=== PATIENT | female | born 1990 ===

== ENCOUNTER 2023-03-04 10:57 | Outpatient (AMB) | payer BC, MEDICAID, SELFPAY ==
[2023-03-04 11:00] VITALS: BP 132/80; PULSE 70; O2SAT 99; BMI 31.3
--- NOTE | 2023-03-04 11:00 | MHC.PC.OV ---
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 Dr Matthias Barbosa [place] Last office visit/CPE: a few mos ago; switched insurance Acute issue(s): Exertional chest pain. Stops within 10 minutes of resting. Uses propranolol 60mg daily. Had a radiological technologist - needs a new one. Depression/anxiety -re-stablished with her therapist about a week ago. PMHx: Depression with anxiety, imbalance, Tremors, GERD, Palpitations, HTN, Bile reflux SurgHx: [place] teeth, cholecystectomy, appendectomy, FHx: Pt adopted so limited data. GF: Heart disease. SocHx: Nonsmoker. EtOH none. No drugs. HPI Comments History of Present Illness Details Documentation assistance for Jhon Garcia MD, was provided by Boni Jameson,? Sales Representative [employer] on 03/04/2023 11:40 AM EST. Micaela, Dr. Garcia, have read, observed, and verified documentation. PFS Medical History (Updated 03/04/23 @ 11:45 by Boni Jameson) Depression Anxiety Imbalance Tremors of nervous system Acid reflux Palpitations High blood pressure Sinusitis delivery delivered Elbow injury Surgical History (Updated 03/04/23 @ 11:10 by Gemini Ashton CMA) [place] teeth extracted Hx of cholecystectomy Hx of appendectomy Family History (Updated 03/04/23 @ 11:15 by Gemini Ashton CMA) Father Asthma Maternal Grandmother High blood pressure Diabetes Paternal Grandfather High blood pressure Cardiovascular system problem Brother Asthma Social History (Updated 03/04/23 @ 11:22 by Gemini Ashton [facility]) Household Members: Family Housing: Apartment Are you a primary memory care program resident to a significant other at home: Yes Alcohol intake: never Patient Tobacco Use Status: Never used Tobacco e-Cigarette/Vaping Use: Never Used Use of substances other than those prescribed or required for medical reasons: No Have you been hit, kicked, punched, or otherwise hurt by someone within the past year? 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 1. Little interest or pleasure in doing things: several days 2. Feeling down, depressed, or hopeless: several days 3. Trouble falling or staying asleep, or sleeping too much: more than half the days 4. Feeling tired or having little energy: several days 5. Poor appetite or overeating: several days 6. Feeling bad about yourself - or that you are a failure or have let yourself or your family down: not at all 7. Trouble concentrating on things, such as reading the newspaper or watching television: not at all 8. Moving or speaking so slowly that other people could have noticed. Or the opposite - being so fidgety or restless that you have been moving around a lot more than usual: not at all 9. Thoughts that you would be better off or of hurting yourself in some way: not at all Total score: 6 Source: Developed by Drs. Devin Larson, Kimmy Grijalva, Francisco Park and colleagues, with an educational maggi from [employer]. Thrive Questionnaire Date Thrive assessed: 03/04/23 I am a: Patient What is your living situation today?: I have a steady place to live Within the past 12 months, did the food you bought not last and you didn't have the money to get more?: Sometimes True Within the past 12 months, did you worry whether your food would run out before you got money to buy more?: Never true Do you have trouble paying for medicines?: No Do you have trouble getting transportation to medical appointments?: No Do you have trouble paying your heating and electricity bill?: No Do you have trouble taking care of your child, family member or friend?: No Do you have trouble with day-to-day activities such as bathing, preparing meals, shopping, managing finances, etc.?: No Are you currently unemployed and looking for a job?: No Are you interested in more education?: No THRIVE Score: 1 AUDIT C Alcohol Use Questionnaire (AUDIT-C) 1. How often do you have a drink containing alcohol?: Never 3. How often do you have six or more drinks on one occasion?: Never Total Score: 0 LEILANI-7 AMB Questionnaire LEILANI-7 Date LEILANI - 7 assessed: 03/04/23 Feeling nervous, anxious, or on edge: 1 = Several days Not being able to stop or control worryin = Not at all Worrying too much about different things: 1 = Several days Trouble relaxin = Several days Being so restless that it is hard to sit still: 0 = Not at all Becoming easily annoyed or irritable: 1 = Several days Feeling afraid as if something awful might happen: 1 = Several days Total LEILANI-7 score (0-4 normal; 5-9 mild; 10-14 moderate; 15-21 severe): 5 Source: Developed by Drs. Devin Larson, Kimmy Grijalva, Francisco Park and colleagues, with an educational maggi from [employer]. Review of Systems Const Denies chills, Denies fatigue, Denies fever(s), Denies headache(s) and Denies weakness ENT Denies dizziness and Denies headache(s) Card Denies chest pain, Denies lightheadedness, Denies dyspnea and Denies other (Palpitations) Resp Denies cough, Denies dyspnea, Denies wheezing and Denies other ( shortness of breath) Musc Denies numbness and Denies tingling Neuro Denies dizziness, Denies headache(s), Denies numbness, Denies tingling, Denies paresthesias and Denies weakness Psych Reports anxiety and Denies depression Endo Denies fatigue Aller/Immun Denies wheezing Physical exam (Primary Care) Vital Signs: Last Vital Signs Pulse 70 03/04/23 11:00 BP 132/80 03/04/23 11:00 Pulse Ox 99 03/04/23 11:00 Oxygen Delivery Method Room Air 03/04/23 11:00 BMI result Body Mass Index 31.3 Tobacco/Smoking Status: Tobacco use Status Tobacco use date assessed 03/04/23 03/04/23 11:18 Patient Tobacco Use Status Never used Tobacco 03/04/23 11:22 e-Cigarette/Vaping Use Never Used 03/04/23 11:18 PHQ-9: PHQ-9 Score PHQ-9: Total score 6 03/04/23 11:23 Thrive Assessment: Date of Thrive Assessment Date Thrive assessed 03/04/23 03/04/23 11:18 Const General: no acute distress and well developed Nutritional Appearance: obese Orientation/consciousness: patient oriented x3 HENMT Head: Yes normocephalic and Yes atraumatic Eyes General: appearance normal, both eyes and all related structures Pupils: Equal, round and reactive pupils present EOM: EOMs intact bilaterally Resp Effort & Inspection: normal respiratory effort Auscultation: clear to auscultation bilaterally Cardio Rate: regular rate Rhythm: regular rhythm Heart sounds: S1 normal heart sound present, S2 normal heart sound present, no gallops, no murmurs and no rubs Neuro General: patient oriented x3 and gait normal Cranial nerves: Yes Equal, round and reactive pupils present Psych Affect: normal affect Assessment and Plan Assessment & Plan (1) High blood pressure: Code(s): I10 - Essential (primary) hypertension Plan: Pressure?shows?fair?control?on?propranolol?ER?60?mg?daily She?can?continue?this (2) Chest pressure: Code(s): R07.89 - Other chest pain Plan: Patient?has?complaints?of?exertional?chest?pressure?which?improves?with?rest. She?has?had?numerous?workups?at?the?emergency?department?including?an?echocardiogram. Patient?is?adopted?on?certain?of?most?of?her?family?history EKG?today?shows: She?has?had?a?radiological technologist?in?the?past. Will?request?records Will?refer?to?Cardiology. We?discussed?that?if?workups?continue?to?be?unrevealing,?this?would?likely?be?due?to?anxiety.??Patient?understands. (3) Palpitations: Code(s): R00.2 - Palpitations Plan: As?above (4) Depression with anxiety: Code(s): F41.8 - Other specified anxiety disorders Plan: Currently?on?mirtazapine.??She?has?had?a?therapist?and?psychiatrist?in?the?past. She?reestablished?with?her?therapist?last?week?and?I?encouraged?this.??Also?encouraged?her?to?request?that?her?therapist?consider?referring?her?back?to?Psychiatry?as?well. (5) Shoulder pain: Code(s): M25.519 - Pain in unspecified shoulder Plan: Referred?to?physical?therapy (6) Cervicalgia: Code(s): M54.2 - Cervicalgia Plan: Will?refer?her?to?physical?therapy (7) Hip pain: Code(s): M25.559 - Pain in unspecified hip Plan: As?above,?physical?therapy (8) Sleep apnea: Code(s): G47.30 - Sleep apnea, unspecified Plan: Referred?to?Sleep?Medicine (9) Bile acid esophageal reflux: Code(s): K21.9 - Gastro-esophageal reflux disease without esophagitis Plan: She?can?follow-up?with?her?gallbladder?surgeon We?could?also?discuss?bile?sequestrant?at?a?subsequent?visit. (10) Laboratory exam ordered as part of routine general medical examination: Code(s): Z00.00 - Encounter for general adult medical examination without abnormal findings Plan: Check?lab (11) Left-sided chest wall pain: Code(s): R07.89 - Other chest pain Plan: This?appears?different?from?her?complaint?of?exertional?chest?pain.??Discomfort?is?with?deep?inspiration?and?palpation. We?can?follow-up?on?this?if?not?improved?with?physical?therapy Orders: Orders AMB EKG-In Office Today R00.2 - Palpitations, R07.89 - Other chest pain Complete Blood Count Auto Diff Today Z00.00 - Encounter for general adult medical examination without abnormal findings Microalbumin, Random (w Creat) Today I10 - Essential (primary) hypertension Vitamin D 25-OH Total Today E55.9 - Vitamin D deficiency, unspecified Comprehensive Divide. Panel Fast Today Z00.00 - Encounter for general adult medical examination without abnormal findings Lipid Panel Today Z00.00 - Encounter for general adult medical examination without abnormal findings UA and rflx microscopic Today Z00.00 - Encounter for general adult medical examination without abnormal findings TSH reflex Free T4 Today Z00.00 - Encounter for general adult medical examination without abnormal findings PT Evaluation and Treatment Today M25.519 - Pain in unspecified shoulder, M25.559 - Pain in unspecified hip, M54.2 - Cervicalgia Referrals Sleep Medicine Referral G47.30 - Sleep apnea, unspecified Coding Level of Care Code New Pt Level 4 (26266) Diagnoses High blood pressure I10 Chest pressure R07.89 Palpitations R00.2 Depression with anxiety F41.8 Shoulder pain M25.519 Cervicalgia M54.2 Hip pain M25.559 Sleep apnea G47.30 Bile acid esophageal reflux K21.9 Laboratory exam ordered as part of routine general medical examination Z00.00 Left-sided chest wall pain R07.89
== END 2023-03-04 12:57 | disposition home or self-care (01) ==
PROVIDERS: PCP Family Medicine; Visit Provider Family Medicine
DX: I10 Essential (primary) hypertension (principal); R07.89 Other chest pain; R00.2 Palpitations; F41.8 Other specified anxiety disorders; M25.519 Pain in unspecified shoulder; M54.2 Cervicalgia; M25.559 Pain in unspecified hip; G47.30 Sleep apnea, unspecified; K21.9 Gastro-esophageal reflux disease without esophagitis; Z00.00 Encounter for general adult medical examination without abnormal findings
CPT/HCPCS: 99204

== ENCOUNTER 2023-04-04 09:06 | Outpatient (AMB) | payer BC, MEDICAID, SELFPAY ==
--- NOTE | 2023-04-04 09:08 | AM.OFFWIN_ITS ---
Intake Vital Signs 04/04/23 09:09 Height 5 ft 3 in Weight 179 lb BMI 31.7 BP 102/68 Blood Pressure Location Lt brachial Position Sitting Respiration 12 Pulse 89 Pulse Source Pulse Oximeter Temp 98.3 F Temp Source Oral Pulse Oximetry (%) 98 Oxygen Delivery Method Simple Mask Intake Visit Reasons: sore throat Intake Note: Patient reports she has had recurrent strep and now has a sore throat/difficulty swallowing. Patient Tobacco Use Status: Never used Tobacco Archeology Professor Required: No Accompanied by: Self / Same As Patient Allergies SSRI Adverse Reaction (Mild, Uncoded 04/04/23 09:22) Seratonin syndrome Medication List - Last Reconciled 04/04/23 by VIJAY Ring-UNA mirtazapine 30 mg PO BEDTIME propranolol ER 60 mg PO DAILY Do you need a note to return to daycare/school/sports/work: Yes HPI HPI Comments History of Present Illness Details Here today with: Strep throat 1 month ago tx w/ Amoxicillin, completed course. Med claims reviewed she was treated with amoxicillin 500 mg p.o. b.i.d. times 10 days on 03/07/2023 Stomach bug Tuesday - resolved on Tuesday. Sore throat came on Tuesday night. Reports feels like strep hard time swallowing, throat feels like something is in there, headache and fever last night Used APAP which helped a little. [facility] Medical History (Updated 04/04/23 @ 09:30 by VIJAY Ring-UNA) Depression Anxiety Imbalance Tremors of nervous system Acid reflux Palpitations High blood pressure Sinusitis delivery delivered Elbow injury Surgical History (Updated 03/04/23 @ 11:10 by Gemini Ashton CMA) [place] teeth extracted Hx of cholecystectomy Hx of appendectomy Family History (Updated 03/04/23 @ 11:15 by Gemini Ashton CMA) Father Asthma Maternal Grandmother High blood pressure Diabetes Paternal Grandfather High blood pressure Cardiovascular system problem Brother Asthma Social History (Updated 03/04/23 @ 11:22 by Gemini Ashton CMA) Household Members: Family Housing: Apartment Are you a primary nurse healthcare manager to a significant other at home: Yes Alcohol intake: never Patient Tobacco Use Status: Never used Tobacco e-Cigarette/Vaping Use: Never Used Special valentin needs: Yes service: No 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 occupational status: 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 Cognitive needs: No Hearing needs: No (patient is having tinnitis.) Vision needs: Yes (patient wears glasses) Review of Systems Const All systems reviewed & are unremarkable except as noted in HPI and below Physical Exam Vital Signs: Last Vital Signs Temp 98.3 F 04/04/23 09:09 Pulse 89 04/04/23 09:09 Resp 12 04/04/23 09:09 BP 102/68 04/04/23 09:09 Pulse Ox 98 04/04/23 09:09 Oxygen Delivery Method Simple Mask 04/04/23 09:09 BMI result Body Mass Index 31.7 Const Other: Awake alert NAD Sclera and conjunctiva clear bilat TM intact and clear bilat Nares patent MMM, pharynx with exudative pharyngitis, positive anterior cervical adenopathy bilat RRR LS CTAB Results AMB Rapid Strep AMB Rapid Strep Positive Last Edit by Letha Garcia CMA on 4 09:24 Assessment & Plan Assessment & Plan (1) Acute streptococcal pharyngitis: Code(s): J02.0 - Streptococcal pharyngitis Plan: Rapid strep positive today. Orders: Orders AMB Rapid Strep Screen Today Z13.9 - Encounter for screening, unspecified Medications: New amoxicillin-pot clavulanate 875-125 mg 1 tab PO Q12H 10 days 20 tabs 0RF Patient Instructions: Good hand hygiene and respiratory etiquette can reduce the spread of all types of group A strep infection. Hand hygiene is especially important after coughing and sneezing and before preparing foods or eating. Good respiratory etiquette involves covering your cough or sneeze. Do not share food or drinks. Treating an infected person with an antibiotic for 12 hours or longer limits their ability to transmit the bacteria. Thus, people with group A strep pharyngitis should stay home from work, school, or daycare until: They are afebrile AND At least 12?24 hours after starting appropriate antibiotic therapy I also recommend changing toothbrush and washing bed linen in hot water 24 hours after starting antibiotics. Coding Level of Care Code Est Pt Level 3 (72627) Diagnoses Acute streptococcal pharyngitis J02.0
[2023-04-04 09:09] VITALS: BP 102/68; PULSE 89; RESP 12; TEMP 36.8; O2SAT 98; BMI 31.7
== END 2023-04-04 09:32 | disposition home or self-care (01) ==
PROVIDERS: PCP Family Medicine; Visit Provider Nurse Practitioner Family
DX: J02.0 Streptococcal pharyngitis (principal); J02.9 Acute pharyngitis, unspecified
CPT/HCPCS: 87880; 99213

== ENCOUNTER 2023-04-19 10:37 | Outpatient (REF) | payer BC, MEDICAID, SELFPAY ==
[2023-04-19 11:39] LABS: Appearance Urine Clear; Color Urine Yellow; Glucose Urine UA Negative (Negative); Leukocyte Esterase Urine Negative (Negative); Nitrite Urine Negative (Negative); PH 5.5 (5.0-9.0); Urine Blood Negative (Negative); Urine Ketones Negative (Negative); Urine Protein Negative (Neg-Trace)
[2023-04-19 11:39] LABS: Basophils Percent Auto 0.5 % (0-2); Eosinophils Absolute Auto 0.3 X10*3/uL (0.0-0.4); Eosinophils Percent Auto 4.2 % (0-4); Hematocrit 38.8 % (37.0-47.0); Hemoglobin 13.3 g/dl (12.0-16.0); Imm Gran Abs Auto 0.02 X10*3/uL (0.00-0.03); Imm Gran Pct Auto 0.3 % (0.0-0.4); Lymphocytes Absolute Auto 2.2 X10*3/uL (1.2-4.9); Lymphocytes Percent Auto 29.6 % (20-40); MANUAL DIFF FLAG NO; Mean Corpuscular HGB Conc 34.3 g/dl (31.0-35.0); Mean Corpuscular Hemoglobin 29.1 pg (27.0-33.0); Mean Corpuscular Volume 84.9 fL (80.0-98.0); Mean Platelet Volume 9.1 fL (9.4-12.3); Monocytes Absolute Auto 0.4 X10*3/uL (0.1-1.2); Monocytes Percent Auto 5.8 % (2-11); Neutrophils Absolute Auto 4.5 x10*3/uL (2.0-8.3); Neutrophils Percent Auto 59.6 % (45-73); Platelet Count 272 X10*3/uL (160-400); Red Blood Count 4.57 X10*6/uL (4.20-5.50); Red Cell Distribution Width 12.6 % (11.0-16.0); White Blood Count 7.5 X10*3/uL (4.8-10.8)
[2023-04-19 12:25] LABS: Alanine Aminotransferase 21 U/L (0-31); Alkaline Phosphatase 82 U/L (39-117); Anion Gap 10 (12-20); Aspartate Amino Transferase 17 U/L (5-31); Bilirubin Total 0.3 mg/dL (0.0-1.0); Blood Urea Nitrogen 15 mg/dL (9-16); Calcium 8.7 mg/dL (8.4-10.2); Carbon Dioxide 25 mmol/L (22-29); Chloride 109 mmol/L (96-108); Cholesterol 150 mg/dL (<200); Estimated Glomerular Filt Rate > 60; Glucose Fasting 94 mg/dL (60-99); HDL Cholesterol 39 mg/dL (>40); LDL Cholesterol Calculated 91 mg/dL (<100); Potassium 3.8 mmol/L (3.3-5.1); Sodium 140 mmol/L (135-145); TSH reflex Free T4 1.61 uIU/mL (0.32-4.0); Total Protein 6.8 g/dL (6.5-8.0); Triglycerides 103 mg/dL (<150); Vitamin D 25-OH Total 26.6 ng/mL (>30)
[2023-04-19 12:39] LABS: Creatinine Urine 128.52 mg/dL; Microalbum/Creatinine Ratio Ur 4.6 ug/mg cr (<30)
== END 2023-04-19 10:38 | disposition home or self-care (01) ==
LOC: HO.WFDLDS 10:37
PROVIDERS: Visit Provider Family Medicine
DX: Z00.00 Encounter for general adult medical examination without abnormal findings (principal); E55.9 Vitamin D deficiency, unspecified; I10 Essential (primary) hypertension
CPT/HCPCS: 36415; 80053; 80061; 81003; 82043; 82306; 82570; 84443; 85025

== ENCOUNTER 2023-06-23 13:17 | Outpatient (AMB) | payer BC, MEDICAID, SELFPAY ==
--- NOTE | 2023-06-23 13:28 | MHC.OFFVIS ---
Vital Signs 06/23/23 13:32 Height 5 ft 3 in Weight 192 lb 2 oz BMI 34.0 BP 115/64 Blood Pressure Location Lt femoral Position Sitting Pulse 65 Pulse Source Pulse Oximeter Pulse Oximetry (%) 97 Oxygen Delivery Method Room Air Intake Visit Reasons: INP Sleep Apnea - Confirmed Intake Note: Patient presents for sleep apnea. No problem falling asleep is staying asleep is a issue. Sometimes wakes up gasping and coughing during the night. Waking up occasionally with headaches in the am. Having trouble waking up in the morning and body feels heavy and tired. Mostly all day feeling fatigue. Allergies SSRI Adverse Reaction (Mild, Uncoded 04/04/23 09:22) Seratonin syndrome Medication List - Last Reconciled 06/23/23 by VIJAY Clinton mirtazapine 30 mg PO BEDTIME propranolol ER 60 mg PO DAILY HPI Comments Details: 32-yr-old female presents for new in-person patient visit for sleep consultation. PMH included anemia, depression, headache. GERD, HTN, preeclampsia, Pt reports long history of sleep difficulties. However, her sleep issues have worsened after she had her last child, 17 months ago. The and delivery were uneventful. States it was only after the that she started having new issues. Had preeclampsia w/in 24 hr and BP has remained elevated since. She previously had postpatrum preeclampsia w/ her twins (5 yrs ago). She has noticed increased snoring, gasping arousals, morning headaches (dull ache over the left eye to ear region not a/w photo/phonophobia or N/V), weight gain. She has also noticed bilateral ringing in her ears x's the last 9 months. Occasional dizziness- was prominent after she had her last child but now improved. Sleep questionnaire: Have you ever been diagnosed with a sleep disorder? No Have you ever had a sleep study in the past? No Have you ever been treated for a sleep disorder? No Do you take medications for a sleep disorder? No Do you snore? Yes Do you wake up gasping at night? Yes Do you have episodes of apneas? No If yes, are they witnessed? n/a Do you have difficulty initiating sleep? No Do you have difficulty maintaining sleep? Yes- wakes up 6 x's per night Do you wake up tired? Yes Do you have headaches upon awakening? Yes- brief- as above Do you wake up with dry mouth or throat? Denies Do you have GERD? Yes- taking sea yeung gel. cutting back on chocolate. Do you have daytime tiredness or fatigue? Yes Do you have nocturnal leg cramps? Rare foot cramps/aches/tinglings. Do you have symptoms of restless legs? As a child. Occasionally during menses, legs may ache. Do you act out your dreams? Denies. Sleep hygiene questionnaire: What is your usual sleep routine? Usual bedtime is at 11pm-12am; Usual wake-up time is at 8-9am, sometimes 11am. Do you take naps? May nap, but then sleeps for 4 hrs- but these are not refreshing Is your sleep environment cool, dark, and quiet? Not very- her bedroom is a dining room converted to a bed room. Do you exercise? Lately taking 1 mile walks, weighted hooping, stair climbing, core stretching. Do you take caffeine or other stimulants? Sometimes Renato Sharma- at the latest 9pm- has been cutting down. Do you use electronics in bed? 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 Hypersomnolence questionnaire: Do you easily fall asleep when inactive? Yes Have you ever had episodes of sudden weakness? No Have you ever had episodes of sudden weakness associated with strong emotions? No [facility] Medical History (Updated 06/23/23 @ 14:25 by VIJAY Clinton) Depression Anxiety Imbalance Tremors of nervous system Acid reflux Palpitations High blood pressure Sinusitis delivery delivered Elbow injury Surgical History [place] teeth extracted Hx of cholecystectomy Hx of appendectomy Family History Father Asthma Maternal Grandmother High blood pressure Diabetes Paternal Grandfather High blood pressure Cardiovascular system problem Brother Asthma Social History Household Members: Family Housing: Apartment Are you a primary intensive care anaesthetist to a significant other at home: Yes Alcohol intake: never Patient Tobacco Use Status: Never used Tobacco e-Cigarette/Vaping Use: Never Used Special valentin needs: Yes service: No 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 occupational status: 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 Cognitive needs: No Hearing needs: No (patient is having tinnitis.) Vision needs: Yes (patient wears glasses) Review of Systems Const All systems reviewed & are unremarkable except as noted in HPI and below Physical Exam Vital Signs: Last Vital Signs Pulse 65 06/23/23 13:32 BP 115/64 06/23/23 13:32 Pulse Ox 97 06/23/23 13:32 Oxygen Delivery Method Room Air 06/23/23 13:32 BMI result Body Mass Index 34.0 Const General: no acute distress Orientation/consciousness: patient oriented x3 HEENT Other: Mallampati stage IV Resp Effort & Inspection: able to speak in complete sentences Cardio Rate: regular rate Rhythm: regular rhythm Neuro General: patient oriented x3 Psych Mental Status: mental status grossly normal Speech and movement: Clear speech present Attitude: cooperative Assessment & Plan Assessment & Plan (1) Sleep difficulties: Code(s): G47.9 - Sleep disorder, unspecified Category: Medical (2) Snoring: Code(s): R06.83 - Snoring Category: Medical (3) Excessive daytime sleepiness: Code(s): G47.19 - Other hypersomnia Category: Medical Plan Pt advised to undergo HST to assess for sleep apnea. Discussed strategies to optimize sleep hygiene- such as avoiding caffeine 6-8hrs before bedtime. Pt may benefit from reading/listening to [employer] to Insomnia by Dr Jovan oStelo or similar CBTi resources- list of resources shared w/ pt. Monitor tremors and headaches. Pt seen in c/w Dr Mabel Lyons. Orders: Orders RT home sleep study 06/23/23 G47.19 - Other hypersomnia, G47.9 - Sleep disorder, unspecified, R06.83 - Snoring Coding Level of Care Code New Pt Level 4 (65302) Diagnoses Sleep difficulties G47.9 Snoring R06.83 Excessive daytime sleepiness G47.19 Widener Sleepiness Scale Questions Sitting and reading: moderate chance of dozing Watching TV: moderate chance of dozing Sitting inactive in a theater, movie etc.: would never doze As a passenger in a car for an hour without break: high chance of dozing Lying down in the afternoon when circumstances permit: moderate chance of dozing Sitting and talking to someone: would never doze Sitting quietly after lunch without alcohol: high chance of dozing In a car, while stopped for a few minutes in the traffic: would never doze ESS < 10: normal, ESS > 12: pathologic: 12
[2023-06-23 13:32] VITALS: BP 115/64; PULSE 65; O2SAT 97; BMI 34.0
== END 2023-06-23 14:32 | disposition home or self-care (01) ==
PROVIDERS: PCP Registered Nurse; Visit Provider Nurse Practitioner Family
DX: G47.9 Sleep disorder, unspecified (principal); R06.83 Snoring; G47.19 Other hypersomnia
CPT/HCPCS: 99204

== ENCOUNTER → 2023-06-23 13:17 | Outpatient (BNVA) | payer BC, MEDICAID, SELFPAY | PROVIDERS: PCP Registered Nurse; Visit Provider Nurse Practitioner Family ==

== ENCOUNTER → 2023-08-01 13:58 | Outpatient (REF) | payer BC, MEDICAID, SELFPAY | LOC: HO.SL 13:58 | PROVIDERS: PCP Registered Nurse; Visit Provider Nurse Practitioner Family | DX: G47.9 Sleep disorder, unspecified (principal); G47.19 Other hypersomnia; R06.83 Snoring | CPT/HCPCS: 95806 ==

== ENCOUNTER → 2023-08-01 14:43 | Outpatient (BNV) | payer BC, MEDICAID, SELFPAY | PROVIDERS: PCP Registered Nurse; Visit Provider Psychiatry & Neurology Neurology | DX: R06.83 Snoring (principal); R40.0 Somnolence | CPT/HCPCS: 95806 ==

== ENCOUNTER 2023-08-05 09:00 | Outpatient (RCR) | payer BC, MEDICAID, SELFPAY ==
[2023-06-24 08:50] VITALS: BP 130/70; PULSE 64; O2SAT 97
== END 2024-03-09 09:18 | disposition home or self-care (01) ==
LOC: HO.PTWFD 09:00
PROVIDERS: PCP Registered Nurse; Visit Provider Family Medicine
DX: M54.2 Cervicalgia (principal)
CPT/HCPCS: 97110; 97140; 97162; 97530

== ENCOUNTER 2024-01-09 09:52 | Outpatient (AMB) | payer BC, MEDICAID, SELFPAY ==
--- NOTE | 2024-01-09 10:04 | A.OFFVIS_ITS ---
Vital Signs 01/09/24 10:07 Height 5 ft 3 in Weight 193 lb BMI 34.2 BP 128/80 Blood Pressure Location Rt brachial Position Sitting Pulse 78 Pulse Source Pulse Oximeter Pulse Oximetry (%) 98 Oxygen Delivery Method Room Air Intake Visit Reasons: 6 Month F/U Intake Note: Patient presents for a 6 mo fu - Sleep apnea Coordinate Measuring Equipment Operator Required: No Accompanied by: Self / Same As Patient Allergies SSRI Adverse Reaction (Mild, Uncoded 01/05/24 15:51) Seratonin syndrome Medication List - Last Reconciled 01/09/24 by Elías Schwab PA-C mirtazapine 30 mg PO BEDTIME propranolol ER 60 mg PO DAILY ubrogepant (Ubrelvy) 1 tab at onset of headache s, repeat in 2 hrs if needed - max 4 tabs /day PRN; HPI Comments Details: 32-yr-old female h/o cyclic headaches presents for Sleep Study f/u. PMH included anemia, depression, headache. GERD, HTN, preeclampsia, New glasses Feb 2024, she is having vertigo and tremors, hands constantly shaky when she wakes up feels shaky all over the body and it subsides with Propanolol use. BP 128/80, today, usual elevated 140s/90s. during her cycle and post menses. Children aged 10, 8, 5x2 twins, 2. Continued headaches, tightness like a band around the head, ears, and frontalis radiating backwards, cyclic 3-4 a month and mild ones lasting one day, severe headaches, static like, vision changes, since the of twins. Now having word finding difficulty, groggy and slurred speech, but goes away when she increases water and lays down. She takes Ibuprofen, and tylenol as needed. Hearing tinnitus, feels like she has an audible sound in the AM or when hungry or randomly, hears it in the back of her neck, like rice . Sees Practicioner at [facility] - [place] was low and started taking Vitamin C with Iron. (VITRON) - Vahe Recently was DX with PCOS. Her mood is marvin, has a good support network, , parents, [id number], she crochets for fun and reads. ESS today: Hypersomnia PFSH Medical History Depression Anxiety Imbalance Tremors of nervous system Acid reflux Palpitations High blood pressure Sinusitis delivery delivered Elbow injury Surgical History [place] teeth extracted Hx of cholecystectomy Hx of appendectomy Family History Father Asthma Maternal Grandmother High blood pressure Diabetes Paternal Grandfather High blood pressure Cardiovascular system problem Brother Asthma Social History Household Members: Family Housing: Apartment Are you a primary home care manager to a significant other at home: Yes Alcohol intake: never Patient Tobacco Use Status: Never used Tobacco e-Cigarette/Vaping Use: Never Used Special valentin needs: Yes service: No Current occupational status: 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 Oxygen Evert 84% Assessment & Plan Assessment & Plan (1) Excessive daytime sleepiness: Code(s): G47.19 - Other hypersomnia Category: Medical (2) Cervicalgia: Code(s): M54.2 - Cervicalgia Category: Medical (3) Severe frontal headaches: Code(s): R51.9 - Headache, unspecified Category: Medical Plan Patient continues to have cyclic headaches instructed to keep Migraine Diary- Migraine Sheldon chrissie Ubrelvy (Qulipta) 50mg PO daily 1 tab at onset of headache s, repeat in 2 hrs if needed - max 4 tabs /day PRN PT for Cervicalgia B2- 400mg PO Daily Magnesium 400mg PO Daily Follow up in 4 months after she completes the Polysomnography in Clinic Orders: Orders RT PSG in-lab sleep study Today G47.19 - Other hypersomnia, R06.83 - Snoring PT Evaluation and Treatment Today M54.2 - Cervicalgia Medications: New ubrogepant (Ubrelvy) 1 tab at onset of headache s, repeat in 2 hrs if needed - max 4 tabs /day PRN; 14 tabs 6RF migraine riboflavin (vitamin B2) 400 mg PO DAILY 30 tabs 3RF magnesium oxide 400 mg PO DAILY 30 tabs 3RF M54.2 - Cervicalgia Coding Level of Care Code Est Pt Level 4 (21785) Diagnoses Excessive daytime sleepiness G47.19 Cervicalgia M54.2 Severe frontal headaches R51.9 24 B/P Monitor Interpretation Procedure code (CPT) selection complete [place] Sleepiness Scale Questions Sitting and reading: high chance of dozing Watching TV: moderate chance of dozing Sitting inactive in a theater, movie etc.: high chance of dozing As a passenger in a car for an hour without break: high chance of dozing Lying down in the afternoon when circumstances permit: high chance of dozing Sitting and talking to someone: slight chance of dozing Sitting quietly after lunch without alcohol: moderate chance of dozing In a car, while stopped for a few minutes in the traffic: moderate chance of dozing ESS < 10: normal, ESS > 12: pathologic: 19
[2024-01-09 10:07] VITALS: BP 128/80; PULSE 78; O2SAT 98; BMI 34.2
== END 2024-01-09 10:56 | disposition home or self-care (01) ==
PROVIDERS: PCP Family Medicine; Visit Provider Physician Assistant Medical
DX: G47.19 Other hypersomnia (principal); M54.2 Cervicalgia; R51.9 Headache, unspecified
CPT/HCPCS: 99214

== ENCOUNTER → 2024-01-09 09:52 | Outpatient (BNVA) | payer BC, MEDICAID, SELFPAY | PROVIDERS: PCP Family Medicine; Visit Provider Nurse Practitioner Family ==

== ENCOUNTER → 2024-02-02 21:09 | Outpatient (BNV) | payer BC, MEDICAID, SELFPAY | PROVIDERS: PCP Family Medicine; Visit Provider Psychiatry & Neurology Neurology | DX: R06.83 Snoring (principal) | CPT/HCPCS: 95810 ==

== ENCOUNTER → 2024-02-02 21:44 | Outpatient (REF) | payer BC, MEDICAID, SELFPAY | LOC: HO.SL 21:44 | PROVIDERS: PCP Family Medicine; Visit Provider Physician Assistant Medical | DX: G47.19 Other hypersomnia (principal); R06.83 Snoring | CPT/HCPCS: 95810 ==

== ENCOUNTER 2024-03-29 09:00 | Outpatient (RCR) | payer BC, MEDICAID, SELFPAY ==
--- NOTE | 2024-02-24 12:29 | MHC.PT.EP ---
[facility] [place] [facility] [place] [facility] [place] [facility] [address] Rissa Ayers [address] [phone] F: [phone] F: [phone] F: [phone] F: [phone] Physical Therapy Plan of Care Date of Evaluation: 02/24/24 Date of Surgery: Diagnosis: Cervicalgia M54.2 signed by Elías Schwab [facility] 01/09/24 Assessment: Pt is a RHD 33 y/o female with PMH significant for: Depression Anxiety Imbalance Tremors of nervous system Acid reflux Palpitations High blood pressure Sinusitis delivery delivered Elbow injury, referred, [place] teeth extracted Hx of cholecystectomy Hx of appendectomy, to PT for treatment, Cervicalgia M54.2 signed by Elías Schwab [facility] 01/09/24. Pt expressing she has recently had her BP medication adjusted by her mechanical product engineer (still on propranolol, was placed on HCTZ then off of HCTZ due to low potassium) which she states has reduced her dizzy spells. She reports addition of recent supplements magnesium, B2, which she states has reduced her sx of fatigue/word findings issue but also admits to a lot of stress at home. 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 Today she demonstrated (-) neuro screening, normal oculomotor screen, and C/S screening She expresses mild neck pain, tension, and tightness which could be a factor to her headaches sx. She also correlates her headache/migraine sx to her monthly cycle. She reports seeing a provider in the past who questioned her having POTS syndrome and states at one time she was referred to obtain a tilt test which she never got done prior to [place]. SHe has been doing cardio 20-30 minutes for exercise and does report checking her BP at home. She sees mechanical product engineer from [facility], next appt is in a few weeks. She will benefit from attending skilled PT service 2x/week x 4 weeks to address impairments, implement HEP, and restore exercise activity mobility to improve overall health. She has been see for PT at this office in the past with good outcomes. She admits to lack of compliance with her HEP in recent months and has reported plan to shift PCP from [facility]> Dr. Garcia office in [facility] with PCP appt slated in July. Frequency and Duration: The patient will be seen 2x/week x 4 weeks. Short Term Goals: 1. Initiate self care/HEP program. 2. Reduce headache frequency by 50%. 3. Increase strength of periscap/RTC bilaterally B UE. Propeller Driven Airplane Mechanic Goals: 1. I HEP. 2. Strength ER 5/5 B UE. 3. Reduce headaches sx by 75% during ADLS/IADLS. 4. Self care MOD I. 5. NDI scoring improvement by 50%. Treatment Plan: Modalities to reduce pain, spasms and effusion. Manual therapy to restore motion and function. Therapeutic exercise to improve strength and flexibility. Neuromuscular re-education for posture and balance. Therapeutic activities to return to functional activities of daily living. Electronically signed by: Ruba Liu, PT, DPT Please sign and return to therapist. Thank you for your referral.
== END 2024-04-17 11:17 | disposition home or self-care (01) ==
LOC: HO.PTWFD 09:00
PROVIDERS: PCP Family Medicine; Visit Provider Physician Assistant Medical
DX: M54.2 Cervicalgia (principal)
CPT/HCPCS: 97110; 97140; 97162

== ENCOUNTER 2024-04-05 15:33 | Outpatient (AMB) | payer BC, MEDICAID, SELFPAY ==
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
[2024-04-05 15:46] VITALS: BP 114/82; PULSE 79; RESP 16; O2SAT 98; BMI 35.2
--- OUTSIDE RECORDS SUMMARY | 2024-04-05 16:33 | XMS_ITS ---
Author Organization [facility] [employer] [facility] Address [address] [place] [phone] Care Team Providers Care Tug Captain Name Role Phone VICTORINO SORIANO Primary Care Provider TWILA EDMONDS Unavailable [phone] ALLERGIES Allergen (clinical drug ingredient) Drug/Non Drug Allergy documented on EMR Reaction Allergy Type Onset Date Status Substance with serotonin re-uptake inhibitor mechanism of action (substance) SSRI's (uncoded) Serotonin Syndrome Allergy Active REASON FOR VISIT f/u 6w wellness MEDICATIONS Medication SIG (Take, Route, Frequency, Duration) Notes Start Date End Date Status Mirtazapine 30 MG 1 tablet at bedtime Orally Once a day for 90 days Active hydroCHLOROthiazide 25 MG 1 tablet in th e morning Orally Once a day Not-Taking Slynd 4 MG 1 tablet Orally Once a day Not-Taking Not-Taking Propranolol HCl ER 60 MG TAKE 1 CAPSULE BY MOUTH EVERY DAY for 90 Active Ondansetron HCl 4 MG 1 tablet Orally every 8 hours for 30 days PRN 09/21/2023 Active Drospirenone-Ethinyl Estradiol 3-0.02 MG 1 tablet Orally Once a day for 28 days 11/09/2023 Not-Taking metFORMIN HCl ER 500 MG 1 tablet with evening meal Orally Once a day for 30 days 12/23/2023 Not-Taking Multivitamin - 1 tablet Orally Once a day Active Famotidine 20 MG 1 tablet Orally twice a day for 90 days 09/21/2023 Active Beet Root 500 MG as directed Orally Active Stress B Active Vitamin D3 Active SOCIAL HISTORY Tobacco Use: Social History Observation Description Date Details (start date - stop date) Never Smoker NA - NA Sex Assigned At : Social History Observation Description Sex Assigned At Unknown Household Question Answer Notes Marital status: Number of adults in household: 2 Number of children in household: 5 Tobacco Use/Smoking Question Answer Notes Tobacco use: nonsmoker Section Notes: Lives in [place], [place] with and 5 children. PROBLEMS Problem Type ICD Code Onset Dates Problem Status W/U Status Risk SNOMED Code Notes Problem Sexual dysfunction, unspecified (R37) Active confirmed Sexual dysfunction ([id number]) VITAL SIGNS Blood pressure systolic 116 mm Hg 02/22/19 25 Blood pressure diastolic 72 mm Hg 025 Heart Rate 77 /min 02/23/2024 Height 63 in 02/23/2024 Weight 188.4 lbs 02/23/2024 BMI 33.37 kg/m2 02/23/2024 Oximetry 97 % 02/23/2024 Height-cm 160.02 cm 02/23/2024 Weight-kg 85.46 kg 02/23/2024 Encounters Encounter Location Date Provider Diagnosis [address] [id number] 02/23/2024 TWILA EDMONDS Insulin resistance syndrome E88.810 ; Essential (primary) hypertension I10 and Sexual dysfunction, unspecified R37 ASSESSMENTS Encounter Date Diagnosis Assessment Notes Treatment Notes Treatment Clinical Notes Section Notes 02/23/2024 Insulin resistance syndrome (ICD-10 - E88.810) Could not tolerate the metformin Went back to int fasting Low inflammatory foods Will recheck value in 3mo 02/23/2024 Essential (primary) hypertension (ICD-10 - I10) Continue beet root Exercise Weight loss Cardiology as scheduled 02/23/2024 Sexual dysfunction, unspecified (ICD-10 - R37) Discussed childhood trauma in relation to current function She is going to connect with MANAS Wants to reconnect in about 4-6 weeks at this time 02/23/2024 Other Total time spen t with patient 20 minutes which includes face to face visit, education and coordination of care. PLAN OF TREATMENT Treatment Notes Assessment Notes Insulin resistance syndrome Could not tolerate the metformin Went back to int fasting Low inflammatory foods Will recheck value in 3mo Essential (primary) hypertension Continue beet root Exercise Weight loss Cardiology as scheduled Sexual dysfunction, unspecified Discussed childhood trauma in relation to current function She is going to connect with MANAS Wants to reconnect in about 4-6 weeks at this time Other Total time spent wit h patient 20 minutes which includes face to face visit, education and coordination of care. Next Appt Details Follow Up: 6 Weeks, Reason: wellness Progress Notes * VIK DOTSONOB: 9 (33 yo F)Acc No.[id number]:02/23/2024 Progress Notes Patient:??NANETTE DOTSON Provider:??TWILA EDMONDS NP :1990?Age:33 Y?Sex:Fe male Date:02/23/2024 Phone: Address:[address] [place] [phone] Pcp:VICTORINO SORIANO Subjective: * Chief Complaints: * ?F/u 6w wellness * HPI: ?Patient Care Team:?Traffic Observer:??[facility].? Providers/Specialists: OBGYN: [facility], [place], [place] ?Dentist: ?Therapist: Chelsey Panda, [place] ?Senior Art Director: Dr Giraldo at [facility]. ?Visit info:? Nanette presents in the office today for a 6 month wellness check in. ?-Patient has stopped taking her Metformin or her control. ?-Did not have a good experience with the Metformin she had diarrhea, ache in her stomach, anxiety, dizziness, BP and HR elevated. ?-Not taking control as she had a hard time remembering to take it. ?-She has started intermittent fasting 5 weeks ago as well as exercising. 20 minutes a day of both the treadmill and elliptical and watching what she is eating. ?-Still on beet root supplement for BP; was on a diuretic but K level dropped so now just on propranolol ?-went to cardiology 6 weeks ago and thats when decided to restart int fasting ?-next cardiology visit in April ?-Has been to ER twice since last visit; had L pneumonia in January then Norovirus avel mirian ?-Nanette also expressed desire to address intimacy issues that she is having with due to her childhood trauma. * ROS:?all systems reviewed and are non-contributory unless specified in the HPI. * Medical History:?? 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 control??None.??Last pap smear date??2022 - normal per patient.?? * OB History:?? Histo ry:??Total pregnancies:??4,??Full-term pregnancies:??4,??Total living children:??5,??Multiple births:??1.??C section(s)??#3 Was a #4 Was a V-Fela.?? # 1:??Vaginal 2013.?? # 2:??Vaginal 2015.?? # 3??Multiple Births Vaginal/ 2018.?? # 4:??V-Fela 2021.?? * Surgical History:?? 2019Cholecystectomy 2019Appedectomy 2011Left Elbow Surgery 2009Wisdom Teeth Removed 2022(2) CT-Scan - Lungs Normal 2021MRI of the lungs - normal 2021 * Hospitalization/Major Diagno stic Procedure:?? 2019Post depression - 1 week OVID 2019 * Family History:??Father: ali ve, Asthma.??Mother: alive, Asthma, Asperger Syndrome.??Paternal Grandfather: alive, Unknown.??Paternal Grandmother: , Diabetes.??Maternal Grandfather: , Heart Disease.??Maternal Grandmother: , Depression.??Brother: alive, Asthma.??Sister: alive.??Brother #2: alive.??Sister #2: alive.?? Adopted. * Social History:?Tobacco Use:??Tobacco Use/Smoking??Tobacco use:??nonsmoker.?Drugs/Alcohol:??Do you smoke marijuana?: Denies. Do you drink alcohol?: No. 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 ?Lives in [place], [place] with and 5 children. * Medications:??TakingBeet Chana t 500 MG Capsule as directed Orally Stress B Vitamin D3 Multivitamin - Tablet 1 tablet Orally Once a day Famotidine 20 MG Tablet 1 tablet Orally twice a day Ondansetron HCl 4 MG Tablet 1 tablet Orally every 8 hours As needed for nausea, Notes to Pharmacist: PRNPropranolol HCl ER 60 MG Capsule Extended Release 24 Hour TAKE 1 CAPSULE BY MOUTH EVERY DAY Mirtazapine 30 MG Tablet 1 tablet at bedtime Orally Once a day Taking Beet Root 500 MG Capsule as directed Orally Taking Stress B Taking Vitamin D3 Taking Multivitamin - Tablet 1 tablet Orally Once a day Taking Famotidine 20 MG Tablet 1 tablet Orally twice a day Taking Ondansetron HCl 4 MG Tablet 1 tablet Orally every 8 hours As needed for nausea, Notes to Pharmacist: PRNTaking Propranolol HCl ER 60 MG Capsule Extended Release 24 Hour TAKE 1 CAPSULE BY MOUTH EVERY DAY Taking Mirtazapine 30 MG Tablet 1 tablet at bedtime Orally Once a day Atb-FsgbuxZdzclekrypub-Pwlfjia Estradiol 3-0.02 MG Tablet 1 tablet Orally Once a day metFORMIN HCl ER 500 MG Tablet Extended Release 24 Hour 1 tablet with evening meal Orally Once a day hydroCHLOROthiazide 25 MG Tablet 1 tablet in the morning Orally Once a day Slynd 4 MG Tablet 1 tablet Orally Once a day Medication List reviewed and reconciled with the patientNot-Taking Drospirenone-Ethinyl Estradiol 3-0.02 MG Tablet 1 tablet Orally Once a day Not-Taking metFORMIN HCl ER 500 MG Tablet Extended Release 24 Hour 1 tablet with evening meal Orally Once a day Not-Taking hydroCHLOROthiazide 25 MG Tablet 1 tablet in the morning Orally Once a day Not- Taking Slynd 4 MG Tablet 1 tablet Orally Once a day Not-Taking Medication List reviewed and reconciled with the patient * Allergies:??SSRI's: Serotoni n Syndrome - Allergy Objective: * Vitals:??BP:116/72mm Hg, HR: 77/min, Oxygen sat %:97%, Wt:188.4lbs, Wt-k.46 kg, Ht: 63 in, Ht-cm: 160.02 cm, BMI:33.37Index, Body Surface Area: 1.95. * Examination: ?General Examination: ?GEN: NAD, speaking in full complete sentences, thoughts clear and appropriate ?RESP: nonlabored breathing, lungs clear/equal all nichole ?CV: S1S2 regular ?NEURO: AO x 3 ?PSYCH: judgment/insight intact, NL mood/affect. Assessment: * Assessment: 1.??Insulin resistance syndr ome - E88.810 (Primary)??2.??Essential (primary) hypertension - I10??3.??Sexual dysfunction, unspecified - R37?? Plan: * Treatment: 2.??Essential (primary) hype rtension?? Notes: Continue beet root Exercise Weight loss Cardiology as scheduled? 3.??Sexual dysfunction, unsp ecified?? Notes: Discussed childhood trauma in relation to current function She is going to connect with MANAS Wants to reconnect in about 4-6 weeks at this time? 4.??Others?? Notes: Total time spent with patient 20 minutes which includes face to face visit, education and coordination of care.? * Procedure Codes:?? * Preventive Medicine:?Last CPE: 2021 Colonoscopy: NO Endoscopy: No COVID Vac: No Flu Vac: Does not believe as saved by the lord Td/Tdap: UTD Hep A/Hep B: educated LIFTER/DRIVER: Pap 2 years ago SBE: educated Eye Exam: UTD Dental Exam: due Depression Scale: neg except for fatigue Alcohol Misuse Screening: Smoking Cessation: nonsmoker Screened HTN, diabetes, BMI addressed. * Follow Up:??6 Weeks (Reason: wellness) * Billing Information: * Visit Code:?? 52031 Office Visit, Est Pt., Level 3. * Procedure Codes:?? * Sign off status: Completed true * Provider:??TWILA EDMONDS NP Date:?? History and Physical Notes * HPI (History of Present Illness) Category Sub-Category Detail Notes Category Not es Patient Care Team Traffic Observer: [facility] Providers/Specialis ts: [facility] [place] [facility]ist: Therapist: Ailin Coley [place], [place] Senior Art Director: Dr Giraldo at [facility] [place] Visit kita Costello presents in the office today for a 6 month wellness check in. -Patient has stopped taking her Metformin or her control. -Did not have a good experience with the Metformin she had diarrhea, ache in her stomach, anxiety, dizziness, BP and HR elevated. -Not taking control as she had a hard time remembering to take it. -She has started intermittent fasting 5 weeks ago as well as exercising. 20 minutes a day of both the treadmill and elliptical and watching what she is eating. -Still on beet root supplement for BP; was on a diuretic but K level dropped so now just on propranolol -went to cardiology 6 weeks ago and thats when decided to restart int fasting -next cardiology visit in April -Has been to ER twice since last visit; had L pneumonia in January then Norovirus avel mirian -Nanette also expressed desire to address intimacy issues that she is having with due to her childhood trauma Examination Category Sub-Category Detail Notes Category Not es General Examination GEN: NAD, speaking in full complete sentences, thoughts clear and appropriate RESP: nonlabored breathing, lungs clear/equal all nichole CV: S1S2 regular NEURO: AO x 3 PSYCH: judgment/insight intact, NL mood/affect
--- OUTSIDE RECORDS SUMMARY | 2024-04-05 16:34 | XMS_ITS ---
Author Organization [facility], [facility] Address [address] [place] [phone] Care Team Providers Care Director Service Name Role Phone VICTORINO SORIANO Primary Care Provider [phone] [facility] TWILA EDMONDS Unavailable [phone] REASON FOR VISIT Refills MEDICATIONS Medication SIG (Take, Route, Fr equency, Duration) Notes Start Date End Date Status Mirtazapine 30 MG 1 tablet at bedtime Orally Once a day for 90 days Active Encounters Encounter Location Date Provider Diagnosis [address] [id number] 02/21/2024 TWILA EDMONDS PLAN OF TREATMENT Medication Medication Name Sig Start Date Stop Date Notes Mirtazapine 30 MG 1 tablet at bedtime Orally Once a day for 90 days Progress Notes * MARGY DOTSONMICAELAOB: 9 (33 yo F)Acc No.[id number]:02/21/2024 Patient:??NANETTE DOTSON :1990?Age:33 Y?Sex:Fe male Phone: Address:[address] [place] [phone] * Refills?? Refill Mirtazapine Tablet, 30 MG, Orally, 90, 1 tablet at bedtime, Once a day, 90 days, Refills=0 * true * Date:??
--- OUTSIDE RECORDS SUMMARY | 2024-04-05 16:34 | XMS_ITS ---
Author Organization [facility], [facility] Address [address] [place] [phone] Care Team Providers Care Cooker Operator Name Role Phone VICTORINO SORIANO Primary Care Provider TWILA EDMONDS Unavailable [phone] REASON FOR VISIT Message MEDICATIONS Medication SIG (Take, Route, Fr equency, Duration) Notes Start Date End Date Status Famotidine 20 MG 1 tablet Orally once a day for 90 days 09/21/2023 Active Mirtazapine 30 MG 1 tablet at bedtime Orally Once a day for 90 days Active Encounters Encounter Location Date Provider Diagnosis [address] [id number] 03/14/2024 TWILA EDMONDS GERD without esophagitis K21.9 ASSESSMENTS Encounter Date Diagnosis Assessment Notes Treatment Notes Treatment Clinical Notes Section Notes 03/14/2024 GERD without esophagitis (ICD-10 - K21.9) PLAN OF TREATMENT Medication Medication Name Sig Start Date Stop Date Notes Famotidine 20 MG 1 tablet Orally once a day for 90 days Mirtazapine 30 MG 1 tablet at bedtime Orally Once a day for 90 days Progress Notes * FATMATAEveliaMAISHAVIKOB: 9 (33 yo F)Acc No.[id number]:03/14/2024 Patient:??NANETTE DOTSON :1990?Age:33 Y?Sex:Fe male Phone: Address:[address] [place] [id number] * Refills?? Refill Famotidine Tablet, 20 MG, Orally, 90 Tablet, 1 tablet, once a day, 90 days, Refills=1 Refill Mirtazapine Tablet, 30 MG, Orally, 90, 1 tablet at bedtime, Once a day, 90 days, Refills=1 * true * Date:??
--- OUTSIDE RECORDS SUMMARY | 2024-04-05 16:34 | XMS_ITS | Data Portability ---
Author Organization [place] - [facility], [facility] Address [address] [place] [address] Care Team Providers Care Tube And Manifold Builder Name Role Phone ZOLTAN CHAU Primary Care Provider [phone] SUZANNA HARMON OTHER Assessment Encounter Date Assessment Date Assessment LastModified by Organization Details LastModified Time 07/27/2022 07/27/2022 31yo presents for annual wellness visit, reports increased anxiety/depressio n before menses and would like STI testing. . -APPLIANCE ADJUSTER exam WNL, up-to-date on Pap. Desires STI testing and bloodwork. GC/CT and Affirm collected and sent. -Encouraged regular monthly SBEs and instructed on how to perform. -Counseled on various contraceptive options including IUDs, implant, pills, patch, ring and injection. We discussed anticipated bleeding patterns and side effects of each as well as FDA approved duration of use. We also reviewed recommendation for condoms to prevent STDs. After this discussion the patient opted for POPs. Administration instructions provided, Rx sent. Plan for f/u telehealth visit in 3 months. -IPV negative today -PHQ2=19 today. Reporting PMDD symptoms, has been seeing psychiatrist and has started new medication regimen about 1-2 months ago. Encouraged to continue to follow up with her provider and continue to report her symptoms. Discussed plan to also complete hormone levels and will follow up with results as indicated. Reports partner, family and yarsani is supportive. Denies SI. RTO in 3 months for telehealth BC f/u visit and 1 year for annual wellness visit, and prn with any concerns. [email or web address] Not available 07/27/2022 11:07:24 Plan of Treatment Reminders Order Date Submit Date Provider Last Modified By Organization Details Last Modified Time Details Appointments None recorded. Lab CT + NG DNA, PCR, unspecifie d specimen 2022 023 [facility], [address] [place] [address], 3 22:34:00 hepatitis C Ab, serum 2022 023 [facility], [address] [place] [address], 3 03:02:38 HBsAg (hepatitis B surface Ag), confirmati on, serum 2022 023 [facility], [address] [place] [address], 3 03:02:37 RPR (rapid plasma reagin), serum 2022 023 [facility], [address] [place] [address], 3 03:02:39 HIV 1+2 AB + HIV 1 p24 Ag, qualitativ e immunoassa y, serum 2022 023 [facility], [address] [place] [address], 3 03:02:37 bacterial vaginosis + vaginitis panel, vaginal 2022 023 [facility], [address] [place] [address], 3 12:22:24 lh + FSH, serum 2022 023 [facility], [address] [place] [address], 3 03:02:36 estradiol, serum 2022 023 [facility], [address] [place] [address], 3 03:02:36 prolactin, serum 2022 023 [facility], [address] [place] [address], 3 03:02:38 TSH, serum or plasma 2022 023 [facility], [address] [place], [address] 3 03:02:39 testostero ne, free, serum 2022 023 [facility], [address] [place], [address] 3 10:48:20 cortisol, serum or plasma 2022 023 [facility], [address] [place], [address] 3 10:48:20 hemoglobin (Hb), fingerstic k, blood 2021 022 judd In-Office Order, Internal Use Only DO Not Attach Compendium DO Not Attach Compendium, Do Not Delete/merge, [id number] 17:06:45 Referral None recorded. Procedures None recorded. Surgeries None recorded. Imaging None recorded. Medication Orders norethindr one (contracep tive) 0.35 mg tablet 2022 023 [facility], [address] [facility], [place], [address], 10:34:41 Patient Targets Encounter Date Encounter Id Patient Goals Patient Target Last Modified By Organization Details Last Modified Time GOALS: BF on demand 8-12x/day minimum. Discussed normal feeding cues; normal feeding pattern of on demand , normal voids & stools, signs of a good latch, signs of milk transfer Asymmetrical Deep latch technique, breast sandwich, hand expression, Skin to skin, positions; nipple care. BF ad mya on demand per AAP recommendation exclusive for 6 months, with continuation of for 1 year or longer as mutually desired by mother and infant. Latch is deep and painless with adequate milk transfer; as evidenced by swallowing at breast and softness in breast after feed, and adequate voids & stools in : 1 void/1stool on DOL #1; 2voids/2 stools DOL # 2... advancing to 6-8 wet diapers and 3-5 yellow seedy stools begin by day of life 5 onwardAverage Infant weight gain: 5.5-8.5oz/wk 0-4mo 3.25-4.5oz/wk 4-6mo 1.75-2.75 oz/wk 6-12moBreastfeedin g is a mutually positive experience for both mom and babyMaximize oral function and supply [email or web address] Not available 03/09/2022 11:51:21 GOALS:Maximize supply and milk transferImprove oral function; decrease reflux symptoms BF on demand 8-12x/day minimum. Discussed normal feeding cues; normal feeding pattern of on demand , normal voids & stools, signs of a good latch, signs of milk transfer Asymmetrical Deep latch technique, breast sandwich, hand expression, Skin to skin, positions; nipple care. BF ad mya on demand per AAP recommendation exclusive for 6 months, with continuation of for 1 year or longer as mutually desired by mother and infant. Latch is deep and painless with adequate milk transfer; as evidenced by swallowing at breast and softness in breast after feed, and adequate voids & stools in : 1 void/1stool on DOL #1; 2voids/2 stools DOL # 2... advancing to 6-8 wet diapers and 3-5 yellow seedy stools begin by day of life 5 onwardAverage Infant weight gain: 5.5-8.5oz/wk 0-4mo 3.25-4.5oz/wk 4-6mo 1.75-2.75 oz/wk 6-12moBreastfeedin g is a mutually positive experience for both mom and baby [email or web address] Not available 05/25/2022 15:32:13 Patient Instructions Encounter Date Encounter Id Patient Instructions Last Modified By Organization Details Last Modified Time 01/22/2022 [id number] preeclampsia: ca re instructions judd Not available 01/22/2022 12:09:09 Patient is now almost 4 weeks status post successful TOLAC and subsequent development of preeclampsia requiring readmission for magnesium sulfate treatment. She was discharged home on 2 antihypertensives. She discontinue the nifedipine but was concerned about her blood pressure rise and is now on both medications for the past 2 days. She feels she had a better response to being on the nifedipine. We decided that she will illuminate her evening labetalol now and continue to check her blood pressures. If they stay well controlled she can then illuminate her morning labetalol. We will see her back in 2 to 3 weeks for a regular visit. MDM is minimal for reviewing the patient's history, addressing the issue of preeclampsia and adjusting medications judd Not available 01/22/2022 12:09:08 02/09/2022 [id number] high blood press ure in : care instructions judd Not available 02/09/2022 15:45:30 Now 6 weeks stat us post successful TOLAC. She is still having issues with elevated blood pressures. I explained to her we do not need to have as tight blood pressure control now that she is not as beforehand. I suggested she not try to quarter her labetalol as it is likely less accurate. I explained she could probably cut 1 and half and dropped down to 50 mg at night first and then try 50 mg twice a day while continuing on her Procardia. She can seek further advice from her e/m engineer. judd Not available 02/09/2022 15:44:50 03/09/2022 [id number] Asymmetric latch as reviewed; see handout BF both breast per feeding session lip and buccal stretch, lateralizations rhythmic rocking, arm circles and back strokes; upper shoulder massage, ribcage rock, minimize container time; tummy time as tolerated; use roll in method for tummy time; ;do over lap, over bent knees; over arm for modified TT if not tolerating on floor Consider hopital grade pump rental or Abril Florentino for 2nd hand pump floor worker names given; do stretches given for now BF Suggested Diet: Eat Protein, fat & fiber with every meal. Breakfast is a must; keep water bottle full and hydrate throughout day 80-100 oz/d. BF requires extra 500 calories a day; frequent healthy snacks . Body armour, coconut water for hydration [email or web address] Not available 03/09/2022 12:02:41 30 min spent with patient & more than 50% of time spent with patient counseling and coordinating care & education [email or web address] Not available 03/09/2022 11:51:08 05/25/2022 [id number] SNS system to supplement @ breast Probiotic for baby\ Consider Hylands #10 Marah Phos 6x 1 tab under tongue 4x/d Consider hydrolized formula next (kendamil) Discuss with ped about considering GI referral/swallow study, ENT referral regarding congestion, reflux s/s and if cleared if would consider pursuing TT release. THIS NEEDS TO BE BALANCED WITH MATERNAL PSYCH WELL BEING Baby stretches as shown for body tension (video) Not available 05/25/2022 15:36:33 30 min spent with patient & more than 50% of time spent with patient counseling and coordinating care & education Not available 05/25/2022 15:31:25 07/27/2022 [id number] premenstrual syndrome (PMS): care instructions [email or web address] Not available 07/27/2022 10:32:08 Patient presents for a well woman exam. Her history is unremarkable and her exam is significant for symptoms of PMDD, remaining exam WNL. She has been counseled regarding Pap smear screening as per guidelines of every three years for cytology review with high risk HPV testing. Desires STI testing today. Completing hormone bloodwork today as well. She has been counseled regarding control and safe sex as well as monthly self-breast exams. Decided to begin progestin only pills for contraception and PMDD symptoms, administration instructions provided and Rx sent. Also has psychiatrist which is managing medications for anxiety/depression. She was been told to reschedule a well woman Executive Vice President Of Sales exam in one year and to call us with any question or concerns regarding her health and welfare. [email or web address] Not available 07/27/2022 11:07:23 Reason for Referral None Reported. Results Created Date Observation Date Name Description Value Unit Range Abnormal Flag Note LastModifiedBy Organization Detail LastModifiedTime 12/24/19 22 12/23/2021 SARS COV 2 RNA (COVI D 19), QUALI TATIV E sars cov 2 RNA Not detect ed not detect ed A Not Detec lisa (nega tive) test resul t for this test means that SARS- CoV-2 RNA was not prese nt in the speci men above the limit of detec tion. A negat js resul t does not rule out the possi bilit y of COVID -19 and shoul d not be used as the sole basis for treat ment or patie nt manag ement decis ions. If COVID -19 is still suspe cted, based on expos ure histo ry toget her with other clini melida findi ngs, re-te sting shoul d be consi dered in consu ltati on with publi c healt h autho ritie s. Labor atory test resul ts shoul d alway s be consi dered in the eleanor xt of clini melida jean paul vatthierry ns and epide fritz gical data in jason g a final diagn osis and patie nt manag ement decis ions. This test has been autho rized by the FDA under an Emerg ency Use Autho rizat ion (EUA) for use by autho rized labor atori es. Metho dolog y: Real- Time RT PCR Addit ional infor matio n about COVID -19 can be found on the QuickProNotes rs for Disea se Contr ol and Preve ntion websi te: www.[employer].go v/cor onavi 019-n cov/i ndex. html Not Available [facility] [address] [place], [address] 12/24/2021 08:26:17 02/10/20 22 02/09/2022 hemog lobin (Hb), finge rstic k, blood HGB 12.5 Not Available In-Office Order Internal Use Only DO Not Attach Compendium DO Not Attach Compendium, Do Not Delete/merge, [id number] 02/09/2022 15:25:08 07/18/19 23 07/17/2022 [facility] - CANCE R HISTO RY ASSES SMENT RESUL T [facility] [place] history assessment result Does NOT meet criter ia normal See PDF for compl ete resul [facility] Hered itary cance r crite jaime asses sment - DOES NOT MEET CRITE JAIME Not Available [facility] [address] [place] [address], [address], 07/17/2022 21:21:19 07/27/19 23 07/26/2022 [facility] - CANCE R HISTO RY ASSES SMENT RESUL T [facility] [place] history assessment result Does NOT meet criter ia normal See PDF for compl ete resul [facility] Hered itary cance r crite jaime asses sment - DOES NOT MEET CRITE JAIME Not Available [facility] [address] [place], [address], 07/26/2022 18:13:20 07/28/19 23 07/27/2022 ESTRA DIOL estradiol 68 pg/mL Refer ence Range s ----- ----- ----- ----- ---- Menst ruati ng Femal es: Folli cular Phase : 21-25 1 Mid-C ycle Phase : 38-64 9 Lutea l Phase : 21-31 2 Postm enopa usal Femal es not on Horom one Repla cemen t Thera py: <10-2 8 Postm enopa usal Femal es on HRT: <10-1 44 Not Available [facility] [address], [place], [facility] 07/28/2022 03:02:35 07/28/19 23 07/27/2022 FSH AND LH PROFI LE follicle-sti mulating hormone 7.3 mIU/m L Refer ence Range s ----- ----- ----- ----- ---- Cande l Menst ruati ng Femal es: Folli cular Phase 3.0-8 .1 Mid-C ycle: 2.6-1 6.7 Lutea l Phase : 1.4-5 .5 Postm enopa usal: 26.7- 133.4 Not Available [facility] [address], [place], [facility] 07/28/2022 03:02:36 07/28/19 23 07/27/2022 FSH AND LH PROFI LE luteinizing hormone 5.6 mIU/m L Refer ence Range s ----- ----- ----- ----- ---- Cande l Menst ruati ng Femal es: Folli cular Phase 1.8-1 1.8 Mid-C ycle Peak: 7.6-8 9.1 Lutea l Phase : 0.6-1 4.0 Postm enopa usal: 5.2-6 2.0 Not Available [facility] [address] [place], [address] 07/28/2022 03:02:36 07/28/1907/27/2022 HEPAT ITIS B SURFA CE ANTIG EN hepatitis B surface antigen Non-Re active non-re active Not Available [facility] [address] [place], [address] 07/28/2022 03:02:37 07/28/19 23 07/27/2022 HIV 1/2 HIV 1/2 antigen Non-Re active non-re active Resul ts show no evide nce of infec tion by HIV 1/2. If clini barry indic ated, repea t CMIA or test by nucle ic acid ampli ficat ion. Not Available [facility] [address] [place], [address] 07/28/2022 03:02:37 07/28/19 23 07/27/2022 HEPAT ITIS C ANTIB SOFÍA REFLE X PCR QUANT hepatitis C Ab reflex HCV PCR quant 0.59 Non-Re active S/co non-re active Not Available [facility] [address] [place] [address], [address] 07/28/2022 03:02:38 07/28/19 23 07/27/2022 PROLA CTIN prolactin 5.1 NG/mL 5.2-26 .5 low Not Available [facility] [address] [place], [address] 07/28/2022 03:02:38 07/28/19 23 07/27/2022 TSH, REFLE X FREE T4 TSH 1.20 mIU/L 0.35-4 .94 Not Available [facility] [address] [place], [address] 07/28/2022 03:02:39 07/28/19 23 07/27/2022 VAGIN ITIS PROFI LE gardnerella Negati ve negati ve Not Available [facility] [address] [place], [address] 07/28/2022 12:22:24 07/28/19 23 07/27/2022 VAGIN ITIS PROFI LE trichomonas Negati ve negati ve Not Available [facility] [address] [place], [address] 07/28/2022 12:22:24 07/28/19 23 07/27/2022 VAGIN ITIS PROFI LE yenni Negati ve negati ve Not Available [facility] [address] [place], [address] 07/28/2022 12:22:24 07/28/19 23 07/27/2022 CHLAM YDIA/ GONOR RHOEA E RNA, TMA neisseria gonorrhoeae RNA, tma Negati ve negati ve The perfo rmanc e of endoc ervic al, vagin al, and male ureth ral swab speci mens, male and femal e urine speci mens, and Prese rvCyt Solut ion liqui d Pap speci mens has not been evalu ated in adole scent s less than 16 years of age. Not Available [facility] [address] [place], [address] 07/28/2022 22:34:00 07/28/19 23 07/27/2022 CHLAM YDIA/ GONOR RHOEA E RNA, TMA chlamydia trachomatis RNA, tma Negati ve negati ve The perfo rmanc e of endoc ervic al, vagin al, and male ureth ral swab speci mens, male and femal e urine speci mens, and Prese rvCyt Solut ion liqui d Pap speci mens has not been evalu ated in adole scent s less than 16 years of age. Not Available [facility] [address] [place], [address] 07/28/2022 22:34:00 07/28/1908/02/2022 CORTI NOLAN, TOTAL cortisol, total 6.9 mcg/d L normal Refer ence Range : For 8 a.m.( 7-9 a.m.) Speci men: 4.0-2 2.0 Refer ence Range : For 4 p.m.( 3-5 p.m.) Speci men: 3.0-1 7.0 * Pleas e inter pret above resul ts accor dingl y * Not Available [facility] [address], [place], [address], 08/02/2022 10:48:20 Result Notes None recorded. Problems Name Problem SNOMED Code Status Onset Date Resolution Date Notes Provider Name and Address Organization Details Recorded Time History of depressi on 130353654 Active 2018 hx PP depressi on and anxiety w/o tx pt self-rep ort LUIS VAZQUEZ MD [address] [facility], [address], [place], [address], [facility] 9 18:38:32 Past pregnanc y history of gestatio nal hyperten bing 138892891 Active 2020 Norah Barnes null, [facility] 1 15:30:42 Migraine [id number] Active 2020 Edita Oakes null, [facility] 1 13:58:48 Routine antenata l care Active 2021 Jocelyn Mcdaniels null, [facility] 2 10:35:41 Family history of pre-ecla mpsia [id number] Completed Pre-E labs checked with IPG labs. 05/30: urine pc ratio WNL. TBF Kenia Cohen null, [facility] 2 09:03:39 Past pregnanc y history of section [id number] Completed x 3, c/s x1 of 2nd twin. Desires TOLAC. TRANSFER RED TO [facility] FOR . IOL BOOKED FOR 41 WEEKS. TOLAC CONSENT SIGNED Kenia Cohen null, [facility] 2 09:03:39 High risk pregnanc y [id number] Completed Kenia Cohen null, [facility] 2 09:03:39 High risk pregnanc y due to recurren t pregnanc y loss [id number] Completed Taking daily ASA and vaginal progeste rodrigo during the first trimeste r - wants to continue the progeste rodrigo until 18 wga. TBF Kenia Cohen null, [facility] 2 09:03:39 Polyhydr amnios [id number] Completed MVP 9cm on 11/10/21 Kenia Cohen null, [facility] 2 09:03:39 Problem Notes None recorded. Procedures Surgical History Date Name Laterality Status Provider Name and Address Organization Details Recorded Time 02/10/20 22 [id number] (0503F) completed OLI SAVAGE MD [address], [place], [address], [facility] 02/09/2022 15:46:03 01/23/20 22 First Post Visit completed OLI SAVAGE MD [address], [place], [address], [facility] 01/22/2022 12:07:09 06/17/19 22 [id number] completed Ruby Oconnell [facility] 06/16/2021 08:52:35 05/20/19 22 P4P-OB (0500F) completed FLY EVANS DO [address], [place], [address], [facility] 05/19/2021 14:40:58 02/17/19 22 [id number]-UKA completed Ruby Oconnell [facility] 02/17/2021 10:00:58 10/11/19 21 Cholecystectomy completed PAXTON MORTON MD [address], [place], [address], [facility] 05/23/2021 21:26:51 08/22/19 21 J2E-ETV completed Edita Oakes [facility] 08/21/2020 14:09:49 08/22/19 21 [id number] completed KARLI GREWAL DO [address], [place], [address], [facility] 08/21/2020 14:22:01 08/22/19 21 Date of Last Pap Smear completed Edita Oakes [facility] 08/21/2020 14:02:28 02/27/19 19 section completed Janny Sol [facility] 08/01/2020 16:09:13 01/01/20 11 [facility] 09:55:28 02/14/19 10 Appendectomy completed Mariah [facility] 07/27/2022 09:55:28 closed reduction of fracture of elbow completed Edita Oakes [facility] 08/21/2020 13:59:36 Imaging Results None recorded. Procedure Notes None recorded. Medical Equipment None Reported. Allergies Allergen ID Allergen Name Allergen Category Reaction Reaction Severity Criticality Documentation Date Start Date Code Code System Note Provider Name and Address Organization Details Recorded Time 3262016 sertralin e medicatio n abdominal pain chest pain diarrhea diarrhea dizziness flushing irregular heart rate nausea palpitati ons tachycard ia moderate moderate moderate moderate moderate moderate moderate moderate moderate moderate Not available 07/27/2022 32890 RxNorm Mariah [facility] 3 09:55:25 [id number] Lexapro medicatio n abdominal pain chest pain confusion diarrhea dizziness flushing irregular heart rate palpitati ons tachycard ia moderate moderate moderate moderate moderate moderate moderate moderate moderate Not available 07/27/2022 27655 1 RxNorm Mariah [facility] 3 09:55:25 Medications Name Sig Start Date Stop Date Status Note LastModified by Organization Details LastModified Time nifedipine ER 30 mg tablet,ext ended release 24 hr TAKE 1 TABLET BY MOUTH EVERY DAY FOR 30 DAYS 07/26 completed Not Available Not Available Not Available carvedilol 6.25 mg tablet 07/26 completed Not Available Not Available Not Available cetirizine 10 mg tablet TAKE 1 TABLET BY MOUTH EVERY DAY active Not Available Not Available No t Available ondansetro n HCl 4 mg tablet TAKE 1 TABLET BY MOUTH DAILY NEEDED FOR NAUSEA 07/26 completed Not Available Not Available Not Available clonazepam 0.5 mg tablet TAKE 1/2 TABLET EVERY OTHER DAY NEEDED FOR ANXIETY (0.25MG) active Not Available Not Available No t Available propranolo l ER 60 mg capsule,24 hr,extende d release TAKE 1 CAPSULE BY MOUTH EVERY DAY active Not Available Not Available No t Available hydroxyzin e HCl 50 mg tablet TAKE 1 TABLET (50 MG TOTAL) BY MOUTH 3 (THREE) TIMES A DAY NEEDED FOR ITCHING. 05/19 completed Not Available Not Available Not Available amlodipine 5 mg tablet TAKE 1 TABLET (5 MG TOTAL) BY MOUTH DAILY. 07/26 completed Not Available Not Available Not Available sulfametho xazole 800 mg-trimeth oprim 160 mg tablet TAKE 1 TABLET BY MOUTH TWICE A DAY FOR 3 DAYS 08/21 completed Not Available Not Available Not Available aspirin 81 mg tablet,del ayed release TAKE 1 TABLET BY MOUTH EVERY DAY active Not Available Not Available No t Available oxycodone- acetaminop hen 5 mg-325 mg tablet 02/17 completed Not Available Not Available Not Available propranolo l 10 mg tablet TAKE 1 TABLET BY MOUTH THREE TIMES A DAY active Not Available Not Available No t Available potassium chloride 20 mEq oral packet 02/17 completed Not Available Not Available Not Available hydromorph one 2 mg tablet TAKE 1 TABLET BY MOUTH EVERY 4 HOURS 01/04 completed Not Available Not Available Not Available famotidine 20 mg tablet TAKE 1 TABLET BY MOUTH EVERY DAY AT NIGHT active Not Available Not Available No t Available lorazepam 0.5 mg tablet TAKE 1 TABLET (0.5 MG TOTAL) BY MOUTH EVERY 8 (EIGHT) HOURS NEEDED FOR UP TO 30 DAYS. 07/26 completed Not Available Not Available Not Available methocarba mol 750 mg tablet TAKE 1 TABLET (750 MG TOTAL) BY MOUTH 3 (THREE) TIMES A DAY FOR 14 DAYS. active Not Available Not Available No t Available nifedipine ER 60 mg tablet,ext ended release 24 hr TAKE 1 TABLET BY MOUTH EVERY DAY 01/04 completed Not Available Not Available Not Available doxycyclin e monohydrat e 100 mg capsule TAKE 1 CAPSULE BY MOUTH TWICE A DAY active Not Available Not Available No t Available cephalexin 500 mg capsule TAKE 1 CAPSULE BY MOUTH 4 TIMES A DAY FOR 10 DAYS 08/21 completed Not Available Not Available Not Available pantoprazo le 40 mg tablet,del ayed release 05/19 completed Not Available Not Available Not Available esomeprazo le magnesium 40 mg capsule,de layed release TAKE 1 CAPSULE (40 MG TOTAL) BY MOUTH DAILY. 07/26 completed Not Available Not Available Not Available lidocaine 5 % topical patch PLACE 1 PATCH ONTO THE SKIN DAILY. REMOVE & DISCARD PATCH WITHIN 12 HOURS OR DIRECTED BY MD active Not Available Not Available No t Available sertraline 25 mg tablet 05/19 completed Not Available Not Available Not Available mirtazapin e 15 mg tablet TAKE 1 TABLET BY ORAL ROUTE 1 TIME PER DAY AT BEDTIME (15MG) active Not Available Not Available No t Available metoprolol succinate ER 25 mg tablet,ext ended release 24 hr TAKE 1 TABLET (25 MG TOTAL) BY MOUTH DAILY. 07/26 completed Not Available Not Available Not Available ibuprofen 600 mg tablet TAKE 1 TABLET BY MOUTH EVERY 6 HOURS NEEDED FOR PAIN active Not Available Not Available No t Available Crinone 8 % vaginal gel INSERT 1 APPLICATO RFUL VAGINALLY EVERY DAY 05/19 completed Not Available Not Available Not Available labetalol 100 mg tablet TAKE 1 TABLET (100 MG TOTAL) BY MOUTH EVERY 12 (TWELVE) HOURS AROUND THE CLOCK. 07/26 completed Not Available Not Available Not Available norethindr one (contracep tive) 0.35 mg tablet TAKE 1 TABLET BY MOUTH EVERY DAY active Not Available Not Available No t Available propranolo l 20 mg tablet TAKE 0.5 TAB - 1 TAB DAILY IF BP HIGH, ( ADD TO CURRENT PROPANOLO L DOSE) active Not Available Not Available No t Available nifedipine ER 60 mg tablet,ext ended release Take 1 tablet every day by oral route. 01/01 completed Not Available Not Available Not Available fluticason e propionate 50 mcg/actuat ion nasal spray,susp ension SPRAY 2 SPRAYS BY INTRANASA L ROUTE 1 TIME PER DAY IN EACH NOSTRIL NEEDED active Not Available Not Available No t Available sertraline 50 mg tablet TAKE 1 TABLET BY MOUTH EVERY DAY 08/21 completed Not Available Not Available Not Available naratripta n 2.5 mg tablet PLEASE SEE ATTACHED FOR DETAILED DIRECTION S active Not Available Not Available No t Available loratadine 10 mg tablet TAKE 1 TABLET BY MOUTH DAILY. DO NOT START BEFORE MAY 04, 2022. 07/26 completed Not Available Not Available Not Available Ventolin HFA 90 mcg/actuat ion aerosol inhaler TAKE 2 PUFFS (INHALATI ON) EVERY 6 HOURS (SHORTNES S OF BREATH OR WHEEZING) FOR 10 DAYS active Not Available Not Available No t Available oxycodone 5 mg tablet TAKE 1 TABLET EVERY 4 HOURS BY ORAL ROUTE WITH MEALS FOR 2 DAYS. 01/04 completed Not Available Not Available Not Available hydroxyzin e pamoate 25 mg capsule TAKE 1 CAPSULE (25 MG TOTAL) BY MOUTH 3 (THREE) TIMES A DAY NEEDED FOR ANXIETY FOR UP TO 5 DAYS. 07/26 completed Not Available Not Available Not Available Vitamin 27 mg iron-0.8 mg tablet TAKE 1 TABLET BY MOUTH DAILY. DO NOT START BEFORE MAY 04, 2022. 07/26 completed Not Available Not Available Not Available escitalopr am 10 mg tablet TAKE 1 TABLET BY MOUTH EVERY DAY 07/26 completed Not Available Not Available Not Available cyclobenza alma 5 mg tablet 05/19 completed Not Available Not Available Not Available magnesium active Not Available Not Renetta ilable Not Available Co Q-10 05/19 completed Not Available Not Available Not Available amoxicilli n 01/04 completed Not Available Not Available Not Available ferrous sulfate 07/26 completed Not Available Not Available Not Available active Gummy 3 times daily Not Available Not Available Not Available Zyrtec 07/26 completed Not Available Not Available Not Available hydrochlor othiazide 12.5 mg tablet TAKE 1 TABLET BY MOUTH EVERY DAY active Not Available Not Available No t Available Endometrin 100 mg vaginal insert INSERT 1 TAB VAGINALLY TWICE A DAY FOR 10 WEEKS 07/14 completed Not Available Not Available Not Available magnesium glycinate active Not Available Not Available No t Available Purelax 17 gram oral powder packet 02/17 completed Not Available Not Available Not Available Vitron-C 65 mg iron-125 mg tablet,del ayed release TAKE 1 TABLET EVERY DAY BY ORAL ROUTE WITH MEALS FOR 60 DAYS. active Not Available Not Available No t Available desvenlafa xine succinate ER 25 mg tablet,ext ended release 24 hr TAKE 1 TABLET BY MOUTH EVERY DAY 07/26 completed Not Available Not Available Not Available Liver Complex active Not Available Not Available Not Available Flowflex COVID-19 Antigen Home Test kit REFER TO MANUFACTU RER NISHAI ON INCLUDED IN PACKAGING 07/26 completed Not Available Not Available Not Available Vitals Date Recorded Body height Body mass index (BMI) Body weight Systolic blood pressure Diastolic blood pressure Provider Name and Address Organization Details Last Updated DateTime 01/22/2022 160.02 cm 25 kg/m2 30095.52 g 134 mm[Hg] 81 mm[Hg] Lee Ann Schroeder [facility] 2 11:49:50 Date Recorded Body height Body mass index (BMI) Body weight Systolic blood pressure Diastolic blood pressure Provider Name and Address Organization Details Last Updated DateTime 02/09/2022 160.02 cm 26 kg/m2 49584.08 g 147 mm[Hg] 91 mm[Hg] [facility] O1 [address] [facility], [address] [place] [address], [place], [address], [facility] 2 15:24:18 Date Recorded Body height Provider Name an d Address Organization Details Last Updated DateTime 03/09/2022 160.02 cm MARTIN HERCULES, APR N [address] [facility], [address] [place] [address], [place], [address], [facility] 03/09/2022 09:26:17 Date Recorded Body height Provider Name an d Address Organization Details Last Updated DateTime 05/25/2022 160.02 cm MARTIN HERCULES, APR N [address] [facility], [address] [place] [address], [place], [address], [facility] 05/25/2022 14:07:31 Date Recorded Body height Body mass index (BMI) Body weight Systolic blood pressure Diastolic blood pressure Provider Name and Address Organization Details Last Updated DateTime 07/27/2022 160.02 cm 24.7 kg/m2 96445.78 g 107 mm[Hg] 75 mm[Hg] Mariah Florentino [facility] 3 10:02:43 Social History Question Answer Notes LastModified by Organizat ion Details LastModified Time Tobacco Smoking Status Never Smoker Janny barba, [facility] 08/01/2020 16:09:18 What Is Your Level Of Alcohol Consumption? None Information not available 02/17/2021 In The 14 Days Before Symptom Onset, Have You Had Close Contact With A Laboratory-confi rmed COVID-19 While That Case Was Ill? No [email or web address] Information not available 07/27/2022 In The 14 Days Before Symptom Onset, Have You Had Close Contact With A Person Who Is Under Investigation For COVID-19 While That Person Was Ill? No [email or web address] Information not available 07/27/2022 Have You Been To An Area Known To Be High Risk For COVID-19? 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 No [email or web address] Information not available 07/27/2022 Do You Or Have You Ever Used E-cigarettes Or Vape? Never Used Electronic Cigarettes [email or web address] Information not available 07/27/2022 What Is The Highest Grade Or Level Of School You Have Completed Or The Highest Degree You Have Received? [id number] Information not available 07/27/2022 Have You Recently Or Are You Planning To Travel To An Area With Zika Virus? No [email or web address] Information not available 07/27/2022 Do You Have Any Children? Yes Information not available 02/17/2021 Does Your Partner Physically Hurt You Or Threaten To Hurt You? No Information not available 08/21/2020 Has Your Partner Forced You To Have Sex Or Perform Sex Acts When You Did Not Want To? No Information not available 08/21/2020 Does Your Partner Insult, Scream At Or Talk Down To You? No Information not available 08/21/2020 Does Your Partner Control You Or Any Part Of Your Life? No Information not available 08/21/2020 Are You Afraid Of Your Partner? No Information not available 08/21/2020 Drug Use? No Information no t available 02/17/2021 Do You Feel Safe At Home? Yes Information not available 08/21/2020 What Was The Date Of Your Most Recent Tobacco Screening? 07/19/2022 [email or web address] Information not available 07/27/2022 How Many Children Do You Have? 5 [email or web address] Information not available 07/27/2022 Do You Use Protection During Sex? No [email or web address] Information not available 07/27/2022 Are You Sexually Active? Yes [email or web address] Information not available 07/27/2022 Do You Or Have You Ever Used Smokeless Tobacco? Never Used Smokeless Tobacco [email or web address] Information not available 07/27/2022 How Much Tobacco Do You Smoke? No Information not available 07/27/2022 Do You Feel Stressed (tense, Restless, Nervous, Or Anxious, Or Unable To Sleep At Night)? [id number] [email or web address] Information not available 07/27/2022 How Many Years Have You Smoked Tobacco? 0 Information not available 07/27/2022 Have You Recently Traveled Abroad? No [email or web address] Information not available 05/19/2021 Sex: Female Functional Status Question Answer Note LastModified by Organizat ion Details LastModified Time What is your exercise level? Occasional daily walks [email or web address] Information not available 05/19/2021 Mental Status None recorded. Family History Relationship Description Onset Age of this Age Resolved Age Notes LastModified by Organization Details LastModified Time Mother Depressive disorder [email or web address] Not available 05/23 21:28:31 Father Depressive disorder [email or web address] Not available 05/23 21:28:41 Son Autistic disorder [email or web address] Not available 2022 09:54:01 Paternal Uncle Malignant neoplastic disease [email or web address] Not available 05/23 21:29:10 Maternal Grandfather Heart disease [email or web address] Not available 05/23 21:29:25 Maternal Grandfather Hypertensive disorder [email or web address] Not available 05/23 21:29:37 Paternal Grandmother Depressive disorder [email or web address] Not available 05/23 21:29:43 Medical History Condition Response Other N *No Diseases or Conditions N Blood clots N Breast Cancer N Benign breast disease N Colon cancer N Lung Disease N Depression Y Defects or Inherited Disease N Anesthesia Complications N BrCa gene tested? N Headaches/Migraines Y Have you ever been on isolation N Anxiety Disorder Y Arthritis N HSV N Infertility N Abnormal pap N Interstitial Cystitis N Acid Reflux (GERD) Y Cancer N Stroke N Endometriosis N Fibromyalgia N Spina Bifida N HIV N Heart Problems N Sexual Dysfunction N Autoimmune disorder N Kidney or Bladder Problems N Thyroid Problems N GI Problems N Eating Disorder N Anemia N Multiple Sclerosis N Psychiatric Illness N Ovarian Cancer N Diabetes N Blood Transfusions Y Bladder disease N History of MRSA N Abnormal Uterine Bleeding N Hyperlipidemia N BrCa positive N Diverticulitis N Abuse/Domestic Violence N Asthma N Hepatitis N Hypertension Y Osteoporosis N Thrombophilias N Gynecological History Statement/Question Response Date of LMP 07/21/2022 [facility] Biopsy N IPV Screen Done 07/27/2022 PID N Cervical Cancer N BrCa gene tested? N Ovarian Cancer N Breast Cancer N Last HPV Result Negative BrCa Positive N Abnormal Pap N Infertility N Leep N Sexual Orientation heterosexual HPV Vaccine N Endometriosis Y Age at Menarche 14 Age at First Child 9 Fibroids N Uterine Cancer N Current Control Method None Sexually Active? Y Sexual Problems? N Date of Last Pap Smear 08/21/2020 Pap Required? N Obstetrics History GPAL:G 8 P 4 0 4 5 Type Value Multiple Births 1 Full Term 4 Spontaneous 4 Living 5 Total 8 Immunizations Vaccine Type Date Status Note Provider Name and Address Organization Details Recorded Time Tdap 10/16/19 22 cancelled patient objection PAXTON KAUR MD [address] [place] [address], [address] Floor, [place], [address], [place] - [facility] 10/15/2021 12:30:06 Influenza, split virus, trivalent, preservative 12/10/19 21 completed Not Available [facility] Record 05/19/2021 14:39:47 Past Encounters Encounter ID Performer Location Encounter Start Date Encounter Closed Date Diagnosis/Indication Diagnosis SNOMED-CT Code Diagnosis ICD10 Code Diagnosis Note [id number] KARLI GREWAL DO [facility] [address] [place] [address] 08/21/2020 13:38:34 08/21/2020 14:37:24 Gynecologic examination 33766318 Z01.419 Normal annual exam. No issues. Weight management and general health issues reviewed at length. PAP done today. SBE reviewed. Family History reviewed as well as any findings which would suggest an increased risk of Cancer from a Genetic cause: low risk for genetic linked cancers by patient's known reported history. Depression screening 171 264741 Z13.31 PHQ2 - negative. Trying to conceive 91299 9001 Z31.9 Had 2 SABs after 3 successful pregnancie s. Will continue to attempt for now. 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 Hx of 4 MAB 11/2019, 06/2020, , 01/2021; (2015), (2016), TWINS - & C/S (2018) -> C/S and had Post-Partu m Pre-E (on MgSO4). She desires . I reveiwed her history and her recurrent SABs at length. We reviewed testing options. The patient would like to have labs and she would like to start Progestero ne Suppositor ies as per the recommenda tions of her SAB Support Group. Labs ordered and script sent. Pending results, she will consider seeing KIRTI as well but we will await these results first and she will continue to attempt . Pending results, I will consider having her start a Low Dose 81mg ASA daily as well - will review at upcoming appointmen t.All questions were answered to the patient's satisfacti on.Total Time on date of the encounter: 45 minutesObt ain a patient history and/or review a separately obtained history: 15 minutesRev iewing patient? s lab/radio logy/test results: 5 minutesExa mining the patient: 5 minutesDis cussing Treatment options with patient/fa rhiannon/careg iver: 10 minutesCou nseling and education of the patient/fa rhiannon/careg iver: 5 minutesUpd ating/docu menting clinical informatio n in the patient? s medical record: 5 minutes [id number] FLY EVANS DO [facility] [address] [place] [address] 05/19/2021 09:40:25 05/20/2021 09:57:47 Routine care [id number] Z34.91 Patient in the office for her initial OB visit. Doing well so far. Reviewed early issues and discussed precaution s including cramping, bleeding, discharge, morning sickness. Denies headache, fever, chills, cp, sob, bleeding, severe N/V. Occasional cramping. Reviewed [facility] practice policies and procedures . Reviewed male providers, importance of compliance with care, delivery and surgery at [facility], arcade technician resident alex ibarra, allie, bug, zika, and travel precaution s. Reviewed all available first trimester genetic screening and 2nd trimester screening. Reviewed initial viability USN. NT USN scheduled. Reviewed OB Hx and RPL. Will rpt an USN in the next week, before NT to help alleviate pt's concerns given multiple prior losses. All questions answered. Will RTO in 4 weeks for OB visit, follow up all labs and testing. [facility] Depression screening 171 953353 Z13.32 negative depression screening screening 2437 35746 Z36.0 Past pregn delta history of pre-eclampsia 7135966383 23540 Z87.59 High risk 4720 0007 O09.91 Gestation period, 9 weeks 371322 Z3A.09 [id number] [facility] [address] [facility] [place] [address] 06/16/2021 08:45:50 06/16/2021 12:10:33 High risk 66486226 O09.91 Gestation period, 13 weeks 99951534 Z3A.13 [id number] [facility] [address] [facility] [place] [address] 07/14/2021 08:44:16 07/14/2021 09:15:34 Routine care 360755651 Z34.92 High risk 4720 0007 O09.92 Gestation period, 17 weeks 71033773 Z3A.17 [id number] [facility] [address] [place] [address] 08/11/2021 16:49:36 08/13/2021 13:05:35 Routine care 298135409 Z34.91 Routine OB visit. Size = date. FHR reassuring . Denies headache, fever, chills, cp, sob. No regular cramping or contractio ns. Sun, bug, Zika, travel precaution s all reviewed. COVID, PTL, and FM precaution s all discussed. Anatomy USN reviewed and WNL. No AFP. RTO In 4 weeks. [facility] Gestation period, 21 weeks 73523556 Z3A.21 [id number] [facility] [address] [facility] [place] [address] 09/01/2021 08:02:50 09/01/2021 14:15:25 Routine care 793373176 Z34.92 Doing well, no complaints other than white discharge intermitte ntly, no associated symptoms. Affirm collected at visit today. + FM. Lab slip given today for 28 week labs. Negative PHQ-2 today. Reviewed TDAP, patient planning to DECLINE. Reviewed options for delivery, patient s/p C/S x 1, prior to that had 3 successful SVDs. Hoping for TOLAC if spontaneou s labor prior to EDC, reviewed we would not induce. Will schedule repeat C/S at 40+ weeks. Gestation period, 24 weeks 116959405 Z3A.24 Depression screening 171 934139 Z13.32 Negative PHQ-2 today. Vaginal discharge 404253 006 N89.8 [id number] PAXTON KAUR MD [facility] [address] [place] [address] 10/15/2021 11:57:20 10/16/2021 08:29:49 Active or passive immunization 384558012 Z23 [id number] Mariah Kolb CNM [facility] [address] [place] [address] 10/27/2021 08:12:43 11/06/2021 13:02:49 support 007083587 Z39.1 [id number] Leona Peralta DO [facility] [address] [place] [address] 11/10/2021 15:22:39 11/11/2021 09:04:51 High risk 00356191 O09.93 Gestation period, 34 weeks 18750567 Z3A.34 Active or passive immunization 723958933 Z23 [id number] [facility] [address] [place] [address] 11/24/2021 09:08:40 11/25/2021 09:30:38 High risk 73028243 O09.93 Gestation period, 36 weeks 90733324 Z3A.36 screening 2437 61951 Z36.9 [id number] PAXTON KAUR MD [facility] [address] [place] [address] 11/30/2021 10:31:58 12/01/2021 08:40:06 High risk 86792114 O09.93 rto 1 wks Gestation period, 37 weeks 93731416 Z3A.37 [id number] Mariah Kolb CNM [facility] [address] [place] [address] 12/07/2021 09:20:55 12/08/2021 11:32:10 [id number] FRANCINE LOCKHARTTAMARA SWAIN [facility] [address] [place] [address] 12/14/2021 09:27:18 12/14/2021 15:20:51 High risk 11137557 O09.93 Gestation period, 39 weeks 34856613 Z3A.39 [id number] VAISHNAVI Franks [facility] [address] [place] [address] 12/21/2021 08:45:27 12/22/2021 15:33:34 Post-term 37163594 O48.0 High risk 4720 0007 O09.93 Gestation period, 40 weeks 02690833 Z3A.40 [id number] OLI SAVAGE MD [facility] [address] [place] [address] 12/29/2021 11:04:49 12/29/2021 14:20:25 Pre-eclampsia 225936072 O14.95 [id number] PAXTON KAUR MD [facility] [address] [place] [address] 01/04/2022 08:26:02 01/05/2022 10:58:05 Pre-eclampsia 561512956 O14.90 O14.93 preeclamps ia s/p MGSO4 on readmissio n, currently on labetalol at 100 mg po bid. will continue [id number] OLI SAVAGE MD [facility] [address] [place] [address] 01/22/2022 11:33:43 01/25/2022 10:29:45 care 254548565 Z39.2 Pre-eclampsia 951790316 O14.95 [id number] OLI SAVAGE MD [facility] [address] [place] [address] 02/09/2022 15:14:23 02/11/2022 09:16:09 care 578352001 Z39.2 - induced hypertension 91204340 O13.9 [id number] MARTIN HERCULES APRN [facility] [address] [address] 03/09/2022 09:24:47 03/09/2022 10:24:43 support 746990586 Z39.1 Difficulty performing breast-feeding 253814945 O92.79 [id number] MARTIN HERCULES APRN [facility] [address] [address] 05/25/2022 13:51:47 05/25/2022 15:14:41 support 986367848 Z39.1 Difficulty performing breast-feeding 190936146 O92.79 low supply, TOTS, distracted Inadequate flow of breast milk 442642192 O92.4 drop following recent hospitaliz ation in [place]; baby with TOTSMinima l glandular tissue palpated today [id number] Mariah Kolb CNM [facility] [address] [place] [address] 07/27/2022 09:52:44 07/30/2022 12:43:12 Gynecologic examination 37793857 Z01.419 Venereal d isease screening 954477929 Z11.3 Premenstru al dysphoric disorder 699854 F32.81 Contracept ion care management 922336513 Z30.9 Health Concerns Section Related Observation LastModified by Organization Detai ls LastModified Time None Recorded Concern Status LastModified by Organization Details LastModified Time None Recorded Advance Directives Directive None Recorded Payers Encounter Date Sequence Insurance Name Policy Number Policy Hartman Covered Member ID Hartman Member ID Guarantor Name 01/22/2022 1 [place] Pravin A Peloquin [id number] Pravin Peloquin 02/09/2022 1 [place] Parvin A Peloquin [id number] Pravin Peloquin 03/09/2022 1 [place] Pravin A Peloquin [id number] Pravin Peloquin 05/25/2022 1 [place] Pravin A Peloquin [id number] Pravin Peloquin 07/27/2022 1 [place] Crawford Peloquin [id number] Pravin Peloquin Notes Date Note Type Note Provider Name and Address Organization Details Recorded Time 01/22/2022 text/html [facility] VisitReported bypatient.Notes:31 y/o pt presents for PP#1 visit, pt delivered vaginal a baby boy name Stephen she is currently breast and bottle feeding, her EDS is 10. Patient is here for blood pressure check. She was readmitted with preeclampsia after the of her son. She has tried to eliminate one of her medications. When she stopped the nifedipine she felt like her blood pressure was increasing and she had been noticing an increased pressure when she checked it at home. She has been have been checking her blood pressure about 3 times daily. OLI SAVAGE MD [address] [facility] [place], [address], [facility] 01/22/2022 12:11:09 02/09/2022 text/html pt is here for P P#2 she delivered on12/26/21 baby boy, EDPS of 8, HG of 12.5 and pt is bottle feeding with formula. pt is concerned about her increased blood pressure readings. She stayed on her Procardia XL 30 mg daily and labetalol 100 mg twice daily. She tried cutting down one of her doses of labetalol to 50 mg and felt her pressure was spiking and went to 75 mg. She does have appointment with her e/m engineer Dr. Phillip Chau for a physical examination coming up in the middle of February OLI SAVAGE MD [address] [facility], [address], [place], [address], [facility] 02/09/2022 15:46:29 03/09/2022 text/html [facility] LactationRep orted bypatient.Supplement:p umped milk; formula Gestational Age:weeks gestation 41+1 Delivery Type:vaginal; Labor and Delivery Medications:epidural; pitocin; Length of labor/pushing: pushed 30m; IOL for dates Breast Surgery:none; Piercings: denies Pre- health problems/medications:d epression; anxiety problems:anxiety, depression Current Medications:low dose Prior :yes; twins; did relactate for 6mo; other kids first weekNotes:Change in breast size during by ~ 1cup: Y Post bleeding: WNL Latching since ; sometimes painful; flattens R side , round on LeftBF every 2 hrs; now on formula; almost quit x2; anxiety and HTN; BF once @ night; does one side per session at night. BF for 10-20m. chokes occais.Pumps have stopped and was getting one oz; gets 1/2 oz with manualDr. Toñito saw him and LT and TT; referred by Renaldo montenegro.Spits up alot after every feed.Poops once aday.GassyNo mucous in poops.No bodyworkFormula: Similac takes 3-4oz now down to 2ozCongestion since ; choking and sputtering since ; does empty breasts wellMom needs to hold pacifier in mouthSleeps with mouth open, tongue down;No other tongue ties ; ; pushed [facility], @ [facility]OBStarted Goats rue 3d ago; sunflower lecithinTrying to eat and drink enough and snacksStrong let downUsing Mandi and Nuk bottles ; using slow flowNO food sensitivitiesAll did good with solids; FOB sameDrNilson Oden refer to ENT for congestion MARTIN HERCULES, BREAKER OILER [address] [facility], [address], [place], [address], [facility] - [facility] 03/09/2022 12:02:49 05/25/2022 text/html [facility] LactationRep orted bypatient.Supplement:p umped milk; formula Gestational Age:weeks gestation 41+1 Delivery Type:vaginal; Labor and Delivery Medications:epidural; pitocin; Length of labor/pushing: pushed 30m; IOL for dates Breast Surgery:none; Piercings: denies Pre- health problems/medications:d epression; anxiety problems:anxiety, depression Current Medications:low dose Prior :yes; twins; did relactate for 6mo; other kids first weekNotes:Change in breast size during by ~ 1cup: Y Post bleeding: WNL 05/25: Was in hosp for a week in [place] for PPD from Mar 29 for a week PPD and anxiety prior to hospitalization; supply tanked no pump given; initially didnt want to BF then wanted to and gets 1ml; was put on Clonazepam. 05/03. Baby does latch on for a few min; bottle feeds every 3hrs. tries to latch for a few min every 2-3hrs. Spits up alot; baby was in ER a few weeks ago for wheezing . STarted latching about a wk ago; was trying Chibwe systems; Medela but not working.Takes 6oz bottle eats every 4-5hrs . MOm has twins that are 4yrs and 9yr and 6yr . helps and older kids. See's counselor and psychiatrist (changing providers) and intensive outpt 3 d a week for few more weeks; has a yarsani family helping.Has seen Dr. Sibley who refused to release unless baby did not have congestionReflux symptoms have not been worked up yet per mom; had an ENT referra but not contacted yetBaby has been congested since and cradle cap since ; ; no mucous in poops; reports loose brown/green. Baby not on probiotic ; no hx of antibiotics for mom or baby.No reported TT in other kids; just LT; childhood asthma hx in family; no reported allergies in other kids but rest of kids are in school/preschool . Oldest is homeschooled; preferred by mom due to Pentec[employer]al and valentin.Got period in Mar; due again today 03/09: Latching since ; sometimes painful; flattens R side , round on LeftBF every 2 hrs; now on formula; almost quit x2; anxiety and HTN; BF once @ night; does one side per session at night. BF for 10-20m. chokes occais.Pumps have stopped and was getting one oz; gets 1/2 oz with manualDr. Sibley saw him and LT and TT; referred by Renaldo montenegro.Spits up alot after every feed.Poops once aday.GassyNo mucous in poops.No bodyworkFormula: Similac takes 3-4oz now down to 2ozCongestion since ; choking and sputtering since ; does empty breasts wellMom needs to hold pacifier in mouthSleeps with mouth open, tongue down;No other tongue ties ; ; pushed for [facility], @ MOBStarted Goats rue 3d ago; sunflower lecithinTrying to eat and drink enough and snacksStrong let downUsing Mandi and Nuk bottles ; using slow flowNO food sensitivitiesAll did good with solids; FOB sameDr. Oden refer to ENT for congestion MARTIN DELISA, BREAKER OILER [address] [facility] [facility], [address], [place], [address], [place] - [facility] 05/25/2022 15:47:53 07/27/2022 text/html [facility] Annual GYNRe ported bypatient.History:no change in interval history Menstrual cycle:Normal menses Urinary symptoms:No hematuria; No incontinence Vulva:No genital lesion Vagina:Normal vaginal discharge; States she feels as though her vaginal discharge has an abnormal odor, no irritation/itching. Currently on end of her period. Breast:No breast pain; No breast lump; No nipple discharge Current Contraception:[place] us relationship; Condoms; Withdrawal method; Wants to discuss contraceptive options Sexual activity:sexually active yes male partner; No sexual complaints; No pain during intercourse; Normal libido Menopausal symptoms:No menopausal symptoms; Normal vaginal lubrication Psychological symptoms:Depression;An xiety;PMDD prior to menstruation (3-10 days) Preventive measures:Encourage self breast examination; Encourage regular exercise; Encourage no tobacco use; Followed with pap smear and high risk HPV typing every 3 years Pravin is a 31yo who presents to office for annual wellness visit, reports increased anxiety/depression before menses and would like STI testing.-Last Pap: 08/2020 NILM/HPV Negative, due 2023-Pravin is about 7 months , did have elevated BPs in which she was on medication for , has since followed up with her PCP and e/m engineer, currently no longer on BP medications and BP stable.-Reports having increased anxiety/depression with her menses that occurs about 3-4 days before her period. Concerned it may be hormonal. States she was admitted to hospital psych unit about 4 months ago and was set up with psychiatrist and in intensive outpatient therapy. Has recently started new medication regimen (clonazapam and mirtazapine) by her psychiatrist. States when her anxiety increases around her menses, she also has tremors. She has brought this to her psychiatrist's attention. Currently plan is to see how the new medications work and they may need to adjust. States she does feel as though her anxiety has been a little less intense but still very present. Denies SI. Reports she has lots of support from partner and family and yarsani. Mariah Kolb, CNM [address] [facility], [address], [place], [address], [place] [facility] 07/27/2022 11:08:18 OBGyn Episode Ob Episode Information Episode Created Date Number of Fetuses Patient Bloodtype Patient rh Status Prepregnancy Weight lbs Domestic Partner Domestic Partner Phone Father Name Senior Javascript Engineer Status 05/13/19 22 1 CLOSED Fetus Data First Name Last Name Admitted to NICU Weight (g) Sex Living Outcome Pediatric Complications Fetus ID Race Codes Race Delivery Type , Spontane ous [id number] Christiano Calculation Initial Christiano Date Initial Exam Date Initial Exam Provider Initial Ultrasound Date Last Menstrual Period Date Ultra Sound Weeks Gestation 0 Eighteen To Twenty Week Christiano Update Ultra Sound Date Fundal Height At Umbil Quickening Date Ultra Sound Latest Weeks Gestation Final Christiano Confirmed By Final Christiano Confirmed Date Final Christiano Date Ultra Sound Latest Days Gestation 0 0 Menstrual History Last Menstrual Date Menses Monthly On Bcp Conception Prior Menses Frequency Hcg Plus Date Menarche Onset Age Delivery Information Delivery Date Delivery Type Labor Anesthesia Weeks Gestation Incision Type Labor Labor Length Hrs Delivered By Post Complications Tubal Sterilization Discharge Date Comments 1 Discharge Information Feeding Method Contraceptive Method Maternal HG B and HCT Levels Ob Episode Information Episode Created Date Number of Fetuses Patient Bloodtype Patient rh Status Prepregnancy Weight lbs Domestic Partner Domestic Partner Phone Father Name Senior Javascript Engineer Status 08/22/19 21 1 CLOSED Fetus Data First Name Last Name Admitted to NICU Weight (g) Sex Living Outcome Pediatric Complications Fetus ID Race Codes Race Delivery Type F Full Term [id number] Vaginal Delivery Christiano Calculation Initial Christiano Date Initial Exam Date Initial Exam Provider Initial Ultrasound Date Last Menstrual Period Date Ultra Sound Weeks Gestation 0 Eighteen To Twenty Week Christiano Update Ultra Sound Date Fundal Height At Umbil Quickening Date Ultra Sound Latest Weeks Gestation Final Christiano Confirmed By Final Christiano Confirmed Date Final Christiano Date Ultra Sound Latest Days Gestation 0 0 Menstrual History Last Menstrual Date Menses Monthly On Bcp Conception Prior Menses Frequency Hcg Plus Date Menarche Onset Age Delivery Information Delivery Date Delivery Type Labor Anesthesia Weeks Gestation Incision Type Labor Labor Length Hrs Delivered By Post Complications Tubal Sterilization Discharge Date Comments 5 Discharge Information Feeding Method Contraceptive Method Maternal HG B and HCT Levels Ob Episode Information Episode Created Date Number of Fetuses Patient Bloodtype Patient rh Status Prepregnancy Weight lbs Domestic Partner Domestic Partner Phone Father Name Senior Javascript Engineer Status 05/13/19 22 1 CLOSED Fetus Data First Name Last Name Admitted to NICU Weight (g) Sex Living Outcome Pediatric Complications Fetus ID Race Codes Race Delivery Type , Spontane ous [id number] Christiano Calculation Initial Christiano Date Initial Exam Date Initial Exam Provider Initial Ultrasound Date Last Menstrual Period Date Ultra Sound Weeks Gestation 0 Eighteen To Twenty Week Christiano Update Ultra Sound Date Fundal Height At Umbil Quickening Date Ultra Sound Latest Weeks Gestation Final Christiano Confirmed By Final Christiano Confirmed Date Final Christiano Date Ultra Sound Latest Days Gestation 0 0 Menstrual History Last Menstrual Date Menses Monthly On Bcp Conception Prior Menses Frequency Hcg Plus Date Menarche Onset Age Delivery Information Delivery Date Delivery Type Labor Anesthesia Weeks Gestation Incision Type Labor Labor Length Hrs Delivered By Post Complications Tubal Sterilization Discharge Date Comments 1 Discharge Information Feeding Method Contraceptive Method Maternal HG B and HCT Levels Ob Episode Information Episode Created Date Number of Fetuses Patient Bloodtype Patient rh Status Prepregnancy Weight lbs Domestic Partner Domestic Partner Phone Father Name Senior Javascript Engineer Status 05/13/19 22 1 CLOSED Fetus Data First Name Last Name Admitted to NICU Weight (g) Sex Living Outcome Pediatric Complications Fetus ID Race Codes Race Delivery Type , Spontane ous [id number] Christiano Calculation Initial Christiano Date Initial Exam Date Initial Exam Provider Initial Ultrasound Date Last Menstrual Period Date Ultra Sound Weeks Gestation 0 Eighteen To Twenty Week Christiano Update Ultra Sound Date Fundal Height At Umbil Quickening Date Ultra Sound Latest Weeks Gestation Final Christiano Confirmed By Final Christiano Confirmed Date Final Christiano Date Ultra Sound Latest Days Gestation 0 0 Menstrual History Last Menstrual Date Menses Monthly On Bcp Conception Prior Menses Frequency Hcg Plus Date Menarche Onset Age Delivery Information Delivery Date Delivery Type Labor Anesthesia Weeks Gestation Incision Type Labor Labor Length Hrs Delivered By Post Complications Tubal Sterilization Discharge Date Comments 0 Discharge Information Feeding Method Contraceptive Method Maternal HG B and HCT Levels Ob Episode Information Episode Created Date Number of Fetuses Patient Bloodtype Patient rh Status Prepregnancy Weight lbs Domestic Partner Domestic Partner Phone Father Name Senior Javascript Engineer Status 08/22/19 21 1 CLOSED Fetus Data First Name Last Name Admitted to NICU Weight (g) Sex Living Outcome Pediatric Complications Fetus ID Race Codes Race Delivery Type M Full Term [id number] Vaginal Delivery Christiano Calculation Initial Christiano Date Initial Exam Date Initial Exam Provider Initial Ultrasound Date Last Menstrual Period Date Ultra Sound Weeks Gestation 0 Eighteen To Twenty Week Christiano Update Ultra Sound Date Fundal Height At Umbil Quickening Date Ultra Sound Latest Weeks Gestation Final Christiano Confirmed By Final Christiano Confirmed Date Final Christiano Date Ultra Sound Latest Days Gestation 0 0 Menstrual History Last Menstrual Date Menses Monthly On Bcp Conception Prior Menses Frequency Hcg Plus Date Menarche Onset Age Delivery Information Delivery Date Delivery Type Labor Anesthesia Weeks Gestation Incision Type Labor Labor Length Hrs Delivered By Post Complications Tubal Sterilization Discharge Date Comments 6 39 Discharge Information Feeding Method Contraceptive Method Maternal HG B and HCT Levels Ob Episode Information Episode Created Date Number of Fetuses Patient Bloodtype Patient rh Status Prepregnancy Weight lbs Domestic Partner Domestic Partner Phone Father Name Senior Javascript Engineer Status 05/13/19 22 1 CLOSED Fetus Data First Name Last Name Admitted to NICU Weight (g) Sex Living Outcome Pediatric Complications Fetus ID Race Codes Race Delivery Type , Spontane ous [id number] Christiano Calculation Initial Christiano Date Initial Exam Date Initial Exam Provider Initial Ultrasound Date Last Menstrual Period Date Ultra Sound Weeks Gestation 0 Eighteen To Twenty Week Christiano Update Ultra Sound Date Fundal Height At Umbil Quickening Date Ultra Sound Latest Weeks Gestation Final Christiano Confirmed By Final Christiano Confirmed Date Final Christiano Date Ultra Sound Latest Days Gestation 0 0 Menstrual History Last Menstrual Date Menses Monthly On Bcp Conception Prior Menses Frequency Hcg Plus Date Menarche Onset Age Delivery Information Delivery Date Delivery Type Labor Anesthesia Weeks Gestation Incision Type Labor Labor Length Hrs Delivered By Post Complications Tubal Sterilization Discharge Date Comments 1 Discharge Information Feeding Method Contraceptive Method Maternal HG B and HCT Levels Ob Episode Information Episode Created Date Number of Fetuses Patient Bloodtype Patient rh Status Prepregnancy Weight lbs Domestic Partner Domestic Partner Phone Father Name Senior Javascript Engineer Status 07/29/19 21 2 CLOSED Fetus Data First Name Last Name Admitted to NICU Weight (g) Sex Living Outcome Pediatric Complications Fetus ID Race Codes Race Delivery Type 2636.27 6704 F Full Term [id number] - Primary 3089.86 8704 M Full Term [id number] - Primary Christiano Calculation Initial Christiano Date Initial Exam Date Initial Exam Provider Initial Ultrasound Date Last Menstrual Period Date Ultra Sound Weeks Gestation 0 Eighteen To Twenty Week Christiano Update Ultra Sound Date Fundal Height At Umbil Quickening Date Ultra Sound Latest Weeks Gestation Final Christiano Confirmed By Final Christiano Confirmed Date Final Christiano Date Ultra Sound Latest Days Gestation 0 0 Menstrual History Last Menstrual Date Menses Monthly On Bcp Conception Prior Menses Frequency Hcg Plus Date Menarche Onset Age Delivery Information Delivery Date Delivery Type Labor Anesthesia Weeks Gestation Incision Type Labor Labor Length Hrs Delivered By Post Complications Tubal Sterilization Discharge Date Comments 9 38 Discharge Information Feeding Method Contraceptive Method Maternal HG B and HCT Levels Ob Episode Information Episode Created Date Number of Fetuses Patient Bloodtype Patient rh Status Prepregnancy Weight lbs Domestic Partner Domestic Partner Phone Father Name Senior Javascript Engineer Status 05/19/19 22 1 AB Positive 137 Lamine Oden ([place]) CLOSED Fetus Data First Name Last Name Admitted to NICU Weight (g) Sex Living Outcome Pediatric Complications Fetus ID Race Codes Race Delivery Type false 4252.42 5 M true Full Term [id number] (Vaginal after C Section) Problems Problem Notes Problem Name Start Date End Date Resolution Snomed Code Not e Family history of pre-eclampsia [id number] Pre-E labs huber cked with IPG labs.05/30: urine pc ratio WNL. TBF Past history of section [id number] x 3, c/s x1 of 2nd twin. Desires TOLAC. TRANSFERRED TO [facility] [place] . IOL BOOKED FOR 41 WEEKS. TOLAC CONSENT SIGNED High risk [id number] High risk due to recurrent loss [id number] Taking santiago ly ASA and vaginal progesterone during the first trimester - wants to continue the progesterone until 18 wga. TBF Polyhydramnios [id number] MVP 9 cm on 11/10/21 Christiano Calculation Initial Christiano Date Initial Exam Date Initial Exam Provider Initial Ultrasound Date Last Menstrual Period Date Ultra Sound Weeks Gestation 12/13/2021 05/12/2021 05/07/2021 03/08/2021 7 Eighteen To Twenty Week Christiano Update Ultra Sound Date Fundal Height At Umbil Quickening Date Ultra Sound Latest Weeks Gestation Final Christiano Confirmed By Final Christiano Confirmed Date Final Christiano Date Ultra Sound Latest Days Gestation 0 [id number] 10/15/2021 12/19/19 22 0 Pre- Flowsheet Flowsheet Date 05/19/2021 Frausto Score Blood Edema Fundus Height Fundus Units Glucose Ketones Leukocytes Nitrite Labor Signs Protein Cervic Dilation Cervic Effacement Cervic Station 0cm 0% -4 Type Weight in lbs Pre/Post Dialysis Refused With clothes 130.997404828630 BP Diastolic BP Location Tested BP Systolic BP Type 66 110 sitting Fetus Heart Rate Present Fetus Movement Comments Nausea/Vomiting: Random, mil d bouts of nausea.Headaches: OccasionalCramping: on and off, constipation cramping.Edema: NoPatient in the office for her initial OB visit. Doing well so far. Reviewed early issues and discussed precautions including cramping, bleeding, discharge, morning sickness. Denies headache, fever, chills, cp, sob, bleeding, severe N/V. Occasional cramping. Reviewed [facility] practice policies and procedures. Reviewed male providers, importance of compliance with care, delivery and surgery at [facility], arcade technician resident involvement, sun, bug, zika, and travel precautions. Reviewed all available first trimester genetic screening and 2nd trimester screening. Reviewed initial viability USN. NT USN scheduled. Reviewed OB Hx and RPL. Will rpt an USN in the next week, before NT to help alleviate pt's concerns given multiple prior losses. All questions answered. Will RTO in 4 weeks for OB visit, follow up all labs and testing. TBF Flowsheet Date 06/16/2021 Frausto Score Blood Edema Fundus Height Fundus Units Glucose Ketones Leukocytes Nitrite Labor Signs Protein Cervic Dilation Cervic Effacement Cervic Station neg none 13 wks none none neg Type Weight in lbs Pre/Post Dialysis Refused Weight 134.642804244417 BP Diastolic BP Location Tested BP Systolic BP Type 68 110 Fetus Heart Rate Present A 146 Fetus Movement A No Comments Headaches: OccNausea: OccVom iting: NoFetal movement: N/AContractions: NoAFP next visit.no ctxs, cramping, bleeding or ROMCovid-19 screen Negative+ FMSAB, PIH and FA reviewedsun, bug, Zika, Covid-19, sex and travel precautions reviewedNo recent Viral illness, rash or arthralgiasHospital, Office and visitor policy reviewedRecent Covid-19/ Vaccine information/ precautions reviewedLabs and U/S reviewed: Normal new ob labs and low risk NT and NIPT reviewed Flowsheet Date 07/14/2021 Frausto Score Blood Edema Fundus Height Fundus Units Glucose Ketones Leukocytes Nitrite Labor Signs Protein Cervic Dilation Cervic Effacement Cervic Station neg none 17 wks none none neg Type Weight in lbs Pre/Post Dialysis Refused Weight 134.964617006003 BP Diastolic BP Location Tested BP Systolic BP Type 72 108 Fetus Heart Rate Present A 146 Fetus Movement A Yes Comments Nausea/Vomiting: Occasional nausea, increased acid reflux and heartburn.Headaches: positive for the past 2 days, patient states triggered by the heat.Cramping: Lower abdominal, constipation relatedEdema: NoPatient reporting heart palpations along with chest tightening/pressure to chest recently, stating mainly in the evenings when baby is more active, also reports she has cardiology appointment set for 07/2021no ctxs, cramping, bleeding or ROMCovid-19 screen Negative+ FMPML, PIH and FACs reviewedsun, bug, Zika, Covid-19, sex and travel precautions reviewedNo recent Viral illness, rash or arthralgiasHospital, Office and visitor policy reviewedRecent Covid-19/ Vaccine information/ precautions reviewedLabs and U/S reviewed: Check MSAFP and follow up with glass etcher reviewed, has Level II USN booked at [facility] Flowsheet Date 08/11/2021 Frausto Score Blood Edema Fundus Height Fundus Units Glucose Ketones Leukocytes Nitrite Labor Signs Protein Cervic Dilation Cervic Effacement Cervic Station neg 21 cm none none neg Type Weight in lbs Pre/Post Dialysis Refused Weight 135.41546429453 BP Diastolic BP Location Tested BP Systolic BP Type 70 110 Fetus Heart Rate Present A 150 Fetus Movement A Yes Comments Nausea/Vomiting: NoHeadaches : yes w/ heat Cramping: No (constipation cramping)Edema: NoRoutine OB visit. Size = date. FHR reassuring. Denies headache, fever, chills, cp, sob. No regular cramping or contractions. Sun, bug, Zika, travel precautions all reviewed. COVID, PTL, and FM precautions all discussed. Anatomy USN reviewed and WNL. No AFP. RTO In 4 weeks. TBF Flowsheet Date 09/01/2021 Frausto Score Blood Edema Fundus Height Fundus Units Glucose Ketones Leukocytes Nitrite Labor Signs Protein Cervic Dilation Cervic Effacement Cervic Station neg none 24 cm none none neg Type Weight in lbs Pre/Post Dialysis Refused Weight 140.875367021651 BP Diastolic BP Location Tested BP Systolic BP Type 80 120 Fetus Heart Rate Present A 145 Fetus Movement A Yes Comments Nausea/Vomiting: Yes/NoHeada ches: NoCramping: YesFM: +Edema: NoDoing well, no complaints other than white discharge intermittently, no associated symptoms. Affirm collected at visit today. + FM. Lab slip given today for 28 week labs. Negative PHQ-2 today. Reviewed TDAP, patient planning to DECLINE. Reviewed options for delivery, patient s/p C/S x 1, prior to that had 3 successful SVDs. Hoping for TOLAC if spontaneous labor prior to EDC, reviewed we would not induce. Will schedule repeat C/S at 40+ weeks. Flowsheet Date 10/15/2021 Frausto Score Blood Edema Fundus Height Fundus Units Glucose Ketones Leukocytes Nitrite Labor Signs Protein Cervic Dilation Cervic Effacement Cervic Station 30 cm Type Weight in lbs Pre/Post Dialysis Refused Weight 152.778844521465 BP Diastolic BP Location Tested BP Systolic BP Type 71 123 Fetus Heart Rate Present A 134 Fetus Movement A Yes Comments 1. pt ob transfer, 3 sucessf ul , 1 c/s due to twin B breech. pt wishes to TOLAC. 2. 28 wk labs reviewed, hct 38.9, pt is not currently taking PNV with iron, no improvement with miralax, fiber or increased hydration, pt will add colace daily and fiber gummies, consider repeat H/H at 36 wga 3. pt wishes to continue until 42 wks, we discussed 41 wga will be the limit 4. pt wishes to due [place] +ROM if she needs induction at 41 wga, pt plan reviewed, scanned into chart, she is aware she is not a candidate for tub and will need consistent monitoring in labor Flowsheet Date 10/27/2021 Frausto Score Blood Edema Fundus Height Fundus Units Glucose Ketones Leukocytes Nitrite Labor Signs Protein Cervic Dilation Cervic Effacement Cervic Station none 33 cm none neg Type Weight in lbs Pre/Post Dialysis Refused With clothes 153.895481181925 BP Diastolic BP Location Tested BP Systolic BP Type 78 118 sitting Fetus Heart Rate Present A 148 Fetus Movement A Yes Comments Pravin is feeling well overal l today. Endorses +FM, denies VB/LOF/UCs. Reports some archie meeks, nothing painful or consistent. Reports increased anxiety and stress at home due to her sister with bipolar disorder and not taking her medications. Reports she has been having some upset stomach as well. Encouraged increased fluids. Has support from her yarsani group, but since her sister is also apart of her yarsani, it makes it hard for her to talk about her stressors. Also reporting increased anxiety since one of her friends from yarsani recently had a loss at 41weeks due to an abruption who was also a . Provided and discussed consent and reviewed risks/benefits. Is planning to have R C/S scheduled for 40 weeks, and TOLAC if spontaneous labor before hand instead of waiting for 41 weeks. Provided L&D consent as well. Plan to bring both back next visit. Breast pump and Nest discussed, desires both, orders sent. Warning signs and calling guidelines reviewed. RTO in 2 weeks for PNV and growth scan. Flowsheet Date 11/10/2021 Frausto Score Blood Edema Fundus Height Fundus Units Glucose Ketones Leukocytes Nitrite Labor Signs Protein Cervic Dilation Cervic Effacement Cervic Station none none neg Type Weight in lbs Pre/Post Dialysis Refused Weight 156.388972495344 BP Diastolic BP Location Tested BP Systolic BP Type 77 123 Fetus Heart Rate Present A 136 Fetus Movement A Yes Comments Growth today 82.9%ile, polyh ydramnios by MVP 9cm. She is having archie-meeks, discussed warning signs when to call. Baby is moving well for her. She wants to book a CS for 41wks if no spontaneous labor. TOLAC consent reviewed and signed. FBC consent reviewed and signed. GBS next visit. Declines flu shot today. Flowsheet Date 11/24/2021 Frausto Score Blood Edema Fundus Height Fundus Units Glucose Ketones Leukocytes Nitrite Labor Signs Protein Cervic Dilation Cervic Effacement Cervic Station 39 cm none neg 1cm 0% -4 Type Weight in lbs Pre/Post Dialysis Refused Weight 158.073003625801 BP Diastolic BP Location Tested BP Systolic BP Type 83 125 Fetus Heart Rate Present A 135 Fetus Movement A Yes Comments Pravin is not feeling well to day. Kids have been sick with fevers and keeping her up. Has not been getting much sleep, having various symptoms of nausea, dizziness, hot flashes, chills. She denies a fever, cough, other cold symptoms. COVID negative. Her anxiety is up but does have an appointment with her therapist on . Reassured pt and instructed to stay well hydrated, eat small snacks, electrolytes and can boost immunity with Zinc and Vit.C. Reports excellent FM, some occasional archie meeks contractions. Still unsure fi she wants to TOLAC, leaning towards repeat C/S today. GBS collected. SVE 1 cm/thick/high. RTO In 1 week. Flowsheet Date 11/30/2021 Frausto Score Blood Edema Fundus Height Fundus Units Glucose Ketones Leukocytes Nitrite Labor Signs Protein Cervic Dilation Cervic Effacement Cervic Station none trace Type Weight in lbs Pre/Post Dialysis Refused Weight 158.147017024386 BP Diastolic BP Location Tested BP Systolic BP Type 71 118 Fetus Heart Rate Present A 130 Fetus Movement Comments 1. pt notes irregular BH, no VB or LOF, good FM 2. pt noted some lower abdominal pressure and dependent area swelling 3. reviewed plan, pt declines IV but open to hel lock 4. consent for c/s signed but pt is hoping to go into labor 5. pt recently diagnosed with RSV, noted nasal congestion and associated dizziness, she recently went to urgent care and was started on amoxicilli and nasal saline spray Flowsheet Date 12/07/2021 Frausto Score Blood Edema Fundus Height Fundus Units Glucose Ketones Leukocytes Nitrite Labor Signs Protein Cervic Dilation Cervic Effacement Cervic Station 39 cm none trace Type Weight in lbs Pre/Post Dialysis Refused BP Diastolic BP Location Tested BP Systolic BP Type 97 145 sitting 74 117 sitting Fetus Heart Rate Present A 140 Fetus Movement A Yes Comments Pravin is feeling well today, ready for baby to come! Endorses +FM, denies VB/UCs. Reports having some more frequent archie meeks and some recent increase of clear vaginal discharge for past 4 days and concerned it may be her membranes. States she last had intercourse 2 days ago. Speculum exam completed and was negative for pooling, nitrazine and ferning. Initial BP on arrival elevated with repeat WNL. Pravin reports feeling much better since starting her amoxicillin, no more dizziness and congestion is much improved. Reviewed GBS negative result. Warning signs and calling guidelines reviewed. RTO in 1 week for PNV. Flowsheet Date 12/14/2021 Frausto Score Blood Edema Fundus Height Fundus Units Glucose Ketones Leukocytes Nitrite Labor Signs Protein Cervic Dilation Cervic Effacement Cervic Station trace none neg 1cm 0% -3 Type Weight in lbs Pre/Post Dialysis Refused Weight 169.275631140439 BP Diastolic BP Location Tested BP Systolic BP Type 72 121 Fetus Heart Rate Present A 140 Fetus Movement A Yes Comments Pravin is doing well overall. Endorses +FM and some mild UCs. No VB/LOF. Membrane sweep requested. CARLOS ALBERTO MANUEL. Discussed again the plan for TOLAC vs. R C/S, Pravin transferred to our practice because we are friendly, and she has had 3 VAGINAL BIRTHS, she feels she is being pressured into a repeat C/S and does not want this. We discussed post dates management and the risks of going beyond 41 weeks and she agrees to a IOL at 41 weeks if no spont. labor by then. She prefers as little medical intervention as possible and we reviewed if she is dialated at least 2cm we can use AROM alone for IOL. Discussed warning signs of labor and when to call the office. RTO in 1 week unless she goes into labor prior. Flowsheet Date 12/21/2021 Frausto Score Blood Edema Fundus Height Fundus Units Glucose Ketones Leukocytes Nitrite Labor Signs Protein Cervic Dilation Cervic Effacement Cervic Station trace none neg 2cm 50% -2 Type Weight in lbs Pre/Post Dialysis Refused Weight [id number] BP Diastolic BP Location Tested BP Systolic BP Type 81 124 Fetus Heart Rate Present A 131 Fetus Movement A Yes Comments RNST today, DONELL WNL,vertex. Pt is booked for Ind 12/25/21, membrane sweep today. Menstrual History Last Menstrual Date Menses Monthly On Bcp Conception Prior Menses Frequency Hcg Plus Date Menarche Onset Age 0103/08/2021 Delivery Information Delivery Date Delivery Type Labor Anesthesia Weeks Gestation Incision Type Labor Labor Length Hrs Delivered By Post Complications Tubal Sterilization Discharge Date Comments 2 Induce d Regional-Ep idural 41.1 Paxton Kaur MD Discharge Information Feeding Method Contraceptive Method Maternal HG B and HCT Levels
--- OUTSIDE RECORDS SUMMARY | 2024-04-05 16:34 | XMS_ITS | Encounter Summary ---
Author Organization [facility] Address [address] [place] [address] Care Team Providers Care Tree Tapping Laborer Name Role Phone Matthias Chau MD Primary Care Provider + [phone] Encounter Details Date Type Department Care Team ([facility] st Contact Info) Description 07/20/2022 Scanned Document [facility] Department of Internal Medicine & Nephrology [address] [address] Matthias Chau MD [address] [phone] Social History Tobacco Use Types Packs/Day Years Used Date Smoking Tobacco: Never Smokeless Tobacco: Never Alcohol Use Standard Drinks/Week Comments No 0 (1 standard drink = 0.6 oz pur e alcohol) AUDIT-C Answer Date Recorded Q1: How often do you have a drink containing alcohol? Never 04/26/2022 Q2: How many drinks containi ng alcohol do you have on a typical day when you are drinking? Patient does not drink Q3: How often do you have si x or more drinks on one occasion? Never 04/26/2022 Sex and Gender Information Value Date Recorded Sex Assigned at Female 04/03/2022 4:58 AM EST Gender Identity Female 04/03/2022 4:58 AM EST Sexual Orientation Heterosexual (straight) 04/03 4:58 AM EST documented as of this encounter Plan of Treatment Not on file documented as of this encounter Visit Diagnoses Not on filedocumented in this encounter Care Teams Tree Tapping Laborer Relationship Specialty Start Date End Date Matthias Chau MD [address] [place] [address] PCP - General Nephrology 04/24/22 documented as of this encounter
--- OUTSIDE RECORDS SUMMARY | 2024-04-05 16:34 | XMS_ITS | Encounter Summary ---
Author Organization [facility] Address [address] [place] [address] Care Team Providers Care Emergency Care Attendant Name Role Phone Matthias Chau MD Primary Care Provider + [phone] Encounter Details Date Type Department Care Team ([facility] st Contact Info) Description 08/22/2022 Scanned Document [facility] Department of Internal Medicine & Nephrology [address] [address] Matthias Chau MD [address] [place] [phone] Social History Tobacco Use Types Packs/Day Years [...] on filedocumented in this encounter Care Teams Emergency Care Attendant Relationship Specialty Start Date End Date Matthias Chau MD [address] [place] [address] PCP - General Nephrology 04/24/22 documented as of this encounter
--- OUTSIDE RECORDS SUMMARY | 2024-04-05 16:34 | XMS_ITS | Clinical Summary ---
Author Organization [facility] Address [address] [place] [address] Care Team Providers Care Blow Torch Operator Name Role Phone Matthias Chau MD Primary Care Provider + [phone] Allergies Active Allergy Reactions Criticality Noted Date Comments Escitalopram Other (See Comments),Unknown/Patient and Family Unable to Define,Diarrhea,Palpitati ons Medium 08/25/2022 Serotonin Reuptake Inhibitors (Ssris) Unknown/Patient and Family Unable to Define Medium 03/23/2022 Medications Medication Sig Dispensed Refills Start Date End Date Status famotidine (PEPCID) 20 MG tablet famotidine 20 mg tablet TAKE 1 TABLET BY MOUTH EVERY DAY AT NIGHT Active mirtazapine (REMERON) 15 MG tablet Take 15 mg by mouth. 05/27/2022 Active omega-3 fatty acids (FISH OIL) 1000 MG Cap capsule Take by mouth. Active ibuprofen (MOTRIN) 600 MG tablet Take 600 mg by mouth 4 times daily (every 6 hours) as needed. for pain 09/12/2022 Active lidocaine (LIDODERM) 5 % patch PLACE 1 PATCH ONTO THE SKIN DAILY. REMOVE & DISCARD PATCH WITHIN 12 HOURS OR DIRECTED BY 09/12/2022 Active clonazePAM (KlonoPIN) 0.25 MG disintegrating tablet Take 0.25 mg by mouth 2 (two) times a day as needed. Active naratriptan (AMERGE) 2.5 MG tabletIndications:Aletha r syncope,TTH (tension-type headache), frequent episodic type Take 1 tablet (2.5 mg total) by mouth once as needed for migraine. May repeat in 4 hours if unresolved. Do not exceed 5 mg in 24 hours. 9 tablet 1 10/06/2022 Active clonazePAM (KlonoPIN) 0.5 MG tablet TAKE 1/2 TABLET EVERY OTHER DAY NEEDED FOR ANXIETY (0.25MG) Active doxycycline (MONODOX) 100 MG capsule Take 1 capsule by mouth 2 (two) times a day. Active propranolol (INDERAL) 10 MG tabletIndications:Kitty tang hypertension Take 1 tablet (10 mg total) by mouth 3 (three) times a day. 270 tablet 11/22/2022 Active Active Problems Problem Noted Date Diagnosed Date Hypertension 04/27/2022 S/P laparoscopic cholecystectomy 11/18/2020 Panic disorder without agoraphobia with mild rajput ic attacks 03/27/2018 Resolved Problems Problem Noted Date Diagnosed Date Resolved Date GERD (gastroesophageal reflux disease) 04/27/2022 08/25/2022 History of gestational hypertension 07/28/2020 08/25/2022 32 weeks gestation of 08/24/2017 07/07/2022 Immunizations Name Administration Dates Next Due Influenza Inactivated/Split Preservative Free IM 05/03/2022(),12/09/2020 Rho (D) Immune Globulin 02/22/2018(Deferred: - m om AB+) Tdap 02/24/2018() Social History Tobacco Use Types Packs/Day Years Used Date Smoking Tobacco: Never Smokeless Tobacco: Never Tobacco Cessation:Counseling Given: Not Answered Alcohol Use Standard Drinks/Week Comments No 0 [...] Orientation Heterosexual (straight) 04/03 4:58 AM EST Last Filed Vital Signs Vital Sign Reading Time Taken Comments Blood Pressure 115/77 10/29/2022 8:17 AM EDT Pulse 72 10/29/2022 8:17 AM EDT Temperature 36.6 ??C (97.9 ??F) 05/03/2022 8:00 AM ED T Respiratory Rate 18 09/08/2022 9:24 AM EDT Oxygen Saturation 98% 10/29/2022 8:17 AM EDT Inhaled Oxygen Concentration - - Weight 68 kg (150 lb) 10/29/2022 8:17 AM EDT Height 160 cm (5' 3 ) 10/06/2022 4:00 PM EDT Body Mass Index 26.57 10/06/2022 4:00 PM EDT Plan of Treatment Health Maintenance Due Date Last Done Comments DTaP/Tdap/Td Vaccines (1 - Tdap) 12/16/2007 Hepatitis B Vaccines (1 of 3 - 19+ 3-dose series) 12/16/2007 Pap Smear (Ages 21-65) 08/22/2023 08/21/2020 Influenza Vaccine 09/15/2023 12/09/2020 COVID-19 Vaccine ( - 2023- season) 2023 HIV Screening Completed 07/27/2022, 0804/2021, 05/25/2021, Additional history exists Hepatitis C Virus Screening Completed 07/27/2022, 0 05/25/2021 HPV Vaccines Aged Out No longer eligi ble based on patient's age to complete this topic Pneumococcal Vaccine: Pediatric (0-5 Years) and At-Risk Patients (6 to 49 Years) Aged Out No longer eligible based on patient's age to complete this topic Procedures Procedure Name Priority Date/Time Associated Diagnosis Comments HIV 1/2 AG/AB CMIA REFLEX TO CONFIRMATION Routine 07/27/2022 10:42 AM EDT HEPATITIS C VIRUS (HCV) ANTIBODY Routine 07/27/2022 10:42 AM EDT THINPREP PAP(AGENCY SALES MANAGEMENT ASSISTANT) HPV SCR RFX HPV 16,18/45 Routine 08/21/2020 2:07 PM EDT from Last 3 Months or Most Recently Relevant to Health Maintenance Results * HIV 1/2 Ag/Ab CMIA Reflex to Confirmation (07/27/2022 10:42 AM EDT) HIV Ag/Ab, 4th Gen Non-Reacti ve Non-Reacti ve [facility] Comment: Results show no evidence of infection by HIV 1/2. If clinically indicated, repeat CMIA or test by nucleic acid amplification. Other 07/27/2022 10:4 2 AM EDT 07/27/2022 8:39 PM EDT Mariah Kolb [facility] BLOOD ORDERABLES Performing Organization Address [facility] Co de Phone Number [facility] [address], [place] * HEPATITIS C VIRUS (HCV) ANTIBODY (07/27/2022 10:42 AM EDT) Hepatitis C Antibody 0.59 Non-Reacti ve Non-Reacti ve S/CO [facility] Other 07/27/2022 10:4 2 AM EDT 07/27/2022 8:39 PM EDT Mariahchadwick Kolb [facility] BLOOD ORDERABLES Performing Organization Address [facility] de Phone Number [facility] [address], [place] * ThinPrep Pap(Shift Stacker) HPV Scr Rfx HPV 16,18/45 (08/21/2020 2:07 PM EDT) Report Report [facility] Comment: Final Gynecological Cytology Report ThinPrep Pap Test, HPV Screen, Reflex HPV Genotype SPECIMEN ADEQUACY: SATISFACTORY FOR EVALUATION; ENDOCERVICAL/TRANSFORMATION ZONE COMPONENT PRESENT. INTERPRETATION: NEGATIVE FOR INTRAEPITHELIAL LESION OR MALIGNANCY. Electronically Signed: ??Leah Gonsalez CT (ASCP) CLINICAL INFORMATION: LMP: 07/24/2020 Clinical History: ??RTN Specimen Source: ??Cervix, Endocervix HPV RESULTS: HPV mRNA E6/E7 ?? [id number] ?? Approved: 08/22/20 Negative ? REF RANGE: Negative CPT Codes: 94154 ICD Codes: Z01.419 Other 08/21/2020 2:07 PM EDT 08/21/2020 9:28 PM EDT Antelmo Richmond DO PATHOLOGY/CYTOLOG Y ORDERABLES Performing Organization Address City/State/[facility] Co de Phone Number [facility] [address], [place] from Last 3 Months or Most Recently Relevant to Health Maintenance Advance Directives * Full Code (Latest Code Status on File) Date Activated Date Inactivated Comments 04/26/2022 6:27 PM * Full Code Date Activated Date Inactivated Comments 03/03/2018 4:18 PM 03/01/2021 10:11 AM * Full Code Date Activated Date Inactivated Comments 02/27/2018 5:31 AM 03/03/2018 1:09 PM * Full Code Date Activated Date Inactivated Comments 02/27/2018 5:22 AM 02/27/2018 5:31 AM * Full Code Date Activated Date Inactivated Comments 02/27/2018 4:53 AM 02/27/2018 5:09 AM Care Teams Blow Torch Operator Relationship Specialty Start Date End Date Matthias Chau MD [address] [address] PCP - General Nephrology 04/24/22
--- OUTSIDE RECORDS SUMMARY | 2024-04-05 16:34 | XMS_ITS | Encounter Summary ---
Author Organization [facility] Address [address] [place] [address] Care Team Providers Care Communications Engineer Name Role Phone Matthias Chau MD Primary Care Provider + [phone] Encounter Details Date Type Department Care Team ([facility] st Contact Info) Description 08/22/2022 Scanned Document [facility] Department of Internal Medicine & Nephrology [address] [address] Matthias Chau MD [address] [phone] Social History Tobacco Use Types Packs/Day Years [...] on filedocumented in this encounter Care Teams Communications Engineer Relationship Specialty Start Date End Date Matthias Chau MD [address] [place] [address] PCP - General Nephrology 04/24/22 documented as of this encounter
--- OUTSIDE RECORDS SUMMARY | 2024-04-05 16:34 | XMS_ITS ---
Author Name [facility] Organization Unknown History of Medication Use Medication Directions Dispensed Refills Start Date End Date Stat diltiazem (CARDIZEM) 30 MG tablet Take 1 tablet (30 mg total) by mouth 3 (three) times a day. 03/04/2018 active propranolol (INDERAL) 10 MG tablet Take 1 tablet (10 mg total) by mouth 3 (three) times a day. 10/12/2022 01/11/2023 active lidocaine (LIDODERM) 5 % Place 1 patch onto the skin daily. Remove & Discard patch within 12 hours or as directed by 09/12/2022 active ondansetron HCl 4 mg tablet TAKE 1 TABLET BY MOUTH DAILY NEEDED FOR NAUSEA TAKE 1 TABLET BY MOUTH DAILY NEEDED FOR NAUSEA completed hydrALAZINE (APRESOLINE) 25 MG tablet Take 0.5 tablets (12.5 mg total) by mouth every 8 (eight) hours around the clock. 03/04/2018 active ibuprofen (MOTRIN) 600 MG tablet Take 600 mg by mouth 4 times daily (every 6 hours) as needed. for pain 09/12/2022 active propranolol (INDERAL) 10 MG tablet Take 1 tablet (10 mg total) by mouth 3 (three) times a day. active Endometrin 100 mg vaginal insert INSERT 1 TAB VAGINALLY TWICE A DAY FOR 10 WEEKS INSERT 1 TAB VAGINALLY TWICE A DAY FOR 10 WEEKS completed ibuprofen 600 MG tablet Take 1 tablet (600 mg total) by mouth every 6 (six) hours as needed for pain. 09/12/2022 active Vit-Fe Fumarate-FA ( PO) Take by mouth daily as needed. Baby and me too active famotidine (PEPCID) 20 MG tablet famotidine 20 mg tablet TAKE 1 TABLET BY MOUTH EVERY DAY AT NIGHT active esomeprazole magnesium 40 mg capsule,delayed release TAKE 1 CAPSULE BY MOUTH DAILY FOR 60 DAYS. TAKE 1 CAPSULE BY MOUTH DAILY FOR 60 DAYS. completed None recorded. (No additional sig information) completed clonazepam 0.5 mg tablet TAKE 1 TABLET BY MOUTH 2 TIMES A DAY. TAKE 1 TABLET BY MOUTH 2 TIMES A DAY. completed amoxicillin (AMOXIL) 500 MG capsule Take 1 capsule (500 mg total) by mouth every 8 (eight) hours around the clock. 11/30/2021 11/30/2021 aborted famotidine 20 mg tablet TAKE 1 TABLET BY MOUTH EVERY DAY AT NIGHT TAKE 1 TABLET BY MOUTH EVERY DAY AT NIGHT completed aspirin 81 mg tablet,delayed release TAKE 1 TABLET BY MOUTH EVERY DAY TAKE 1 TABLET BY MOUTH EVERY DAY completed clonazePAM (KlonoPIN) 0.5 MG tablet clonazepam 0.5 mg tablet TAKE 1 TABLET BY MOUTH EVERY DAY NEEDED FOR ANXIETY active propranolol (INDERAL LA) 60 MG 24 hr capsule Take 1 capsule (60 mg total) by mouth daily. 08/25/2022 active doxycycline (MONODOX) 100 MG capsule Take 1 capsule by mouth 2 (two) times a day. active clonazePAM (KlonoPIN) 0.5 MG tablet Take 0.5 tablets (0.25 mg total) by mouth daily. 08/23/2022 active Allergies Allergen Reaction Severity Comment Documented Date Source Statu s SERTRALINE Tachycardia [facility] LEXAPRO Tachycardia [facility] Problems Problem Status Onset Date Problem Type Date of Resoluti on Source Hypertension active 2022-10-02 ProblemAct [facility] Acute cholecystitis active 2020-10-08 ProblemAct [facility] Anxiety and depression active 2020-05-20 ProblemAct [facility] Preeclampsia active 2018-02-27 ProblemAct [facility] S/P laparoscopic cholecystectomy active 2020-11-18 ProblemAct [facility] Vascular abnormality of brain active 2022-08-22 ProblemAct [facility] Hypokalemia active 2020-12-03 ProblemAct [facility] PTSD (post-traumatic stress disorder) active 2018-03-27 ProblemAct [facility] Gastroesophageal reflux disease without esophagitis active 2020-12-03 ProblemAct [facility] COVID-19 active 2022-04-13 ProblemAct [facility] Current mild episode of major depressive disorder active 2018-03-[address] scan of head active 2022-08-22 ProblemAct [facility] Allergic rhinitis due to allergen active 2020-12-03 ProblemAct [facility] Abdominal pain, epigastric active 2020-11-18 ProblemAct [facility] Panic disorder without agoraphobia with mild panic attacks active 2018-03-27 ProblemAct [facility] Migraine active 2020-08-21 ProblemAct [facility] Post depression active 2022-02-19 ProblemAct [facility] History of gestational hypertension active 2020-07-28 ProblemAct [facility] Routine care active 2021-05-18 ProblemAct [facility] Hypertension active 2022-04-27 ProblemAct [facility] History of depression active 2018-07-14 ProblemAct [facility] Immunizations Vaccine Date Source Lot Number Status Influenza Inactivated/Split Preservative Free IM 05/03/2022 [facility] completed Rho (D) Immune Globulin 02/22/2018 [facility] c ompleted Tdap 02/24/2018 [facility] completed Influenza Inactivated/Split Preservative Free IM 12/09/2020 [facility] completed
--- OUTSIDE RECORDS SUMMARY | 2024-04-05 16:34 | XMS_ITS | Clinical Summary ---
Author Organization [facility] Address [address] [place] [address] Care Team Providers Care Admissions Nurse Name Role Phone Matthias Chau MD Primary Care Provider [phone] Allergies Active Allergy Reactions Criticality Noted Date Comments Seasonal 01/01/2021 Serotonin Reuptake Inhibitors (Ssris) 03/23/2022 Medications Medication Sig Dispensed Refills Start Date End Date Status Vit-Fe Fumarate-FA ( PO) Take by mouth daily as needed. Baby and me too 0 Active mirtazapine (REMERON) 15 MG tablet Take 1 tablet (15 mg total) by mouth every night at bedtime. 0 05/27/2022 Active [place]-3 Fatty Acids (Fish Oil) 1000 MG CAPS Take by mouth. 0 Active clonazePAM (KlonoPIN) 0.5 MG tablet Take 0.5 tablets (0.25 mg total) by mouth daily. 30 tablet 0 08/23/2022 Active lidocaine (LIDODERM) 5 % Place 1 patch onto the skin daily. Remove & Discard patch within 12 hours or as directed by MD 30 patch 0 09/12/2022 Active ibuprofen 600 MG tablet Take 1 tablet (600 mg total) by mouth every 6 (six) hours as needed for pain. 30 tablet 0 09/12/2022 Active propranolol (INDERAL LA) 60 MG 24 hr capsule Take 1 capsule (60 mg total) by mouth daily. 30 capsule 6 01/19/2023 Active Active Problems Problem Noted Date Diagnosed Date Hypertension 10/02/[address] scan of head 08/22/2022 Vascular abnormality of brain 08/22/2022 COVID-19 04/13/2022 Post depression 02/19/2022 Gastroesophageal reflux disease without esophagi tis 12/03/2020 Allergic rhinitis due to allergen 12/03/2020 Hypokalemia 12/03/2020 S/P laparoscopic cholecystectomy 11/18/2020 Abdominal pain, epigastric 11/18/2020 Acute cholecystitis 10/08/2020 Anxiety and depression 05/20/2020 PTSD (post-traumatic stress disorder) 03/27/2018 Current mild episode of major depressive disorde r 03/27/2018 Preeclampsia 02/27/2018 Family History Medical History Relation Name Comments Asthma Brother Asthma Father Depression Father Heart disease Maternal Grandfather Hypertension Maternal Grandfather Mental illness Maternal Uncle Asthma Mother Depression Mother Depression Paternal Grandmother Cancer Paternal Uncle Autism Son Relation Name Status Comments Brother Father Maternal Grandfather Maternal Uncle Schizophrenia Mother Paternal Grandmother Paternal Uncle Son Social History Tobacco Use Types Packs/Day Years Used Date Smoking Tobacco: Never Smokeless Tobacco: Never Tobacco Cessation:Counseling Given: Not Answered Alcohol Use Standard Drinks/Week Comments Yes 0 (1 standard drink = 0.6 oz pur e alcohol) rare Sex and Gender Information Value Date Recorded Sex Assigned at Female 10/09/2018 8:00 AM EDT Gender Identity Female 04/16/2022 7:37 AM EST Sexual Orientation Not on file Job Start Date Occupation Industry Not on file Not on file Not on file Last Filed Vital Signs Vital Sign Reading Time Taken Comments Blood Pressure 106/88 11/09/2022 10:05 AM EDT Pulse 78 11/09/2022 10:05 AM EDT Temperature 36.7 ??C (98.1 ??F) 09/12/2022 5:25 PM ED T Respiratory Rate 20 09/12/2022 5:25 PM EDT Oxygen Saturation 99% 11/09/2022 10:05 AM EDT Inhaled Oxygen Concentration - - Weight 72.1 kg (159 lb) 11/09/2022 10:05 AM EDT Height 160 cm (5' 3 ) 11/09/2022 10:05 AM EDT Body Mass Index 28.17 11/09/2022 10:05 AM EDT Plan of Treatment Health Maintenance Due Date Last Done Comments Hepatitis B Vaccines (1 of 3 - 3-dose series) 1988 Hepatitis C Screening 1988 DTap / Tdap / Td (1 - Tdap) 12/16/2007 Cervical Cancer Screening (Pap Smear) 04/28/2021 04/28/2018 (Pt Reported - Need documentation) Depression Screening 01/01/2022 01/01/2021, 03/27/19 Preventative Health Evaluation 01/01/2022 01/01/2021, 01/01/2021 BMI Counseling 03/30/2023 03/30/2022, 08/2022, 02/16/2022, Additional history exists Influenza Vaccine Discontinued 12/09/2020 COVID-19 Vaccine Discontinued Pneumococcal Vaccine Aged Out No long er eligible based on patient's age to complete this topic RSV Ped < 20 months Aged Out No longe r eligible based on patient's age to complete this topic Advance Directives For more information, please contact: [phone] Latest Code Status on File Code Status Date Activated Date Inactivated Comments Full Code 08/22/2022 11:08 PM 08/23/2022 7:38 PM This code status was ascertained in the following way: . Code Status History Code Status Date Activated Date Inactivated Comments Full Code 10/10/2020 9:52 AM 10/11/2020 1:11 AM This code status was ascertained in the following way: discussion with patient . Full Code 10/08/2020 4:26 PM 10/10/2020 9:52 AM This code status was ascertained in the following way: discussed . Care Teams Admissions Nurse Relationship Specialty Start Date End Date Matthias Chau MD [address] [address] PCP - General Import Specialist 05/13/22
--- OUTSIDE RECORDS SUMMARY | 2024-04-05 16:34 | XMS_ITS | Encounter Summary ---
Author Organization [facility] Address [address] [place] [address] Care Team Providers Care Water Main Inspector Name Role Phone Unknown Primary Care Provider [phone] Clair Elaine MD Primary Care Provider [phone] Clair Lawson MD Primary Care Provider [phone] Bailey Gan MD Primary Care Provider [phone] Matthias Chau MD Primary Care Provider [phone] Encounter Details Date Type Department Care Team (Late st Contact Info) Description 01/17/2018 Prep for Surgery OBGYN IP [address] [place] [id number] Nehal Roberts MD [address] [place] [id number] Dichorionic diamniotic twin in third trimester (Primary Dx) Social History Tobacco Use Types Packs/Day Years Used Date Smoking Tobacco: Never Smokeless Tobacco: Never Comments Yes Sex and Gender Information Value Date Recorded Sex Assigned at Female 04/03/2022 4:58 AM EST Gender Identity Female 04/03/2022 4:58 AM EST Sexual Orientation Heterosexual (straight) 04/03 4:58 AM EST documented as of this encounter Plan of Treatment Not on file documented as of this encounter Visit Diagnoses Diagnosis Dichorionic diamniotic twin in third trimester- Primary documented in this encounter Additional Health Concerns Infection Onset Date Last Indicated Resolved Time R/O Respiratory Disease 04/09/2022 04/09/202203/18 4:13 PM EST COVID-19 04/09/2022 04/09/2022 04/19/2022 10:4 1 AM EST documented as of this encounter Care Teams Water Main Inspector Relationship Specialty Start Date End Date Unknown Unknow Provider Address PCP - General 01/23/18 02/11/18 Clair Elaine MD [address] [facility] [address] [phone] PCP - General Obstetrics and Gynecology 02/12/1802/14 Clair Lawson MD [id number] [place] [address] PCP - General 03/01/21 04/02/22 Bailey Gan MD [id number] [place] [address] PCP - General Family Medicine 04/03/22 04/23/22 Matthias Chau MD 85 [facility] [address] [place] [address] PCP - General Nephrology 04/24/22 documented as of this encounter
--- OUTSIDE RECORDS SUMMARY | 2024-04-05 16:34 | XMS_ITS | Patient Health Record ---
Author Organization [employer] Address [address] [place] [id number] Care Team Providers Care Gm[employer] Publisher Business Name Role Phone CHRISTIEVICTORINO Primary Care Provider TWILA EDMONDS Unavailable [phone] ALLERGIES Allergen (clinical drug ingredient) Drug/Non Drug Allergy documented on EMR Reaction Allergy Type Onset Date Status Substance with serotonin re-uptake inhibitor mechanism of action (substance) SSRI's (uncoded) Serotonin Syndrome Allergy Active RESULTS Component Value Reference Range Notes CARDIO IQ(R) APOLIPOPROTEIN EVAL (05874) Reviewed date:06/16/2023 08:32:10 AM Interpretation: Performing Lab:Vignesh, [facility] [place] [address], [address], [id number] Bimal Borrero PhD,[facility] Notes/Report: FASTING FASTING:YES FASTING: YES APOLIPOPROTEIN A1 141 >124 mg/dL Risk, Male: Optimal >= 115 mg/dL; High < 115 mg/dL; Risk, Female: Optimal >= 125 mg/dL; High <125 mg/dL; Cardiovascular event risk category cut points (optimal, high) are based on the AMORIS study Wallcubaus G et al. J Campground Hand Med. 2004;255:188-205. APOLIPOPROTEIN B 63 <90 mg/dL Risk: Optimal <90 mg/dL; Moderate 90-119 mg/dL; High >= 120 mg/dL; Cardiovascular event risk category cut points (optimal, moderate, high) are based on National Lipid Association recommendations- Eastman TA et al. J of Clin Lipid. 2015; 9: 129-169 and Surendra PS et al. Endocr Pract. 2017;23(Suppl 2):1-87. APOLIPOPROTEIN B/A1 RATIO 0.45 <0.63 Risk, Male: Optimal <0.77 mg/dL; Moderate 0.77-0.95 mg/dL; High >0.95 mg/dL; Risk, Female: Optimal <0.63 mg/dL; Moderate 0.63-0.78 mg/dL; High >0.78 mg/dL. Cardiovascular event risk category cut points (optimal, moderate, high) are based on the AMORIS study, Chapin G et al. J [facility] Hand Med. 2004;255:188-205. CARDIO IQ(R) HEMOGLOBIN A1c (61852) Reviewed date:06/16/2023 08:31:57 AM Interpretation: Performing Lab:Vignesh, [facility] [place] [address], [address], [id number] Bimal Borrero PhD,[facility] Notes/Report: FASTING FASTING:YES FASTING: YES HEMOGLOBIN A1c 5.6 <5.7 % For the purpose of screening for the presence of diabetes: <5.7% is consistent with the absence of diabetes; 5.7-6.4% is consistent with increased risk for diabetes (prediabetes); >= 6.5% is consistent with diabetes. This assay result is consistent with a decreased risk of diabetes. Currently, no consensus exists regarding use of hemoglobin A1c for diagnosis of diabetes in children. According to [place] Diabetes Association (ADA) guidelines, hemoglobin A1c <7.0% represents optimal control in non- diabetic patients. Different metrics may apply to specific patient populations. Standards of Medical Care in Diabetes (ADA). This test was performed on the Ramon asa c503 platform. Effective 04/19/2023, a change in test platforms from the [employer] to the Ramon asa c503 may have shifted HbA1c results compared to historical results. Based on laboratory validation testing conducted at [facility], the Ramon platform relative to the [employer] platform had an average increase in HbA1c value of <=0.3%. This difference is within accepted variability established by the National Glycohemoglobin Standardization Program. Note that not all individuals will have had a shift in their results and direct comparisons between historical and current results for testing conducted on different platforms is not recommended. CARDIO IQ(R) HOMOCYSTEINE (9 1733) Reviewed date:06/16/2023 08:31:57 AM Interpretation: Performing Lab:Vignesh [facility] [facility], [address], [id number] Bimal Borrero PhD,[facility] Notes/Report: FASTING FASTING:YES FASTING: YES HOMOCYSTEINE 7.0 <10.4 umol/L Homocysteine is increased by functional deficiency of folate or vitamin B12. Testing for methylmalonic acid differentiates between these deficiencies. Other causes of increased homocysteine include renal failure, folate antagonists such as methotrexate and phenytoin, and exposure to nitrous oxide. Gabriela J, et al. Layla [facility] Hand Med. 1999;131(5):331-9. Homocysteine is increased by functional deficiency of folate or vitamin B12. Testing for methylmalonic acid differentiates between these deficiencies. Other causes of increased homocysteine include renal failure, folate antagonists such as methotrexate and phenytoin, and exposure to nitrous oxide. Selhuronald Aguilar, et al., Layla [facility] Hand Med. 1999;131(5):331-9. CARDIO IQ(R) HS CRP (72264) Reviewed date:06/16/2023 08:31:57 AM Interpretation: Performing Lab:Vignesh [facility].[address] [place] [address], [address], [id number] Bimal Borrero PhD,[facility] Notes/Report: FASTING FASTING:YES FASTING: YES HS CRP 1.6 <1.0 mg/L The AHA/CDC Guidelines recommend hs-CRP ranges for identifying Relative Cardiovascular Risk in patients ages >17 years: <1.0 mg/L Lower Relative Cardiovascular Risk; 1.0-3.0 mg/L Average Relative Cardiovascular Risk; 3.1-10.0 mg/L Higher Relative Cardiovascular Risk. For patients with higher cardiovascular risk, consider retesting in 1-2 weeks to exclude a benign transient elevation secondary to infection or inflammation from the baseline CRP value. Persistent elevations of >10.0 mg/L upon retesting may be associated with infection and inflammation. The AHA/CDC recommendations are based on Plata TA et al. Circulation. 2003;107:499-511. For ages >17 Years: hs-CRP mg/L Risk According to AHA/CDC Guidelines <1.0 Lower relative cardiovascular risk. 1.0-3.0 Average relative cardiovascular risk. 3.1-10.0 Higher relative cardiovascular risk. Consider retesting in 1 to 2 weeks to exclude a benign transient elevation in the baseline CRP value secondary to infection or inflammation. >10.0 Persistent elevation, upon retesting, may be associated with infection and inflammation. CARDIO IQ(R) INSULIN (74975) Reviewed date:06/16/2023 08:31:57 AM Interpretation: Performing Lab:Z4, [facility], [address], YnulviuruVC[address] Bimal Borrero PhD,[facility] Notes/Report: FASTING FASTING:YES FASTING: YES INSULIN 15.9 <18.5 uIU/mL CARDIO IQ(R) LIPID PANEL (91 716) Reviewed date:06/16/2023 08:31:57 AM Interpretation: Performing Lab:Z[facility], [facility], [address], [id number] Bimal Borrero PhD,[facility] Notes/Report: FASTING FASTING:YES FASTING: YES CHOLESTEROL, TOTAL 150 <200 mg/dL HDL CHOLESTEROL 56 >49 mg/dL TRIGLYCERIDES 92 <150 mg/dL LDL-CHOLESTEROL 76 <100 mg/dL (calc) Desirable range <100 mg/dL for primary prevention; <70 mg/dL for patients with CHD or diabetic patients with >= 2 CHD risk factors. LDL-C is now calculated using the Leo-Larios calculation, which is a validated novel method providing better accuracy than the Friedewald equation in the estimation of LDL-C. Leo SS et al. KIARA. 2013;310(19): 7114-5932 (http://education.Play2Focus.com/faq/BXW181) LDL-C is now calculated using the Leo-Larios calculation, which is a validated novel method providing better accuracy than the Friedewald equation in the estimation of LDL-C. Leo SS et al. KIARA. 2013;310(19): 4553-7581 (http://education.[employer]2Focus.com/faq/CWG259) CHOL/HDLC RATIO 2.7 <5.0 calc NON HDL CHOLESTEROL 94 <130 mg/dL (calc) For patients with diabetes plus 1 major ASCVD risk factor, treating to a non-HDL-C goal of <100 mg/dL (LDL-C of <70 mg/dL) is considered a therapeutic option. For patients with diabetes plus 1 major ASCVD risk factor, treating to a non-HDL-C goal of <100 mg/dL (LDL-C of <70 mg/dL) is considered a therapeutic option. CARDIO IQ(R) LIPOPROTEIN (a) (98291) Reviewed date:06/16/2023 08:31:57 AM Interpretation: Performing Lab:Vignesh, [facility], [address], [id number] Bimal Borrero PhD,[facility] Notes/Report: FASTING FASTING:YES FASTING: YES LIPOPROTEIN (a) 16 <75 nmol/L Risk: Optimal <75 nmol/L; Moderate 75-125 nmol/L; High >125 nmol/L. Cardiovascular event risk category cut points (optimal, moderate, high) are based on Shy Espinoza JAC 2017;69:692-711. CARDIO IQ(R) VITAMIN D, 25 H YDROXY (69953) Reviewed date:06/16/2023 08:31:57 AM Interpretation: Performing Lab:Luiz MULTANI [place]/[facility], N[place]wluripkTN[address] Rivas Betancourt M.D.,PhD Notes/Report: FASTING FASTING:YES FASTING: YES VITAMIN D, 25-OH, TOTAL 23 30-100 ng/mL Vitamin D, 25-Hydroxy reports concentrations of two common forms, 25-OHD2 and 25-OHD3. 25-OHD3 indicates both endogenous production and supplementation. 25-OHD2 is an indicator of exogenous sources such as diet or supplementation. Therapy is based on measurement of Total 25-OHD, with levels <20 ng/mL indicative of Vitamin D deficiency, while levels between 20 ng/mL and 30 ng/mL suggest insufficiency. Optimal levels are > or = 30 ng/mL. For additional information, please refer to http://education.Massively Fun.com/faq/SIR299 (This link is being provided for informational/ educational purposes only.) VITAMIN D, 25-OH, D3 23 This test was developed and its analytical performance characteristics have been determined by [facility] [place] [place]. It has not been cleared or approved by the U.S. Food and Drug Administration. This assay has been validated pursuant to the CLIA regulations and is used for clinical purposes. VITAMIN D, 25-OH, D2 <4 This test was developed and its analytical performance characteristics have been determined by [facility] [place] [place]. It has not been cleared or approved by the U.S. Food and Drug Administration. This assay has been validated pursuant to the CLIA regulations and is used for clinical purposes. CBC (INCLUDES DIFF/PLT) (639 9) Reviewed date:06/08/2023 11:05:39 AM Interpretation: Performing Lab:[facility] Reagan Hearn Notes/Report: FASTING FASTING:YES FASTING: YES WHITE BLOOD CELL COUNT 7.3 3.8-10.8 Thousand/ uL RED BLOOD CELL COUNT 4.57 3.80-5.10 Million/uL HEMOGLOBIN 13.1 11.7-15.5 g/dL HEMATOCRIT 39.1 35.0-45.0 % MCV 85.6 80.0-100.0 fL MCH 28.7 27.0-33.0 pg MCHC 33.5 32.0-36.0 g/dL RDW 12.6 11.0-15.0 % PLATELET COUNT 276 140-400 Thousand/uL MPV 9.5 7.5-12.5 fL ABSOLUTE NEUTROPHILS 3986 6714-8322 cells/uL ABSOLUTE LYMPHOCYTES 2504 850-3900 cells/uL ABSOLUTE MONOCYTES 460 200-950 cells/uL ABSOLUTE EOSINOPHILS 321 15-500 cells/uL ABSOLUTE BASOPHILS 29 0-200 cells/uL NEUTROPHILS 54.6 LYMPHOCYTES 34.3 MONOCYTES 6.3 EOSINOPHILS 4.4 BASOPHILS 0.4 [address]PREHENSIVE METABOLIC PANE L ([id number]) Reviewed date:06/13/2023 03:17:02 PM Interpretation: Performing Lab:[facility], [facility] Reagan Hearn Notes/Report: FASTING FASTING:YES FASTING: YES GLUCOSE 94 65-99 mg/dL Fasting reference interval UREA NITROGEN (BUN) 15 7-25 mg/dL CREATININE 0.87 0.50-0.97 mg/dL EGFR 90 > OR = 60 mL/min/1.73m2 BUN/CREATININE RATIO SEE NOTE: 6-22 (calc) Not Reported: BUN and Creatinine are within reference range. SODIUM 137 135-146 mmol/L POTASSIUM 4.1 3.5-5.3 mmol/L CHLORIDE 104 98-110 mmol/L CARBON DIOXIDE 25 20-32 mmol/L CALCIUM 9.2 8.6-10.2 mg/dL PROTEIN, TOTAL 6.7 6.1-8.1 g/dL ALBUMIN 4.3 3.6-5.1 g/dL GLOBULIN 2.4 1.9-3.7 g/dL (calc) ALBUMIN/GLOBULIN RATIO 1.8 1.0-2.5 (calc) BILIRUBIN, TOTAL 0.5 0.2-1.2 mg/dL ALKALINE PHOSPHATASE 82 31-125 U/L AST 16 10-30 U/L ALT 19 6-29 U/L DHEA SULFATE (402) Reviewed date:06/08/2023 11:05:39 AM Interpretation: Performing Lab:[facility], [facility]Share[facility] [id number] Reagan Hearn Notes/Report: FASTING FASTING:YES FASTING: YES DHEA SULFATE 119 19-237 mcg/dL FSH AND LH (7137) Reviewed date:06/08/2023 11:05:39 AM Interpretation: Performing Lab:[facility], [facility] Reagan Hearn Notes/Report: FASTING FASTING:YES FASTING: YES FSH 3.4 Reference Range Follicular Phase 2.5-10.2 Mid-cycle Peak 3.1-17.7 Luteal Phase 1.5- 9.1 Postmenopausal 23.0-116.3 LH 7.2 Reference Range Follicular Phase 1.9-12.5 Mid-Cycle Peak 8.7-76.3 Luteal Phase 0.5-16.9 Postmenopausal 10.0-54.7 IRON, TIBC AND FERRITIN PANE L (5616) Reviewed date:06/13/2023 03:17:02 PM Interpretation: Performing Lab:[facility], [facility] Reagan Hearn Notes/Report: FASTING FASTING:YES FASTING: YES IRON, TOTAL 128 40-190 mcg/dL IRON BINDING CAPACITY 347 250-450 mcg/dL (melida c) % SATURATION 37 16-45 % (calc) FERRITIN 11 16-154 ng/mL MAGNESIUM (622) Reviewed date:06/13/2023 03:17:02 PM Interpretation: Performing Lab:[facility], [facility] [id number] Reagan Hearn Notes/Report: FASTING FASTING:YES FASTING: YES MAGNESIUM 2.1 1.5-2.5 mg/dL METHYLMALONIC ACID (71901) Reviewed date:06/13/2023 03:17:02 PM Interpretation: Performing Lab:NERISSA [facility], AkrpnhklpFU[address] Rivas Betancourt M.D.,PhD Notes/Report: FASTING FASTING:YES FASTING: YES METHYLMALONIC ACID 119 87-318 nmol/L This test was developed and its analytical performance characteristics have been determined by [facility] [place] [place]. It has not been cleared or approved by the U.S. Food and Drug Administration. This assay has been validated pursuant to the CLIA regulations and is used for clinical purposes. SED RATE BY ARMIN GUZMÁN (809) Reviewed date:06/08/2023 11:05:39 AM Interpretation: Performing Lab:[facility] Reagan Hearn Notes/Report: FASTING FASTING:YES FASTING: YES SED RATE BY ARMIN CARVALHO 6 < OR = 20 mm/h THYROID PANEL WITH TSH (7444 ) Reviewed date:06/13/2023 03:17:02 PM Interpretation: Performing Lab:MANDA [facility] [id number] Reagan Hearn Notes/Report: FASTING FASTING:YES FASTING: YES T3 UPTAKE 28 22-35 % T4 (THYROXINE), TOTAL 5.5 5.1-11.9 mcg/dL FREE T4 INDEX (T7) 1.5 1.4-3.8 TSH 2.22 Reference Range > or = 20 Years 0.40-4.50 Ranges First trimester 0.26-2.66 Second trimester 0.55-2.73 Third trimester 0.43-2.91 THYROID PEROXIDASE AND THYRO GLOBULIN ANTIBODIES (7260) Reviewed date:06/13/2023 03:17:02 PM Interpretation: Performing Lab:NL2, [facility] [place] [address] [facility] Notes/Report: FASTING FASTING:YES FASTING: YES THYROGLOBULIN ANTIBODIES <1 < or = 1 IU/mL THYROID PEROXIDASE ANTIBODIES 1 <9 IU/mL URIC ACID (905) Reviewed date:06/13/2023 03:17:02 PM Interpretation: Performing Lab:[facility], [facility] [id number] [place] [address] Notes/Report: FASTING FASTING:YES FASTING: YES URIC ACID 6.5 2.5-7.0 mg/dL Therapeutic ta rget for gout patients: <6.0 mg/dL VITAMIN B12/FOLATE, SERUM [facility] (7065) Reviewed date:06/08/2023 11:05:39 AM Interpretation: Performing Lab:[facility], [facility] [id number] [facility] Notes/Report: FASTING FASTING:YES FASTING: YES VITAMIN B12 979 072-2340 pg/mL Please Note: Although the reference range for vitamin B12 is 200-1100 pg/mL, it has been reported that between 5 and 10% of patients with values between 200 and 400 pg/mL may experience neuropsychiatric and hematologic abnormalities due to occult B12 deficiency; less than 1% of patients with values above 400 pg/mL will have symptoms. FOLATE, SERUM 22.0 Reference Range Low: <3.4 Borderline: 3.4-5.4 Normal: >5.4 ALBUMIN, RANDOM URINE W/ANDRADE VIZCAINO (6517) Reviewed date:06/13/2023 03:17:02 PM Interpretation: Performing Lab:NL2, [facility] [facility] Notes/Report: FASTING FASTING:YES FASTING: YES CREATININE, RANDOM URINE 101 20-275 mg/dL ALBUMIN, URINE <0.2 See Note: mg/dL Reference Range: Reference Range Not established ALBUMIN/CREATININE RATIO, RANDOM URINE NOTE <30 mg/g creat NOTE: The urine albumin value is less than 0.2 mg/dL therefore we are unable to calculate excretion and/or creatinine ratio. The ADA defines abnormalities in albumin excretion as follows: Albuminuria Category Result (mg/g creatinine) Normal to Mildly increased <30 Moderately increased 30-299 Severely increased > OR = 300 The ADA recommends that at least two of three specimens collected within a 3-6 month period be abnormal before considering a patient to be within a diagnostic category. CARDIO IQ(R) HS CRP (85424) Reviewed date:10/31/2023 07:56:01 AM Interpretation: Performing Lab:Vignesh, [facility] [address], [address], OurrgdjrzEO[address] Bimal Borrero PhD,[facility] Notes/Report: NON-FASTING; NON-FASTING; NON-FASTING FASTING:YES FASTING: YES HS CRP 2.5 <1.0 mg/L Reference Range: Optimal <1.0 mg/L, according to Surendra ENRIQUEZ et al. Endocr Pract.2017;23(Suppl 2):1-87. The AHA/CDC Guidelines recommend hs-CRP ranges for identifying Relative Cardiovascular Risk in patients ages >17 years: <1.0 mg/L Lower Relative Cardiovascular Risk; 1.0-3.0 mg/L Average Relative Cardiovascular Risk; 3.1-10.0 mg/L Higher Relative Cardiovascular Risk. If result is between 3.1 and 10.0 mg/L, consider retesting in 1-2 weeks to exclude a benign transient elevation secondary to infection or inflammation from the baseline CRP value. Persistent elevations of >10.0 mg/L upon retesting may be associated with infection and inflammation. The AHA/CDC recommendations are based on Plata TA, Joceline GA, Walter RW, et al. Markers of inflammation and cardiovascular disease: application to clinical and public health practice: A statement for healthcare professionals from the Centers for Disease Control and Prevention and the [place] Heart Association. Circulation 2003; 107(3): 499-511. For ages >17 Years: hs-CRP mg/L Risk According to AHA/CDC Guidelines <1.0 Lower relative cardiovascular risk. 1.0-3.0 Average relative cardiovascular risk. 3.1-10.0 Higher relative cardiovascular risk. Consider retesting in 1 to 2 weeks to exclude a benign transient elevation in the baseline CRP value secondary to infection or inflammation. >10.0 Persistent elevation, upon retesting, may be associated with infection and inflammation. Boni TA, Joceline GA, Walter RW, et al. Markers of inflammation and cardiovascular disease: application to clinical and public health practice: A statement for healthcare professionals from the Centers for Disease Control and Prevention and the [place] Heart Association. Circulation 2003; 107(3): 499-511. CARDIO IQ(R) INSULIN (86935) Reviewed date:10/31/2023 07:56:01 AM Interpretation: Performing Lab:Vignesh, [facility]-[address], [address], UlbzdlegiHH[address] Bimal Borrero PhD,[facility] Notes/Report: NON-FASTING; NON-FASTING; NON-FASTING FASTING:YES FASTING: YES INSULIN 17.1 <18.5 uIU/mL CARDIO IQ(R) VITAMIN D, 25 H YDROXY (90204) Reviewed date:10/31/2023 07:56:01 AM Interpretation: Performing Lab:Luiz MULTANI/Marisela Lee [id number], [id number] Rivas Betancourt M.D.,PhD Notes/Report: NON-FASTING; NON-FASTING; NON-FASTING FASTING:YES FASTING: YES VITAMIN D, 25-OH, TOTAL 64 30-100 ng/mL Vitamin D, 25-Hydroxy reports concentrations of two common forms, 25-OHD2 and 25-OHD3. 25-OHD3 indicates both endogenous production and supplementation. 25-OHD2 is an indicator of exogenous sources such as diet or supplementation. Therapy is based on measurement of Total 25-OHD, with levels <20 ng/mL indicative of Vitamin D deficiency, while levels between 20 ng/mL and 30 ng/mL suggest insufficiency. Optimal levels are > or = 30 ng/mL. For additional information, please refer to http://education.Massively Fun.com/faq/AWB885 (This link is being provided for informational/ educational purposes only.) VITAMIN D, 25-OH, D3 64 This test was developed and its analytical performance characteristics have been determined by [facility] [place]. It has not been cleared or approved by the U.S. Food and Drug Administration. This assay has been validated pursuant to the CLIA regulations and is used for clinical purposes. VITAMIN D, 25-OH, D2 <4 This test was developed and its analytical performance characteristics have been determined by [facility] [place]. It has not been cleared or approved by the U.S. Food and Drug Administration. This assay has been validated pursuant to the CLIA regulations and is used for clinical purposes. REASON FOR REFERRAL No Information MEDICATIONS Medication SIG (Take, Route, Frequency, Duration) Notes Start Date End Date Status Vitamin D3 Active Famotidine 20 MG 1 tablet Orally once a day for 90 days 09/21/2023 Active hydroCHLOROthiazide 25 MG 1 tablet in th e morning Orally Once a day Not-Taking Mirtazapine 30 MG 1 tablet at bedtime Orally Once a day for 90 days Active Beet Root 500 MG as directed Orally Active Slynd 4 MG 1 tablet Orally Once a day Not-Taking Stress B Active Not-Taking Ondansetron HCl 4 MG 1 tablet Orally every 8 hours for 30 days PRN 09/21/2023 Active Drospirenone-Ethinyl Estradiol 3-0.02 MG 1 tablet Orally Once a day for 28 days 11/09/2023 Not-Taking metFORMIN HCl ER 500 MG 1 tablet with evening meal Orally Once a day for 30 days 12/23/2023 Not-Taking Propranolol HCl ER 60 MG TAKE 1 CAPSULE BY MOUTH EVERY DAY for 90 Active Multivitamin - 1 tablet Orally Once a day Active SOCIAL HISTORY Tobacco Use: Social History Observation Description Date Details (start date - stop date) Never Smoker NA - NA Sex Assigned At : Social History Observation Description Sex Assigned At Unknown Household Question Answer Notes Marital status: Number of adults in household: 2 Number of children in household: 5 Tobacco Use/Smoking Question Answer Notes Tobacco use: nonsmoker Section Notes: Lives in [place] with and 5 children. Lives [place] with and 5 children. Lives [place] with and 5 children. Lives [place] with and 5 children. Lives [place] with and 5 children. Lives [place] with and [place] children. Lives [place] with and [place] children. Lives [place] with and 5 children. Lives [place] with and 5 children. PROBLEMS Problem Type ICD Code Onset Dates Problem Status W/U Status Risk SNOMED Code Notes Problem Essential (primary) hypertension (I10) Active confirmed Essential hypertension (72674201) Problem Sexual dysfunction, unspecified (R37) Active confirmed Sexual dysfunct ion (67862942) Problem Migraine without aura and without status migrainosus, not intractable (G43.009) Active confirmed Migraine withou t aura, not refractory (088863148) Problem Obesity (BMI 30.0-34.9) (E66.9) Active confirmed Obesity (216119318) Problem Vitamin D deficiency (E55.9) Active confirmed Vitamin D deficiency (93517656) Problem Elevated high sensitivity C-reactive protein (R79.82) Active confirmed C-reactive prot ein abnormal (281289069) Problem PTSD (post-traumatic stress disorder) (F43.10) Active confirmed Posttraumatic stress disorder (38739311) Problem Low ferritin (R79.0) Active confirmed Ferritin level low (804395953) Problem Irregular menses (N92.6) Active confirmed Menstrual dis order (934508869) Problem Mixed anxiety and depressive disorder (F41.8) Active confirmed Mixed anxiety a nd depressive disorder (608213729) Problem GERD without esophagitis (K21.9) Active confirmed Gastroesophagea l reflux disease (418341729) Problem Insulin resistance syndrome (E88.810) Active confirmed Insulin resista nce syndrome (301110526) VITAL SIGNS Heart Rate 77 /min 02/23/2024 Height-cm 160.02 cm 02/23/2024 Oximetry 97 % 02/23/2024 Blood pressure diastolic 72 mm Hg 02/23/2024 Weight-kg 85.46 kg 02/23/2024 Height 63 in 02/23/2024 Blood pressure systolic 116 mm Hg 02/23/2024 Weight 188.4 lbs 02/23/2024 BMI 33.37 kg/m2 02/23/2024 Encounters Encounter Location Date Provider Diagnosis [facility], [address] [id number] 01/25/2024 TWILA EDMONDS [address] [id number] 06/03/2023 TWILA EDMONDS Essential (primary) hypertension I10 ; Mixed anxiety and depressive disorder F41.8 ; Fatigue, unspecified type R53.83 ; Hyperlipidemia, unspecified E78.5 ; Vitamin D deficiency E55.9 ; Obesity (BMI 30.0-34.9) E66.9 ; Migraine without aura and without status migrainosus, not intractable G43.009 ; GERD without esophagitis K21.9 and Irregular menses N92.[address] [id number] 07/12/2023 TWILA EDMONDS Elevated high sensitivity C-reactive protein R79.82 ; Insulin resistance syndrome E88.810 ; Vitamin D deficiency E55.9 and Low ferritin R79.[address] [id number] 09/21/2023 TWILA EDMONDS Diarrhea, unspecifie d R19.7 ; PTSD (post-traumatic stress disorder) F43.10 and GERD without esophagitis K21.[address] [id number] 09/29/2023 TWILA EDMONDS Insulin resistance syndrome E88.810 and Mixed anxiety and depressive disorder F41.[address] [id number] 11/01/2023 VICTORINO CHRISTIE Decreased energy R53.[address] [id number] 11/09/2023 TWILA EDMONDS Screening for depression Z13.31 ; Screening for substance abuse Z13.89 ; Essential (primary) hypertension I10 ; Mixed anxiety and depressive disorder F41.8 ; Obesity (BMI 30.0-34.9) E66.9 ; Migraine without aura and without status migrainosus, not intractable G43.009 ; GERD without esophagitis K21.9 ; Irregular menses N92.6 ; Elevated high sensitivity C-reactive protein R79.82 ; Insulin resistance syndrome E88.810 ; Vitamin D deficiency E55.9 ; Low ferritin R79.0 and PTSD (post-traumatic stress disorder) F43.10 [address], [place] [id number] 12/23/2023 [facility] Essential (primary) hypertension I10 ; Insulin resistance syndrome E88.810 and Viral illness B34.[address] [id number] 02/23/2024 [facility] Insulin resistance syndrome E88.810 ; Essential (primary) hypertension I10 and Sexual dysfunction, unspecified R37 [address] [id number] 09/20/[address] [id number] 11/25/[address] [id number] 02/21/[address] [id number] 03/14/2024 [facility] GERD without esophagitis K21.9 ASSESSMENTS Encounter Date Diagnosis Assessment Notes Treatment Notes Treatment Clinical Notes Section Notes 06/03/2023 Essential (primary) hypertension (ICD-10 - I10) Continue medication as directed Low-salt diet Weight management Regular exercise Yearly microalbumin 06/03/2023 Mixed anxiety and depressive disorder (ICD-10 - F41.8) Sees therapist for many years Feels stable but may be interested in finding one more local in person To look at [facility] 07/12/2023 Elevated high sensitivity C-reactive protein (ICD-10 - R79.82) Discussed IF to lower inflammation Weight loss, exercise Will continue to monitor 07/12/2023 Insulin resistance syndrome (ICD-10 - E88.810) Pt clinically mirrors PCOS with IF, inability to loses weight, central obesity, excessive body hair She does not want to go on metformin at this time Discussed IF as means to help with the elevated insulin as well as high normal sugar and hgb A1C Will continue to monitor 09/21/2023 Diarrhea, unspecified (ICD-10 - R19.7) Pt has had diarrhea for which she admits worsens with anxiety, then she becomes more anxious with the diarrhea Discussed attempting to get the physical symptoms under control with the use of fiber and antiemetics Will re-eval in one week, sooner prn 09/21/2023 PTSD (post-traumatic stress disorder) (ICD-10 - F43.10) Pt admits to sick cat triggering her anxiety/PTSD Was previuosly controlled on her nightly remeron Has significant reactions to both SSRIs and SNRIs while hospitalized She is looking for new therapist Discussed [facility]NAS along with local private therapists Will recheck next week 09/29/2023 Insulin resistance syndrome (ICD-10 - E88.810) Pt is now on oC tabs but MOLECULAR MODELER did not address the metabolic aspect of PCOS She is to continue IF Supplement May consider metformin, DIM once her GI tract is back to full normal 11/01/2023 Decreased energy (ICD-10 - R53.83) Sound therapy induction and education 11/09/2023 Screening for depression (ICD-10 - Z13.31) neg PHQ9; denies any curent depression 11/09/2023 Screening for substance abuse (ICD-10 - Z13.89) Neg CAGE AID 12/23/2023 Essential (primary) hypertension (ICD-10 - I10) Improved control but still seeing cardiology for follow up Doing hibiscus as well Monitors daily in AM 12/23/2023 Insulin resistance syndrome (ICD-10 - E88.810) Will start Metformin ER at dinnertime Still to continue with int fasting Limit sugars, greasy, large meals discussed fiber as well with any loose stools 02/23/2024 Essential (primary) hypertension (ICD-10 - I10) Continue beet root Exercise Weight loss Cardiology as scheduled 02/23/2024 Insulin resistance syndrome (ICD-10 - E88.810) Could not tolerate the metformin Went back to int fasting Low inflammatory foods Will recheck value in 3mo 03/14/2024 GERD without esophagitis (ICD-10 - K21.9) 02/23/2024 Sexual dysfunction, unspecified (ICD-10 - R37) Discussed childhood trauma in relation to current function She is going to connect with [facility]NAS Wants to reconnect in about 4-6 weeks at this time 12/23/2023 Viral illness (ICD-10 - B34.9) Discussed magic mouthwash use Hydration Vitamin C for which she just restarted her supplements 11/09/2023 Essential (primary) hypertension (ICD-10 - I10) Continue medication as directed, has follow up with cardiology in Dec as adjusting meds Shared decision making, will hold off nephrology consult as addressing IR/PCOS picture and would like to see if this has pos effect on BP Low-salt diet Weight management Regular exercise Yearly microalbumin 09/21/2023 GERD without esophagitis (ICD-10 - K21.9) Admitted heartburn, further contributing to anxiety/contribut ing to heartburn to start on BID pepcid Will re eval next week 09/29/2023 Mixed anxiety and depressive disorder (ICD-10 - F41.8) Improved with baseline remeron dosing Getting new therapist Completely different affect today, smiling, happy with POC Scheduled for sound therapy as well 07/12/2023 Vitamin D deficiency (ICD-10 - E55.9) High dose vitamin d followed by 2000 iu daily Will continue to monitor periodically 06/03/2023 Fatigue, unspecified type (ICD-10 - R53.83) Will check labs assessing for any anemia, thyroid dysfunction Maintain healthy diet, adequate fluid intake Exercise regularly 06/03/2023 Hyperlipidemia, unspecified (ICD-10 - E78.5) Discussed lowing lipid levels with diet Low inflammatory, Mediterranean diet Exercise as tolerated Control weight 07/12/2023 Low ferritin (ICD-10 - R79.0) Pt to increase iron rich foods No need to supplement at this time Will continue to monitor 11/09/2023 Mixed anxiety and depressive disorder (ICD-10 - F41.8) Improved with baseline remeron dosing Getting new therapist Engaged, denies any anxiety or depression Sound therapy in place 11/09/2023 Obesity (BMI 30.0-34.9) (ICD-10 - E66.9) Discussed weight and it affect on health status Discussed dietary choices/nutrition ist referral Increase exercise as tolerated Wants to get back on IF as IR 06/03/2023 Vitamin D deficiency (ICD-10 - E55.9) Increase Vit D rich foods Check levels periodically Supplement as indicated 06/03/2023 Obesity (BMI 30.0-34.9) (ICD-10 - E66.9) Discussed weight and it affect on health status Discussed dietary choices/nutrition ist referral Increase exercise as tolerated 11/09/2023 Migraine without aura and without status migrainosus, not intractable (ICD-10 - G43.009) Hormonal but less frequent these days Light senstive and nausea but able to abort with rest, OTC maintain hydration 11/09/2023 GERD without esophagitis (ICD-10 - K21.9) Admitted heartburn, further contributing to anxiety/contribut ing to heartburn but improved control these days Prn pepcid in place Food avoidance 06/03/2023 Migraine without aura and without status migrainosus, not intractable (ICD-10 - G43.009) Hormonal but less frequent these days Light senstive and nausea but able to abort with rest, OTC maintain hydration 06/03/2023 GERD without esophagitis (ICD-10 - K21.9) Food avoidances No pharmacologic interventions at this time Continue to monitor 11/09/2023 Irregular menses (ICD-10 - N92.6) Switching to [facility] Will order Jacqui for JEFF Will re-eval in 6 weeks 06/03/2023 Irregular menses (ICD-10 - N92.6) Will check hormonal levels Has [facility]LECULAR MODELER 11/09/2023 Elevated high sensitivity C-reactive protein (ICD-10 - R79.82) Discussed IF to lower inflammation Weight loss, exercise Will continue to monitor Goal to start metformin as well 11/09/2023 Insulin resistance syndrome (ICD-10 - E88.810) Agreed to start JEFF She is to continue IF; has not been diligent Is now considering metformin and will address in 6 weeks 11/09/2023 Vitamin D deficiency (ICD-10 - E55.9) High dose vitamin d, compleed, now on 2000 iu daily with good levels Will continue to monitor periodically 11/09/2023 Low ferritin (ICD-10 - R79.0) Pt to increase iron rich foods No need to supplement at this time Will continue to monitor 11/09/2023 PTSD (post-traumatic stress disorder) (ICD-10 - F43.10) Feels ok now, previous sick cat triggered her PTYSD Continue nightly kirti Has significant reactions to both SSRIs and SNRIs while hospitalized She is looking for new therapist Discussed MANAS along with local private therapists 06/03/2023 Other New patient welcomed to [facility] and complete intake was obtained. Patient handbook reviewed and signed receipt. Time spent with patient >70 minutes which included medication reconciliation, review of office policies and procedures, review of medical and family history, and discussion/exam with provider. 07/12/2023 Other Total time spen t with patient 32 minutes which includes face to face visit, education and coordination of care. 09/29/2023 Other She is to continue her daily fiber One month of BID pepcid then decrease to once daily Maintain hydration 12/23/2023 Other Total time spen t with patient 32 minutes which includes face to face visit, education and coordination of care. 02/23/2024 Other Total time spen t with patient 20 minutes which includes face to face visit, education and coordination of care. PLAN OF TREATMENT Future Test Test Name Order Date IRON, TIBC AND FERRITIN PANEL (5616) COMPREHENSIVE METABOLIC PANEL (23363) CBC (INCLUDES DIFF/PLT) (6399) CARDIO IQ(R) HS CRP (81626) 11/09/2023 CARDIO IQ(R) HEMOGLOBIN A1c (94899) 10/16 CARDIO IQ(R) INSULIN (00099) 11/09/2023 CARDIO IQ(R) VITAMIN D, 25 HYDROXY (9173 5) 11/09/2023 Insurance Providers Payer Name Payer Address Payer Phone Subscriber Number Group Number Insured Name Patient Relationship to Insured Coverage Start Date Coverage End Date [facility] [address] [place] [phone] [id number] NANETTE DOTSON Self - patient is the insured MEDICAL (GENERAL) HISTORY Medical History History ICD Code Anxiety Blood Transfusion (2) after childbirth Chicken Pox as a child Depression Fractures - Left Elbow, Left tibia Gallbladder Disease Bio Reflux Hypertension Migraines Wears glasses Surgical History Surgery Date(Month/Year) 2019 Cholecystectomy 2020 Appedectomy 2011 Left Elbow Surgery 2010 [place] Teeth Removed 2022 (2) CT-Scan - Lungs Normal 2021 MRI of the lungs - normal 2021 Hospitalization History Reason Date(Month/Year) COVID 2020 Post depression - 1 week 2021 2018
--- OUTSIDE RECORDS SUMMARY | 2024-04-05 16:34 | XMS_ITS | Clinical Summary ---
Author Organization [facility] Address [address] [place] [address] Care Team Providers Care Sales Operations Lead Name Role Phone Matthias Chau MD Primary Care Provider [phone] Surgical History Surgery Date Site/Laterality Comments SECTION PROCEDURE: SECTION OTHER SURGICAL HISTORY 10/2019 PROCEDURE:miscarriage APPENDECTOMY PROCEDURE:APPENDECTOMY CHOLECYSTECTOMY 10/10/2020 N/A PROCEDURE:CHOLECYSTECTOMY;COMMENT:Pr ocedure: LAPAROSCOPY CHOLECYSTECTOMY; Surgeon: Justin Shepard MD; Location: [facility]; Service: General; Laterality: N/A; Medical History Medical History Date Comments Anxiety DX:Anxiety Depression DX:Depression Headache DX:Headache Pre-eclampsia affecting preg shreya, antepartum DX:Pre-eclampsia affecting p regnancy, antepartum Miscarriage DX:Miscarriage Family History Medical History Relation Name Comments Asthma Brother Asthma Father Depression Father Cancer Father's Brother Heart disease Maternal Grandfather Hypertension Maternal Grandfather Asthma Mother Depression Mother Mental illness Mother's Brother Depression Paternal Grandmother Autism Son Relation Name Status Comments Brother Father Father's Brother Maternal Grandfather Mother Mother's Brother Schizophren ia Paternal Grandmother Son Social History Tobacco Use Types Packs/Day Years Used Date Smoking Tobacco: Never Smokeless Tobacco: Never Alcohol Use Standard Drinks/Week Comments Yes 0 (1 standard drink = 0.6 oz pur e alcohol) Comments Unknown Sex and Gender Information Value Date Recorded Sex Assigned at Not on file Legal Sex Female 2:54 AM EST Gender Identity Not on file Sexual Orientation Not on file Obstetrics History Last Filed Vital Signs Vital Sign Reading Time Taken Comments Blood Pressure 106/88 11/09/2022 10:05 AM EDT Pulse 78 11/09/2022 10:05 AM EDT Temperature - - Respiratory Rate - - Oxygen Saturation - - Inhaled Oxygen Concentration - - Weight 72.1 kg (159 lb) 11/09/2022 10:05 AM EDT Height 160 cm (5' 3 ) 11/09/2022 10:05 AM EDT Body Mass Index 28.17 11/09/2022 10:05 AM EDT Plan of Treatment Health Maintenance Due Date Last Done Comments DTaP,Tdap,and Td Vaccines (1 - Tdap) 12/16/2007 Hepatitis B Vaccines (1 of 3 - 19+ 3-dose series) 12/16/2007 Cervical Cancer Screening: Pap Smear 2009 Cholesterol Screening (Lipid Panel) 01/17/2022 Depression Screening 01/17/2022 HIV Screening 01/17/2022 Hepatitis C Screening 01/17/2022 Social Influencers of Health Screening 01/17/2022 Hypertension/CHF/CAD Annual BMP Blood Test 08/23/2023 08/22/2022, 04/16/2022, 03/17/2022, Additional history exists COVID-19 Vaccine ( season) 2023 Influenza Vaccine (#1) 2023 HIB Vaccines Aged Out No longer eligi ble based on patient's age to complete this topic HPV Vaccines Aged Out No longer eligi ble based on patient's age to complete this topic Hepatitis A Vaccines Aged Out No long er eligible based on patient's age to complete this topic IPV Vaccines Aged Out No longer eligi ble based on patient's age to complete this topic MMR Vaccines Aged Out No longer eligi ble based on patient's age to complete this topic Meningococcal ACWY Vaccine Aged Out N o longer eligible based on patient's age to complete this topic Meningococcal B Vacine Aged Out No lo nger eligible based on patient's age to complete this topic Pneumococcal Vaccine: Pediatrics (0 to 5 Years) and At-Risk Patients (6 to 64 Years) Aged Out No longer eligible based on patient's age to complete this topic RSV Immunization Patients Under 20 months Aged Out No longer eligible based on patient's age to complete this topic Varicella Vaccines Aged Out No longer eligible based on patient's age to complete this topic Care Teams Sales Operations Lead Relationship Specialty Start Date End Date Matthias Chau MD [address] [phone] PCP - General 05/13/22
== END 2024-04-05 17:00 | disposition home or self-care (01) ==
PROVIDERS: PCP Family Medicine; Visit Provider Physician Assistant
DX: Z00.00 Encounter for general adult medical examination without abnormal findings (principal); E66.9 Obesity, unspecified; Z68.35 Body mass index [BMI] 35.0-35.9, adult; I10 Essential (primary) hypertension; F41.8 Other specified anxiety disorders

== ENCOUNTER → 2024-04-05 15:33 | Outpatient (BNVA) | payer BC, MEDICAID, SELFPAY | PROVIDERS: PCP Family Medicine; Visit Provider Physician Assistant | DX: Z00.00 Encounter for general adult medical examination without abnormal findings (principal); E66.9 Obesity, unspecified; Z68.35 Body mass index [BMI] 35.0-35.9, adult; I10 Essential (primary) hypertension; F41.8 Other specified anxiety disorders; Z79.899 Other long term (current) drug therapy | CPT/HCPCS: 96127 ==

== ENCOUNTER 2024-05-10 11:14 | Outpatient (AMB) | payer BC, MEDICAID, SELFPAY ==
--- NOTE | 2024-05-10 11:33 | A.OFFVIS_ITS ---
VS Expanded 05/10/24 11:34 05/10/24 11:48 Height 5 ft 3 in 5 ft 3 in Weight 194 lb 14.218 oz 195 lb BMI 34.5 34.5 Intake Visit Reasons: Obesity Allergies SSRI Adverse Reaction (Mild, Uncoded 05/14/24 10:46) Seratonin syndrome Nutrition Presentation Details: Pt presents for MNT for obesity Pt reports having gained about 60 lbs throughout 2 yrs ago food frequency Breakfast : skips or has yogurt or oatmeal 11 am chips /trail mix 12-1 pm mc and cheese or peanut butter jelly, water 8pm: ramen noodles 11 pm snack chips or similar foods chips/habits tries to do elliptical 20 minutes /day food frequency fruits: 0-1/d ve-1/d dairy 1-2/d starches > 20 fish :0/wk pastries and similar : daily > 2 soda: 1/wk BS Monitoring Most Recent Diabetes Results: No Data to Display QPH-Brahqmh-Vm.Jeor Equation Height: 5 ft 3 in Weight: 195 lb Resting Metabolic Rate: 1550.55 Calculated Activity Level: Sedentary Calories Needed to Maintain Weight: 1860.66 Diagnosis Nutrition problem #1: excessive energy intake As related to (etiology) #1: diagnosis As evidenced by (sign/symptom) #1: high BMI (34.5 on 05/08) Monitoring/Goals Nutrition problem monitoring: level of knowledge/skill, total PRO intake and weight PFSH Medical History Depression Anxiety Imbalance Tremors of nervous system Acid reflux Palpitations High blood pressure Sinusitis delivery delivered Elbow injury Surgical History [place] teeth extracted Hx of cholecystectomy Hx of appendectomy Family History Father Asthma Maternal Grandmother High blood pressure Diabetes Paternal Grandfather High blood pressure Cardiovascular system problem Brother Asthma Social History Household Members: Family Housing: Apartment Are you a primary patient care to a significant other at home: Yes Alcohol intake: never Patient Tobacco Use Status: Never used Tobacco e-Cigarette/Vaping Use: Never Used Special valentin needs: Yes service: No Current occupational status: 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 Cognitive needs: No Hearing needs: No (patient is having tinnitis.) Vision needs: Yes (patient wears glasses) Assessment & Plan Assessment & Plan (1) Obesity (BMI 35.0-39.9 without comorbidity): Code(s): E66.9 - Obesity, unspecified Category: Medical Plan: Wt: 89 Kg ( 06/08 ) Est kcal needs as per MSJ: [id number] (40% carb, 30% protein/fat) Est fluid needs as per 25-30 ml/d: 2600 Est prot per day as per 1 g/kg bw: 90 Recommend fiber intake : 8-10 g per day and gradually increase to 25-28 g per day for women and 35-38 g for men or as tolerated Recommend sodium intake per day : less than 2000 mg Educated patient on: ( R = reviewed V = verbalizes understanding N/R = needs review N/A = not applicable * Food sources of carbohydrate, adequate serving sizes and its role in various health conditions: R V N/R * Differences between complex carbohydrates a simple carbohydrates, role of fiber in diet: R * Lean protein sources of foods: R * Differences between types of fats and role in diet (mono on saturated fat fatty acids, saturated fatty acids, trans fats): R V N/R * Food sources of sodium in salt and healthy modifications for heart health in kidney health: R V R/V * Vitamins and minerals: R V N/R * Healthy plate method concept: R V N/R * Physical activity: Benefits a precaution: R V N/R Plan Work on having 3 small meals per day and 2-3 snack a day Include lean protein food as snack (example: egg salad, cottage cheese)- see ideas of snacks Drink water with meals or fruit/herb flavored water Medications: On Hold sumatriptan succinate Hold Comment: no longer needs it due to decrease number of migraines 50 mg orally; Take one tablet at the onset of migraine. If migraine does not subside, you may take one additional tablet 4 hours later. Do not exceed more than 2 tablets per a 24 hour period. 14 tabs 0RF M54.2 - Cervicalgia, R51.9 - Hea dache, unspecified Coding Level of Care Code Nutr Indiv Intake (31145) Diagnoses Obesity (BMI 35.0-39.9 without comorbidity) E66.9 Time Spent (min) 30
[2024-05-10 11:34] VITALS: BMI 34.5
[2024-05-15 12:34] VITALS: BMI 34.5
== END 2024-05-10 12:08 | disposition home or self-care (01) ==
LOC: HO.ENCR 11:15
PROVIDERS: PCP Family Medicine; Visit Provider Dietitian, Registered
DX: E66.9 Obesity, unspecified (principal)

== ENCOUNTER → 2024-05-10 11:14 | Outpatient (BNVA) | payer BC, MEDICAID, SELFPAY | PROVIDERS: PCP Family Medicine; Visit Provider Dietitian, Registered | DX: E66.9 Obesity, unspecified (principal); Z71.3 Dietary counseling and surveillance; Z68.34 Body mass index [BMI] 34.0-34.9, adult | CPT/HCPCS: 97802 ==

== ENCOUNTER 2024-05-14 10:16 | Outpatient (AMB) | payer BC, MEDICAID, SELFPAY ==
--- NOTE | 2024-02-01 12:25 | MHC.OFFVIS ---
Intake Visit Reasons: 4M follow up Allergies SSRI Adverse Reaction (Mild, Uncoded 01/05/24 15:51) Seratonin syndrome PFSH Medical History Depression Anxiety Imbalance Tremors of nervous system Acid reflux Palpitations High blood pressure Sinusitis delivery delivered Elbow injury Surgical History [place] teeth extracted Hx of cholecystectomy Hx of appendectomy Family History Father Asthma Maternal Grandmother High blood pressure Diabetes Paternal Grandfather High blood pressure Cardiovascular system problem Brother Asthma Social History Household Members: Family Housing: Apartment Are you a primary healthcare project manager to a significant other at home: Yes Alcohol intake: never Patient Tobacco Use Status: Never used Tobacco e-Cigarette/Vaping Use: Never Used Special valentin needs: Yes service: No 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
--- NOTE | 2024-05-14 10:42 | A.OFFVIS_ITS ---
Vital Signs 05/14/24 10:46 Height 5 ft 3 in Weight 198 lb BMI 35.1 BP 110/82 Blood Pressure Location Lt brachial Position Sitting Intake Visit Reasons: 4M follow up Intake Note: Patient presents for 4 month follow up. PSG done on 02/02/24. Pacs Administrator Required: No Accompanied by: Self / Same As Patient Allergies SSRI Adverse Reaction (Mild, Uncoded 05/14/24 10:46) Seratonin syndrome HPI Comments Details: 33 year old r. handed female with h/o menstrual headaches presents for Sleep Study f/u. PSG was not significant for sleep apnea AHI was 4 and Oxygen was 89% with fragmented sleep and frequent arousals and decreased REM. PMH included anemia, depression, headache. GERD, HTN, PCOS, pre- eclampsia. She continues to have vertigo, nausea, dizziness, tremors, hands constantly shake when she wakes up and it feels like it happens all over the body however when she takes Propanolol ER 60mg PO it subsides. Her BP is 110/82 today, and usually elevates >140/90 during the week of her menstrual cycle. She says her BP drops 20 points when she lays down, and increases when standing with hot flashes, sweating, feeling overheated at night, entire body will get sweaty. The heat bothers her especially in summer,she has to take 1-2 electrolytes/ drip drop packs a day. She has 5 children ages 10, 8, 5x2 twins, and 2 years old. Her symptoms worsened after having her last child. She says her headaches have improved with Propanolol, vit. b2, magnesium, and beet root for COq10, karla-d-chiro inositol, for PCOS regulation along with the symptoms of mood irritability. She was concerned with s/e of medication such as HTN with the use of Ubrelvey and Sumatriptan and has not taken them, as her migraine/ headaches are better managed now with Propanolol 60mg ER, exercising 3-5x for 20 min on the elliptical every other day, and staying hydrated. Baseline Characters of her headaches: Feels like a tight pressure like a band around the head, ears, frontallis radiating backwards temporally. Usually 3-4 a month and mild ones lasting one day. The severe acute onset migraines are 1x a month now with photophobia/ phonophobia and aura of fish bowl like effect followed by dizziness, vertigo, feeling off balance. She has some hearing changes with Tinnitus, usually in the AM, or when hungry, and hears it in the back of her neck, like rice is being crunched . She denies sensitivity to smells. She has bruxism, needs a mouth guard, as she notes the headaches due to grinding her teeth radiates down her neck lasting 5-10min and goes away. She is taking a Vitron (Vitamin C and Iron supplement OTC) per her pcp at [facility]. Her mood is stable, she feels less anxious, has a good support network, , parents, [id number], she crochets for fun and reads. She sleeps less through the day now. Reviewed Labs with her today, D is low, she started taking a Evan Monsivais otc, 3x a week. Her HDL is low, discussed foods and suppletments to increase HDL. [facility] Medical History Depression Anxiety Imbalance Tremors of nervous system Acid reflux Palpitations High blood pressure Sinusitis delivery delivered Elbow injury Surgical History [place] teeth extracted Hx of cholecystectomy Hx of appendectomy Family History Father Asthma Maternal Grandmother High blood pressure Diabetes Paternal Grandfather High blood pressure Cardiovascular system problem Brother Asthma Social History Household Members: Family Housing: Apartment Are you a primary spiritual care coordinator to a significant other at home: Yes Alcohol intake: never Patient Tobacco Use Status: Never used Tobacco e-Cigarette/Vaping Use: Never Used Special valentin needs: Yes service: No Current occupational status: 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 Cognitive needs: No Hearing needs: No (patient is having tinnitis.) Vision needs: Yes (patient wears glasses) Review of Systems Const All systems reviewed & are unremarkable except as noted in HPI and below Physical Exam Vital Signs: Last Vital Signs BP 110/82 05/14/24 10:46 BMI result Body Mass Index 35.1 Const General: no acute distress Orientation/consciousness: patient oriented x3 HEENT Other: Mallampati stage IV Eyes Pupils: Equal, round and reactive pupils present Resp Effort & Inspection: able to speak in complete sentences Cardio Rate: regular rate Rhythm: regular rhythm Neuro General: patient oriented x3 and moves all extremities Cranial nerves: Yes Facial sensation intact/muscles of mastication intact, Yes Equal, round and reactive pupils present, Yes Normal accommodation reflex present, Yes Nystagmus not present, Yes Normal facial strength present, Yes Midline tongue present, Yes Ability to bilaterally rotate head present and Yes Ability to bilaterally elevate shoulders present Gait exam (Neuro): Normal gait present Motor exam (neuro): 5/5 motor strength present throughout and Normal motor muscle tone present throughout Deep tendon reflexes (DTR's): Right triceps reflex intensity grade: 2+, Left triceps reflex intensity grade: 2+, Rt Biceps (C5, C6): 2+, Left biceps reflex intensity grade: 2+, Left brachioradialis reflex intensity grade: 2+, Right patellar reflex intensity grade: 2+ and Left patellar reflex intensity grade: 2+ Psych Appearance: grossly normal Thought process: Normal thought process present Thought content: Normal thought content present Results Reviewed Results Reviewed: Reviewed PSG AHI is 4 and O2 was 89%, with frequent arousals, fragmented sleep architecture and decreased REM sleep. Assessment & Plan Assessment & Plan (1) Acute onset aura migraine: Code(s): G43.109 - Migraine with aura, not intractable, without status migrainosus Category: Medical Qualifiers: Status migrainosus presence: without status migrainosus Intractability: intractable Qualified Code(s): G43.119 - Migraine with aura, intractable, without status migrainosus (2) Dysfunctions of sleep stages or arousal from sleep: Code(s): G47.20 - Circadian rhythm sleep disorder, unspecified type Category: Medical (3) Bruxism (teeth grinding): Code(s): F45.8 - Other somatoform disorders Category: Medical (4) Excessive daytime sleepiness: Code(s): G47.19 - Other hypersomnia Category: Medical (5) Cervicalgia: Code(s): M54.2 - Cervicalgia Category: Medical (6) Severe frontal headaches: Code(s): R51.9 - Headache, unspecified Category: Medical Plan PSG was completed Patient continues to have menstrual headaches, though only about 1-2 a month now and did not use her Ubrelvy or Sumatriptan due to concerns of s/e of medications with BP changes. Mirtazapine with Excessive Fatigue with Hypersomnia Dentistry referral for Bruxism and somno guard oral device. Referral for Tilt Table test as she continues to have Hypotension, Orthostatic? Suppine Hypertension? POTS? Magnesium 400mg PO daily at bedtime. Orders: Orders ECG Tilt Table Test Today G43.109 - Migraine with aura, not intractable, without status migrainosus Referrals Dentistry Referral F45.8 - Other somatoform disorders, G43.109 - Migraine with aura, not intractable, without status migrainosus, G47.20 - Circadian rhythm sleep disorder, unspecified type Medications: Discontinued ubrogepant (Ubrelvy) Discontinued Reason: No Longer Medically Relevant 1 tab at onset of headache s, repeat in 2 hrs if needed - max 4 tabs /day PRN; 14 tabs 6RF migraine On Hold sumatriptan succinate Hold Comment: no longer needs it due to decrease number of migraines 50 mg orally; Take one tablet at the onset of migraine. If migraine does not subside, you may take one additional tablet 4 hours later. Do not exceed more than 2 tabl ets per a 24 hour period. 14 tabs 0RF M54.2 - Cervicalgia, R51.9 - Headache, unspecified Patient Instructions: Sleep Hygiene provided: set a scheduled bedtime and wake time to help regulate the circadian rhythm and balance the release of pituitary hormones. Sleep in a dark room, temperatures below 68 degrees, and no devices n bed. Limit caffeinated products 6 hours prior to bed, and limit fluids 2-4 hours prior to bed. Gentle night yoga, diffusing essential oils, and playing soft music can be relaxing. T[facility] table test at [facility]/ with EKG and remember to taper off the Propanolol ER 60mg over a slow taper 2 weeks prior to this study. Dentistry Referral, for Somno-Guard or oral appliance evaluation. Continue Mirtazapine as patient continues to have fragmented sleep and frequent arousals. Coding Level of Care Code Est Pt Level 4 (57882) Diagnoses Intractable migraine with aura without status migrainosus G43.119 Status migrainosus presence: without status migrainosus Intractability: intractable Dysfunctions of sleep stages or arousal from sleep G47.20 Bruxism (teeth grinding) F45.8 Excessive daytime sleepiness G47.19 Cervicalgia M54.2 Severe frontal headaches R51.9 Time Spent (min) 30 Comment Improving
[2024-05-14 10:46] VITALS: BP 110/82; BMI 35.1
--- OUTSIDE RECORDS SUMMARY | 2024-05-14 11:27 | XMS_ITS | Encounter Summary ---
Author Organization [facility] Address [address] [place] [address] Care Team Providers Care Cooperage Shop Supervisor Name Role Phone Unknown Primary Care Provider [phone] Clair Elaine MD Primary Care Provider [phone] Clair Lawson MD Primary Care Provider [phone] Bailey Gan MD Primary Care Provider [phone] Matthias Chau MD Primary Care Provider [phone] Encounter Details Date Type Department Care Team (Late st Contact Info) Description 01/17/2018 Prep for Surgery OBGYN IP [address] [place] [id number] Nehal Roberts MD [address] [place] [id number] Dichorionic diamniotic twin in third trimester (Primary [...] documented as of this encounter Care Teams Cooperage Shop Supervisor Relationship Specialty Start Date End Date Unknown Unknow Provider Address PCP - General 01/23/18 02/11/18 Clair Elaine MD [address] [facility] [address] [phone] PCP - General Obstetrics and Gynecology 02/12/1802/14 Clair Lawson MD [address] [place] [address] PCP - General 03/01/21 04/02/22 Bailey Gan MD [address] [place] [address] PCP - General Family Medicine 04/03/22 04/23/22 Matthias Chau MD [address] [facility] [address] [place] [address] PCP - General Nephrology 04/24/22 documented as of this encounter
--- OUTSIDE RECORDS SUMMARY | 2024-05-14 11:27 | XMS_ITS | Clinical Summary ---
Author Organization [facility] Address [address] [place] [address] Phone Care Team Providers Care Shoe Associate Name Role Phone Matthias Chau MD Primary Care Provider [phone] Allergies Active Allergy Reactions Criticality Noted Date Comments Escitalopram Diarrhea,Dizziness,F lushing,Palpitatio ns,Other,Pain,Psychiatric,Unknown Medium 08/25/2022 Serotonin Unknown Medium 03/23/2022 Sertraline Diarrhea,Dizziness,F lushing,Palpitatio ns,Nausea Only,Pain Medium 04/08/2024 Medications benzonatate (TESSALON) 100 mg capsule Take 1 capsule (100 mg total) by mouth 3 (three) times a day if needed for cough. Do not crush or chew. 12 capsule 5 Active ondansetron ODT (ZOFRAN-ODT) 4 mg disintegrating tablet Let 1 tablet dissolve under the tongue three times daily as needed for nausea or vomiting. 10 tablet 5 04/16/19 25 Active Problems No known active problems Encounters Date Type Department Care Team Description 04/08/2024 12:08 PM EST - 04/08/2024 3:01 PM EST Emergency [facility] Emergency [address] [place] [address] Viral syndrome (Primary Dx) Discharge Disposition: Home or Self Care from Last 3 Months Surgical History Surgery Date Site/Laterality Comments SECTION PROCEDURE: SECTION OTHER SURGICAL HISTORY 10/2019 PROCEDURE:miscarriage APPENDECTOMY PROCEDURE:APPENDECTOMY CHOLECYSTECTOMY 10/10/2020 N/A PROCEDURE:CHOLECYSTECTOMY;COMMENT:Aurelia morgandure: LAPAROSCOPY CHOLECYSTECTOMY; Surgeon: Justin Shepard MD; Location: [facility]; Service: General; Laterality: N/A; Medical [...] Value Date Recorded Sex Assigned at Female 04/08/2024 1:51 PM EST Legal Sex Female 2:54 AM EST Gender Identity Female 04/08/2024 1:51 PM EST Sexual Orientation Not on file Obstetrics History Last Filed Vital Signs Vital Sign Reading Time Taken Comments Blood Pressure 127/76 04/08/2024 11:21 AM EST Pulse 76 04/08/2024 11:21 AM EST Temperature 37 ??C (98.6 ??F) 04/08/2024 11:21 AM EST Respiratory Rate 18 04/08/2024 11:21 AM EST Oxygen Saturation 98% 04/08/2024 11:21 AM EST Inhaled Oxygen Concentration - - Weight 88.5 kg (195 lb) 04/08/2024 11:21 AM EST Height 160 cm (5' 3 ) 04/08/2024 11:21 AM EST Body Mass Index 34.54 04/08/2024 11:21 AM EST Plan of Treatment Health Maintenance Due Date Last Done Comments DTaP,Tdap,and Td Vaccines (1 - Tdap) 12/16/2007 Hepatitis B Vaccines (1 of 3 - 19+ 3-dose series) 12/16/2007 Cervical Cancer Screening: Pap Smear 2009 Cholesterol Screening (Lipid Panel) 01/17/2022 Depression Screening 01/17/2022 HIV Screening 01/17/2022 Hepatitis C Screening 01/17/2022 Social Influencers of Health Screening 01/17/2022 Hypertension/CHF/CAD Annual BMP Blood Test 08/23/2023 08/22/2022, 04/19/2022, 04/16/2022, Additional history exists COVID-19 Vaccine ( season) 2023 Influenza Vaccine (#1) 2023 12/09/2020 HIB Vaccines Aged Out No longer eligi [...] Procedure Name Priority Date/Time Associated Diagnosis Comments [id number], RSV, FLU A AND B QUALITATIVE RT-PCR, INTERNAL LAB STAT 04/08/2024 11:25 AM EST from Last 3 Months Results * [id number], RSV, Influenza A and B qualitative RT-PCR (04/08/2024 11:25 AM EST) Influenza A PCR Not Detected Not Detected LAB MICROBIOLOGY METHOD 04/08/2024 12:55 PM EST [facility] Influenza B PCR Not Detected Not Detected LAB MICROBIOLOGY METHOD 04/08/2024 12:55 PM EST [facility] RSV PCR Not Detected Not Detected LAB MICROBIOLOGY METHOD 04/08/2024 12:55 PM EST [facility] SARS COV-2 Not Detected Not Detected LAB MICROBIOLOGY METHOD 04/08/2024 12:55 PM [facility] Swab Both anterior nares / Unknown Non-blood Collection / Unknown 04/08/2024 11:25 AM EST 04/08/2024 11:58 AM EST Narrative [facility] - 04/08/2024 12:55 PM EST Disclaimer: ??Testing was performed using the eCollect GeneXpert Xpress SARS-CoV-2 _Flu_RSV PLUS PCR assay. ??The manner in which this information is used to guide patient care is the responsibility of the healthcare provider. ??Results should be correlated with the clinical history, epidemiological data, and other data available to the clinician evaluating the patient. ??Negative results do not preclude infection. ??This test has been authorized by the FDA under an Emergency Use Authorization (EUA). ??This test is only authorized for the duration of time the declaration that circumstances exist justifying the authorization of the emergency use of in vitro diagnostic tests for detection of SARS-CoV-2 virus and/or diagnosis of COVID-19 infection under section 564 (b) (1) of the Act, 21 U.S.C 360bbb-3 (b) (1), unless the authorization is terminated or revoked sooner. ?? Reference Range: Not Detected Fact sheet for Healthcare providers can be found at https://www.fda.gov/media/555630/download. ?? Fact sheet for Healthcare patients can be found at https://www.fda.gov/media/674976/download. us Holger Torres MD LAB MICROBIOLOGY - GENERA L ORDERABLES Final Result [facility] [address] [place] [address], [place] [phone] from Last 3 Months Insurance MEDICAID - [place] [facility] Care Teams Shoe Associate Relationship Specialty Start Date End Date Matthias Chau MD [address] [place] [phone] PCP - General 05/13/22
--- OUTSIDE RECORDS SUMMARY | 2024-05-14 11:27 | XMS_ITS | Data Portability ---
Author Organization [place] [facility], [facility] Address [address] [place] [address] Assessment Encounter Date Assessment Date Assessment LastModified by Organization Details LastModified Time 07/11/2018 07/11/2018 I have seen and examined the patient with Abril Florentino RN, IBCLC and I agree with her findings and plan as written. [facility] Not available 07/16/2018 15:52:23 Plan of Treatment Reminders Order Date Submit Date Provider Last Modified By Organization Details Last Modified Time Details Appointments None record ed. Lab None record ed. Referral None record ed. Procedures None record ed. Surgeries None record ed. Imaging None record ed. Medication Orders None record ed. Patient TargetsNo targets recorded. Patient Instructions Encounter Date Encounter Id Patient Instructions Last Modified By Organization Details Last Modified Time 07/11/2018 [id number] Long discussion of her plans and and goals, babies are distracted at the breast as per their age and her normal distraction, but baby Martina does come off rather immediately and there is some clicking noticed. She does have a tight anterior restriction noted tight lip as well. Torticollis is noted with the baby's side tilts to the right shoulder. She has seen at [facility] and feels she needs more. Encouraged her to pump with electric pump four times a day, and replace formula with expressed breastmilk. Twins are gaining and growing per thier weights here. Mom has some history of PTSD and mood disorder, she is under care and feels well supported. Offered referral to assess for oral tethers, but made mom aware that this is probably not the only challenge she has, and that she is actually doing very well breast-feeding babies considering her rough start. Discussed at the breast supplementation, mom given a five Malay feeding tube try and discussed paced bottlefeeding as well. Encourage increase skin to skin; and referral to Tongue tie provider per her request. Plan to progress torticollis therapy per her alcohol still operator and physical therapy resources in the community. Given community support groups and resources. She knows she can return for further follow-up as needed. Abril Florentino RN, IBCLC [facility] Not available 07/16/2018 15:53:28 Reason for Referral None Reported. Problems No Known Problems Medical Equipment None Reported. Allergies No known drug allergies Medications Name Sig Start Date Stop Date Status Note LastModified by Organization Details LastModified Time labetalol 200 mg tablet active Not Available Not Available No t Available sertraline 100 mg tablet active Not Available Not Available No t Available hydralazine 25 mg tablet active Not Available Not Available No t Available hydromorphone 2 mg tablet active Not Available Not Available No t Available nifedipine ER 90 mg tablet,extended release 24 hr active Not Available Not Availabl e Not Available ibuprofen 600 mg tablet active Not Available Not Available No t Available diltiazem 30 mg tablet active Not Available Not Available Not Available norethindrone (contraceptive) 0.35 mg tablet active Not Available Not Availab le Not Available sertraline 50 mg tablet active Not Available Not Available No t Available Trinate 28 mg iron-1 mg tablet active Not Available Not Available Not Available Vitals Date Recorded Systolic blood pressure Diastolic blood pressure Provider Name and Address Organization Details Last Updated DateTime 07/11/2018 110 mm[Hg] 76 mm[Hg] Abril Florentino [place] - [facility] 07/16/2018 13:07:38 Social History None recorded. Functional Status None recorded. Mental Status None recorded. Family History Nothing Reported. Medical History No medical history recorded. Gynecological HistoryNo gynecological history recorded. Obstetrics History GPAL:G 0 P 0 0 0 0 Past Encounters Encounter ID Performer Location Encounter Start Date Encounter Closed Date Diagnosis/Indication Diagnosis SNOMED-CT Code Diagnosis ICD10 Code Diagnosis Note [id number] LUIS VAZQUEZ MD TAY[address] [facility] ARM[address] [place] [address] 07/11/2018 12:41:55 07/11/2018 14:02:40 management [id number] Z39.1 Disorder of 33 794168 O92.5 Health Concerns Section Related Observation LastModified by Organization Detai ls LastModified Time None Recorded Concern Status LastModified by Organization Details LastModified Time None Recorded Advance Directives Directive None Recorded Payers Encounter Date Sequence Insurance Name Policy Number Policy Hartman Covered Member ID Hartman Member ID Guarantor Name 07/11/2018 1 [place] Alex Jinqin [id number] Adama Jinqin Notes Date Note Type Note Provider Name and Address Organization Details Recorded Time 07/11/2018 text/html [facility] Breast ProblemsReported bypatient.Aggravating Factors: Patient comes today with twins that were born in February of this year. They were [facility] at [facility] at 38 weeks, one baby vaginally and via delivery. Mom had a significant bleed which required transfusion. Babies are now almost 5 months old and mom has decided to pursue re-. Breast-feeding did not get off to a good start and mom had stressful period. She also has two other children at home. Her breast-feeding attempts and plans were labile. Wanted to breast-feed then she decided to stop; and she decided to start again. Her hope now is to bring both babies to the breast for exclusive breast-feeding. He is doing better with supply, she's also using formula throughout the day as well. She comes to for an evaluation of oral restrictions on both babies and she feels that they are tongue-tied. She is receiving to three services for both girls, baby Martina has a diagnosed torticollis which is being treated only two days a month. Her supply seems to have improved, she continues to work on this and pumps. She has a Spectra pump now but only has received this in the last few days, was using a hand pump for the last few weeks. Babies are taking 3-4 ounces after breast-feeds. Mom would like to decrease this formula use. LUIS VAZQUEZ MD [address] [place] [address], [address], [place], [phone], [place] - [facility] 07/16/2018 15:55:03 OBGyn Episode No OBEpisode recorded.
--- OUTSIDE RECORDS SUMMARY | 2024-05-14 11:27 | XMS_ITS | Patient Health Record ---
Author Organization [employer] Address [address] [place] [address] [phone] Care Team Providers Care Hiv/Aids Care Nurse Name Role Phone CHRISTIEVICTORINO Primary Care Provider TWILA EDMONDS Unavailable [phone] ALLERGIES Allergen (clinical drug ingredient) Drug/Non Drug Allergy documented on EMR Reaction Allergy Type Onset Date Status Substance with serotonin re-uptake inhibitor mechanism of action (substance) SSRI's (uncoded) Serotonin Syndrome Allergy Active RESULTS Component Value Reference Range Notes CARDIO IQ(R) APOLIPOPROTEIN EVAL (45090) Reviewed date:06/16/2023 08:32:10 AM Interpretation: Performing Lab:Vignesh, [facility] [place] [address], [address], DfuzcqjutWT[address] Bimal Borrero PhD,[facility] Notes/Report: FASTING: YES FASTING:YES FASTING APOLIPOPROTEIN A1 141 >124 mg/dL Risk, Male: Optimal >= 115 mg/dL; High < 115 mg/dL; Risk, Female: Optimal >= 125 mg/dL; High <125 mg/dL; Cardiovascular event risk category cut points (optimal, high) are based on the AMORIS study Wallcubaus G et al. J Filler Picker Med. 2004;255:188-205. APOLIPOPROTEIN B 63 <90 mg/dL [...] AMORIS study, Chapin G et al. J Filler Picker Med. 2004;255:188-205. CARDIO IQ(R) HEMOGLOBIN A1c (60611) Reviewed date:06/16/2023 08:31:57 AM Interpretation: Performing Lab:Vignesh, [facility] [place] [address], [address], TxslcihtvCM[address] Bimal Borrero PhD,[facility] Notes/Report: FASTING FASTING:YES FASTING: YES HEMOGLOBIN A1c [...] diagnosis of diabetes in children. According to [place] Diabetes Association (ADA) guidelines, hemoglobin A1c <7.0% represents optimal control in non- diabetic patients. Different metrics may apply to specific patient populations. Standards of Medical Care in Diabetes (ADA). This test was performed on the Ramon asa c503 platform. Effective 04/19/2023, a change in test platforms from the [employer] Editorial Writer to the Ramon asa c503 may have shifted HbA1c results compared to historical results. Based on laboratory validation testing conducted at [facility], the Ramon platform relative to the Reinoso [...] Reviewed date:06/16/2023 08:31:57 AM Interpretation: Performing Lab:Vignesh [facility] [facility], [address], [id number] Bimal Borrero PhD,[facility] Notes/Report: FASTING: YES FASTING:YES FASTING HOMOCYSTEINE 7.0 <10.4 umol/L Homocysteine is increased by functional deficiency of folate or vitamin B12. Testing for methylmalonic acid differentiates between these deficiencies. Other causes of increased homocysteine include renal failure, folate antagonists such as methotrexate and phenytoin, and exposure to nitrous oxide. Gabriela J, et al. Layla Filler Picker Med. 1999;131(5):331-9. Homocysteine is increased by functional deficiency of folate or vitamin B12. Testing for methylmalonic acid differentiates between these deficiencies. Other causes of increased homocysteine include renal failure, folate antagonists such as methotrexate and phenytoin, and exposure to nitrous oxide. Selhuronald Aguilar, et al., Layla Filler Picker Med. 1999;131(5):331-9. CARDIO IQ(R) HS CRP (12554) Reviewed date:06/16/2023 08:31:57 AM Interpretation: Performing Lab:Vignesh [facility].[address] [place] [address], [address], FghptiqllMR[address] Bimal Borrero PhD,[facility] Notes/Report: FASTING FASTING:YES FASTING: YES HS CRP [...] with infection and inflammation. CARDIO IQ(R) INSULIN (62037) Reviewed date:06/16/2023 08:31:57 AM Interpretation: Performing Lab:Z4, [facility], [address], OhavyqxenDP[address] Bimal Borrero PhD,[facility] Notes/Report: FASTING FASTING:YES FASTING: YES INSULIN 15.9 <18.5 uIU/mL CARDIO IQ(R) LIPID PANEL (91 716) Reviewed date:06/16/2023 08:31:57 AM Interpretation: Performing Lab:Z4, [facility].[address], [address], SybifwytqHB[address] Bimal Borrero PhD,[facility] Notes/Report: FASTING FASTING:YES FASTING: YES CHOLESTEROL, TOTAL [...] LDL-C. Leo SS et al. KIARA. 2013;310(19): 7184-4680 (http://education.[employer].com/faq/EKM333) LDL-C is now calculated using the Leo-Larios calculation, which is a validated novel method providing better accuracy than the Friedewald equation in the estimation of LDL-C. Leo SS et al. KIARA. 2013;310(19): 1105-3276 (http://education.[employer].com/faq/ECG569) CHOL/HDLC RATIO 2.7 <5.0 calc NON HDL [...] a therapeutic option. CARDIO IQ(R) LIPOPROTEIN (a) (16941) Reviewed date:06/16/2023 08:31:57 AM Interpretation: Performing Lab:Vignesh, [facility], [address], ZzbbdwtqhLP[address] Bimal Borrero PhD,[facility] Notes/Report: FASTING FASTING:YES FASTING: YES LIPOPROTEIN (a) 16 <75 nmol/L Risk: Optimal <75 nmol/L; Moderate 75-125 nmol/L; High >125 nmol/L. Cardiovascular event risk category cut points (optimal, moderate, high) are based on Shy Espinoza JAC 2017;69:692-711. CARDIO IQ(R) VITAMIN D, 25 H YDROXY (14533) Reviewed date:06/16/2023 08:31:57 AM Interpretation: Performing Lab:Luiz MULTANI [employer]/[facility], OavmthtifYB[address] Rivas Betancourt M.D.,PhD Notes/Report: FASTING FASTING:YES FASTING: [...] ng/mL. For additional information, please refer to http://education.[employer].com/faq/LPL789 (This link is being provided for informational/ educational purposes only.) VITAMIN D, 25-OH, D3 23 This test was developed and its analytical performance characteristics have been determined by [facility] [place], [place]. It has not been cleared or approved by the U.S. Food and Drug Administration. This assay has been validated pursuant to the CLIA regulations and is used for clinical purposes. VITAMIN D, 25-OH, D2 <4 This test was developed and its analytical performance characteristics have been determined by [facility] [place], [place]. It has not been cleared or approved by the U.S. Food and Drug Administration. This assay has been validated pursuant to the CLIA regulations and is used for clinical purposes. CBC (INCLUDES DIFF/PLT) (639 9) Reviewed date:06/08/2023 11:05:39 AM Interpretation: Performing Lab:T[facility]AN [facility] Reagan Hearn Notes/Report: FASTING FASTING:YES FASTING: YES WHITE BLOOD CELL COUNT 7.3 3.8-10.8 Thousand/ uL RED BLOOD CELL COUNT 4.57 3.80-5.10 Million/uL HEMOGLOBIN 13.1 11.7-15.5 g/dL HEMATOCRIT 39.1 35.0-45.0 % MCV 85.6 80.0-100.0 fL MCH 28.7 27.0-33.0 pg MCHC 33.5 32.0-36.0 g/dL RDW 12.6 11.0-15.0 % PLATELET COUNT 276 140-400 Thousand/uL MPV 9.5 7.5-12.5 fL ABSOLUTE NEUTROPHILS 3986 1457-2743 cells/uL ABSOLUTE LYMPHOCYTES 2504 850-3900 cells/uL ABSOLUTE MONOCYTES 460 200-950 cells/uL ABSOLUTE EOSINOPHILS 321 15-500 cells/uL ABSOLUTE BASOPHILS 29 0-200 cells/uL NEUTROPHILS 54.6 LYMPHOCYTES 34.3 MONOCYTES 6.3 EOSINOPHILS 4.4 BASOPHILS 0.4 COMPREHENSIVE METABOLIC PANE L (70776) Reviewed date:06/13/2023 03:17:02 PM Interpretation: Performing Lab:TAPAN, [facility] Reagan Hearn Notes/Report: FASTING FASTING:YES FASTING: [...] (402) Reviewed date:06/08/2023 11:05:39 AM Interpretation: Performing Lab:[facility]DAStreet[facility]wl, [facility]ationsL[place] [id number] Reagan Hearn Notes/Report: FASTING FASTING:YES FASTING: YES DHEA SULFATE 119 19-237 mcg/dL FSH AND LH (7137) Reviewed date:06/08/2023 11:05:39 AM Interpretation: Performing Lab:MANDAStreetOwl, [facility] Reagan Hearn Notes/Report: FASTING FASTING:YES FASTING: YES FSH 3.4 Reference Range Follicular Phase 2.5-10.2 Mid-cycle Peak 3.1-17.7 Luteal Phase 1.5- 9.1 Postmenopausal 23.0-116.3 LH 7.2 Reference Range Follicular Phase 1.9-12.5 Mid-Cycle Peak 8.7-76.3 Luteal Phase 0.5-16.9 Postmenopausal 10.0-54.7 IRON, TIBC AND FERRITIN PANE L (5616) Reviewed date:06/13/2023 03:17:02 PM Interpretation: Performing Lab:MANDAStreetOwl, [facility] Reagan Hearn Notes/Report: FASTING FASTING:YES FASTING: YES IRON, TOTAL 128 40-190 mcg/dL IRON BINDING CAPACITY 347 250-450 mcg/dL (melida c) % SATURATION 37 16-45 % (calc) FERRITIN 11 16-154 ng/mL MAGNESIUM (622) Reviewed date:06/13/2023 03:17:02 PM Interpretation: Performing Lab:TAPAN, [facility]ations[place] [phone] Reagan Hearn Notes/Report: FASTING FASTING:YES FASTING: YES MAGNESIUM 2.1 1.5-2.5 mg/dL METHYLMALONIC ACID (66211) Reviewed date:06/13/2023 03:17:02 PM Interpretation: Performing Lab:NERISSA [facility], KmvvhewepPQ[address] Rivas Betancourt M.D.,PhD Notes/Report: FASTING FASTING:YES FASTING: YES METHYLMALONIC ACID 119 87-318 nmol/L This test was developed and its analytical performance characteristics have been determined by [facility] [place], [place]. It has not been cleared or approved by the U.S. Food and Drug Administration. This assay has been validated pursuant to the CLIA regulations and is used for clinical purposes. SED RATE BY ARMIN GUZMÁN (809) Reviewed date:06/08/2023 11:05:39 AM Interpretation: Performing Lab:TAPAN [facility] Reagan Hearn Notes/Report: FASTING FASTING:YES FASTING: YES SED RATE BY ARMIN CARVALHO 6 < OR = 20 mm/h THYROID PANEL WITH TSH (7444 ) Reviewed date:06/13/2023 03:17:02 PM Interpretation: Performing Lab:MANDA [facility]ationsL[place] [id number] Reagan Hearn Notes/Report: FASTING FASTING:YES FASTING: YES T3 UPTAKE 28 22-35 % T4 (THYROXINE), TOTAL 5.5 5.1-11.9 mcg/dL FREE T4 INDEX (T7) 1.5 1.4-3.8 TSH 2.22 Reference Range > or = 20 Years 0.40-4.50 Ranges First trimester 0.26-2.66 Second trimester 0.55-2.73 Third trimester 0.43-2.91 THYROID PEROXIDASE AND THYRO GLOBULIN ANTIBODIES (7260) Reviewed date:06/13/2023 03:17:02 PM Interpretation: Performing Lab:NL2, [facility] [place] [address] [facility] Notes/Report: FASTING FASTING:YES FASTING: YES THYROGLOBULIN ANTIBODIES <1 < or = 1 IU/mL THYROID PEROXIDASE ANTIBODIES 1 <9 IU/mL URIC ACID (905) Reviewed date:06/13/2023 03:17:02 PM Interpretation: Performing Lab:NLStreetOwl, [facility]ationsL[place] [phone] [place] [address] Notes/Report: FASTING FASTING:YES FASTING: YES URIC ACID 6.5 2.5-7.0 mg/dL Therapeutic ta rget for gout patients: <6.0 mg/dL VITAMIN B12/FOLATE, [facility] (7065) Reviewed date:06/08/2023 11:05:39 AM Interpretation: Performing Lab:NLStreetOwl, [facility]ationsL[place] [phone] [facility] Notes/Report: FASTING FASTING:YES FASTING: YES VITAMIN B12 985 203-0174 pg/mL Please Note: Although the reference range [...] Reviewed date:06/13/2023 03:17:02 PM Interpretation: Performing Lab:NL2, [facility] [facility]i [facility] Notes/Report: FASTING FASTING:YES FASTING: YES CREATININE, RANDOM [...] a diagnostic category. CARDIO IQ(R) HS CRP (52504) Reviewed date:10/31/2023 07:56:01 AM Interpretation: Performing Lab:Vignesh, [facility] [address], [address], JxwyvyesqQB[address] Bimal Borrero PhD,[facility] Notes/Report: NON-FASTING; NON-FASTING; NON-FASTING FASTING:YES FASTING: YES [...] for Disease Control and Prevention and the [place] [employer] Association. Circulation 2003; 107(3): 499-511. For [...] for Disease Control and Prevention and the [place] Heart Association. Circulation 2003; 107(3): 499-511. CARDIO IQ(R) INSULIN (23040) Reviewed date:10/31/2023 07:56:01 AM Interpretation: Performing Lab:Vignesh, [facility]-[address]egMenlo Park Surgical Hospitalkoffi, [address], OblcepoaxPH[address] Bimal Borrero PhD,[facility] Notes/Report: NON-FASTING; NON-FASTING; NON-FASTING FASTING:YES FASTING: YES INSULIN 17.1 <18.5 uIU/mL CARDIO IQ(R) VITAMIN D, 25 H YDROXY (82489) Reviewed date:10/31/2023 07:56:01 AM Interpretation: Performing Lab:Luiz MULTANI/Marisela Lee RA[address], OwszriahaFT[address] Rivas Betancourt M.D.,PhD Notes/Report: NON-FASTING; NON-FASTING; NON-FASTING [...] ng/mL. For additional information, please refer to http://education.[employer].com/faq/LRI452 (This link is being provided for informational/ educational purposes only.) VITAMIN D, 25-OH, D3 64 This test was developed and its analytical performance characteristics have been determined by [facility] [place], [place]. It has not been cleared or approved by the U.S. Food and Drug Administration. This assay has been validated pursuant to the CLIA regulations and is used for clinical purposes. VITAMIN D, 25-OH, D2 <4 This test was developed and its analytical performance characteristics have been determined by [facility] [place]. It has not been cleared or [...] Tobacco use: nonsmoker Section Notes: Lives in [place], [place] with and 5 children. Lives [place] with and 5 children. Lives [place] with and 5 children. Lives [place] with and 5 children. [place] with and 5 children. Lives [place] with and 5 children. Lives [place] with and 5 children. Lives [place] with and 5 children. Lives [place] with and 5 children. PROBLEMS Problem Type ICD Code Onset Dates Problem Status W/U Status Risk SNOMED Code Notes Problem Essential (primary) hypertension (I10) Active confirmed Essential hypertension (59901195) Problem Sexual dysfunction, unspecified (R37) Active confirmed Sexual dysfunct ion (76083547) Problem Migraine without aura and without status migrainosus, not intractable (G43.009) Active confirmed Migraine withou t aura, not refractory (731718069) Problem Obesity (BMI 30.0-34.9) (E66.9) Active confirmed Obesity (559022467) Problem Vitamin D deficiency (E55.9) Active confirmed Vitamin D deficiency (94414900) Problem Elevated high sensitivity C-reactive protein (R79.82) Active confirmed C-reactive prot ein abnormal (395788629) Problem PTSD (post-traumatic stress disorder) (F43.10) Active confirmed Posttraumatic stress disorder (48554648) Problem Low ferritin (R79.0) Active confirmed Ferritin level low (600959254) Problem Irregular menses (N92.6) Active confirmed Menstrual dis order (930690558) Problem Mixed anxiety and depressive disorder (F41.8) Active confirmed Mixed anxiety a nd depressive disorder (732274720) Problem GERD without esophagitis (K21.9) Active confirmed Gastroesophagea l reflux disease (578272668) Problem Insulin resistance syndrome (E88.810) Active confirmed Insulin resista nce syndrome (371399600) VITAL SIGNS Heart Rate 77 /min 02/23/2024 Height-cm 160.02 cm 02/23/2024 Oximetry 97 % 02/23/2024 Blood pressure diastolic 72 mm Hg 02/23/2024 Weight-kg 85.46 kg 02/23/2024 Height 63 in 02/23/2024 Blood pressure systolic 116 mm Hg 02/23/2024 Weight 188.4 lbs 02/23/2024 BMI 33.37 kg/m2 02/23/2024 Encounters Encounter Location Date Provider Diagnosis [facility], [address] [id number] 01/25/[address] [id number] 04/06/[address] [id number] 06/03/2023 COUNT INCLUDES THE [facility] Essential (primary) hypertension I10 ; Mixed anxiety and depressive disorder F41.8 ; Fatigue, unspecified type R53.83 ; Hyperlipidemia, unspecified E78.5 ; Vitamin D deficiency E55.9 ; Obesity (BMI 30.0-34.9) E66.9 ; Migraine without aura and without status migrainosus, not intractable G43.009 ; GERD without esophagitis K21.9 and Irregular menses N92.[address] [id number] 07/12/2023 COUNT INCLUDES THE [facility] Elevated high sensitivity C-reactive protein R79.82 ; Insulin resistance syndrome E88.810 ; Vitamin D deficiency E55.9 and Low ferritin R79.[address] [id number] 09/21/2023 COUNT INCLUDES THE [facility] Diarrhea, unspecifie d R19.7 ; PTSD (post-traumatic stress disorder) F43.10 and GERD without esophagitis K21.[address] [id number] 09/29/2023 COUNT INCLUDES THE [facility] Insulin resistance syndrome E88.810 and Mixed anxiety and depressive disorder F41.[address] [id number] 11/01/2023 VICTORINO SORIANO Decreased energy R53.[address] [id number] 11/09/2023 COUNT INCLUDES THE [facility] Screening for depression Z13.31 ; Screening for [...] R79.0 and PTSD (post-traumatic stress disorder) F43.10 [facility] [address] [place], [place] [id number] 12/23/2023 [facility] Essential (primary) hypertension I10 ; Insulin resistance syndrome E88.810 and Viral illness B34.[address] [id number] 02/23/2024 [facility] Insulin resistance syndrome E88.810 ; Essential (primary) hypertension I10 and Sexual dysfunction, unspecified R37 [address] [id number] 09/20/[address] [id number] 11/25/[address] [id number] 02/21/[address] [id number] 03/14/2024 COUNT INCLUDES THE [facility] GERD without esophagitis K21.9 ASSESSMENTS Encounter [...] Pt is now on oC tabs but [employer] did not address the metabolic aspect of [...] Irregular menses (ICD-10 - N92.6) Switching to [facility] Will order Jacqui for JEFF Will re-eval in 6 weeks 06/03/2023 Irregular menses (ICD-10 - N92.6) Will check hormonal levels Has [employer] 11/09/2023 Elevated high sensitivity C-reactive protein (ICD-10 [...] therapists 06/03/2023 Other New patient welcomed to [facility] and complete intake was obtained. Patient [...] AND FERRITIN PANEL (5616) COMPREHENSIVE METABOLIC PANEL (63075) CBC (INCLUDES DIFF/PLT) (6399) CARDIO IQ(R) HS CRP (75083) 11/09/2023 CARDIO IQ(R) HEMOGLOBIN A1c (20350) 10/16 CARDIO IQ(R) INSULIN (66289) 11/09/2023 CARDIO IQ(R) VITAMIN D, 25 HYDROXY (9173 5) 11/09/2023 Insurance Providers Payer Name Payer Address Payer Phone Subscriber Number Group Number Insured Name Patient Relationship to Insured Coverage Start Date Coverage End Date [facility] [address] [place] [phone] [id number] NANETTE DOTSON Self - patient is the insured MEDICAL (GENERAL) HISTORY Medical History History ICD Code Anxiety Blood Transfusion (2) after childbirth Chicken Pox as a child Depression Fractures - Left Elbow, Left tibia Gallbladder Disease Bio Reflux Hypertension Migraines Wears glasses Surgical History Surgery Date(Month/Year) 2019 Cholecystectomy 2020 Appedectomy 2011 Left Elbow Surgery 2010 [place] Teeth Removed 2022 (2) CT-Scan - Lungs Normal 2021 MRI of the lungs - normal 2021 Hospitalization History Reason Date(Month/Year) COVID 2020 Post depression - 1 week 2021 2019
--- OUTSIDE RECORDS SUMMARY | 2024-05-14 11:27 | XMS_ITS ---
Author Organization [facility] Address [address] [place] [phone] Care Team Providers Care Ambulance Assistant Name Role Phone VICTORINO SORIANO Primary Care Provider [phone] [facility] TWILA EDMONDS Unavailable [phone] REASON FOR VISIT f/u 6w wellness check Encounters Encounter Location Date Provider Diagnosis [facility], [address] [id number] 04/06/2024 TWILA EDMONDS PLAN OF TREATMENT No Information Progress Notes * VIK DOTSONOB: 9 (33 yo F)Acc No.[id number]:04/06/2024 Progress Notes Patient:??NANETTE DOTSON Provider:??TWILA EDMONDS NP :1990?Age:33 Y?Sex:Fe male Date:04/06/2024 Phone: Address:[address] [place], [place] [id number] Pcp:VICTORINO SORIANO Subjective: * Chief Complaints: * ?1. 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 * Medical History:?? Objective: Assessment: Plan: * Treatment: * Billing Information: * Visit Code:?? * Procedure Codes:?? * Sign off status: Pending * Provider:??TWILA EDMONDS NP Date:??
--- OUTSIDE RECORDS SUMMARY | 2024-05-14 11:27 | XMS_ITS | Data Portability ---
Author Organization [place] - [facility]'s [facility], [facility] Address [address] [place] [address] Care Team Providers Care Machine Former Name Role Phone ZOLTAN CHAU Primary Care Provider [phone] SUZANNA HARMON OTHER Assessment Encounter Date Assessment Date Assessment LastModified by Organization Details LastModified Time 07/27/2022 07/27/2022 31yo presents for annual wellness visit, reports increased anxiety/depressio n before menses and would like STI testing. . 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 Desires STI [...] results as indicated. Reports partner, family and shinto is supportive. Denies SI. RTO in 3 months for telehealth BC f/u visit and 1 year for annual wellness visit, and prn with any concerns. [email or web address] Not available 07/27/2022 11:07:24 Plan of Treatment Reminders Order Date Submit Date Provider Last Modified By Organization Details Last Modified Time Details Appointments None recorded. Lab CT + NG DNA, PCR, unspecifie d specimen 2022 023 [facility], [address] [place] [address], 3 22:34:00 hepatitis C Ab, serum 2022 023 [facility], [address] [place] [address], 3 03:02:38 HBsAg (hepatitis B surface Ag), confirmati on, serum 2022 023 [facility], [address] [place] [address], 3 03:02:37 RPR (rapid plasma reagin), serum 2022 023 [facility], [address] [place] [address], 3 03:02:39 HIV 1+2 AB + HIV 1 p24 Ag, qualitativ e immunoassa y, serum 2022 023 [facility], [address] [place] [address], 3 03:02:37 bacterial vaginosis + vaginitis panel, vaginal 2022 023 [facility], [address] [place] [address], 3 12:22:24 lh + FSH, serum 2022 023 [facility], [address] [place] [address], 3 03:02:36 estradiol, serum 2022 023 [facility], [address] [place] [address], 3 03:02:36 prolactin, serum 2022 023 [facility], [address] [place] [address], 3 03:02:38 TSH, serum or plasma 2022 023 [facility], [address] [place], [address] 3 03:02:39 testostero ne, free, serum 2022 023 [facility], [address] [place], [address] 3 10:48:20 cortisol, serum or plasma 2022 023 [facility], [address] [place], [address] 3 10:48:20 hemoglobin (Hb), fingerstic k, blood 2021 022 judd In-Office Order, Internal Use Only DO Not Attach Compendium DO Not Attach Compendium, Do Not Delete/merge, [id number] 17:06:45 Referral None recorded. Procedures None recorded. Surgeries None recorded. Imaging None recorded. Medication Orders norethindr one (contracep tive) 0.35 mg tablet 2022 023 [facility], [address], [place], [address], 10:34:41 Patient Targets Encounter Date Encounter Id [...] longer as mutually desired by mother and . Latch is deep and painless with adequate milk transfer; as evidenced by swallowing at breast and softness in breast after feed, and adequate voids & stools in infant: 1 void/1stool on DOL #1; 2voids/2 stools DOL # 2... advancing to 6-8 wet diapers and 3-5 yellow seedy stools begin by day of life 5 onwardAverage Infant weight gain: 5.5-8.5oz/wk 0-4mo 3.25-4.5oz/wk 4-6mo 1.75-2.75 oz/wk 6-12moBreastfeedin g is a mutually positive experience for both mom and babyMaximize oral function and supply [email or web address] Not available 03/09/2022 11:51:21 GOALS:Maximize supply and [...] longer as mutually desired by mother and . Latch is deep and painless with adequate milk transfer; as evidenced by swallowing at breast and softness in breast after feed, and adequate voids & stools in infant: 1 void/1stool on DOL #1; 2voids/2 stools DOL # 2... advancing to 6-8 wet diapers and 3-5 yellow seedy stools begin by day of life 5 onwardAverage Infant weight gain: 5.5-8.5oz/wk 0-4mo 3.25-4.5oz/wk 4-6mo 1.75-2.75 oz/wk 6-12moBreastfeedin g is a mutually positive experience for both mom and baby [email or web address] Not available 05/25/2022 15:32:13 Patient Instructions Encounter Date Encounter Id Patient Instructions Last Modified By Organization Details Last Modified Time 01/22/2022 [id number] preeclampsia: ca re instructions judd Not available [...] medications judd Not available 01/22/2022 12:09:08 02/09/2022 [id number] high blood press ure in : care [...] She can seek further advice from her learning facilitator. judd Not available 02/09/2022 15:44:50 03/09/2022 [id number] Asymmetric latch as reviewed; see handout BF [...] or Abril Florentino for 2nd hand pump stock worker and deliverer names given; do stretches given for now BF Suggested Diet: Eat Protein, fat & fiber with every meal. Breakfast is a must; keep water bottle full and hydrate throughout day 80-100 oz/d. BF requires extra 500 calories a day; frequent healthy snacks . Body armour, coconut water for hydration Not available 03/09/2022 12:02:41 30 min spent with patient & more than 50% of time spent with patient counseling and coordinating care & education [email or web address] Not available 03/09/2022 11:51:08 05/25/2022 [id number] SNS system to supplement @ breast Probiotic [...] stretches as shown for body tension (video) [email or web address] Not available 05/25/2022 15:36:33 30 min spent with patient & more than 50% of time spent with patient counseling and coordinating care & education [email or web address] Not available 05/25/2022 15:31:25 07/27/2022 [id number] premenstrual syndrome (PMS): care instructions [email or web address] Not [...] been told to reschedule a well woman Cap Coverer exam in one year and to call [...] COVID -19 can be found on the [employer] rs for Disea se Contr ol and Preve ntion websi te: www.[employer].go v/cor onavi 019-n cov/i ndex. html Not Available [facility] [address] [place], [address] 12/24/2021 08:26:17 02/10/20 22 02/09/2022 hemog lobin (Hb), finge rstic k, blood HGB 12.5 Not Available In-Office Order Internal Use Only DO Not Attach Compendium DO Not Attach Compendium, Do Not Delete/merge, [id number] 02/09/2022 15:25:08 07/18/19 23 07/17/2022 [facility] - CANCE R HISTO RY ASSES SMENT RESUL T [facility] - cancer history assessment result Does NOT meet criter ia normal See PDF for compl ete resul [facility] Hered itary cance r crite jaime asses sment - DOES NOT MEET CRITE JAIEM Not Available [facility] [address] [place] [address], [address], 07/17/2022 21:21:19 07/27/19 23 07/26/2022 [facility] - CANCE R HISTO RY ASSES SMENT RESUL T [facility] - cancer history assessment result Does NOT meet criter ia normal See PDF for compl ete resul [facility] Hered itary cance r crite jaime asses sment - DOES NOT MEET CRITE JAIME Not Available [facility] [address] [place], [address], 07/26/2022 18:13:20 07/28/19 23 07/27/2022 ESTRA DIOL [...] es on HRT: <10-1 44 Not Available [facility] [address] [place], [place], [facility] 07/28/2022 03:02:35 07/28/19 23 07/27/2022 FSH AND LH PROFI LE follicle-sti mulating hormone 7.3 mIU/m L Refer ence Range s ----- ----- ----- ----- ---- Cande l Menst ruati ng Femal es: Folli cular Phase 3.0-8 .1 Mid-C ycle: 2.6-1 6.7 Lutea l Phase : 1.4-5 .5 Postm enopa usal: 26.7- 133.4 Not Available [facility] [address] [place], [place], [facility] 07/28/2022 03:02:36 07/28/19 23 07/27/2022 FSH AND LH PROFI LE luteinizing hormone 5.6 mIU/m L Refer ence Range s ----- ----- ----- ----- ---- Cande l Menst ruati ng Femal es: Folli cular Phase 1.8-1 1.8 Mid-C ycle Peak: 7.6-8 9.1 Lutea l Phase : 0.6-1 4.0 Postm enopa usal: 5.2-6 2.0 Not Available [facility] [address] [place], [address] 07/28/2022 03:02:36 07/28/1907/27/2022 HEPAT ITIS B SURFA CE ANTIG EN hepatitis B surface antigen Non-Re active non-re active Not Available [facility] [address] [place], [address] 07/28/2022 03:02:37 07/28/19 23 07/27/2022 HIV 1/2 HIV 1/2 antigen Non-Re active non-re active Resul ts show no evide nce of infec tion by HIV 1/2. If clini barry indic ated, repea t CMIA or test by nucle ic acid ampli ficat ion. Not Available [facility] [address] [place], [address] 07/28/2022 03:02:37 07/28/19 23 07/27/2022 HEPAT ITIS C ANTIB SOFÍA REFLE X PCR QUANT hepatitis C Ab reflex HCV PCR quant 0.59 Non-Re active S/co non-re active Not Available [facility] [address] [place] [address], [address] 07/28/2022 03:02:38 07/28/19 23 07/27/2022 PROLA CTIN prolactin 5.1 NG/mL 5.2-26 .5 low Not Available [facility] [address] [place], [address] 07/28/2022 03:02:38 07/28/19 23 07/27/2022 TSH, REFLE X FREE T4 TSH 1.20 mIU/L 0.35-4 .94 Not Available [facility] [address] [place], [address] 07/28/2022 03:02:39 07/28/19 23 07/27/2022 VAGIN ITIS PROFI LE gardnerella Negati ve negati ve Not Available [facility] [address] [place], [address] 07/28/2022 12:22:24 07/28/19 23 07/27/2022 VAGIN ITIS PROFI LE trichomonas Negati ve negati ve Not Available [facility] [address] [place], [address] 07/28/2022 12:22:24 07/28/19 23 07/27/2022 VAGIN ITIS PROFI LE yenni Negati ve negati ve Not Available [facility] [address] [place], [address] 07/28/2022 12:22:24 07/28/19 23 07/27/2022 CHLAM YDIA/ [...] than 16 years of age. Not Available [facility] [address] [place], [address] 07/28/2022 22:34:00 07/28/19 23 07/27/2022 CHLAM YDIA/ [...] than 16 years of age. Not Available [facility] [address] [place], [address] 07/28/2022 22:34:00 07/28/1908/02/2022 CORTI NOLAN, TOTAL cortisol, total 6.9 mcg/d L normal Refer ence Range : For 8 a.m.( 7-9 a.m.) Speci men: 4.0-2 2.0 Refer ence Range : For 4 p.m.( 3-5 p.m.) Speci men: 3.0-1 7.0 * Pleas e inter pret above resul ts accor dingl y * Not Available [facility] [address], [place], [address], 08/02/2022 10:48:20 Result Notes None recorded. Problems Name Problem SNOMED Code Status Onset Date Resolution Date Notes Provider Name and Address Organization Details Recorded Time History of depressi on 067200363 Active 2018 hx PP depressi on and anxiety w/o tx pt self-rep ort LUIS VAZQUEZ MD [address] [facility], [address] Floor, [place], [address], [facility] - [facility] 9 18:38:32 Past pregnanc y history of gestatio nal hyperten bing 267441820 Active 2020 Norah Barnes null, [facility] 1 15:30:42 Migraine 69894301 Active 2020 Edita Oakes null, [facility] 1 13:58:48 Routine antenata l care Active 2021 Jocelyn Mcdaniels null, [facility] 2 10:35:41 Family history of pre-ecla mpsia 509204677 Completed Pre-E labs checked with IPG labs. 05/30: urine pc ratio WNL. TBF Kenia Cohen null, [facility] 2 09:03:39 Past pregnanc y history of section 610846677 Completed x 3, c/s x1 of 2nd twin. Desires TOLAC. TRANSFER RED TO [facility] FOR . IOL BOOKED FOR 41 WEEKS. TOLAC CONSENT SIGNED Kenia Cohen null, [facility] 2 09:03:39 High risk pregnanc y 41442323 Completed Kenia Cohen null, [facility] 2 09:03:39 High risk pregnanc y due to recurren t pregnanc y loss [id number] 9106 Completed Taking daily ASA and vaginal progeste rodrigo during the first trimeste r - wants to continue the progeste rodrigo until 18 wga. TBF Kenia Cohen null, [facility] 2 09:03:39 Polyhydr amnios 97187677 Completed MVP 9cm on 11/10/21 Kenia Cohen null, [facility] 2 09:03:39 Problem Notes None recorded. Procedures Surgical History Date Name Laterality Status Provider Name and Address Organization Details Recorded Time 02/10/20 22 Z4Q-ZUOY (0503F) completed OLI SAVAGE MD [address], [place], [address], [facility] 02/09/2022 15:46:03 01/23/20 22 First Post Visit completed OLI SAVAGE MD [address], [place], [address], [facility] 01/22/2022 12:07:09 06/17/19 22 A9C-DPI completed Ruby Oconnell [facility] 06/16/2021 08:52:35 05/20/19 22 P4P-OB (0500F) completed FLY EVANS DO [address], [place], [address], [facility] 05/19/2021 14:40:58 02/17/19 22 H9N-EZZ completed Ruby Oconnell [facility] 02/17/2021 10:00:58 10/11/19 21 Cholecystectomy completed PAXTON MORTON MD [address], [place], [address], [facility] 05/23/2021 21:26:51 08/22/19 21 P3Z-MXJ completed Edita Oakes [facility] 08/21/2020 14:09:49 08/22/19 21 U6Z-XIRBQNC completed KARLI GREWAL DO [address], [place], [address], [facility] 08/21/2020 14:22:01 08/22/19 21 Date of Last Pap Smear completed Edita Oakes [facility] 08/21/2020 14:02:28 02/27/19 19 section completed Janny Sol [facility] 08/01/2020 16:09:13 01/01/20 11 [facility]/27/[facility]22 09:55:28 02/14/19 10 Appendectomy completed Mariah [facility] 07/27/2022 09:55:28 closed reduction of fracture of elbow completed Edita Oakes [facility] 08/21/2020 13:59:36 Imaging Results None recorded. Procedure Notes None recorded. Medical Equipment None Reported. Allergies Allergen ID Allergen Name Allergen Category Reaction Reaction Severity Criticality Documentation Date Start Date Code Code System Note Provider Name and Address Organization Details Recorded Time 7212180 sertralin e medicatio n abdominal pain chest pain diarrhea diarrhea dizziness flushing irregular heart rate nausea palpitati ons tachycard ia moderate moderate moderate moderate moderate moderate moderate moderate moderate moderate Not available 07/27/2022 27939 RxNorm Mariah [facility] 3 09:55:25 8597527 Lexapro medicatio n abdominal pain chest pain confusion diarrhea dizziness flushing irregular heart rate palpitati ons tachycard ia moderate moderate moderate moderate moderate moderate moderate moderate moderate Not available 07/27/2022 51957 1 RxNorm Mariah [facility] 3 09:55:25 Medications Name Sig Start Date [...] Updated DateTime 01/22/2022 160.02 cm 25 kg/m2 25465.52 g 134 mm[Hg] 81 mm[Hg] Lee Ann Schroeder [facility] 2 11:49:50 Date Recorded Body height Body mass index (BMI) Body weight Systolic blood pressure Diastolic blood pressure Provider Name and Address Organization Details Last Updated DateTime 02/09/2022 160.02 cm 26 kg/m2 60089.08 g 147 mm[Hg] 91 mm[Hg] TRIAGE_MA O1 [address] [facility], [address] [place] [address], [place], [address], [facility] 2 15:24:18 Date Recorded Body height Provider Name an d Address Organization Details Last Updated DateTime 03/09/2022 160.02 cm MARTIN HERCULES, APR N [address] [facility], [address] [place] [address], [place], [address], [facility] 03/09/2022 09:26:17 Date Recorded Body height Provider Name an d Address Organization Details Last Updated DateTime 05/25/2022 160.02 cm MARTIN HERCULES, APR N [address] [facility], [address] [place] [address], [place], [address], [facility] 05/25/2022 14:07:31 Date Recorded Body height Body mass index (BMI) Body weight Systolic blood pressure Diastolic blood pressure Provider Name and Address Organization Details Last Updated DateTime 07/27/2022 160.02 cm 24.7 kg/m2 64754.78 g 107 mm[Hg] 75 mm[Hg] Mariah Florentino [facility] 3 10:02:43 Social History Question Answer Notes LastModified by Organizat ion Details LastModified Time Tobacco Smoking Status Never Smoker Janny barba, [facility] 08/01/2020 16:09:18 What Is Your Level Of Alcohol Consumption? None Information not available 02/17/2021 In The 14 Days Before Symptom Onset, Have You Had Close Contact With A Laboratory-confi rmed COVID-19 While That Case Was Ill? No [email or web address] Information not available 07/27/2022 In The 14 Days Before Symptom Onset, Have You Had Close Contact With A Person Who Is Under Investigation For COVID-19 While That Person Was Ill? No Information not available 07/27/2022 Have You Been To An Area Known To Be High Risk For COVID-19? 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 No [email or web address] Information not available 07/27/2022 Do You Or Have You Ever Used E-cigarettes Or Vape? Never Used Electronic Cigarettes [email or web address] Information not available 07/27/2022 What Is The Highest Grade Or Level Of School You Have Completed Or The Highest Degree You Have Received? [id number] Information not available 07/27/2022 Have You Recently Or Are You Planning To Travel To An Area With Zika Virus? No [email or web address] Information not available 07/27/2022 Do You Have [...] Of Your Most Recent Tobacco Screening? 07/19/2022 [email or web address] Information not available 07/27/2022 How Many Children Do You Have? 5 [email or web address] Information not available 07/27/2022 Do You Use Protection During Sex? No Information not available 07/27/2022 Are You Sexually Active? Yes [email or web address] Information not available 07/27/2022 Do You Or Have You Ever Used Smokeless Tobacco? Never Used Smokeless Tobacco [email or web address] Information not available 07/27/2022 How Much Tobacco Do You Smoke? No [email or web address] Information not available 07/27/2022 Do You Feel Stressed (tense, Restless, Nervous, Or Anxious, Or Unable To Sleep At Night)? [id number] [email or web address] Information not available 07/27/2022 How Many Years Have You Smoked Tobacco? 0 [email or web address] Information not available 07/27/2022 Have You Recently Traveled Abroad? No Information not available 05/19/2021 Sex: Female Functional Status Question Answer Note LastModified by Organizat ion Details LastModified Time What is your exercise level? Occasional daily walks [email or web address] Information not available 05/19/2021 Mental Status None [...] 22 cancelled patient objection PAXTON KAUR MD [address] [place] [address], [address] Floor, [place], [address], [place] [facility] 10/15/2021 12:30:06 Influenza, split virus, trivalent, preservative 12/10/19 21 completed Not Available [facility] Record 05/19/2021 14:39:47 Past Encounters Encounter ID Performer Location Encounter Start Date Encounter Closed Date Diagnosis/Indication Diagnosis SNOMED-CT Code Diagnosis ICD10 Code Diagnosis Note [id number] KARLI GREWAL DO [facility] [address] [place] [address] 08/21/2020 13:38:34 08/21/2020 14:37:24 Gynecologic examination 29825454 Z01.419 Normal annual exam. No issues. Weight management and general health issues reviewed at length. PAP done today. SBE reviewed. Family History reviewed as well as any findings which would suggest an increased risk of Cancer from a Genetic cause: low risk for genetic linked cancers by patient's known reported history. Depression screening 171 664926 Z13.31 PHQ2 - negative. Trying to conceive 54369 9001 Z31.9 Had 2 SABs after 3 successful pregnancie s. Will continue to attempt for now. 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 s medical record: 5 minutes [id number] FLY EVANS DO [facility] [address] [place] [address] 05/19/2021 09:40:25 05/20/2021 09:57:47 Routine care 376199780 Z34.91 Patient in the office for her initial OB visit. Doing well so far. Reviewed early issues and discussed precaution s including cramping, bleeding, discharge, morning sickness. Denies headache, fever, chills, cp, sob, bleeding, severe N/V. Occasional cramping. Reviewed [facility] practice policies and procedures . Reviewed male providers, importance of compliance with care, delivery and surgery at [facility], policy officer resident alex ibarra, allie, bug, zika, and [...] visit, follow up all labs and testing. [facility] Depression screening 171 444592 Z13.32 negative depression screening screening 2437 75317 Z36.0 Past pregn delta history of pre-eclampsia 9518267196 36989 Z87.59 High risk 4720 0007 O09.91 Gestation period, 9 weeks 485163 Z3A.09 [id number] [facility] [address] [facility] [place] [address] 06/16/2021 08:45:50 06/16/2021 12:10:33 High risk 03190991 O09.91 Gestation period, 13 weeks 38567788 Z3A.13 [id number] [facility] [address] [facility] [place] [address] 07/14/2021 08:44:16 07/14/2021 09:15:34 Routine care 439138828 Z34.92 High risk 4720 0007 O09.92 Gestation period, 17 weeks 00427388 Z3A.17 [id number] [facility]5 [address] [place] [address] 08/11/2021 16:49:36 08/13/2021 13:05:35 Routine care 057182283 Z34.91 Routine OB visit. Size = date. FHR reassuring . Denies headache, fever, chills, cp, sob. No regular cramping or contractio ns. Sun, bug, Zika, travel precaution s all reviewed. COVID, PTL, and FM precaution s all discussed. Anatomy USN reviewed and WNL. No AFP. RTO In 4 weeks. [facility] Gestation period, 21 weeks 43604392 Z3A.21 [id number] [facility]5 [address] [facility] [place] [place] [address] 09/01/2021 08:02:50 09/01/2021 14:15:25 Routine care 915988215 Z34.92 Doing well, no complaints other than [...] at 40+ weeks. Gestation period, 24 weeks 170532429 Z3A.24 Depression screening 171 761239 Z13.32 Negative PHQ-2 today. Vaginal discharge 748107 006 N89.8 [id number] PAXTON KAUR MD [facility] [address] [place] [address] 10/15/2021 11:57:20 10/16/2021 08:29:49 Active or passive immunization 160334433 Z23 [id number] Mariah Kolb CNM [facility] [address] [place] [address] 10/27/2021 08:12:43 11/06/2021 13:02:49 support 365647118 Z39.1 [id number] Leona Peralta DO [facility] [address] [place] [address] 11/10/2021 15:22:39 11/11/2021 09:04:51 High risk 09066340 O09.93 Gestation period, 34 weeks 10734475 Z3A.34 Active or passive immunization 036254703 Z23 [id number] [facility] [address] [place] [address] 11/24/2021 09:08:40 11/25/2021 09:30:38 High risk 02216972 O09.93 Gestation period, 36 weeks 45739318 Z3A.36 screening 2437 49974 Z36.9 [id number] PAXTON KAUR MD [facility] [address] [place] [address] 11/30/2021 10:31:58 12/01/2021 08:40:06 High risk 09697281 O09.93 rto 1 wks Gestation period, 37 weeks 78053125 Z3A.37 [id number] Mariah Kolb CNM [facility] [address] [place] [address] 12/07/2021 09:20:55 12/08/2021 11:32:10 [id number] FRANCINE LOCKHARTTAMARA SWAIN [facility]2 [address] [place] [address] 12/14/2021 09:27:18 12/14/2021 15:20:51 High risk 54091065 O09.93 Gestation period, 39 weeks 34711130 Z3A.39 [id number] VAISHNAVI Franks [facility] [address] [place] [address] 12/21/2021 08:45:27 12/22/2021 15:33:34 Post-term 02655922 O48.0 High risk 4720 0007 O09.93 Gestation period, 40 weeks 60684864 Z3A.40 [id number] OLI SAVAGE MD [facility] [address] [place] [address] 12/29/2021 11:04:49 12/29/2021 14:20:25 Pre-eclampsia 495789952 O14.95 [id number] PAXTON KAUR MD [facility] [address] [place] [address] 01/04/2022 08:26:02 01/05/2022 10:58:05 Pre-eclampsia 479452916 O14.90 O14.93 preeclamps ia s/p MGSO4 on readmissio n, currently on labetalol at 100 mg po bid. will continue [id number] OLI SAVAGE MD [facility] [facility] [address] [place] [address] 01/22/2022 11:33:43 01/25/2022 10:29:45 care [id number] Z39.2 Pre-eclampsia 898570013 O14.95 [id number] OLI SAVAGE MD [facility] [address] [place] [address] 02/09/2022 15:14:23 02/11/2022 09:16:09 care [id number] Z39.2 - induced hypertension 78136873 O13.9 [id number] MARTIN HERCULES APRN WWW1 [address] [address] 03/09/2022 09:24:47 03/09/2022 10:24:43 support 291230394 Z39.1 Difficulty performing breast-feeding 976835868 O92.79 [id number] MARTIN HERCULES APRN WWW1 [address] [address] 05/25/2022 13:51:47 05/25/2022 15:14:41 support 173320627 Z39.1 Difficulty performing breast-feeding 734917027 O92.79 low supply, TOTS, distracted Inadequate flow of breast milk 907880724 O92.4 drop following recent hospitaliz ation in Mar; baby with TOTSMinima l glandular tissue palpated today [id number] Mariah Kolb CNM MAO2 [address] [place] [address] 07/27/2022 09:52:44 07/30/2022 12:43:12 Gynecologic examination 05539569 Z01.419 Venereal d isease screening 747311442 Z11.3 Premenstru al dysphoric disorder 605864 F32.81 Contracept ion care management 154960148 Z30.9 Health Concerns Section Related Observation LastModified by Organization Detai ls LastModified Time None Recorded Concern Status LastModified by Organization Details LastModified Time None Recorded Advance Directives Directive None Recorded Payers Encounter Date Sequence Insurance Name Policy Number Policy Hartman Covered Member ID Hartman Member ID Guarantor Name 01/22/2022 1 [place] Pravin A Peloquin [id number] Pravin Peloquin 02/09/2022 1 [place] Pravin A Peloquin [id number] Pravin Peloquin 03/09/2022 1 [place] Pravin A Peloquin [id number] Pravin Peloquin 05/25/2022 1 [place] Pravin A Peloquin [id number] Pravin Peloquin 07/27/2022 1 [place]ENZIE Crawford Peloquin [id number] Pravin Peloquin Notes Date Note Type Note Provider Name and Address Organization Details Recorded Time 01/22/2022 text/html [facility] VisitReported bypatient.Notes:31 y/o pt presents for PP#1 [...] 3 times daily. OLI SAVAGE MD [address] [facility], [address] [place], [address], [facility] 01/22/2022 12:11:09 02/09/2022 text/html pt is here [...] mg. She does have appointment with her learning facilitator Dr. Phillip Chau for a physical examination coming up in the middle of February OLI SAVAGE MD [address] [facility], [address], [place], [address], [facility] 02/09/2022 15:46:29 03/09/2022 text/html [facility] LactationRep orted bypatient.Supplement:p umped milk; formula Gestational [...] refer to ENT for congestion MARTIN HERCULES, JAPANESE TUTOR [address] [facility], [address], [place], [address], [facility] - [facility] 03/09/2022 12:02:49 05/25/2022 text/html [facility] LactationRep orted bypatient.Supplement:p umped milk; formula Gestational [...] Was in hosp for a week in [place] for PPD from Mar 29 for a [...] latching about a wk ago; was trying My[employer] systems; Medela but not working.Takes 6oz bottle eats every 4-5hrs . MOm has twins that are 4yrs and 9yr and 6yr . helps and older kids. See's counselor and psychiatrist (changing providers) and intensive outpt 3 d a week for few more weeks; has a shinto family helping.Has seen Dr. Sibley who refused [...] is homeschooled; preferred by mom due to Protestant and valentin.Got period in Mar; due again [...] refer to ENT for congestion MARTIN DELISA, JAPANESE TUTOR [address] [facility], [address], [place], [address], [place] - [facility] 05/25/2022 15:47:53 07/27/2022 text/html [facility] Annual GYNRe ported bypatient.History:no change in interval [...] since followed up with her PCP and learning facilitator, currently no longer on BP medications and [...] of support from partner and family and shinto. Mariah Kolb, CNM [address] [facility], [address], [place], [address], [place] - [facility] 07/27/2022 11:08:18 OBGyn Episode Ob Episode Information Episode Created Date Number of Fetuses Patient Bloodtype Patient rh Status Prepregnancy Weight lbs Domestic Partner Domestic Partner Phone Father Name Wire Wheeler Status 05/13/19 22 1 CLOSED Fetus Data First Name Last Name Admitted to NICU Weight (g) Sex Living Outcome Pediatric Complications Fetus ID Race Codes Race Delivery Type , Spontane ous [id number] 5 Christiano Calculation Initial Christiano Date Initial [...] Domestic Partner Domestic Partner Phone Father Name Wire Wheeler Status 08/22/19 21 1 CLOSED Fetus Data First Name Last Name Admitted to NICU Weight (g) Sex Living Outcome Pediatric Complications Fetus ID Race Codes Race Delivery Type F Full Term [id number] Vaginal Delivery Christiano Calculation Initial Christiano Date [...] Domestic Partner Domestic Partner Phone Father Name Wire Wheeler Status 05/13/19 22 1 CLOSED Fetus Data First Name Last Name Admitted to NICU Weight (g) Sex Living Outcome Pediatric Complications Fetus ID Race Codes Race Delivery Type , Spontane ous [id number] 7 Christiano Calculation Initial Christiano Date Initial [...] Domestic Partner Domestic Partner Phone Father Name Wire Wheeler Status 05/13/19 22 1 CLOSED Fetus Data First Name Last Name Admitted to NICU Weight (g) Sex Living Outcome Pediatric Complications Fetus ID Race Codes Race Delivery Type , Spontane ous 763504 4 Christiano Calculation Initial Christiano Date Initial [...] Domestic Partner Domestic Partner Phone Father Name Wire Wheeler Status 08/22/19 21 1 CLOSED Fetus Data First Name Last Name Admitted to NICU Weight (g) Sex Living Outcome Pediatric Complications Fetus ID Race Codes Race Delivery Type M Full Term 162195 Vaginal Delivery Christiano Calculation Initial Christiano Date [...] Domestic Partner Domestic Partner Phone Father Name Wire Wheeler Status 05/13/19 22 1 CLOSED Fetus Data First Name Last Name Admitted to NICU Weight (g) Sex Living Outcome Pediatric Complications Fetus ID Race Codes Race Delivery Type , Spontane ous [id number] 6 Christiano Calculation Initial Christiano Date Initial [...] Domestic Partner Domestic Partner Phone Father Name Wire Wheeler Status 07/29/19 21 2 CLOSED Fetus Data First Name Last Name Admitted to NICU Weight (g) Sex Living Outcome Pediatric Complications Fetus ID Race Codes Race Delivery Type 2636.27 6704 F Full Term 150790 - Primary 3089.86 8704 M Full Term 018870 - Primary Christiano Calculation Initial Christiano Date [...] Domestic Partner Domestic Partner Phone Father Name Wire Wheeler Status 05/19/19 22 1 AB Positive 137 Lamine [place] ([place]) CLOSED Fetus Data First Name Last Name Admitted to NICU Weight (g) Sex Living Outcome Pediatric Complications Fetus ID Race Codes Race Delivery Type false 4252.42 5 M true Full Term 605578 0 (Vaginal after C Section) Problems Problem Notes Problem Name Start Date End Date Resolution Snomed Code Not e Family history of pre-eclampsia 093984703 Pre-E labs huber cked with IPG labs.05/30: urine pc ratio WNL. TBF Past history of section 162250013 x 3, c/s x1 of 2nd twin. Desires TOLAC. TRANSFERRED TO [facility] FOR . IOL BOOKED FOR 41 WEEKS. TOLAC CONSENT SIGNED High risk 41913925 High risk due to recurrent loss [id number] Taking santiago ly ASA and vaginal progesterone during the first trimester - wants to continue the progesterone until 18 wga. TBF Polyhydramnios 92417633 MVP 9 cm on 11/10/21 Christiano Calculation [...] Gestation 0 API-217 10/15/2021 12/19/19 22 0 Pre-andressa Flowsheet Flowsheet Date 05/19/2021 Frausto Score Blood Edema Fundus Height Fundus Units Glucose Ketones Leukocytes Nitrite Labor Signs Protein Cervic Dilation Cervic Effacement Cervic Station 0cm 0% -4 Type Weight in lbs Pre/Post Dialysis Refused With clothes 130.194798109659 BP Diastolic BP Location Tested BP Systolic [...] sob, bleeding, severe N/V. Occasional cramping. Reviewed [facility] practice policies and procedures. Reviewed male providers, importance of compliance with care, delivery and surgery at [facility], policy officer resident involvement, sun, bug, zika, and travel [...] Weight in lbs Pre/Post Dialysis Refused Weight 134.261397825876 BP Diastolic BP Location Tested BP Systolic [...] Weight in lbs Pre/Post Dialysis Refused Weight 134.237868476666 BP Diastolic BP Location Tested BP Systolic [...] reviewed: Check MSAFP and follow up with soapstoner reviewed, has Level II USN booked at [facility] Flowsheet Date 08/11/2021 Frausto Score Blood Edema Fundus Height Fundus Units Glucose Ketones Leukocytes Nitrite Labor Signs Protein Cervic Dilation Cervic Effacement Cervic Station neg 21 cm none none neg Type Weight in lbs Pre/Post Dialysis Refused Weight 135.29597590298 BP Diastolic BP Location Tested BP Systolic [...] Weight in lbs Pre/Post Dialysis Refused Weight 140.763528420844 BP Diastolic BP Location Tested BP Systolic [...] Weight in lbs Pre/Post Dialysis Refused Weight 152.117363179121 BP Diastolic BP Location Tested BP Systolic [...] in lbs Pre/Post Dialysis Refused With clothes 153.583331546235 BP Diastolic BP Location Tested BP Systolic [...] Encouraged increased fluids. Has support from her shinto group, but since her sister is also apart of her shinto, it makes it hard for her to talk about her stressors. Also reporting increased anxiety since one of her friends from shinto recently had a loss at 41weeks due [...] Weight in lbs Pre/Post Dialysis Refused Weight 156.844337631833 BP Diastolic BP Location Tested BP Systolic [...] Weight in lbs Pre/Post Dialysis Refused Weight 158.782565791199 BP Diastolic BP Location Tested BP Systolic [...] Weight in lbs Pre/Post Dialysis Refused Weight 158.371003509724 BP Diastolic BP Location Tested BP Systolic [...] Weight in lbs Pre/Post Dialysis Refused Weight 169.755157776449 BP Diastolic BP Location Tested BP Systolic [...] Weight in lbs Pre/Post Dialysis Refused Weight 171.711692538040 BP Diastolic BP Location Tested BP Systolic [...]
--- OUTSIDE RECORDS SUMMARY | 2024-05-14 11:27 | XMS_ITS | Clinical Summary ---
Author Organization [facility] Address [address] [place] [address] Care Team Providers Care Video Control Operator Name Role Phone Matthias Chau MD Primary Care Provider [phone] Allergies Active Allergy Reactions Criticality Noted Date Comments Seasonal 01/01/2021 Serotonin Reuptake Inhibitors (Ssris) 03/23/2022 Medications Medication Sig Dispensed Refills Start Date End Date Status Vit-Fe Fumarate-FA ( PO) Take by mouth daily as needed. Baby and me too 0 Active mirtazapine (REMERON) 15 MG tablet Take 1 tablet (15 mg total) by mouth every night at bedtime. 0 05/27/2022 Active [employer]-3 Fatty Acids (Fish Oil) 1000 MG CAPS [...] Advance Directives For more information, please contact: [phone] Latest Code Status on File Code Status [...] the following way: discussed . Care Teams Video Control Operator Relationship Specialty Start Date End Date Matthias Chau MD [address] [address] PCP - General Supervisor Production Department 05/13/22
--- OUTSIDE RECORDS SUMMARY | 2024-05-14 11:27 | XMS_ITS ---
Author Organization [facility] [employer] [facility] Address [address] [place] [phone] Care Team Providers Care Preparation Supervisor Name Role Phone VICTORINO SORIANO Primary Care Provider TWILA EDMONDS Unavailable [phone] ALLERGIES Allergen (clinical drug ingredient) Drug/Non Drug [...] Tobacco use: nonsmoker Section Notes: Lives in [place], [place] with and 5 children. PROBLEMS Problem Type ICD Code Onset Dates Problem Status W/U Status Risk SNOMED Code Notes Problem Sexual dysfunction, unspecified (R37) Active confirmed Sexual dysfunction (08782635) VITAL SIGNS Blood pressure systolic 116 mm Hg 02/22/19 25 Blood pressure diastolic 72 mm Hg 025 Heart Rate 77 /min 02/23/2024 Height 63 in 02/23/2024 Weight 188.4 lbs 02/23/2024 BMI 33.37 kg/m2 02/23/2024 Oximetry 97 % 02/23/2024 Height-cm 160.02 cm 02/23/2024 Weight-kg 85.46 kg 02/23/2024 Encounters Encounter Location Date Provider Diagnosis [address] [id number] 02/23/2024 TWILA EDMONDS Insulin resistance syndrome E88.810 [...] * VIK DOTSONOB: 9 (33 yo F)Acc No.[id number]:02/23/2024 Progress Notes Patient:??NANETTE DOTSON Provider:??TWILA EDMONDS NP :1990?Age:33 Y?Sex:Fe male Date:02/23/2024 Phone: Address:[address] [place] [address] Pcp:VICTORINO SORIANO Subjective: * Chief Complaints: * ?F/u 6w wellness * HPI: ?Patient Care Team:?Administrative Assistant Data Entry:??[facility].? Providers/Specialists: OBGYN: [facility], [place], [place] ?Dentist: ?Therapist: Chelsey Panda, [place] ?Credit Officer: Dr Giraldo at [facility]. ?Visit info:? Nanette presents in the [...] in the HPI. * Medical History:?? 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 ?Lives in [place], [place] with and 5 children. * Medications:??TakingBeet [...] tablet at bedtime Orally Once a day Lzv-KqulscOyhumlartjcf-Mvmhazt Estradiol 3-0.02 MG Tablet 1 tablet Orally [...] lord Td/Tdap: UTD Hep A/Hep B: educated SWEEPER DRIVER: Pap 2 years ago SBE: educated Eye Exam: UTD Dental Exam: due Depression Scale: neg except for fatigue Alcohol Misuse Screening: Smoking Cessation: nonsmoker Screened HTN, diabetes, BMI addressed. * Follow Up:??6 Weeks (Reason: wellness) * Billing Information: * Visit Code:?? 56622 Office Visit, Est Pt., Level 3. * Procedure Codes:?? * Sign off status: Completed true * Provider:??TWILA EDMONDS NP Date:?? History and Physical Notes * HPI (History of Present Illness) Category Sub-Category Detail Notes Category Not es Patient Care Team Administrative Assistant Data Entry: [facility] Providers/Specialis ts: [facility] [place] Dentist: Therapist: Ailin Coley [place], [place] Credit Officer: Dr Giraldo at [facility] [place] Visit kita Costello presents in [...]
--- OUTSIDE RECORDS SUMMARY | 2024-05-14 11:28 | XMS_ITS | Encounter Summary ---
Author Organization [facility] Address [address] [place] [address] Care Team Providers Care Composition Siding Worker Name Role Phone Matthias Chau MD Primary Care Provider + [phone] Encounter Details Date Type Department Care Team ([facility] st Contact Info) Description 08/22/2022 Scanned Document [facility] Department of Internal Medicine & Nephrology [address] [address] Matthias Chau MD [address] [place] [phone] Social History Tobacco Use Types Packs/Day Years [...] on filedocumented in this encounter Care Teams Composition Siding Worker Relationship Specialty Start Date End Date Matthias Chau MD [address] [place] [address] PCP - General Nephrology 04/24/22 documented as of this encounter
--- OUTSIDE RECORDS SUMMARY | 2024-05-14 11:28 | XMS_ITS | Encounter Summary ---
Author Organization [facility] Address [address] [place] [address] Care Team Providers Care Mash Grinder Name Role Phone Matthias Chau MD Primary Care Provider + [phone] Encounter Details Date Type Department Care Team ([facility] st Contact Info) Description 08/22/2022 Scanned Document [facility] Department of Internal Medicine & Nephrology [address] [address] Matthias Chau MD [address] [place] [phone] Social History Tobacco Use Types Packs/Day Years [...] on filedocumented in this encounter Care Teams Mash Grinder Relationship Specialty Start Date End Date Matthias Chau MD [address] [place] [address] PCP - General Nephrology 04/24/22 documented as of this encounter
--- OUTSIDE RECORDS SUMMARY | 2024-05-14 11:28 | XMS_ITS ---
Author Organization [facility] Address [address] [place] [phone] Care Team Providers Care Hydration Plant Operator Name Role Phone VICTORINO SORIANO Primary Care Provider TWILA EDMONDS Unavailable [phone] REASON FOR VISIT Message MEDICATIONS Medication SIG (Take, Route, Fr equency, Duration) Notes Start Date End Date Status Famotidine 20 MG 1 tablet Orally once a day for 90 days 09/21/2023 Active Mirtazapine 30 MG 1 tablet at bedtime Orally Once a day for 90 days Active Encounters Encounter Location Date Provider Diagnosis [address] [id number] 03/14/2024 TWILA EDMONDS GERD without esophagitis K21.9 [...] Notes * FATMATAEveliaMAISHAVIKOB: 9 (33 yo F)Acc No.[id number]:03/14/2024 Patient:??NANETTE DOTSON :1990?Age:33 Y?Sex:Fe male Phone: Address:[address] [place] [address] * Refills?? Refill Famotidine Tablet, 20 MG, Orally, 90 Tablet, 1 tablet, once a day, 90 days, Refills=1 Refill Mirtazapine Tablet, 30 MG, Orally, 90, 1 tablet at bedtime, Once a day, 90 days, Refills=1 * true * Date:??
--- OUTSIDE RECORDS SUMMARY | 2024-05-14 11:28 | XMS_ITS | Encounter Summary ---
Author Organization [facility] Address [address] [place] [address] Care Team Providers Care Slab Lifting Supervisor Name Role Phone Matthias Chau MD Primary Care Provider + [phone] Encounter Details Date Type Department Care Team ([facility] st Contact Info) Description 07/20/2022 Scanned Document [facility] Department of Internal Medicine & Nephrology [address] [address] Matthias hCau MD [address] [place] [phone] Social History Tobacco Use Types Packs/Day Years [...] on filedocumented in this encounter Care Teams Slab Lifting Supervisor Relationship Specialty Start Date End Date Matthias Chau MD [address] [place] [address] PCP - General Nephrology 04/24/22 documented as of this encounter
--- OUTSIDE RECORDS SUMMARY | 2024-05-14 11:28 | XMS_ITS | Clinical Summary ---
Author Organization [facility] Address [address] [place] [address] Care Team Providers Care Director Of Instruction Name Role Phone Matthias Chau MD Primary Care Provider + [phone] Allergies Active Allergy Reactions Criticality Noted Date [...] ANTIBODY Routine 07/27/2022 10:42 AM EDT THINPREP PAP(POWER SYSTEM ELECTRICAL ENGINEER) HPV SCR RFX HPV 16,18/45 Routine 08/21/2020 [...] EDT 07/27/2022 8:39 PM EDT Mariah Kolb [facility] BLOOD ORDERABLES Performing Organization Address [facility] Co de Phone Number [facility] [address], [place] * HEPATITIS C VIRUS (HCV) ANTIBODY (07/27/2022 10:42 AM EDT) Hepatitis C Antibody 0.59 Non-Reacti ve Non-Reacti ve S/CO [facility] Other 07/27/2022 10:4 2 AM EDT 07/27/2022 8:39 PM EDT Mariahchadwick Kolb [facility] BLOOD ORDERABLES Performing Organization Address [facility] de Phone Number [facility] [address], [place] * ThinPrep Pap(Strike On Machine Operator) HPV Scr Rfx HPV 16,18/45 (08/21/2020 2:07 PM EDT) Report Report [facility] Comment: Final Gynecological Cytology Report ThinPrep Pap Test, HPV Screen, Reflex HPV Genotype SPECIMEN ADEQUACY: SATISFACTORY FOR EVALUATION; ENDOCERVICAL/TRANSFORMATION ZONE COMPONENT PRESENT. INTERPRETATION: NEGATIVE FOR INTRAEPITHELIAL LESION OR MALIGNANCY. Electronically Signed: ??Leah Gonsalez CT (ASCP) CLINICAL INFORMATION: LMP: 07/24/2020 Clinical History: ??RTN Specimen Source: ??Cervix, Endocervix HPV RESULTS: HPV mRNA E6/E7 ?? [id number] ?? Approved: 08/22/20 Negative ? REF RANGE: Negative CPT Codes: 63173 ICD Codes: Z01.419 Other 08/21/2020 2:07 PM EDT 08/21/2020 9:28 PM EDT Antelmo Richmond DO LAB AMB PATH/CYTO ORDERABLES Performing Organization Address City/State/[facility] Co de Phone Number [facility] [address], [place] from Last 3 Months or Most [...] 4:53 AM 02/27/2018 5:09 AM Care Teams Director Of Instruction Relationship Specialty Start Date End Date Matthias Chau MD [address] [address] PCP - General Nephrology 04/24/22
== END 2024-05-14 11:37 | disposition home or self-care (01) ==
LOC: HO.HSMS 10:16
PROVIDERS: PCP Family Medicine; Visit Provider Physician Assistant Medical
DX: G43.119 Migraine with aura, intractable, without status migrainosus (principal); G47.20 Circadian rhythm sleep disorder, unspecified type; F45.8 Other somatoform disorders; G47.19 Other hypersomnia; M54.2 Cervicalgia; R51.9 Headache, unspecified
CPT/HCPCS: 99214

== ENCOUNTER 2024-06-01 11:52 | Outpatient (REF) | payer BC, MEDICAID, SELFPAY ==
--- OUTSIDE RECORDS SUMMARY | 2024-06-01 12:48 | XMS_ITS ---
Author Organization [facility] Address [address] [place] [phone] Care Team Providers Care Ripening Room Hand Name Role Phone VICTORINO SORIANO Primary Care Provider [phone] TWILA EDMONDS Unavailable [phone] ALLERGIES Allergen (clinical drug ingredient) Drug/Non Drug [...] Tobacco use: nonsmoker Section Notes: Lives in [place], [place] with and 5 children. PROBLEMS Problem Type ICD Code Onset Dates Problem Status W/U Status Risk SNOMED Code Notes Problem Sexual dysfunction, unspecified (R37) Active confirmed Sexual dysfunction (20955120) VITAL SIGNS Blood pressure systolic 116 mm Hg 02/22/19 25 Blood pressure diastolic 72 mm Hg 025 Heart Rate 77 /min 02/23/2024 Height 63 in 02/23/2024 Weight 188.4 lbs 02/23/2024 BMI 33.37 kg/m2 02/23/2024 Oximetry 97 % 02/23/2024 Height-cm 160.02 cm 02/23/2024 Weight-kg 85.46 kg 02/23/2024 Encounters Encounter Location Date Provider Diagnosis [address] [id number] 02/23/2024 TWILA EDMONDS Insulin resistance syndrome E88.810 [...] * VIK DOTSONOB: 9 (33 yo F)Acc No.[id number]:02/23/2024 Progress Notes Patient:??NANETTE DOTSON Provider:??TWILA EDMONDS NP :1990?Age:33 Y?Sex:Fe male Date:02/23/2024 Phone: Address:[address] [place] [address] Pcp:VICTORINO SORIANO Subjective: * Chief Complaints: * ?F/u 6w wellness * HPI: ?Patient Care Team:?Cast Iron Dipper:??[facility].? Providers/Specialists: OBGYN: [facility], [place], [place] ?Dentist: ?Therapist: Chelsey Panda, [place] ?Railroad Crane Operator: Dr Giraldo at [facility]. ?Visit info:? Nanette presents in the office [...] in the HPI. * Medical History:?? 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 ?Lives in [place], [place] with and 5 children. * Medications:??TakingBeet [...] tablet at bedtime Orally Once a day Lzx-GusismQteeccynmstz-Wppaudm Estradiol 3-0.02 MG Tablet 1 tablet Orally [...] appropriate ?RESP: nonlabored breathing, lungs clear/equal all inchole ?CV: S1S2 regular ?NEURO: AO x 3 [...] lord Td/Tdap: UTD Hep A/Hep B: educated SPECIAL DELIVERY CLERK: Pap 2 years ago SBE: educated Eye Exam: UTD Dental Exam: due Depression Scale: neg except for fatigue Alcohol Misuse Screening: Smoking Cessation: nonsmoker Screened HTN, diabetes, BMI addressed. * Follow Up:??6 Weeks (Reason: wellness) * Billing Information: * Visit Code:?? 87768 Office Visit, Est Pt., Level 3. * Procedure Codes:?? * Sign off status: Completed true * Provider:??TWILA EDMONDS NP Date:?? History and Physical Notes * HPI (History of Present Illness) Category Sub-Category Detail Notes Category Not es Patient Care Team Cast Iron Dipper: [facility] Providers/Specialis ts: [facility] [place] Dentist: Therapist: Ailin Coley [place], [place] Railroad Crane Operator: Dr Giraldo at [facility] [place] Visit kita Costello presents in [...]
--- OUTSIDE RECORDS SUMMARY | 2024-06-01 12:48 | XMS_ITS | Encounter Summary ---
Author Organization [facility], Located [facility] Address [address] [place] [address] Care Team Providers Care Cable Former Name Role Phone Unknown Primary Care Provider [phone] Clair Elaine MD Primary Care Provider [phone] Clair Lawson MD Primary Care Provider [phone] Bailey Gan MD Primary Care Provider [phone] Matthias Chau MD Primary Care Provider + [phone] Encounter Details Date Type Department Care Team (Late st Contact Info) Description 01/17/2018 Prep for Surgery OBGYN IP [address] [place] [phone] Nehal Roberts MD [address] [place] [phone] Dichorionic diamniotic twin in third trimester (Primary Dx) Social History Tobacco Use Types Packs/Day Years Used Date Smoking Tobacco: Never Smokeless Tobacco: Never Comments Yes Sex and Gender Information Value Date Recorded Sex Assigned at Female 04/03/2022 4:58 AM EST Legal Sex Female 8:25 AM EDT Gender Identity Female 04/03/2022 4:58 AM EST [...] documented as of this encounter Care Teams Cable Former Relationship Specialty Start Date End Date Unknown Unknow Provider Address PCP - General 01/23/18 02/11/18 Clair Elaine MD [address] [place] [address] PCP - General Obstetrics and Gynecology 02/12/1802/14 Clair Lawson MD [address] [place] [address] PCP - General 03/01/21 04/02/22 Bailey Gan MD [address] [place] [address] PCP - General Family Medicine 04/03/22 04/23/22 Matthias Chau MD 85 [facility] [address] [place] [address] PCP - General Nephrology 04/24/22 documented as of this encounter
--- OUTSIDE RECORDS SUMMARY | 2024-06-01 12:48 | XMS_ITS | Data Portability ---
Author Organization [place] [facility], [facility] Address [address] [id number] [place] [address] Assessment Encounter Date Assessment Date Assessment LastModified by Organization Details LastModified Time 07/11/2018 07/11/2018 I have seen and examined the patient with Abril Florentino RN, IBCLC and I agree with her findings and plan as written. [facility] Not available 07/16/2018 15:52:23 Plan of Treatment [...] By Organization Details Last Modified Time 07/11/2018 [id number] Long discussion of her plans and and [...] the right shoulder. She has seen at [facility] and feels she needs more. Encouraged her [...] the breast supplementation, mom given a five Albanian feeding tube try and discussed paced bottlefeeding as well. Encourage increase skin to skin; and referral to Tongue tie provider per her request. Plan to progress torticollis therapy per her liquid yeast supervisor and physical therapy resources in the community. Given community support groups and resources. She knows she can return for further follow-up as needed. Abril Florentino RN, IBCLC [facility] Not available 07/16/2018 15:53:28 Reason for Referral [...] 07/11/2018 110 mm[Hg] 76 mm[Hg] Abril Florentino [place] [facility] 07/16/2018 13:07:38 Social History None recorded. Functional Status None recorded. Mental Status None recorded. Family History Nothing Reported. Medical History No medical history recorded. Gynecological HistoryNo gynecological history recorded. Obstetrics History GPAL:G 0 P 0 0 0 0 Past Encounters Encounter ID Performer Location Encounter Start Date Encounter Closed Date Diagnosis/Indication Diagnosis SNOMED-CT Code Diagnosis ICD10 Code Diagnosis Note [id number] LUIS VAZQUEZ MD TAY1 [address] [facility] ARM[address],IZABELA [address] [place] [address] 07/11/2018 12:41:55 07/11/2018 14:02:40 management 064474399 Z39.1 Disorder of 35 843196 O92.5 Health Concerns Section Related Observation LastModified by Organization Detai ls LastModified Time None Recorded Concern Status LastModified by Organization Details LastModified Time None Recorded Advance Directives Directive None Recorded Payers Encounter Date Sequence Insurance Name Policy Number Policy Hartman Covered Member ID Hartman Member ID Guarantor Name 07/11/2018 1 [place] Alex Jinqin [id number] Adama Jinqin Notes Date Note Type Note Provider Name and Address Organization Details Recorded Time 07/11/2018 text/html [facility] Breast ProblemsReported bypatient.Aggravating Factors: Patient comes today with twins that were born in February of this year. They were born at [facility] at 38 weeks, one baby vaginally and [...] decrease this formula use. LUIS VAZQUEZ MD [address] [place] [address], [address] Floor, [place], [address], [place] [facility] 07/16/2018 15:55:03 OBGyn Episode No OBEpisode recorded.
--- OUTSIDE RECORDS SUMMARY | 2024-06-01 12:49 | XMS_ITS | Encounter Summary ---
Author Organization [facility] Address [address] [place] [address] Care Team Providers Care Manager Merchandising Name Role Phone Matthias Chau MD Primary Care Provider + [phone] Encounter Details Date Type Department Care Team (Late st Contact Info) Description 07/20/2022 Scanned Document [facility] [place] [address] [address] Matthias Chau MD 85 [facility] [address] [place], [place] [phone] Social History Tobacco Use Types Packs/Day Years [...] more drinks on one occasion? Never 04/26/2022 Comments No Sex and Gender Information Value Date Recorded Sex Assigned at Female 04/03/2022 4:58 AM EST Legal Sex Female 8:25 AM EDT Gender Identity Female 04/03/2022 4:58 AM EST Sexual Orientation Heterosexual (straight) 04/03 4:58 AM EST documented as of this encounter Plan of Treatment Not on file documented as of this encounter Visit Diagnoses Not on filedocumented in this encounter Care Teams Manager Merchandising Relationship Specialty Start Date End Date Matthias Chau MD [address] [address] PCP - General Nephrology 04/24/22 documented as of this encounter
--- OUTSIDE RECORDS SUMMARY | 2024-06-01 12:49 | XMS_ITS ---
Author Organization [facility], [facility] Address [address] [place] [id number] Care Team Providers Care Museum Tour Guide Name Role Phone VICTORINO SORIANO Primary Care Provider [phone] [facility] TWILA EDMONDS Unavailable [phone] REASON FOR VISIT f/u 6w wellness check Encounters Encounter Location Date Provider Diagnosis [facility], [address] [id number] 04/06/2024 TWILA EDMONDS PLAN OF TREATMENT No Information Progress Notes * VIK DOTSONOB: 9 (33 yo F)Acc No.[id number]:04/06/2024 Progress Notes Patient:??NANETTE DOTSON Provider:??TWILA EDMONDS NP :1990?Age:33 Y?Sex:Fe male Date:04/06/2024 Phone: Address:[address] [place], [place] [id number] Pcp:VICTORINO SORIANO Subjective: * Chief Complaints: * ?1. 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 * Medical History:?? Objective: Assessment: Plan: * Treatment: * Billing Information: * Visit Code:?? * Procedure Codes:?? * Sign off status: Pending * Provider:??TWILA EDMONDS NP Date:??
--- OUTSIDE RECORDS SUMMARY | 2024-06-01 12:49 | XMS_ITS | Data Portability ---
Author Organization [place] - [facility], [facility] Address [address] [place] [address] Care Team Providers Care Aquaculture Worker Name Role Phone ZOLTAN CHAU Primary Care Provider SUZANNA HARMON OTHER Assessment Encounter Date Assessment Date Assessment LastModified by Organization Details LastModified Time 07/27/2022 07/27/2022 31yo presents for annual wellness visit, reports increased anxiety/depressio n before menses and would like STI testing. . 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 Desires STI [...] DNA, PCR, unspecifie d specimen 2022 023 [facility], [address] [place] [address], 3 22:34:00 hepatitis C Ab, serum 2022 023 [facility], [address] [place] [address], 3 03:02:38 HBsAg (hepatitis B surface Ag), confirmati on, serum 2022 023 [facility], [address] [place] [address], 3 03:02:37 RPR (rapid plasma reagin), serum 2022 023 [facility], [address] [place] [address], 3 03:02:39 HIV 1+2 AB + HIV 1 p24 Ag, qualitativ e immunoassa y, serum 2022 023 [facility], [address] [place] [address], 3 03:02:37 bacterial vaginosis + vaginitis panel, vaginal 2022 023 [facility], [address] [place] [address], 3 12:22:24 lh + FSH, serum 2022 023 [facility], [address] [place] [address], 3 03:02:36 estradiol, serum 2022 023 [facility], [address] [place] [address], 3 03:02:36 prolactin, serum 2022 023 [facility], [address] [place] [address], 3 03:02:38 TSH, serum or plasma 2022 023 [facility], [address] [place], [address] 3 03:02:39 testostero ne, free, serum 2022 023 [facility], [address] [place], [address] 3 10:48:20 cortisol, serum or plasma 2022 023 [facility], [address] [place], [address] 3 10:48:20 hemoglobin (Hb), fingerstic k, blood 2021 022 judd In-Office Order, Internal Use Only DO Not Attach Compendium DO Not Attach Compendium, Do Not Delete/merge, [id number] 17:06:45 Referral None recorded. Procedures None recorded. Surgeries None recorded. Imaging None recorded. Medication Orders norethindr one (contracep tive) 0.35 mg tablet 2022 023 [facility], [address] [facility] [place], [address], 10:34:41 Patient Targets Encounter Date Encounter Id [...] mom and babyMaximize oral function and supply [email or web address] Not available 03/09/2022 11:51:21 GOALS:Maximize supply and [...] positive experience for both mom and baby [email or web address] Not available 05/25/2022 15:32:13 Patient Instructions Encounter Date Encounter Id Patient Instructions Last Modified By Organization Details Last Modified Time 01/22/2022 [id number] preeclampsia: ca re instructions judd Not available [...] medications judd Not available 01/22/2022 12:09:08 02/09/2022 [id number] high blood press ure in : care [...] She can seek further advice from her news content specialist. judd Not available 02/09/2022 15:44:50 03/09/2022 [id number] Asymmetric latch as reviewed; see handout BF [...] or Abril Florentino for 2nd hand pump bench worker binding names given; do stretches given for now BF Suggested Diet: Eat Protein, fat & fiber with every meal. Breakfast is a must; keep water bottle full and hydrate throughout day 80-100 oz/d. BF requires extra 500 calories a day; frequent healthy snacks . Body armour, coconut water for hydration [email or web address] Not available 03/09/2022 12:02:41 30 min spent with patient & more than 50% of time spent with patient counseling and coordinating care & education [email or web address] Not available 03/09/2022 11:51:08 05/25/2022 [id number] SNS system to supplement @ breast Probiotic [...] stretches as shown for body tension (video) [email or web address] Not available 05/25/2022 15:36:33 30 min spent with patient & more than 50% of time spent with patient counseling and coordinating care & education Not available 05/25/2022 15:31:25 07/27/2022 [id number] premenstrual syndrome (PMS): care instructions [email or web address] Not [...] been told to reschedule 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 html Not Available [facility] [address] [place], [address] 12/24/2021 08:26:17 02/10/20 22 02/09/2022 hemog lobin (Hb), finge rstic k, blood HGB 12.5 Not Available In-Office Order Internal Use Only DO Not Attach Compendium DO Not Attach Compendium, Do Not Delete/merge, [id number] 02/09/2022 15:25:08 07/18/19 23 07/17/2022 [facility] [place] [place] H[place]O RY ASSES SMENT RESUL T [facility] [place] history assessment result Does NOT meet criter ia normal See PDF for compl ete resul [facility] Hered itary cance r crite jaime asses sment - DOES NOT MEET CRITE JAIME Not Available [facility] [address] [place] [address], [address], 07/17/2022 21:21:19 07/27/19 23 07/26/2022 [facility] [place] [facility] [place] HISTO RY ASSES SMENT RESUL T [facility] [place] cancer history assessment result Does NOT meet criter ia normal See PDF for compl ete resul [facility] Hered itary cance r crite jaime asses sment - DOES NOT MEET CRITE JAIME Not Available [facility] [address] [place], [address], 07/26/2022 18:13:20 07/28/19 23 07/27/2022 ESTRA DIOL [...] es on HRT: <10-1 44 Not Available [facility] [address], [facility] 07/28/2022 03:02:35 07/28/19 23 07/27/2022 FSH AND LH PROFI LE follicle-sti mulating hormone 7.3 mIU/m L Refer ence Range s ----- ----- ----- ----- ---- Cande l Menst ruati ng Femal es: Folli cular Phase 3.0-8 .1 Mid-C ycle: 2.6-1 6.7 Lutea l Phase : 1.4-5 .5 Postm enopa usal: 26.7- 133.4 Not Available [facility] [address], [facility] 07/28/2022 03:02:36 07/28/19 23 07/27/2022 FSH AND LH PROFI LE luteinizing hormone 5.6 mIU/m L Refer ence Range s ----- ----- ----- ----- ---- Cande l Menst ruati ng Femal es: Folli cular Phase 1.8-1 1.8 Mid-C ycle Peak: 7.6-8 9.1 Lutea l Phase : 0.6-1 4.0 Postm enopa usal: 5.2-6 2.0 Not Available [facility] [address] [place], [address] 07/28/2022 03:02:36 07/28/1907/27/2022 HEPAT ITIS B SURFA CE ANTIG EN hepatitis B surface antigen Non-Re active non-re active Not Available [facility] [address] [place], [address] 07/28/2022 03:02:37 07/28/19 23 07/27/2022 HIV 1/2 HIV 1/2 antigen Non-Re active non-re active Resul ts show no evide nce of infec tion by HIV 1/2. If clini barry indic ated, repea t CMIA or test by nucle ic acid ampli ficat ion. Not Available [facility] [address] [place], [address] 07/28/2022 03:02:37 07/28/19 23 07/27/2022 HEPAT ITIS C ANTIB SOFÍA REFLE X PCR QUANT hepatitis C Ab reflex HCV PCR quant 0.59 Non-Re active S/co non-re active Not Available [facility] [address] [place] [address], [address] 07/28/2022 03:02:38 07/28/19 23 07/27/2022 PROLA CTIN prolactin 5.1 NG/mL 5.2-26 .5 low Not Available [facility] [address] [place], [address] 07/28/2022 03:02:38 07/28/19 23 07/27/2022 TSH, REFLE X FREE T4 TSH 1.20 mIU/L 0.35-4 .94 Not Available [facility] [address] [place], [address] 07/28/2022 03:02:39 07/28/19 23 07/27/2022 VAGIN ITIS PROFI LE gardnerella Negati ve negati ve Not Available [facility] [address] [place], [address] 07/28/2022 12:22:24 07/28/19 23 07/27/2022 VAGIN ITIS PROFI LE trichomonas Negati ve negati ve Not Available [facility] [address] [place], [address] 07/28/2022 12:22:24 07/28/19 23 07/27/2022 VAGIN ITIS PROFI LE yenni Negati ve negati ve Not Available [facility] [address] [place], [address] 07/28/2022 12:22:24 07/28/19 23 07/27/2022 CHLAM YDIA/ [...] than 16 years of age. Not Available [facility] [address] [place], [address] 07/28/2022 22:34:00 07/28/19 23 07/27/2022 CHLAM YDIA/ [...] than 16 years of age. Not Available [facility] [address] [place], [address] 07/28/2022 22:34:00 07/28/1908/02/2022 CORTI NOLAN, TOTAL cortisol, total 6.9 mcg/d L normal Refer ence Range : For 8 a.m.( 7-9 a.m.) Speci men: 4.0-2 2.0 Refer ence Range : For 4 p.m.( 3-5 p.m.) Speci men: 3.0-1 7.0 * Pleas e inter pret above resul ts accor dingl y * Not Available [facility] [address], [place], [address], 08/02/2022 10:48:20 Result Notes None recorded. Problems Name Problem SNOMED Code Status Onset Date Resolution Date Notes Provider Name and Address Organization Details Recorded Time History of depressi on 610019156 Active 2018 hx PP depressi on and anxiety w/o tx pt self-rep ort LUIS VAZQUEZ MD [address], [address], [place], [address], [facility] - [facility] 9 18:38:32 Past pregnanc y history of gestatio nal hyperten bing 772464657 Active 2020 Norah Barnes null, [facility] 1 15:30:42 Migraine 85083516 Active 2020 Edita Oakes null, [facility] 1 13:58:48 Routine antenata l care Active 2021 Jocelyn Mcdaniels null, [facility] 2 10:35:41 Family history of pre-ecla mpsia 903463886 Completed Pre-E labs checked with IPG labs. 05/30: urine pc ratio WNL. TBF Kenia Cohen null, [facility] 2 09:03:39 Past pregnanc y history of section 580394850 Completed x 3, c/s x1 of 2nd twin. Desires TOLAC. TRANSFER RED TO [facility] FOR . IOL BOOKED FOR 41 WEEKS. TOLAC CONSENT SIGNED Kenia Cohen null, [facility] 2 09:03:39 High risk pregnanc y 25871493 Completed Kenia Cohen null, [facility] 2 09:03:39 High risk pregnanc y due to recurren t pregnanc y loss [id number] 9106 Completed Taking daily ASA and vaginal progeste rodrigo during the first trimeste r - wants to continue the progeste rodrigo until 18 wga. TBF Kenia Cohen null, [facility] 2 09:03:39 Polyhydr amnios 92904995 Completed MVP 9cm on 11/10/21 Kenia Cohen null, [facility] 2 09:03:39 Problem Notes None recorded. Procedures Surgical History Date Name Laterality Status Provider Name and Address Organization Details Recorded Time 02/10/20 22 B4X-PBSM (0503F) completed OLI SAVAGE MD [address], [place], [address], [facility] 02/09/2022 15:46:03 01/23/20 22 First Post Visit completed OLI SAVAGE MD [address], [place], [address], [facility] 01/22/2022 12:07:09 06/17/19 22 R0Y-SRV completed Ruby Oconnell [facility] 06/16/2021 08:52:35 05/20/19 22 P4P-OB (0500F) completed FLY EVANS DO [address], [place], [address], [facility] 05/19/2021 14:40:58 02/17/19 22 Y3P-POJ completed Ruby Oconnell [facility] 02/17/2021 10:00:58 10/11/19 21 Cholecystectomy completed PAXTON MORTON MD [address], [place], [address], [facility] 05/23/2021 21:26:51 08/22/19 21 N6W-AGI completed Edita Oakes [facility] 08/21/2020 14:09:49 08/22/19 21 I1U-TJVDDAU completed KARLI GREWAL DO [address], [place], [address], [facility] 08/21/2020 14:22:01 08/22/19 21 Date of Last Pap Smear completed Edita Oakes [facility] 08/21/2020 14:02:28 02/27/19 19 section completed Janny Sol [facility] 08/01/2020 16:09:13 01/01/20 11 [facility] 07/27/2022 09:55:28 02/14/19 10 Appendectomy completed Mariah [facility] 07/27/2022 09:55:28 closed reduction of fracture of elbow completed Edita Oakes [facility] 08/21/2020 13:59:36 Imaging Results None recorded. Procedure Notes None recorded. Medical Equipment None Reported. Allergies Allergen ID Allergen Name Allergen Category Reaction Reaction Severity Criticality Documentation Date Start Date Code Code System Note Provider Name and Address Organization Details Recorded Time 1587282 sertralin e medicatio n abdominal pain chest pain diarrhea diarrhea dizziness flushing irregular heart rate nausea palpitati ons tachycard ia moderate moderate moderate moderate moderate moderate moderate moderate moderate moderate Not available 07/27/2022 73822 RxNorm Mariah [facility] 3 09:55:25 0347363 Lexapro medicatio n abdominal pain chest pain confusion diarrhea dizziness flushing irregular heart rate palpitati ons tachycard ia moderate moderate moderate moderate moderate moderate moderate moderate moderate Not available 07/27/2022 10930 1 RxNorm Mariah [facility] 3 09:55:25 Medications Name Sig Start Date [...] Updated DateTime 01/22/2022 160.02 cm 25 kg/m2 91263.52 g 134 mm[Hg] 81 mm[Hg] Lee Ann Schroeder [facility] 2 11:49:50 Date Recorded Body height Body mass index (BMI) Body weight Systolic blood pressure Diastolic blood pressure Provider Name and Address Organization Details Last Updated DateTime 02/09/2022 160.02 cm 26 kg/m2 27944.08 g 147 mm[Hg] 91 mm[Hg] TRIAGE_MA O1 [address], [address] [place] [address], [place], [address], [facility] 2 15:24:18 Date Recorded Body height Provider Name an d Address Organization Details Last Updated DateTime 03/09/2022 160.02 cm MARTIN HERCULES, APR N [address], [address] [place] [address], [place], [address], [facility] 03/09/2022 09:26:17 Date Recorded Body height Provider Name an d Address Organization Details Last Updated DateTime 05/25/2022 160.02 cm MARTIN HERCULES, APR N [address], [address] [place] [address], [place], [address], [facility] 05/25/2022 14:07:31 Date Recorded Body height Body mass index (BMI) Body weight Systolic blood pressure Diastolic blood pressure Provider Name and Address Organization Details Last Updated DateTime 07/27/2022 160.02 cm 24.7 kg/m2 13567.78 g 107 mm[Hg] 75 mm[Hg] Mariah Florentino [facility] 3 10:02:43 Social History Question Answer Notes LastModified by Organizat ion Details LastModified Time Tobacco Smoking Status Never Smoker Janny barba, [facility] 08/01/2020 16:09:18 What Is Your Level Of Alcohol Consumption? None Information not available 02/17/2021 In The 14 Days Before Symptom Onset, Have You Had Close Contact With A Laboratory-confi rmed COVID-19 While That Case Was Ill? No [email or web address] Information not available 07/27/2022 In The 14 Days Before Symptom Onset, Have You Had Close Contact With A Person Who Is Under Investigation For COVID-19 While That Person Was Ill? No [email or web address] Information not available 07/27/2022 Have You Been To An Area Known To Be High Risk For COVID-19? 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 No [email or web address] Information not available 07/27/2022 Do You Or Have You Ever Used E-cigarettes Or Vape? Never Used Electronic Cigarettes [email or web address] Information not available 07/27/2022 What Is The Highest Grade Or Level Of School You Have Completed Or The Highest Degree You Have Received? [id number] [email or web address] Information not available 07/27/2022 Have You Recently Or Are You Planning To Travel To An Area With Zika Virus? No [email or web address] Information not available 07/27/2022 Do You Have [...] Of Your Most Recent Tobacco Screening? 07/19/2022 [email or web address] Information not available 07/27/2022 How Many Children Do You Have? 5 [email or web address] Information not available 07/27/2022 Do You Use Protection During Sex? No [email or web address] Information not available 07/27/2022 Are You Sexually Active? Yes [email or web address] Information not available 07/27/2022 Do You Or Have You Ever Used Smokeless Tobacco? Never Used Smokeless Tobacco [email or web address] Information not available 07/27/2022 How Much Tobacco Do You Smoke? No [email or web address] Information not available 07/27/2022 Do You Feel Stressed (tense, Restless, Nervous, Or Anxious, Or Unable To Sleep At Night)? [id number] [email or web address] Information not available 07/27/2022 How Many Years Have You Smoked Tobacco? 0 [email or web address] Information not available 07/27/2022 Have You Recently Traveled Abroad? No [email or web address] Information not available 05/19/2021 Sex: Female Functional Status Question Answer Note LastModified by Organizat ion Details LastModified Time What is your exercise level? Occasional daily walks Information not available 05/19/2021 Mental Status None [...] Other N *No Diseases or Conditions N Breast Cancer N Blood clots N Benign breast disease N Colon cancer N Depression Y Lung Disease N Defects or Inherited Disease N Anesthesia Complications N BrCa gene tested? N Headaches/Migraines Y Have you ever been on isolation N Anxiety Disorder Y HSV N Arthritis N Infertility N Abnormal pap N Interstitial Cystitis N Acid Reflux (GERD) Y Cancer N Stroke N Endometriosis N Fibromyalgia N Spina Bifida N HIV N Heart Problems N Sexual Dysfunction N Autoimmune disorder N Thyroid Problems N Kidney or Bladder Problems N GI Problems N Eating Disorder [...] 22 cancelled patient objection PAXTON KAUR MD [address] [place] [address], [address] Floor, [place], [address], [place] [facility] 10/15/2021 12:30:06 Influenza, split virus, trivalent, preservative 12/10/19 21 completed Not Available [facility] Record 05/19/2021 14:39:47 Past Encounters Encounter ID Performer Location Encounter Start Date Encounter Closed Date Diagnosis/Indication Diagnosis SNOMED-CT Code Diagnosis ICD10 Code Diagnosis Note [id number] KARLI GREWAL DO [facility] [address] [place] [address] 08/21/2020 13:38:34 08/21/2020 14:37:24 Gynecologic examination 92330744 Z01.419 Normal annual exam. No issues. Weight management and general health issues reviewed at length. PAP done today. SBE reviewed. Family History reviewed as well as any findings which would suggest an increased risk of Cancer from a Genetic cause: low risk for genetic linked cancers by patient's known reported history. Depression screening 171 049761 Z13.31 PHQ2 - negative. Trying to conceive 52566 9001 Z31.9 Had 2 SABs after 3 successful pregnancie s. Will continue to attempt for now. 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 s medical record: 5 minutes [id number] FLY EVANS DO [facility]5 [address] [place] [address] 05/19/2021 09:40:25 05/20/2021 09:57:47 Routine care 134584576 Z34.91 Patient in the office for her initial OB visit. Doing well so far. Reviewed early issues and discussed precaution s including cramping, bleeding, discharge, morning sickness. Denies headache, fever, chills, cp, sob, bleeding, severe N/V. Occasional cramping. Reviewed [facility] practice policies and procedures . Reviewed male providers, importance of compliance with care, delivery and surgery at [facility], cork insulation installer resident alex ibarra, allie, bug, zika, and [...] visit, follow up all labs and testing. [facility] Depression screening 171 906803 Z13.32 negative depression screening screening 2437 78764 Z36.0 Past pregn delta history of pre-eclampsia 8209274836 09213 Z87.59 High risk 4720 0007 O09.91 Gestation period, 9 weeks 307299 Z3A.09 [id number] [facility]5 [address] [place] [address] 06/16/2021 08:45:50 06/16/2021 12:10:33 High risk 11522778 O09.91 Gestation period, 13 weeks 44389459 Z3A.13 [id number] [facility]5 [address] [place] [address] 07/14/2021 08:44:16 07/14/2021 09:15:34 Routine care 789460157 Z34.92 High risk 4720 0007 O09.92 Gestation period, 17 weeks 16705237 Z3A.17 [id number] WHG5 [address] [place] [address] 08/11/2021 16:49:36 08/13/2021 13:05:35 Routine care 695163792 Z34.91 Routine OB visit. Size = date. FHR reassuring . Denies headache, fever, chills, cp, sob. No regular cramping or contractio ns. Sun, bug, Zika, travel precaution s all reviewed. COVID, PTL, and FM precaution s all discussed. Anatomy USN reviewed and WNL. No AFP. RTO In 4 weeks. [facility] Gestation period, 21 weeks 92203387 Z3A.21 [id number] WHG5 [address] [employer] [facility] [place] [address] 09/01/2021 08:02:50 09/01/2021 14:15:25 Routine care 495025326 Z34.92 Doing well, no complaints other than [...] at 40+ weeks. Gestation period, 24 weeks 616080792 Z3A.24 Depression screening 171 352079 Z13.32 Negative PHQ-2 today. Vaginal discharge 449917 006 N89.8 [id number] PAXTON KAUR MD MAO [address] [place] [address] 10/15/2021 11:57:20 10/16/2021 08:29:49 Active or passive immunization 475519731 Z23 [id number] Mariah Kolb CNM [facility] [address] [place] [address] 10/27/2021 08:12:43 11/06/2021 13:02:49 support 835099446 Z39.1 [id number] Leona Peralta DO [facility] [address] [place] [address] 11/10/2021 15:22:39 11/11/2021 09:04:51 High risk 99746310 O09.93 Gestation period, 34 weeks 01736439 Z3A.34 Active or passive immunization 738619990 Z23 [id number] [facility] [address] [place] [address] 11/24/2021 09:08:40 11/25/2021 09:30:38 High risk 76899494 O09.93 Gestation period, 36 weeks 01133556 Z3A.36 screening 2437 99069 Z36.9 [id number] PAXTON KAUR MD MAO [address] [place] [address] 11/30/2021 10:31:58 12/01/2021 08:40:06 High risk 32645396 O09.93 rto 1 wks Gestation period, 37 weeks 95171131 Z3A.37 [id number] Mariah Kobl CNM [facility]1 [address] [place] [address] 12/07/2021 09:20:55 12/08/2021 11:32:10 [id number] FRANCINE LOCKHARTTAMARA SWAIN MAO2 [address] [place] [address] 12/14/2021 09:27:18 12/14/2021 15:20:51 High risk 73954313 O09.93 Gestation period, 39 weeks 86781046 Z3A.39 [id number] VAISHNAVI Franks [facility] [address] [place] [address] 12/21/2021 08:45:27 12/22/2021 15:33:34 Post-term 73577862 O48.0 High risk 4720 0007 O09.93 Gestation period, 40 weeks 15867431 Z3A.40 [id number] OLI SAVAGE MD [facility] [address] [place] [address] 12/29/2021 11:04:49 12/29/2021 14:20:25 Pre-eclampsia 478099885 O14.95 [id number] PAXTON KAUR MD [facility] [address] [place] [address] 01/04/2022 08:26:02 01/05/2022 10:58:05 Pre-eclampsia 261166761 O14.90 O14.93 preeclamps ia s/p MGSO4 on readmissio n, currently on labetalol at 100 mg po bid. will continue [id number] OLI SAVAGE MD [facility] [address] [place] [address] 01/22/2022 11:33:43 01/25/2022 10:29:45 care 159184268 Z39.2 Pre-eclampsia 491647517 O14.95 [id number] OLI SAVAGE MD [facility] [address] [place] [address] 02/09/2022 15:14:23 02/11/2022 09:16:09 care 867850399 Z39.2 - induced hypertension 13206189 O13.9 [id number] MARTIN HERCULES APRN [facility] [address] [id number] 03/09/2022 09:24:47 03/09/2022 10:24:43 support [id number] Z39.1 Difficulty performing breast-feeding [id number] O92.79 [id number] MARTIN HERCULES APRN WWW1 [address] [address] 05/25/2022 13:51:47 05/25/2022 15:14:41 support [id number] Z39.1 Difficulty performing breast-feeding [id number] O92.79 low supply, TOTS, distracted Inadequate flow of breast milk 343908033 O92.4 drop following recent hospitaliz ation in [place]; baby with TOTSMinima l glandular tissue palpated today [id number] Mariah Kolb CNM MAO2 [address] [place] [address] 07/27/2022 09:52:44 07/30/2022 12:43:12 Gynecologic examination [id number] Z01.419 Venereal d isease screening 787606400 Z11.3 Premenstru al dysphoric disorder 203241 F32.81 Contracept ion care management 029017299 Z30.9 Health Concerns Section Related Observation LastModified by Organization Detai ls LastModified Time None Recorded Concern Status LastModified by Organization Details LastModified Time None Recorded Advance Directives Directive None Recorded Payers Encounter Date Sequence Insurance Name Policy Number Policy Hartman Covered Member ID Hartman Member ID Guarantor Name 01/22/2022 1 [place] Pravin A Peloquin [id number] Pravin Peloquin 02/09/2022 1 [place] Pravin A Peloquin [id number] Pravin Peloquin 03/09/2022 1 [place] Pravin A Peloquin [id number] Pravin Peloquin 05/25/2022 1 [place] Pravin A Peloquin [id number] Pravin Peloquin 07/27/2022 1 [place] MACKENZIE Crawford Peloquin [id number] Pravin Peloquin Notes Date Note Type Note Provider Name and Address Organization Details Recorded Time 01/22/2022 text/html [facility] VisitReported bypatient.Notes:31 y/o pt presents for PP#1 [...] 3 times daily. OLI SAVAGE MD [address] [place], [address], [facility] 01/22/2022 12:11:09 02/09/2022 text/html pt [...] mg. She does have appointment with her news content specialist Dr. Phillip Chau for a physical examination coming up in the middle of February OLI SAVAGE MD [address], [place], [address], [facility] 02/09/2022 15:46:29 03/09/2022 text/html [facility] LactationRep orted bypatient.Supplement:p umped milk; formula Gestational [...] refer to ENT for congestion MARTIN HERCULES, 1ST PRESSMAN [address], [place], [address], [facility] - [facility] 03/09/2022 12:02:49 05/25/2022 text/html [facility] LactationRep orted bypatient.Supplement:p umped milk; formula Gestational [...] Was in hosp for a week in [place] for PPD from Mar 29 for a [...] latching about a wk ago; was trying [employer] systems; Medela but not working.Takes 6oz bottle [...] is homeschooled; preferred by mom due to Druze and valentin.Got period in Mar; due again [...] refer to ENT for congestion MARTIN DELISA, 1ST PRESSMAN [address], [address], [place], [address], [place] - [facility] 05/25/2022 15:47:53 07/27/2022 text/html [facility] Annual GYNRe ported bypatient.History:no change in interval [...] since followed up with her PCP and news content specialist, currently no longer on BP medications and [...] family and yarsani. Mariah Kolb, CNM [address], [place], [address], [place] [facility] 07/27/2022 11:08:18 OBGyn Episode Ob Episode Information Episode Created Date Number of Fetuses Patient Bloodtype Patient rh Status Prepregnancy Weight lbs Domestic Partner Domestic Partner Phone Father Name Web Operations Administrator Status 05/13/19 22 1 CLOSED Fetus Data First Name Last Name Admitted to NICU Weight (g) Sex Living Outcome Pediatric Complications Fetus ID Race Codes Race Delivery Type , Spontane ous [id number] 5 Christiano Calculation Initial Christiano Date Initial [...] Domestic Partner Domestic Partner Phone Father Name Web Operations Administrator Status 08/22/19 21 1 CLOSED Fetus Data First Name Last Name Admitted to NICU Weight (g) Sex Living Outcome Pediatric Complications Fetus ID Race Codes Race Delivery Type F Full Term 240580 Vaginal Delivery Christiano Calculation Initial Christiano Date [...] Domestic Partner Domestic Partner Phone Father Name Web Operations Administrator Status 05/13/19 22 1 CLOSED Fetus Data First Name Last Name Admitted to NICU Weight (g) Sex Living Outcome Pediatric Complications Fetus ID Race Codes Race Delivery Type , Spontane ous 196576 7 Christiano Calculation Initial Christiano Date Initial [...] Domestic Partner Domestic Partner Phone Father Name Web Operations Administrator Status 05/13/19 22 1 CLOSED Fetus Data First Name Last Name Admitted to NICU Weight (g) Sex Living Outcome Pediatric Complications Fetus ID Race Codes Race Delivery Type , Spontane ous [id number] 4 Christiano Calculation Initial Christiano Date Initial [...] Domestic Partner Domestic Partner Phone Father Name Web Operations Administrator Status 08/22/19 21 1 CLOSED Fetus Data First Name Last Name Admitted to NICU Weight (g) Sex Living Outcome Pediatric Complications Fetus ID Race Codes Race Delivery Type M Full Term 625076 Vaginal Delivery Christiano Calculation Initial Christiano Date [...] Domestic Partner Domestic Partner Phone Father Name Web Operations Administrator Status 05/13/19 22 1 CLOSED Fetus Data First Name Last Name Admitted to NICU Weight (g) Sex Living Outcome Pediatric Complications Fetus ID Race Codes Race Delivery Type , Spontane ous [id number] 6 Christiano Calculation Initial Christiano Date Initial [...] Domestic Partner Domestic Partner Phone Father Name Web Operations Administrator Status 07/29/19 21 2 CLOSED Fetus Data First Name Last Name Admitted to NICU Weight (g) Sex Living Outcome Pediatric Complications Fetus ID Race Codes Race Delivery Type 2636.27 6704 F Full Term 950050 - Primary 3089.86 8704 M Full Term 358165 - Primary Christiano Calculation Initial Christiano Date [...] Domestic Partner Domestic Partner Phone Father Name Web Operations Administrator Status 05/19/19 22 1 AB Positive 137 Lamine Oden ([place]) CLOSED Fetus Data First Name Last Name Admitted to NICU Weight (g) Sex Living Outcome Pediatric Complications Fetus ID Race Codes Race Delivery Type false 4252.42 5 M true Full Term 635891 0 (Vaginal after C Section) Problems Problem Notes Problem Name Start Date End Date Resolution Snomed Code Not e Family history of pre-eclampsia [id number] Pre-E labs huber cked with IPG labs.05/30: urine pc ratio WNL. TBF Past history of section 848046981 x 3, c/s x1 of 2nd twin. Desires TOLAC. TRANSFERRED TO [facility] FOR . IOL BOOKED FOR 41 WEEKS. TOLAC CONSENT SIGNED High risk 74606916 High risk due to recurrent loss [id number] Taking santiago ly ASA and vaginal progesterone during the first trimester - wants to continue the progesterone until 18 wga. TBF Polyhydramnios 08890898 MVP 9 cm on 11/10/21 Christiano Calculation [...] in lbs Pre/Post Dialysis Refused With clothes 130.168682355558 BP Diastolic BP Location Tested BP Systolic [...] sob, bleeding, severe N/V. Occasional cramping. Reviewed [facility] practice policies and procedures. Reviewed male providers, importance of compliance with care, delivery and surgery at [facility], cork insulation installer resident involvement, sun, bug, zika, and travel [...] Weight in lbs Pre/Post Dialysis Refused Weight 134.754541882610 BP Diastolic BP Location Tested BP Systolic [...] Weight in lbs Pre/Post Dialysis Refused Weight 134.297356075259 BP Diastolic BP Location Tested BP Systolic [...] reviewed: Check MSAFP and follow up with fashion illustrator reviewed, has Level II USN booked at [facility] Flowsheet Date 08/11/2021 Frausto Score Blood Edema Fundus Height Fundus Units Glucose Ketones Leukocytes Nitrite Labor Signs Protein Cervic Dilation Cervic Effacement Cervic Station neg 21 cm none none neg Type Weight in lbs Pre/Post Dialysis Refused Weight 135.00780408855 BP Diastolic BP Location Tested BP Systolic [...] Weight in lbs Pre/Post Dialysis Refused Weight 140.754854210497 BP Diastolic BP Location Tested BP Systolic [...] Weight in lbs Pre/Post Dialysis Refused Weight 152.606828974847 BP Diastolic BP Location Tested BP Systolic [...] in lbs Pre/Post Dialysis Refused With clothes 153.745877858783 BP Diastolic BP Location Tested BP Systolic [...] Weight in lbs Pre/Post Dialysis Refused Weight 156.629030565490 BP Diastolic BP Location Tested BP Systolic [...] Weight in lbs Pre/Post Dialysis Refused Weight 158.165744857883 BP Diastolic BP Location Tested BP Systolic [...] Weight in lbs Pre/Post Dialysis Refused Weight 158.521941183218 BP Diastolic BP Location Tested BP Systolic [...] Weight in lbs Pre/Post Dialysis Refused Weight 169.494323269467 BP Diastolic BP Location Tested BP Systolic [...] Weight in lbs Pre/Post Dialysis Refused Weight 171.950150317927 BP Diastolic BP Location Tested BP Systolic [...]
--- OUTSIDE RECORDS SUMMARY | 2024-06-01 12:49 | XMS_ITS | Encounter Summary ---
Author Organization [facility] Address [address] [place] [address] Care Team Providers Care Delivery Crew Member Name Role Phone Matthias Chau MD Primary Care Provider + [phone] Encounter Details Date Type Department Care Team (Late st Contact Info) Description 08/22/2022 Scanned Document [facility] Department of Internal Medicine & Nephrology [place] [address] [address] Matthias Chau MD 85 [facility] [address] [place], [place] [id number] Social History Tobacco Use Types Packs/Day Years [...] on filedocumented in this encounter Care Teams Delivery Crew Member Relationship Specialty Start Date End Date Matthias Chau MD [address] [address] PCP - General Nephrology 04/24/22 documented as of this encounter
--- OUTSIDE RECORDS SUMMARY | 2024-06-01 12:49 | XMS_ITS | Clinical Summary ---
Author Organization [facility] Address [address] [place] [address] Care Team Providers Care Manager Harbor Name Role Phone Matthias Chau MD Primary Care Provider [phone] Allergies Active Allergy Reactions Criticality Noted Date Comments Seasonal 01/01/2021 Serotonin Reuptake Inhibitors (Ssris) 03/23/2022 Medications Medication Sig Dispensed Refills Start Date End Date Status Vit-Fe Fumarate-FA ( PO) Take by mouth daily as needed. Baby and me too 0 Active mirtazapine (REMERON) 15 MG tablet Take 1 tablet (15 mg total) by mouth every night at bedtime. 0 05/27/2022 Active Robert-3 Fatty Acids (Fish Oil) 1000 MG CAPS [...] Advance Directives For more information, please contact: [phone] Latest Code Status on File Code Status [...] the following way: discussed . Care Teams Manager Harbor Relationship Specialty Start Date End Date Matthias Chua MD [address] [address] PCP - General Ent Nurse 05/13/22
--- OUTSIDE RECORDS SUMMARY | 2024-06-01 12:49 | XMS_ITS | Clinical Summary ---
Author Organization [facility] Address [address] [place] [address] Care Team Providers Care Tile Layer Helper Name Role Phone Matthias Chau MD Primary Care Provider + [phone] Allergies Active Allergy Reactions Criticality Noted Date Comments Escitalopram Other (See Comments),Unknown/Patient and Family Unable to Define,Diarrhea,Palpitati ons Medium 08/25/2022 Serotonin Reuptake Inhibitors (Ssris) Unknown/Patient and Family Unable to Define Medium 03/23/2022 Medications * This document contains information received from the source organization and may not represent a complete record from that organization. famotidine (PEPCID) 20 MG tablet famotidine 20 mg tablet TAKE 1 TABLET BY MOUTH EVERY DAY AT NIGHT Active mirtazapine (REMERON) 15 MG tablet Take 15 mg by mouth. 3 Active omega-3 fatty acids (FISH OIL) 1000 MG Cap capsule Take by mouth. Activ e ibuprofen (MOTRIN) 600 MG tablet Take 600 mg by mouth 4 times daily (every 6 hours) as needed. for pain 3 Active lidocaine (LIDODERM) 5 % patch PLACE 1 PATCH ONTO THE SKIN DAILY. REMOVE & DISCARD PATCH WITHIN 12 HOURS OR DIRECTED BY 3 Active clonazePAM (KlonoPIN) 0.25 MG disintegrating tablet Take 0.25 mg by mouth 2 (two) times a day as needed. Active naratriptan (AMERGE) 2.5 MG tabletIndications: Near syncope,TTH (tension-type headache), frequent episodic type Take 1 tablet (2.5 mg total) by mouth once as needed for migraine. May repeat in 4 hours if unresolved. Do not exceed 5 mg in 24 hours. 9 tablet 1 3 Active clonazePAM (KlonoPIN) 0.5 MG tablet TAKE 1/2 TABLET EVERY OTHER DAY NEEDED FOR ANXIETY (0.25MG) Active doxycycline (MONODOX) 100 MG capsule Take 1 capsule by mouth 2 (two) times a day. Active propranolol (INDERAL) 10 MG tabletIndications: Primary hypertension Take 1 tablet (10 mg total) by mouth 3 (three) times a day. 270 tablet 3 Active Active Problems Problem Noted Date Diagnosed Date Hypertension 04/27/2022 S/P laparoscopic cholecystectomy 11/18/2020 Panic disorder without agoraphobia with mild rajput ic attacks 03/27/2018 Resolved Problems Problem Noted Date Diagnosed Date Resolved Date GERD (gastroesophageal reflux disease) 04/27/2022 08/25/2022 History of gestational hypertension 07/28/2020 08/25/2022 32 weeks gestation of 08/24/2017 07/07/2022 Immunizations Immunization Administration Dates Next Due Influenza Inactivated/Split Preservative [...] Influenza Vaccine 09/15/2023 12/09/2020 COVID-19 Vaccine ( season) 2023 HIV Screening Completed 07/27/2022, 0804/2021, [...] ANTIBODY Routine 07/27/2022 10:42 AM EDT THINPREP PAP(PHOTOGRAPHIC RESTORER) HPV SCR RFX HPV 16,18/45 Routine 08/21/2020 2:07 PM EDT from Last 3 Months or Most Recently Relevant to Health Maintenance Results * HIV 1/2 Ag/Ab CMIA Reflex to Confirmation (07/27/2022 10:42 AM EDT) HIV Ag/Ab, 4th Gen Non-Reacti ve Non-Reacti ve [facility] Comment: Results show no evidence of infection by HIV 1/2. If clinically indicated, repeat CMIA or test by nucleic acid amplification. Other 07/27/2022 10:4 2 AM EDT 07/27/2022 8:39 PM EDT Mariah Kolb [facility] BLOOD ORDERABLES Final R esult Performing Organization Address City/[facility]/ZIP Co de Phone Number [facility] [address] [place], [place] * HEPATITIS C VIRUS (HCV) ANTIBODY (07/27/2022 10:42 AM EDT) Hepatitis C Antibody 0.59 Non-Reacti ve Non-Reacti ve S/CO [facility] Other 07/27/2022 10:4 2 AM EDT 07/27/2022 8:39 PM EDT [facility]ABLES [facility] Performing Organization Address [facility] Co de Phone Number [facility] [address] [place], [place] * ThinPrep Pap(Clinical Nutrition Manager) HPV Scr Rfx HPV 16,18/45 (08/21/2020 2:07 PM EDT) Report Report [facility] Comment: Final Gynecological Cytology Report ThinPrep Pap Test, HPV Screen, Reflex HPV Genotype SPECIMEN ADEQUACY: SATISFACTORY FOR EVALUATION; ENDOCERVICAL/TRANSFORMATION ZONE COMPONENT PRESENT. INTERPRETATION: NEGATIVE FOR INTRAEPITHELIAL LESION OR MALIGNANCY. Electronically Signed: ??Leah Gonsalez, [place] (ASCP) CLINICAL INFORMATION: LMP: 07/24/2020 Clinical History: ??RTN Specimen Source: ??Cervix, Endocervix HPV RESULTS: HPV mRNA E6/E7 ?? [id number] ?? Approved: 08/22/20 Negative ? REF RANGE: Negative CPT Codes: 75692 ICD Codes: Z01.419 Other 08/21/2020 2:07 PM EDT 08/21/2020 9:28 PM EDT us Antelmo Richmond DO LAB AMB PATH/CYTO ORDERAB LES Final Result Performing Organization Address City/State/[facility] Co de Phone Number [facility] [address] [place], [place] from Last 3 Months or Most Recently Relevant to Health Maintenance Insurance [facility] Advance Directives * Full Code (Latest Code [...] 4:53 AM 02/27/2018 5:09 AM Care Teams Tile Layer Helper Relationship Specialty Start Date End Date Matthias Chau MD [address] [place] [address] PCP - General Nephrology 04/24/22
--- OUTSIDE RECORDS SUMMARY | 2024-06-01 12:49 | XMS_ITS ---
Author Organization [facility] Address [address] [place] [id number] Care Team Providers Care Swiss Type Screw Machine Operator Name Role Phone VICTORINO SORIANO Primary Care Provider [phone] TWILA EDMONDS Unavailable [phone] REASON FOR VISIT Message MEDICATIONS Medication SIG (Take, Route, Fr equency, Duration) Notes Start Date End Date Status Famotidine 20 MG 1 tablet Orally once a day for 90 days 09/21/2023 Active Mirtazapine 30 MG 1 tablet at bedtime Orally Once a day for 90 days Active Encounters Encounter Location Date Provider Diagnosis [address] [phone] 03/14/2024 TWILA EDMONDS GERD without esophagitis K21.9 [...] Notes * FATMATAEveliaMAISHAVIKOB: 9 (33 yo F)Acc No.[id number]:03/14/2024 Patient:??NANETTE DOTSON :1990?Age:33 Y?Sex:Fe male Phone: Address:[address] [place] [address] * Refills?? Refill Famotidine Tablet, 20 MG, Orally, 90 Tablet, 1 tablet, once a day, 90 days, Refills=1 Refill Mirtazapine Tablet, 30 MG, Orally, 90, 1 tablet at bedtime, Once a day, 90 days, Refills=1 * true * Date:??
--- OUTSIDE RECORDS SUMMARY | 2024-06-01 12:49 | XMS_ITS | Patient Health Record ---
Author Organization [facility] Address [address] [place] [address] [phone] Care Team Providers Care Air Drill Operator Name Role Phone CHRISTIEVICTORINO Primary Care Provider [phone] TWILA EDMONDS Unavailable [phone] ALLERGIES Allergen (clinical drug ingredient) Drug/Non Drug Allergy documented on EMR Reaction Allergy Type Onset Date Status Substance with serotonin re-uptake inhibitor mechanism of action (substance) SSRI's (uncoded) Serotonin Syndrome Allergy Active RESULTS Component Value Reference Range Notes CARDIO IQ(R) APOLIPOPROTEIN EVAL (46717) Reviewed date:06/16/2023 08:32:10 AM Interpretation: Performing Lab:Vignesh, [facility] [place] [address], [address], [id number] Bimal Borrero PhD,[facility] Notes/Report: FASTING FASTING:YES FASTING: YES APOLIPOPROTEIN A1 141 >124 mg/dL Risk, Male: Optimal >= 115 mg/dL; High < 115 mg/dL; Risk, Female: Optimal >= 125 mg/dL; High <125 mg/dL; Cardiovascular event risk category cut points (optimal, high) are based on the AMORIS study Wallcubaus G et al. J Enamel Buffer Med. 2004;255:188-205. APOLIPOPROTEIN B 63 <90 mg/dL [...] AMORIS study, Chapin G et al. J Enamel Buffer Med. 2004;255:188-205. CARDIO IQ(R) HEMOGLOBIN A1c (50030) Reviewed date:06/16/2023 08:31:57 AM Interpretation: Performing Lab:Vignesh, [facility] [place] [address], [address], [id number] Bimal Borrero PhD,[facility] Notes/Report: FASTING FASTING:YES FASTING: YES [...] diagnosis of diabetes in children. According to [place] Diabetes Association (ADA) guidelines, hemoglobin A1c <7.0% represents optimal control in non- diabetic patients. Different metrics may apply to specific patient populations. Standards of Medical Care in Diabetes (ADA). This test was performed on the Ramon asa c503 platform. Effective 04/19/2023, a change in test platforms from the [employer] to the Ramon asa c503 may have shifted HbA1c results compared to historical results. Based on laboratory validation testing conducted at [facility], the Ramon platform relative to the Reinoso [...] Reviewed date:06/16/2023 08:31:57 AM Interpretation: Performing Lab:Vignesh [facility] [facility], [address], [id number] Bimal Borrero PhD,[facility] Notes/Report: FASTING FASTING:YES FASTING: YES HOMOCYSTEINE 7.0 <10.4 umol/L Homocysteine is increased by functional deficiency of folate or vitamin B12. Testing for methylmalonic acid differentiates between these deficiencies. Other causes of increased homocysteine include renal failure, folate antagonists such as methotrexate and phenytoin, and exposure to nitrous oxide. Gabriela J, et al. Layla Enamel Buffer Med. 1999;131(5):331-9. Homocysteine is increased by functional deficiency of folate or vitamin B12. Testing for methylmalonic acid differentiates between these deficiencies. Other causes of increased homocysteine include renal failure, folate antagonists such as methotrexate and phenytoin, and exposure to nitrous oxide. Selhuronald Aguilar, et al., Layla Enamel Buffer Med. 1999;131(5):331-9. CARDIO IQ(R) HS CRP (11319) Reviewed date:06/16/2023 08:31:57 AM Interpretation: Performing Lab:Vignesh [facility].[address] [place] [address], [address], [id number] Bimal Borrero PhD,[facility] Notes/Report: FASTING FASTING:YES FASTING: YES [...] with infection and inflammation. CARDIO IQ(R) INSULIN (89092) Reviewed date:06/16/2023 08:31:57 AM Interpretation: Performing Lab:Z4, [facility], [address], [id number] Bimal Borrero PhD,[facility] Notes/Report: FASTING FASTING:YES FASTING: YES INSULIN 15.9 <18.5 uIU/mL CARDIO IQ(R) LIPID PANEL (91 716) Reviewed date:06/16/2023 08:31:57 AM Interpretation: Performing Lab:Z4, [facility].[address], [address], HicekeptsJP[address] Bimal Borrero PhD,[facility] Notes/Report: FASTING FASTING:YES FASTING: YES [...] LDL-C. Leo SS et al. KIARA. 2013;310(19): 4715-5569 (http://education.Shopventory.com/faq/OMV495) LDL-C is now calculated using the Leo-Larios calculation, which is a validated novel method providing better accuracy than the Friedewald equation in the estimation of LDL-C. Leo SS et al. KIARA. 2013;310(19): 7587-9120 (http://education.Shopventory.com/faq/NMN832) CHOL/HDLC RATIO 2.7 <5.0 calc NON HDL [...] a therapeutic option. CARDIO IQ(R) LIPOPROTEIN (a) (77703) Reviewed date:06/16/2023 08:31:57 AM Interpretation: Performing Lab:Vignesh, [facility], [address], [id number] Bimal Borrero PhD,[facility] Notes/Report: FASTING FASTING:YES FASTING: YES LIPOPROTEIN (a) 16 <75 nmol/L Risk: Optimal <75 nmol/L; Moderate 75-125 nmol/L; High >125 nmol/L. Cardiovascular event risk category cut points (optimal, moderate, high) are based on Shy Espinoza JAC 2017;69:692-711. CARDIO IQ(R) VITAMIN D, 25 H YDROXY (85314) Reviewed date:06/16/2023 08:31:57 AM Interpretation: Performing Lab:Luiz MULTANI [facility], [id number] Rivas Betancourt M.D.,PhD Notes/Report: FASTING FASTING:YES FASTING: [...] ng/mL. For additional information, please refer to http://education.Taaz.com/faq/WHU852 (This link is being provided for informational/ educational purposes only.) VITAMIN D, 25-OH, D3 23 This test was developed and its analytical performance characteristics have been determined by [facility] [place], [place]. It has not been cleared or approved by the U.S. Food and Drug Administration. This assay has been validated pursuant to the CLIA regulations and is used for clinical purposes. VITAMIN D, 25-OH, D2 <4 This test was developed and its analytical performance characteristics have been determined by [facility] [place], [place]. It has not been cleared or approved by the U.S. Food and Drug Administration. This assay has been validated pursuant to the CLIA regulations and is used for clinical purposes. CBC (INCLUDES DIFF/PLT) (639 9) Reviewed date:06/08/2023 11:05:39 AM Interpretation: Performing Lab:TAPAN [facility] Reagan Hearn Notes/Report: FASTING FASTING:YES FASTING: YES WHITE BLOOD CELL COUNT 7.3 3.8-10.8 Thousand/ uL RED BLOOD CELL COUNT 4.57 3.80-5.10 Million/uL HEMOGLOBIN 13.1 11.7-15.5 g/dL HEMATOCRIT 39.1 35.0-45.0 % MCV 85.6 80.0-100.0 fL MCH 28.7 27.0-33.0 pg MCHC 33.5 32.0-36.0 g/dL RDW 12.6 11.0-15.0 % PLATELET COUNT 276 140-400 Thousand/uL MPV 9.5 7.5-12.5 fL ABSOLUTE NEUTROPHILS 3986 3525-4612 cells/uL ABSOLUTE LYMPHOCYTES 2504 850-3900 cells/uL ABSOLUTE MONOCYTES 460 200-950 cells/uL ABSOLUTE EOSINOPHILS 321 15-500 cells/uL ABSOLUTE BASOPHILS 29 0-200 cells/uL NEUTROPHILS 54.6 LYMPHOCYTES 34.3 MONOCYTES 6.3 EOSINOPHILS 4.4 BASOPHILS 0.4 COMPREHENSIVE METABOLIC PANE L (33675) Reviewed date:06/13/2023 03:17:02 PM Interpretation: Performing Lab:TAPAN, [facility] Reagan Hearn Notes/Report: FASTING FASTING:YES FASTING: [...] (402) Reviewed date:06/08/2023 11:05:39 AM Interpretation: Performing Lab:MANDATalkBin, [facility]WappwolfMaria [place] [id number] Reagan Hearn Notes/Report: FASTING FASTING:YES FASTING: YES DHEA SULFATE 119 19-237 mcg/dL FSH AND LH (7137) Reviewed date:06/08/2023 11:05:39 AM Interpretation: Performing Lab:MANDATalkBin, [facility] Reagan Hearn Notes/Report: FASTING FASTING:YES FASTING: YES FSH 3.4 Reference Range Follicular Phase 2.5-10.2 Mid-cycle Peak 3.1-17.7 Luteal Phase 1.5- 9.1 Postmenopausal 23.0-116.3 LH 7.2 Reference Range Follicular Phase 1.9-12.5 Mid-Cycle Peak 8.7-76.3 Luteal Phase 0.5-16.9 Postmenopausal 10.0-54.7 IRON, TIBC AND FERRITIN PANE L (5616) Reviewed date:06/13/2023 03:17:02 PM Interpretation: Performing Lab:MANDATalkBin, [facility] Reagan Hearn Notes/Report: FASTING FASTING:YES FASTING: YES IRON, TOTAL 128 40-190 mcg/dL IRON BINDING CAPACITY 347 250-450 mcg/dL (melida c) % SATURATION 37 16-45 % (calc) FERRITIN 11 16-154 ng/mL MAGNESIUM (622) Reviewed date:06/13/2023 03:17:02 PM Interpretation: Performing Lab:TAPAN, [facility] [place] [id number] Reagan Hearn Notes/Report: FASTING FASTING:YES FASTING: YES MAGNESIUM 2.1 1.5-2.5 mg/dL METHYLMALONIC ACID (42260) Reviewed date:06/13/2023 03:17:02 PM Interpretation: Performing Lab:NERISSA [facility], NzzfopyilWK[address] Rivas Betancourt M.D.,PhD Notes/Report: FASTING FASTING:YES FASTING: YES METHYLMALONIC ACID 119 87-318 nmol/L This test was developed and its analytical performance characteristics have been determined by [facility] [place], [place]. It has not been cleared or approved by the U.S. Food and Drug Administration. This assay has been validated pursuant to the CLIA regulations and is used for clinical purposes. SED RATE BY ARMIN GUZMÁN (809) Reviewed date:06/08/2023 11:05:39 AM Interpretation: Performing Lab:TAPAN [facility] Reagan Hearn Notes/Report: FASTING FASTING:YES FASTING: YES SED RATE BY ARMIN CARVALHO 6 < OR = 20 mm/h THYROID PANEL WITH TSH (7444 ) Reviewed date:06/13/2023 03:17:02 PM Interpretation: Performing Lab:MANDA [facility]wolfMaria [place] [id number] Reagan Hearn Notes/Report: FASTING FASTING:YES FASTING: YES T3 UPTAKE 28 22-35 % T4 (THYROXINE), TOTAL 5.5 5.1-11.9 mcg/dL FREE T4 INDEX (T7) 1.5 1.4-3.8 TSH 2.22 Reference Range > or = 20 Years 0.40-4.50 Ranges First trimester 0.26-2.66 Second trimester 0.55-2.73 Third trimester 0.43-2.91 THYROID PEROXIDASE AND THYRO GLOBULIN ANTIBODIES (7260) Reviewed date:06/13/2023 03:17:02 PM Interpretation: Performing Lab:NL2, [facility] [place] [address] [facility] Notes/Report: FASTING FASTING:YES FASTING: YES THYROGLOBULIN ANTIBODIES <1 < or = 1 IU/mL THYROID PEROXIDASE ANTIBODIES 1 <9 IU/mL URIC ACID (905) Reviewed date:06/13/2023 03:17:02 PM Interpretation: Performing Lab:NLTalkBin, [facility]wolf[facility] [place] [id number] [place] [address] Notes/Report: FASTING FASTING:YES FASTING: YES URIC ACID 6.5 2.5-7.0 mg/dL Therapeutic ta rget for gout patients: <6.0 mg/dL VITAMIN B12/FOLATE, SERUM [facility] (7065) Reviewed date:06/08/2023 11:05:39 AM Interpretation: Performing Lab:NLTalkBin, [facility]wolfMaria [place] [id number] [facility] Notes/Report: FASTING FASTING:YES FASTING: YES VITAMIN B12 825 019-4034 pg/mL Please Note: Although the reference range [...] Reviewed date:06/13/2023 03:17:02 PM Interpretation: Performing Lab:NL2, [facility] [facility] Notes/Report: FASTING FASTING:YES FASTING: YES [...] a diagnostic category. CARDIO IQ(R) HS CRP (21232) Reviewed date:10/31/2023 07:56:01 AM Interpretation: Performing Lab:Vignesh, [facility] [address], [address], [id number] Bimal Borrero PhD,[facility] Notes/Report: NON-FASTING; NON-FASTING; NON-FASTING FASTING:YES [...] are based on Plata TA, Joceline GA, aWlter RW, et al. Markers of inflammation and cardiovascular disease: application to clinical and public health practice: A statement for healthcare professionals from the Centers for Disease Control and Prevention and the [place] Heart Association. Circulation 2003; 107(3): 499-511. For [...] for Disease Control and Prevention and the [place] Heart Association. Circulation 2003; 107(3): 499-511. CARDIO IQ(R) INSULIN (32874) Reviewed date:10/31/2023 07:56:01 AM Interpretation: Performing Lab:Vignesh, [facility]-[address]egCoastal Communities Hospitalkoffi, [address], [id number] Bimal Borrero PhD,[facility] Notes/Report: NON-FASTING; NON-FASTING; NON-FASTING FASTING:YES FASTING: YES INSULIN 17.1 <18.5 uIU/mL CARDIO IQ(R) VITAMIN D, 25 H YDROXY (61699) Reviewed date:10/31/2023 07:56:01 AM Interpretation: Performing Lab:Luiz MULTANI/Marisela Lee [id number], [id number] Rivas Betancourt M.D.,PhD Notes/Report: NON-FASTING; NON-FASTING; NON-FASTING [...] ng/mL. For additional information, please refer to http://education.Taaz.com/faq/PND673 (This link is being provided for informational/ educational purposes only.) VITAMIN D, 25-OH, D3 64 This test was developed and its analytical performance characteristics have been determined by [facility] [place], [place]. It has not been cleared or approved by the U.S. Food and Drug Administration. This assay has been validated pursuant to the CLIA regulations and is used for clinical purposes. VITAMIN D, 25-OH, D2 <4 This test was developed and its analytical performance characteristics have been determined by [facility] [place] [place]. It has not been cleared or [...] Tobacco use: nonsmoker Section Notes: Lives in [place], [place] with and 5 children. Lives [place] with and 5 children. Lives [place] with and 5 children. Lives [place] with and 5 children. Lives [place] with [place] 5 children. [place] with [place] children. [place] with [place] children. Lives [place] with [place] 5 children. [place] with and 5 children. PROBLEMS Problem Type ICD Code Onset Dates Problem Status W/U Status Risk SNOMED Code Notes Problem Essential (primary) hypertension (I10) Active confirmed Essential hypertension (15801988) Problem Sexual dysfunction, unspecified (R37) Active confirmed Sexual dysfunct ion (05181866) Problem Migraine without aura and without status migrainosus, not intractable (G43.009) Active confirmed Migraine withou t aura, not refractory (425200556) Problem Obesity (BMI 30.0-34.9) (E66.9) Active confirmed Obese class I (finding) (204567219978128) Problem Vitamin D deficiency (E55.9) Active confirmed Vitamin D deficiency (32707848) Problem Elevated high sensitivity C-reactive protein (R79.82) Active confirmed C-reactive prot ein abnormal (948255204) Problem PTSD (post-traumatic stress disorder) (F43.10) Active confirmed Posttraumatic stress disorder (03455656) Problem Low ferritin (R79.0) Active confirmed Ferritin level low (648922167) Problem Irregular menses (N92.6) Active confirmed Menstrual dis order (321470426) Problem Mixed anxiety and depressive disorder (F41.8) Active confirmed Mixed anxiety a nd depressive disorder (106993690) Problem GERD without esophagitis (K21.9) Active confirmed Gastroesophagea l reflux disease (301053003) Problem Insulin resistance syndrome (E88.810) Active confirmed Insulin resista nce syndrome (907911523) VITAL SIGNS Heart Rate 77 /min 02/23/2024 Height-cm 160.02 cm 02/23/2024 Oximetry 97 % 02/23/2024 Blood pressure diastolic 72 mm Hg 02/23/2024 Weight-kg 85.46 kg 02/23/2024 Height 63 in 02/23/2024 Blood pressure systolic 116 mm Hg 02/23/2024 Weight 188.4 lbs 02/23/2024 BMI 33.37 kg/m2 02/23/2024 Encounters Encounter Location Date Provider Diagnosis [address] [id number] 01/25/[address] [id number] 04/06/[address] [id number] 06/03/2023 [facility] Essential (primary) hypertension I10 ; Mixed anxiety and depressive disorder F41.8 ; Fatigue, unspecified type R53.83 ; Hyperlipidemia, unspecified E78.5 ; Vitamin D deficiency E55.9 ; Obesity (BMI 30.0-34.9) E66.9 ; Migraine without aura and without status migrainosus, not intractable G43.009 ; GERD without esophagitis K21.9 and Irregular menses N92.[address] [id number] 07/12/2023 [facility] Elevated high sensitivity C-reactive protein R79.82 ; Insulin resistance syndrome E88.810 ; Vitamin D deficiency E55.9 and Low ferritin R79.[address] [id number] 09/21/2023 [facility] Diarrhea, unspecifie d R19.7 ; PTSD (post-traumatic stress disorder) F43.10 and GERD without esophagitis K21.[address] [id number] 09/29/2023 [facility] Insulin resistance syndrome E88.810 and Mixed anxiety and depressive disorder F41.[address] [id number] 11/01/2023 VICTORINO SORIANO Decreased energy R53.[address] [id number] 11/09/2023 [facility] Screening for depression Z13.31 ; Screening for [...] R79.0 and PTSD (post-traumatic stress disorder) F43.10 [facility] [address] [place], [place] [id number] 12/23/2023 TWILA [facility] Essential (primary) hypertension I10 ; Insulin resistance syndrome E88.810 and Viral illness B34.[address] [id number] 02/23/2024 TWILA [facility] Insulin resistance syndrome E88.810 ; Essential (primary) hypertension I10 and Sexual dysfunction, unspecified R37 [address] [id number] 09/20/[address] [id number] 11/25/[address] [id number] 02/21/[address] [id number] 03/14/2024 [facility] GERD without esophagitis K21.9 ASSESSMENTS Encounter Date [...] Pt is now on oC tabs but [facility] did not address the metabolic aspect of [...] Irregular menses (ICD-10 - N92.6) Switching to [facility] Will order Jacqui for JEFF Will re-eval in 6 weeks 06/03/2023 Irregular menses (ICD-10 - N92.6) Will check hormonal levels Has [facility] 11/09/2023 Elevated high sensitivity C-reactive protein (ICD-10 [...] sick cat triggered her PTYSD Continue nightly remeron Has significant reactions to both SSRIs and SNRIs while hospitalized She is looking for new therapist Discussed MANAS along with local private therapists 06/03/2023 Other New patient welcomed to [facility] and complete intake was obtained. [...] AND FERRITIN PANEL (5616) COMPREHENSIVE METABOLIC PANEL (84859) CBC (INCLUDES DIFF/PLT) (6399) CARDIO IQ(R) HS CRP (02524) 11/09/2023 CARDIO IQ(R) HEMOGLOBIN A1c (29424) 10/16 CARDIO IQ(R) INSULIN (03892) 11/09/2023 CARDIO IQ(R) VITAMIN D, 25 HYDROXY (9173 5) 11/09/2023 Insurance Providers Payer Name Payer Address Payer Phone Subscriber Number Group Number Insured Name Patient Relationship to Insured Coverage Start Date Coverage End Date [facility] [address] [place] [phone] [id number] NANETTE DOTSON Self - patient is the insured MEDICAL (GENERAL) HISTORY Medical History History ICD Code Anxiety Blood Transfusion (2) after childbirth Chicken Pox as a child Depression Fractures - Left Elbow, Left tibia Gallbladder Disease Bio Reflux Hypertension Migraines Wears glasses Surgical History Surgery Date(Month/Year) 2019 Cholecystectomy 2020 Appedectomy 2011 Left Elbow Surgery 2010 Brickeys Teeth Removed 2022 (2) CT-Scan - Lungs Normal 2021 MRI of the lungs - normal 2021 Hospitalization History Reason Date(Month/Year) COVID 2020 Post depression - 1 week 2021 2019
--- OUTSIDE RECORDS SUMMARY | 2024-06-01 12:49 | XMS_ITS | Clinical Summary ---
Author Organization [facility] Address [address] [place] [address] Phone Care Team Providers Care Radio Frequency Design Engineer Name Role Phone Matthias Chau MD Primary Care Provider [phone] Allergies Active Allergy Reactions Criticality Noted Date Comments Escitalopram Diarrhea,Dizziness,F lushing,Palpitatio ns,Other,Pain,Psychiatric,Unknown Medium 08/25/2022 Serotonin Unknown Medium 03/23/2022 Sertraline Diarrhea,Dizziness,F lushing,Palpitatio ns,Nausea Only,Pain Medium 04/08/2024 Medications benzonatate (TESSALON) 100 mg capsule Take 1 capsule (100 mg total) by mouth 3 (three) times a day if needed for cough. Do not crush or chew. 12 capsule 04/08/2024 Active Active Problems No known active problems Encounters Date Type Department Care Team Description 04/08/2024 12:08 PM EST - 04/08/2024 3:[address] [facility] Emergency [address] [place] [address] Viral syndrome (Primary Dx) Discharge Disposition: Home or Self Care from Last 3 Months Surgical History Surgery Date Site/Laterality Comments SECTION PROCEDURE: SECTION OTHER SURGICAL HISTORY 10/2019 PROCEDURE:miscarriage APPENDECTOMY PROCEDURE:APPENDECTOMY CHOLECYSTECTOMY 10/10/2020 N/A PROCEDURE:CHOLECYSTECTOMY;COMMENT:Aurelia morgandure: LAPAROSCOPY CHOLECYSTECTOMY; Surgeon: Justin Shepard MD; Location: [facility]; Service: General; Laterality: N/A; Medical [...] COVID-19 Vaccine ( season) 2023 Influenza Vaccine (Season Ended) 2024 12/09/2020 HIB Vaccines Aged Out No longer [...] age to complete this topic Meningococcal B Vaccine Aged Out No l onger eligible based on patient's age to complete [...] Procedure Name Priority Date/Time Associated Diagnosis Comments [id number], RSV, FLU A AND B QUALITATIVE RT-PCR, INTERNAL LAB STAT 04/08/2024 11:25 AM EST from Last 3 Months Results * [id number], RSV, Influenza A and B qualitative RT-PCR (04/08/2024 11:25 AM EST) Influenza A PCR Not Detected Not Detected LAB MICROBIOLOGY METHOD 04/08/2024 12:55 PM EST [facility] Influenza B PCR Not Detected Not Detected LAB MICROBIOLOGY METHOD 04/08/2024 12:55 PM EST [facility] RSV PCR Not Detected Not Detected LAB MICROBIOLOGY METHOD 04/08/2024 12:55 PM EST [facility] SARS COV-2 Not Detected Not Detected LAB MICROBIOLOGY METHOD 04/08/2024 12:55 PM EST [facility] Swab Both anterior nares / Unknown Non-blood Collection / Unknown 04/08/2024 11:25 AM EST 04/08/2024 11:58 AM EST Narrative [facility] - 04/08/2024 12:55 PM EST Disclaimer: ??Testing was performed using the [employer] GeneXpert Xpress SARS-CoV-2 _Flu_RSV PLUS PCR assay. [...] for Healthcare providers can be found at https://www.fda.gov/media/152121/download. ?? Fact sheet for Healthcare patients can be found at https://www.fda.gov/media/848094/download. us Holger Torres MD LAB MICROBIOLOGY - GENERA L ORDERABLES Final Result [facility] [address] [place] [address], from Last 3 Months Insurance [place]ICA[place] - [place] [facility] Care Teams Radio Frequency Design Engineer Relationship Specialty Start Date End Date Matthias Chau MD [address] [place] [phone] PCP - General 05/13/22
--- OUTSIDE RECORDS SUMMARY | 2024-06-01 12:50 | XMS_ITS | Encounter Summary ---
Author Organization [facility] Address [address] [place] [address] Care Team Providers Care Ticket Dispatcher Name Role Phone Matthias Chau MD Primary Care Provider [phone] Encounter Details Date Type Department Care Team (Late st Contact Info) Description 08/22/2022 Scanned Document [facility] Department of Internal Medicine & Nephrology [place] [address] [address] Matthias Chau MD 85 [facility] [address] [place], [place] [id number] Social History Tobacco Use Types Packs/Day Years [...] on filedocumented in this encounter Care Teams Ticket Dispatcher Relationship Specialty Start Date End Date Matthias Chau MD [address] [address] PCP - General Nephrology 04/24/22 documented as of this encounter
[2024-06-01 14:30] LABS: MANUAL DIFF FLAG NO
[2024-06-01 14:34] LABS: Basophils Absolute Auto 0.1 X10*3/uL (0.0-0.2); Basophils Percent Auto 0.8 % (0-2); Eosinophils Absolute Auto 0.5 X10*3/uL (0.0-0.4); Eosinophils Percent Auto 7.7 % (0-4); Hematocrit 40.1 % (37.0-47.0); Hemoglobin 13.8 g/dl (12.0-16.0); Imm Gran Abs Auto 0.02 X10*3/uL (0.00-0.03); Imm Gran Pct Auto 0.3 % (0.0-0.4); Lymphocytes Absolute Auto 2.3 X10*3/uL (1.2-4.9); Lymphocytes Percent Auto 37.1 % (20-40); Mean Corpuscular HGB Conc 34.4 g/dl (31.0-35.0); Mean Corpuscular Hemoglobin 29.1 pg (27.0-33.0); Mean Corpuscular Volume 84.6 fL (80.0-98.0); Mean Platelet Volume 9.1 fL (9.4-12.3); Monocytes Absolute Auto 0.4 X10*3/uL (0.1-1.2); Monocytes Percent Auto 6.6 % (2-11); Neutrophils Percent Auto 47.5 % (45-73); Platelet Count 261 X10*3/uL (160-400); Red Blood Count 4.74 X10*6/uL (4.20-5.50); White Blood Count 6.3 X10*3/uL (4.8-10.8)
[2024-06-01 14:48] LABS: Estimated Average Glucose 108 mg/dL; Hemoglobin A1C 128.9253 umol/L; Hemoglobin A1c % 5.4 % (<6.0); Total Hemoglobin (HGBA1C) 3623.3872 umol/L
[2024-06-01 14:59] LABS: Appearance Urine Turbid; Color Urine Yellow; Glucose Urine UA Negative (Negative); Leukocyte Esterase Urine Negative (Negative); Nitrite Urine Negative (Negative); Specific Gravity - Urine >= 1.030 (1.005-1.025); Urine Blood Negative (Negative); Urine Ketones Negative (Negative); Urine Protein Negative (Neg-Trace)
[2024-06-01 15:22] LABS: Folate 15.2 ng/mL (> or = 4.0); Vitamin B12 660 pg/mL (200-900)
[2024-06-01 15:34] LABS: Alanine Aminotransferase 23 U/L (0-31); Albumin Level 4.3 g/dL (3.5-5.0); Anion Gap 10 (12-20); Aspartate Amino Transferase 26 U/L (5-31); Bilirubin Total 0.5 mg/dL (0.0-1.0); Blood Urea Nitrogen 16 mg/dL (9-16); Calcium 9.2 mg/dL (8.4-10.2); Carbon Dioxide 26 mmol/L (22-29); Chloride 107 mmol/L (96-108); Cholesterol 183 mg/dL (<200); Estimated Glomerular Filt Rate > 60; Glucose Fasting 104 mg/dL (60-99); HDL Cholesterol 42 mg/dL (>40); LDL Cholesterol Calculated 122 mg/dL (<100); Potassium 4.1 mmol/L (3.3-5.1); Sodium 139 mmol/L (135-145); TSH reflex Free T4 1.12 uIU/mL (0.32-4.0); Total Protein 7.2 g/dL (6.5-8.0); Triglycerides 99 mg/dL (<150)
[2024-06-01 19:10] LABS: Alkaline Phosphatase 96 U/L (39-117)
== END 2024-06-01 11:53 | disposition home or self-care (01) ==
LOC: HO.WFDLDS 11:52
PROVIDERS: Visit Provider Physician Assistant
DX: Z00.00 Encounter for general adult medical examination without abnormal findings (principal); R73.01 Impaired fasting glucose; E66.9 Obesity, unspecified; Z13.220 Encounter for screening for lipoid disorders
CPT/HCPCS: 36415; 80053; 80061; 81003; 82607; 82746; 83036; 84443; 85025

== ENCOUNTER 2024-07-26 11:06 | Outpatient (AMB) | payer BC, MEDICAID, SELFPAY ==
[2024-07-26 11:13] VITALS: BMI 36.1
--- NOTE | 2024-07-26 11:13 | A.OFFVIS_ITS ---
VS Expanded 07/26/24 11:13 Height 5 ft 3 in Weight 203 lb 14.841 oz BMI 36.1 Intake Visit Reasons: Obesity Allergies SSRI Adverse Reaction (Mild, Uncoded 05/14/24 10:46) Seratonin syndrome Nutrition Presentation Details: Pt presents for MNT for obesity has a 2 1/2 yr child ,reports mindful of including protein foods. Lately increasing on empty melida foods, d/t fam vacation. HAs a workout video, 3x/wk 12-1 : 3 eggs with cottage ches and slice of bread with pineapple 7 pm pene soup ( carrots/giner/garlic , pasta , bone broth 9 pm bag of popcorn , ice cream BS Monitoring Most Recent Diabetes Results: Cholesterol, (<200) 183 mg/dL 06/01/24 HDL Cholesterol, (>40) 42 mg/dL 06/01/24 Triglycerides, (<150) 99 mg/dL 06/01/24 Creatinine, (0.5-1.4) 1.01 mg/dL 06/01/24 BUN, (9-16) 16 mg/dL 06/01/24 Sodium, (135-145) 139 mmol/L 06/01/24 Potassium, (3.3-5.1) 4.1 mmol/L 06/01/24 Chloride, (96-108) 107 mmol/L 06/01/24 Carbon Dioxide, (22-29) 26 mmol/L 06/01/24 Calcium, (8.4-10.2) 9.2 mg/dL 06/01/24 AST, (5-31) 26 U/L 06/01/24 ALT, (0-31) 23 U/L 06/01/24 Total Protein, (6.5-8.0) 7.2 g/dL 06/01/24 Albumin, (3.5-5.0) 4.3 g/dL 06/01/24 [facility] Medical History (Updated 06/21/24 @ 14:32 by Mabel Lyons MD) Hypotension, unspecified Depression Anxiety Imbalance Tremors of nervous system Acid reflux Palpitations High blood pressure Sinusitis delivery delivered Elbow injury Surgical History [place] teeth extracted Hx of cholecystectomy Hx of appendectomy Family History Father Asthma Maternal Grandmother High blood pressure Diabetes Paternal Grandfather High blood pressure Cardiovascular system problem Brother Asthma Social History Household Members: Family Housing: Apartment Are you a primary acute care nurse to a significant other at home: Yes Alcohol intake: never Patient Tobacco Use Status: Never used Tobacco e-Cigarette/Vaping Use: Never Used Special valentin needs: Yes service: No Current occupational status: 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 Cognitive needs: No Hearing needs: No (patient is having tinnitis.) Vision needs: Yes (patient wears glasses) Assessment & Plan Assessment & Plan (1) Obesity (BMI 35.0-39.9 without comorbidity): Code(s): E66.9 - Obesity, unspecified Category: Medical Plan: Wt: 89 Kg ( 06/08 , 93 kg (08/08 - reports fam ramo) Est kcal needs as per MSJ: 5490-4833 (40% carb, 30% protein/fat) Est fluid needs as per 25-30 ml/d: 2600 Est prot per day as per 1 g/kg bw: 90 Recommend fiber intake : 8-10 g per day and gradually increase to 25-28 g per day for women and 35-38 g for men or as tolerated Recommend sodium intake per day : less than 2000 mg Educated patient on: ( R = reviewed V = verbalizes understanding N/R = needs review N/A = not applicable * Food sources of carbohydrate, adequate serving sizes and its role in various health conditions: R V N/R * Differences between complex carbohydrates a simple carbohydrates, role of fiber in diet: R * Lean protein sources of foods: R * Differences between types of fats and role in diet (mono on saturated fat fatty acids, saturated fatty acids, trans fats): R V N/R * Food sources of sodium in salt and healthy modifications for heart health in kidney health: R V R/V * Vitamins and minerals: R V N/R * Healthy plate method concept: R V N/R * Physical activity: Benefits a precaution: R V N/R Patient Instructions: * Opt for yogurt in place of ice cream as bedtime snack- limit serving size to 1 cup Coding Level of Care Code Nutr Indiv Subseq (86075) Diagnoses Obesity (BMI 35.0-39.9 without comorbidity) E66.9 Time Spent (min) 20
--- OUTSIDE RECORDS SUMMARY | 2024-07-26 13:02 | XMS_ITS | Encounter Summary ---
Author Organization [facility] Address [address] [place] [address] Care Team Providers Care Shut Off Worker Name Role Phone Unknown Primary Care Provider [phone] Clair Elaine MD Primary Care Provider [phone] Clair Lawson MD Primary Care Provider [phone] Bailey Gan MD Primary Care Provider [phone] Matthias Chau MD Primary Care Provider [phone] Encounter Details Date Type Department Care Team (Late st Contact Info) Description 01/17/2018 Prep for Surgery OBGYN IP [address] [place] [id number] Nehal Roberts MD [address] [place] [address] [id number] Dichorionic diamniotic twin in third trimester (Primary [...] documented as of this encounter Care Teams Shut Off Worker Relationship Specialty Start Date End Date Unknown Unknow Provider Address PCP - General 01/23/18 02/11/18 Clair Elaine MD [address] [place] [address] PCP - General Obstetrics and Gynecology 02/12/1802/14 Clair Lawson MD [address] [place] [address] PCP - General 03/01/21 04/02/22 Bailey Gan MD [address] [place] [address] PCP - General Family Medicine 04/03/22 04/23/22 Matthias Chau MD [address] [facility] [address] [place] [address] PCP - General Nephrology 04/24/22 documented as of this encounter
== END 2024-07-26 11:34 | disposition home or self-care (01) ==
LOC: HO.ENCR 11:07
PROVIDERS: PCP Family Medicine; Visit Provider Dietitian, Registered
DX: E66.9 Obesity, unspecified (principal)

== ENCOUNTER → 2024-07-26 11:06 | Outpatient (BNVA) | payer BC, MEDICAID, SELFPAY | PROVIDERS: PCP Family Medicine; Visit Provider Dietitian, Registered | DX: Z71.3 Dietary counseling and surveillance (principal); E66.812 Obesity, class 2; Z68.35 Body mass index [BMI] 35.0-35.9, adult | CPT/HCPCS: 97803 ==

== ENCOUNTER 2024-08-08 08:45 | Outpatient (AMB) | payer BC, MEDICAID, SELFPAY ==
--- NOTE | 2024-08-08 08:52 | A.OFFPC_ITS ---
Vital Signs 08/08/24 08:53 08/08/24 08:58 Height 5 ft 3 in 5 ft 3 in Weight 205 lb 6 oz 206 lb BMI 36.4 36.5 BP 128/84 Blood Pressure Location Lt brachial Position Sitting Respiration 14 Pulse 84 Pulse Source Pulse Oximeter Temp 98.5 F Temp Source Oral Pulse Oximetry (%) 98 Oxygen Delivery Method Room Air Intake Visit Reasons: bloodwork follow up/cancer concerns Intake Note: Discuss lab results Dairy Helper Required: No Allergies SSRI Adverse Reaction (Mild, Uncoded 08/08/24 08:53) Seratonin syndrome Tobacco use date assessed: 08/08/24 Dental Screening Dental Screen Date: 04/05/24 HPI bloodwork follow up/cancer concerns HPI Details Patient is a 33-year-old female who presents today for a f/u. She has been following with a dietitian to see if that will help her with weight loss. She would be open to an injectable if her insurance covers it and if she is unable to do this with lifestyle modifications. GI: She has a history of a cholecystectomy. She states that sometimes after she eats she gets pain in her right upper quadrant. She states she thinks it could be related to heartburn but she wants to make sure everything is okay with her liver. No nausea, vomiting, diarrhea or constipation. No weight loss. No fever, chills, night sweats or swollen lymph nodes. CV: She does have a history of hypertension and is on 60 mg of propranolol which helps her blood pressure obviously and her anxiety and depression. She states that in the past she has tried other beta-blockers and was intolerant. She tried diuretics but had severe hypokalemia with diuretics and states that it did not control her tachycardia. She was ruled out for POTS. She says that she had a full cardiac workup within the last couple years Dr. Giraldo. She had a tilt- table test, echo, stress test, Holter monitor and numerous EKGs. In the he she states it is when she gets her symptoms. She states it feels like a chest tightness/pressure. She does not have any wheezing but does wonder if she could have asthma. She did have PFTs ordered by Neurology last fall but never heard anything. Psych: Follows with psychiatry and is currently managed with the mirtazapine. Feels well. No SI/HI. Neuro: Migraines are managed with ubrevly, riboflavin, magnesium and sumatriptan as needed. CYLINDER DEVALVER: Up-to-date with routine care. Has 5 children ages 10-2. [facility] Medical History (Updated 08/08/24 @ 09:14 by Jacqueline Walters PA-C) Hypotension, unspecified Depression Anxiety Imbalance Tremors of nervous system Acid reflux Palpitations High blood pressure Sinusitis delivery delivered Elbow injury Surgical History [place] teeth extracted Hx of cholecystectomy Hx of appendectomy Family History (Updated 08/08/24 @ 08:57 by Teresa Barrientos CMA) Father Asthma Maternal Grandmother High blood pressure Diabetes Paternal Grandfather High blood pressure Cardiovascular system problem Brother Asthma Other Depression FH: mental illness Schizophrenia Social History (Updated 08/08/24 @ 08:56 by Teresa Barrientos CMA) Household Members: Family Housing: Apartment Are you a primary overnight caregiver to a significant other at home: Yes Alcohol intake: former Comment: Last drink was a year ago Patient Tobacco Use Status: Never used Tobacco e-Cigarette/Vaping Use: Never Used Special valentin needs: Yes service: No Current occupational status: 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 Cognitive needs: No Hearing needs: No (patient is having tinnitis.) Vision needs: Yes (patient wears glasses) Questionnaire Thrive Questionnaire Date Thrive assessed: 04/05/24 I am a: Patient What is your living situation today?: I have a steady place to live Within the past 12 months, did the food you bought not last and you didn't have the money to get more?: Never true Within the past 12 months, did you worry whether your food would run out before you got money to buy more?: Never true Do you have trouble paying for medicines?: No Do you have trouble getting transportation to medical appointments?: No Do you have trouble paying your heating and electricity bill?: No Do you have trouble taking care of your child, family member or friend?: No Do you have trouble with day-to-day activities such as bathing, preparing meals, shopping, managing finances, etc.?: No Are you currently unemployed and looking for a job?: No Are you interested in more education?: No Please select the resources that you would like help with: None THRIVE Score: 0 AUDIT C Alcohol Use Questionnaire (AUDIT-C) 1. How often do you have a drink containing alcohol?: Never 3. How often do you have six or more drinks on one occasion?: Never Total Score: 0 LEILANI-7 AMB Questionnaire LEILANI-7 Date LEILANI - 7 assessed: 03/04/23 Source: Developed by Drs. Devin Larson, Kimmy Grijalva, Francisco Park and colleagues, with an educational maggi from [employer]. Physical exam (Primary Care) Vital Signs: Last Vital Signs Temp 98.5 F 08/08/24 08:58 Pulse 84 08/08/24 08:58 Resp 14 08/08/24 08:58 BP 128/84 08/08/24 08:58 Pulse Ox 98 08/08/24 08:58 Oxygen Delivery Method Room Air 08/08/24 08:58 BMI result Body Mass Index 36.5 Tobacco/Smoking Status: Tobacco use Status Tobacco use date assessed 08/08/24 08/08/24 08:59 Patient Tobacco Use Status Never used Tobacco 08/08/24 08:59 e-Cigarette/Vaping Use Never Used 08/08/24 08:59 Thrive Assessment: Date of Thrive Assessment Date Thrive assessed 04/05/24 08/08/24 08:59 Const Orientation/consciousness: patient oriented x3 HENMT Ears: hearing grossly normal bilaterally Neck Thyroid: Thyroid normal Lymphatic: no lymphadenopathy noted Resp Auscultation: clear to auscultation bilaterally Cardio Rate: regular rate Rhythm: regular rhythm Heart sounds: S1 normal heart sound present and S2 normal heart sound present GI Inspection: Yes normal to inspection Palpation (GI): Soft to palpation and Other GI palpation findings present (nontender, no cva tenderness) Auscultation: normoactive bowel sounds Rectal Exam - Female: deferred Skin General skin exam: no rashes or lesions noted Neuro General: patient oriented x3, gait normal and no focal motor deficits Results Reviewed Results Reviewed: Laboratory Tests 06/01/24 11:54 WBC 6.3 RBC 4.74 Hgb 13.8 Hct 40.1 Plt Count 261 Sodium 139 Potassium 4.1 Chloride 107 Carbon Dioxide 26 Anion Gap 10 L BUN 16 Creatinine 1.01 Estimated GFR > 60 Hemoglobin A1c % 5.4 Calcium 9.2 Total Bilirubin 0.5 AST 26 ALT 23 Alkaline Phosphatase 96 Total Protein 7.2 Albumin 4.3 Triglycerides 99 Cholesterol 183 LDL Cholesterol, Calc 122 H HDL Cholesterol 42 Vitamin B12 660 Folate 15.2 TSH 1.12 Coding Level of Care Code Est Pt Level 4 (77736) Complex EM visit Add On G2211 Diagnoses High blood pressure I10 Obesity (BMI 35.0-39.9 without comorbidity) E66.9 RUQ pain R10.11 Chest tightness R07.89 Assessment & Plan Assessment & Plan (1) High blood pressure: Code(s): I10 - Essential (primary) hypertension Category: Medical Plan: Continue current regimen (2) Obesity (BMI 35.0-39.9 without comorbidity): Code(s): E66.9 - Obesity, unspecified Category: Medical Plan: Continue with dietitian. She will let me know if her insurance covers any of the GLP1 (3) RUQ pain: Code(s): R10.11 - Right upper quadrant pain Plan: Abdominal ultrasound ordered Labs ordered Abdominal exam benign (4) Chest tightness: Code(s): R07.89 - Other chest pain Category: Medical Plan: Chest x-ray and PFTs ordered Orders: Orders XR chest 2V Today R07.89 - Other chest pain PFT pulmonary function test Today R07.89 - Other chest pain Basic Metabolic Panel Today E66.9 - Obesity, unspecified, I10 - Essential (primary) hypertension Hemoglobin A1c Today E66.9 - Obesity, unspecified, I10 - Essential (primary) hypertension, R73.01 - Impaired fasting glucose Liver Panel Today E66.9 - Obesity, unspecified, I10 - Essential (primary) hypertension Complete Blood Count Auto Diff Today E66.9 - Obesity, unspecified, I10 - Essential (primary) hypertension Vitamin D 25-OH Total Today E66.9 - Obesity, unspecified, I10 - Essential (sofia clyde) hypertension US abdomen complete Today R10.11 - Right upper quadrant pain
[2024-08-08 08:53] VITALS: BMI 36.4
[2024-08-08 08:58] VITALS: BP 128/84; PULSE 84; RESP 14; TEMP 36.9; O2SAT 98; BMI 36.5
--- OUTSIDE RECORDS SUMMARY | 2024-08-08 09:16 | XMS_ITS | Encounter Summary ---
Author Organization [facility] Address [address] [place] [address] Care Team Providers Care Pig Machine Supervisor Name Role Phone Unknown Primary Care Provider [phone] Clair Elaine MD Primary Care Provider [phone] Clair Lawson MD Primary Care Provider [phone] Bailey Gan MD Primary Care Provider [phone] Matthias Chau MD Primary Care Provider [phone] Encounter Details Date Type Department Care Team (Late st Contact Info) Description 01/17/2018 Prep for Surgery OBGYN IP [address] [place] [phone] Nehal Roberts MD [address] [place] [address] [id number] Dichorionic diamniotic twin in third trimester (Primary [...] documented as of this encounter Care Teams Pig Machine Supervisor Relationship Specialty Start Date End Date Unknown Unknow Provider Address PCP - General 01/23/18 02/11/18 Clair Elaine MD [address] [place] [address] PCP - General Obstetrics and Gynecology 02/12/1802/14 Clair Lawson MD [address] [place] [address] PCP - General 03/01/21 04/02/22 Bailey Gan MD [address] [place] [address] PCP - General Family Medicine 04/03/22 04/23/22 Matthias Chau MD [address] [facility] [address] [place] [address] PCP - General Nephrology 04/24/22 documented as of this encounter
== END 2024-08-08 09:27 | disposition home or self-care (01) ==
LOC: HO.HMCFM 08:46
PROVIDERS: PCP Physician Assistant; Visit Provider Physician Assistant
DX: I10 Essential (primary) hypertension (principal); E66.9 Obesity, unspecified; Z68.36 Body mass index [BMI] 36.0-36.9, adult; R10.11 Right upper quadrant pain; R07.89 Other chest pain

== ENCOUNTER → 2024-08-08 08:45 | Outpatient (BNVA) | payer BC, MEDICAID, SELFPAY | PROVIDERS: PCP Physician Assistant; Visit Provider Physician Assistant | DX: Z13.89 Encounter for screening for other disorder (principal) ==

== ENCOUNTER 2024-08-13 09:29 | Outpatient (AMB) | payer BC, MEDICAID, SELFPAY ==
--- NOTE | 2024-08-13 09:32 | A.OFFVIS_ITS ---
Vital Signs 08/13/24 09:36 Height 5 ft 3 in Weight 205 lb 4 oz BMI 36.4 BP 124/80 Blood Pressure Location Rt brachial Position Sitting Pulse 73 Pulse Source Pulse Oximeter Pulse Oximetry (%) 98 Oxygen Delivery Method Room Air Intake Visit Reasons: 3 MO FU Intake Note: Patient presents follow up migraine. tilt table booked 08/01(records requested from [facility]). Patient states occasional mild headaches that wake her up at night. Also, 2-3 days per month around her menstrual cycle and will increase water intake and usually will go away. Last week she had an odd experiance as she has pulsating sensation(painful behind lft ear). Allergies SSRI Adverse Reaction (Mild, Uncoded 08/08/24 08:53) Seratonin syndrome HPI Comments Details: 33 year old r. handed female with h/o menstrual headaches presents for Sleep Study f/u. PSG not significant for sleep apnea AHI was 4 and Oxygen was 89% with fragmented sleep and frequent arousals and decreased REM. PMH included anemia, depression, headache. GERD, HTN, PCOS, pre- eclampsia. She continues to have vertigo, nausea, dizziness, and tremors, she takes Propanolol ER 60mg PO and this subsides. Tilt table 01 August [facility]- no findings, normal study. Still fatigued in the morning especially. She has 5 children ages 10, 8, 5x2 twins, and 2 years old. She says her headaches have improved with Propanolol, vt. b2, magnesium, and beet root for COq10, karla-d-chiro inositol, for PCOS regulation along with the symptoms of mood irritability. Migraines only when sleeping and on the L. side above the eye down to the left side of the ear, 2-3 days per month migraines, go away with hydration? 80 ounces 120 ounces of water daily. Now migraines are with tingling and tinnitus in ears bilaterally - left>Right L. ear pulsation painful, sharp twinge, random, lasting seconds and can last for a few, if she turns her head to the left, will twinge. This occurs when not hydrated well, will push fluids and it goes away. Vertigo is worse with bright lights like in [employer], eyes feel like in a fishbowl. She has bruxism, needs a mouth guard, as she notes the headaches due to grinding her teeth radiates down her neck lasting 5-10min and goes away. Her mood is stable, mirtazapine is working well for her anxiety, cross stitching and working in her garden. [facility] Medical History Hypotension, unspecified Depression Anxiety Imbalance Tremors of nervous system Acid reflux Palpitations High blood pressure Sinusitis delivery delivered Elbow injury Surgical History [place] teeth extracted Hx of cholecystectomy Hx of appendectomy Family History Father Asthma Maternal Grandmother High blood pressure Diabetes Paternal Grandfather High blood pressure Cardiovascular system problem Brother Asthma Other Depression FH: mental illness Schizophrenia Social History Household Members: Family Housing: Apartment Are you a primary daycare teacher to a significant other at home: Yes Alcohol intake: former Comment: Last drink was a year ago Patient Tobacco Use Status: Never used Tobacco e-Cigarette/Vaping Use: Never Used Special valentin needs: Yes service: No 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 occupational status: 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 Cognitive needs: No Hearing needs: No (patient is having tinnitis.) Vision needs: Yes (patient wears glasses) Physical Exam Vital Signs: Last Vital Signs Pulse 73 08/13/24 09:36 BP 124/80 08/13/24 09:36 Pulse Ox 98 08/13/24 09:36 Oxygen Delivery Method Room Air 08/13/24 09:36 BMI result Body Mass Index 36.4 Const General: no acute distress Orientation/consciousness: patient oriented x3 HEENT Other: Mallampati stage IV Eyes Pupils: Equal, round and reactive pupils present Resp Effort & Inspection: able to speak in complete sentences Cardio Rate: regular rate Rhythm: regular rhythm Neuro General: patient oriented x3 and moves all extremities Cranial nerves: Yes Facial sensation intact/muscles of mastication intact, Yes Equal, round and reactive pupils present, Yes Normal facial strength present, Yes Midline tongue present, Yes Ability to bilaterally rotate head present and Yes Ability to bilaterally elevate shoulders present Gait exam (Neuro): Normal gait present Motor exam (neuro): 5/5 motor strength present throughout and Normal motor muscle tone present throughout Psych Appearance: grossly normal Thought process: Normal thought process present Thought content: Normal thought content present Results Reviewed Results Reviewed: Tilt table test July 2024 Assessment & Plan Assessment & Plan (1) Bruxism (teeth grinding): Code(s): F45.8 - Other somatoform disorders Category: Medical (2) Balance problem due to vestibular dysfunction: Code(s): H81.90 - Unspecified disorder of vestibular function, unspecified ear Category: Medical Qualifiers: Laterality: bilateral Qualified Code(s): H81.93 - Unspecified disorder of vestibular function, bilateral (3) Acute onset aura migraine: Comment: wear orange shaded migraine glasses when in public places with bright lights. Code(s): G43.109 - Migraine with aura, not intractable, without status migrainosus Category: Medical Qualifiers: Status migrainosus presence: without status migrainosus Intractability: intractable Qualified Code(s): G43.119 - Migraine with aura, intractable, without status migrainosus (4) Excessive daytime sleepiness: Code(s): G47.19 - Other hypersomnia Category: Medical Plan Anxiety continue Mirtazapine 30mg po at bedtime. Dentistry referral for Bruxism oral mouth appliance evaluation. Results of Tilt Table test reviewed with patient, normal study. Continue B2 400mg po daily and Magnesium 400mg PO daily at bedtime. PT for vestibular function disorder with balance, gait difficulties due to vertigo. Start wearing orange shaded migraine glasses when in public places with bright lights. F/U in 3 months Orders: Orders PT Evaluation and Treatment Today H81.90 - Unspecified disorder of vestibular function, unspecified ear Referrals Dentistry Referral F45.8 - Other somatoform disorders Patient Instructions: Sleep Hygiene provided: set a scheduled bedtime and wake time to help regulate the circadian rhythm and balance the release of pituitary hormones. Sleep in a dark room, temperatures below 68 degrees, and no devices n bed. Limit caffeinated products 6 hours prior to bed, and limit fluids 2-4 hours prior to bed. Gentle night yoga, diffusing essential oils, and playing soft music can be relaxing. Coding Level of Care Code Est Pt Level 4 (29824) Diagnoses Bruxism (teeth grinding) F45.8 Balance problem due to vestibular dysfunction of both ears H81.93 Laterality: bilateral Intractable migraine with aura without status migrainosus G43.119 Status migrainosus presence: without status migrainosus Intractability: intractable Excessive daytime sleepiness G47.19 Time Spent (min) 30 Comment Improving
[2024-08-13 09:36] VITALS: BP 124/80; PULSE 73; O2SAT 98; BMI 36.4
--- OUTSIDE RECORDS SUMMARY | 2024-08-13 09:49 | XMS_ITS | Encounter Summary ---
Author Organization [facility] Address [address] [place] [address] Care Team Providers Care Manager Estate Name Role Phone Unknown Primary Care Provider [phone] Clair Elaine MD Primary Care Provider [phone] Clair Lawson MD Primary Care Provider [phone] Bailey Gan MD Primary Care Provider [phone] Matthias Chau MD Primary Care Provider [phone] Encounter Details Date Type Department Care Team (Late st Contact Info) Description 01/17/2018 Prep for Surgery OBGYN IP [address] [place] [phone] Nehal Roberts MD [address] [place] [address] [phone] Dichorionic diamniotic twin in third trimester (Primary [...] documented as of this encounter Care Teams Manager Estate Relationship Specialty Start Date End Date Unknown Unknow Provider Address PCP - General 01/23/18 02/11/18 Clair Elaine MD [address] [place] [address] PCP - General Obstetrics and Gynecology 02/12/1802/14 Clair Lawson MD [address] [place] [address] PCP - General 03/01/21 04/02/22 Bailey Gan MD [address] [place] [address] PCP - General Family Medicine 04/03/22 04/23/22 Matthias Chau MD 85 [facility] [address] [place] [address] PCP - General Nephrology 04/24/22 documented as of this encounter
== END 2024-08-13 10:16 | disposition home or self-care (01) ==
LOC: HO.HSMS 09:30
PROVIDERS: PCP Family Medicine; Visit Provider Physician Assistant Medical
DX: F45.8 Other somatoform disorders (principal); H81.93 Unspecified disorder of vestibular function, bilateral; G43.119 Migraine with aura, intractable, without status migrainosus; G47.19 Other hypersomnia
CPT/HCPCS: 99214

== ENCOUNTER 2024-09-24 08:36 | Outpatient (REF) | payer BC, MEDICAID, SELFPAY ==
--- OUTSIDE RECORDS SUMMARY | 2024-09-24 08:53 | XMS_ITS | Clinical Summary ---
Author Organization [facility] Address [address] [place] [address] Care Team Providers Care Event Specialist Product Demonstrator Name Role Phone Matthias Chau MD Primary Care Provider [phone] Allergies Active Allergy Reactions Criticality Noted Date Comments Seasonal 01/01/2021 Serotonin Reuptake Inhibitors (Ssris) 03/23/2022 Medications Medication Sig Dispensed Refills Start Date End Date Status Vit-Fe Fumarate-FA ( PO) Take by mouth daily as needed. Baby and me too 0 Active mirtazapine (REMERON) 15 MG tablet Take 1 tablet (15 mg total) by mouth every night at bedtime. 0 05/27/2022 Active [place]-3 Fatty Acids (Fish Oil) 1000 MG CAPS [...] 78 11/09/2022 10:05 AM EDT Temperature 36.7 C (98.1 F) 09/12/2022 5:25 PM EDT Respiratory Rate 20 09/12/2022 5:25 PM EDT [...] Advance Directives For more information, please contact: [phone] Latest Code Status on File Code Status [...] the following way: discussed . Care Teams Event Specialist Product Demonstrator Relationship Specialty Start Date End Date Matthias Chau MD [address] [address] PCP - General Adjunct Physical Education Instructor 05/13/22
--- OUTSIDE RECORDS SUMMARY | 2024-09-24 08:53 | XMS_ITS | Encounter Summary ---
Author Organization [facility] Address [address] [place] [address] Care Team Providers Care Cleaning Attendant Name Role Phone Unknown Primary Care Provider [phone] Clair Elaine MD Primary Care Provider [phone] Clair Lawson MD Primary Care Provider [phone] Bailey Gan MD Primary Care Provider [phone] Matthias Chau MD Primary Care Provider [phone] Encounter Details Date Type Department Care Team (Late st Contact Info) Description 01/17/2018 Prep for Surgery OBGYN IP [address] [place] [phone] Nehal Roberts MD [address] [place] [address] [phone] Dichorionic diamniotic twin in third trimester (Primary [...] documented as of this encounter Care Teams Cleaning Attendant Relationship Specialty Start Date End Date Unknown Unknow Provider Address PCP - General 01/23/18 02/11/18 Clair Elaine MD [address] [place] [address] PCP - General Obstetrics and Gynecology 02/12/1802/14 Clair Lawson MD [address] [place] [address] PCP - General 03/01/21 04/02/22 Bailey Gan MD [address] [place] [address] PCP - General Family Medicine 04/03/22 04/23/22 Matthias Chau MD 85 [facility] [address] [place] [address] PCP - General Nephrology 04/24/22 documented as of this encounter
--- OUTSIDE RECORDS SUMMARY | 2024-09-24 08:53 | XMS_ITS | Clinical Summary ---
Author Organization [facility] Address [address] [place] [address] Phone Care Team Providers Care Communication Manager Name Role Phone Matthias Chau MD Primary Care Provider [phone] Allergies Active Allergy Reactions Criticality Noted Date Comments Escitalopram Diarrhea,Dizziness,F lushing,Palpitatio ns,Other,Pain,Psychiatric,Unknown Medium 08/25/2022 Serotonin Unknown Medium 03/23/2022 Sertraline Diarrhea,Dizziness,F lushing,Palpitatio ns,Nausea Only,Pain Medium 04/08/2024 Medications benzonatate (TESSALON) 100 mg capsule Take 1 capsule (100 mg total) by mouth 3 (three) times a day if needed for cough. Do not crush or chew. 12 capsule 04/08/2024 Active Active Problems No known active problems Surgical History Surgery Date Site/Laterality Comments SECTION PROCEDURE: SECTION OTHER SURGICAL HISTORY 10/2019 PROCEDURE:miscarriage APPENDECTOMY PROCEDURE:APPENDECTOMY CHOLECYSTECTOMY 10/10/2020 N/A PROCEDURE:CHOLECYSTECTOMY;COMMENT:Pr ocedure: LAPAROSCOPY CHOLECYSTECTOMY; Surgeon: Justin Shepard MD; Location: [facility]; Service: General; Laterality: N/A; Medical [...] 76 04/08/2024 11:21 AM EST Temperature 37 C (98.6 F) 04/08/2024 11:21 AM EST Respiratory Rate 18 [...] Smear 2009 Cholesterol Screening (Lipid Panel) 01/17/2022 HIV Screening 01/17/2022 Hepatitis C Screening 01/17/2022 Social Influencers of Health Screening 01/17/2022 Hypertension/CHF/CAD Annual BMP Blood Test 08/23/2023 08/22/2022, 04/19/2022, 04/16/2022, Additional history exists COVID-19 Vaccine ( season) 2023 Depression Screening 02/15/2024 Influenza Vaccine (#1) 2024 12/09/2020 HIB Vaccines Aged Out No [...] 5 Years) and At-Risk Patients (6 to 49 Years) Aged Out No longer eligible based on patient's age to complete this topic RSV Immunization Patients Under 20 months Aged Out No longer eligible based on patient's age to complete this topic Varicella Vaccines Aged Out No longer eligible based on patient's age to complete this topic Insurance [place] - [place] [facility] ([facility]) Care Teams Communication Manager Relationship Specialty Start Date End Date Matthias Chau MD [address] [facility] [address] [place] [id number] PCP - General 05/13/22
--- OUTSIDE RECORDS SUMMARY | 2024-09-24 08:53 | XMS_ITS ---
Author Name [facility] Unknown History of Medication Use Medication Directions Dispensed Refills Start Date End Date Stat propranolol (INDERAL) 10 MG tablet Take 1 tablet (10 mg total) by mouth 3 (three) times a day. 10/12/2022 01/11/2023 active ibuprofen (MOTRIN) 600 MG tablet Take 600 mg by mouth 4 times daily (every 6 hours) as needed. for pain 09/12/2022 active ibuprofen 600 MG tablet Take 1 tablet (600 mg total) by mouth every 6 (six) hours as needed for pain. 09/12/2022 active lidocaine (LIDODERM) 5 % Place 1 patch onto the skin daily. Remove & Discard patch within 12 hours or as directed by MD 09/12/2022 active propranolol (INDERAL LA) 60 MG 24 hr capsule Take 1 capsule (60 mg total) by mouth daily. 08/25/2022 active clonazePAM (KlonoPIN) 0.5 MG tablet Take 0.5 tablets (0.25 mg total) by mouth daily. 08/23/2022 active amoxicillin (AMOXIL) 500 MG capsule Take 1 capsule (500 mg total) by mouth every 8 (eight) hours around the clock. 11/30/2021 11/30/2021 aborted diltiazem (CARDIZEM) 30 MG tablet Take 1 tablet (30 mg total) by mouth 3 (three) times a day. 03/04/2018 active hydrALAZINE (APRESOLINE) 25 MG tablet Take 0.5 tablets (12.5 mg total) by mouth every 8 (eight) hours around the clock. 03/04/2018 active None recorded. (No additional sig information) completed aspirin 81 mg tablet,delayed release TAKE 1 TABLET BY MOUTH EVERY DAY TAKE 1 TABLET BY MOUTH EVERY DAY completed clonazePAM (KlonoPIN) 0.5 MG tablet clonazepam 0.5 mg tablet TAKE 1 TABLET BY MOUTH EVERY DAY NEEDED FOR ANXIETY active clonazepam 0.5 mg tablet TAKE 1 TABLET BY MOUTH 2 TIMES A DAY. TAKE 1 TABLET BY MOUTH 2 TIMES A DAY. completed doxycycline (MONODOX) 100 MG capsule Take 1 capsule by mouth 2 (two) times a day. active Endometrin 100 mg vaginal insert INSERT 1 TAB VAGINALLY TWICE A DAY FOR 10 WEEKS INSERT 1 TAB VAGINALLY TWICE A DAY FOR 10 WEEKS completed esomeprazole magnesium 40 mg capsule,delayed release TAKE 1 CAPSULE BY MOUTH DAILY FOR 60 DAYS. TAKE 1 CAPSULE BY MOUTH DAILY FOR 60 DAYS. completed famotidine (PEPCID) 20 MG tablet famotidine 20 mg tablet TAKE 1 TABLET BY MOUTH EVERY DAY AT NIGHT active famotidine 20 mg tablet TAKE 1 TABLET BY MOUTH EVERY DAY AT NIGHT TAKE 1 TABLET BY MOUTH EVERY DAY AT NIGHT completed ondansetron HCl 4 mg tablet TAKE 1 TABLET BY MOUTH DAILY NEEDED FOR NAUSEA TAKE 1 TABLET BY MOUTH DAILY NEEDED FOR NAUSEA completed Vit-Fe Fumarate-FA ( PO) Take by mouth daily as needed. Baby and me too active propranolol (INDERAL) 10 MG tablet Take 1 tablet (10 mg total) by mouth 3 (three) times a day. active Allergies Allergen Reaction Severity Comment Documented Date Source Statu s ESCITALOPRAM PALPITATIONS 08/25/2022 [facility] act js SEROTONIN REUPTAKE INHIBITORS (SSRIS) UNKNOWN/PATIENT AND FAMILY UNABLE TO DEFINE 03/23/2022 [facility] active SEASONAL 01/01/2021 [facility] active LEXAPRO TACHYCARDIA [facility] SERTRALINE TACHYCARDIA [facility] Problems Problem Status Onset Date Problem Type Date of Resoluti on Source Acute cholecystitis active 2020-10-08 ProblemAct [facility] Gastroesophageal reflux disease without esophagitis active 2020-12-03 ProblemAct [facility] PTSD (post-traumatic stress disorder) active 2018-03-27 ProblemAct [facility] Preeclampsia active 2018-02-27 ProblemAct [facility] Post depression active 2022-02-19 ProblemAct [facility] Hypokalemia active 2020-12-03 ProblemAct [facility] Vascular abnormality of brain active 2022-08-22 ProblemAct [facility] Allergic rhinitis due to allergen active 2020-12-03 ProblemAct [facility] COVID-19 active 2022-04-13 ProblemAct [facility] S/P laparoscopic cholecystectomy active 2020-11-18 ProblemAct [facility] Anxiety and depression active 2020-05-20 ProblemAct [facility] Hypertension active 2022-10-02 ProblemAct [facility] Abdominal pain, epigastric active 2020-11-[address] Problem[address] [facility] [address] scan of head active 2022-08-22 ProblemAct [facility] Current mild episode of major depressive disorder active 2018-03-[address] [facility] History of gestational hypertension active 2020-07-28 ProblemAct [facility] Routine care active 2021-05-18 ProblemAct [facility] Hypertension active 2022-04-27 ProblemAct [facility] History of depression active 2018-07-14 ProblemAct [facility] Panic disorder without agoraphobia with mild panic attacks active 2018-03-27 ProblemAct [facility] Migraine active 2020-08-21 ProblemAct [facility] Immunizations Vaccine Date Source Lot Number Status Influenza Inactivated/Split Preservative Free IM 05/03/2022 [facility] completed Influenza Inactivated/Split Preservative Free IM 12/09/2020 [facility] completed Tdap 02/24/2018 [facility] completed Rho (D) Immune Globulin 02/22/2018 [facility] c ompleted Encounters Encounter Type Encounter Reason Primary Diagnosis Location Date Ambulatory Essential (primary) hypertension Essential (primary) hypertension [facility] 10/29/2022 Ambulatory [facility] 10/06/2022 Ambulatory Palpitations Palpitations [facility] 10/04/2022 Ambulatory Essential (primary) hypertension Essential (primary) hypertension [facility] 09/22/2022 Ambulatory Pain in unspecified joint Pain in unspecified joint [facility] 09/17/2022 Emergency Acute sinusitis, unspecified [facility] 09/12/2022 Ambulatory Essential (prima ry) hypertension [facility] 09/08/2022 Ambulatory Essential (prima ry) hypertension [facility] 08/25/2022 Inpatient Abnormal findings on diagnostic imaging of skull and head, not elsewhere classified Abnormal findings on diagnostic imaging of skull and head, not elsewhere classified [facility] 08/22/2022 Emergency Abnormal finding s on diagnostic imaging of skull and head, not elsewhere classified [facility] 08/22/2022 Ambulatory Essential (prima ry) hypertension [facility] 07/27/2022 Ambulatory [facility] 07/27/2022 Ambulatory Essential (prima ry) hypertension [facility] 07/07/2022 Ambulatory Essential (prima ry) hypertension [facility] 06/11/2022 Ambulatory [facility] 05/25/2022 Emergency Anxiety disorder , unspecified [facility] 04/26/2022 Emergency Tremor, unspecified [facility] 04/24/2022 Ambulatory Essential (prima ry) hypertension [facility] 04/23/2022 Emergency Anxiety disorder , unspecified [facility] 04/19/2022 Emergency Palpitations [facility] 04/09/2022 Emergency Tachycardia, unspecified [facility] 04/03/2022 Ambulatory [facility] 03/09/2022 Ambulatory [facility] 02/09/2022 Ambulatory [facility] 01/22/2022 Emergency HIGH BLOOD PRESSURE,POST LABOR HIGH BLOOD PRESSURE,POST LABOR [facility] 01/06/2022 Emergency High BP [facility] 01/06/2022 Ambulatory [facility] 01/04/2022 Inpatient PRE ECCLAMPSIA PRE ECCLAMPSIA [facility] 12/30/2021 Ambulatory [facility] 12/29/2021 Ambulatory [facility] 12/23/2021 Ambulatory [facility] 12/21/2021 Ambulatory [facility] 12[facility]21/2021 Ambulatory [facility] 12/21/2021 Ambulatory [facility] 12/14/2021 Ambulatory [facility] 12/07/2021 Ambulatory [facility] 11/30/2021 Ambulatory Acute sinusitis, unspecified [facility] 11/30/2021 Ambulatory [facility] 11/24/2021 Ambulatory [facility] 11/10/2021 Ambulatory [facility] 11/10/2021 Ambulatory [facility] 10/27/2021 Ambulatory [facility] 10[facility]15/2021 Ambulatory [facility] 09/01/2021 Ambulatory [facility] 08/11/2021 Ambulatory [facility] 07/14/2021 Ambulatory [facility] 06/16/2021 Ambulatory [facility] 05/26/2021 Ambulatory [facility] 05/19/2021 Ambulatory [facility] 05/07/2021 Emergency Anxiety disorder , unspecified [facility] 03/01/2021 Ambulatory [facility] 02/17/2021 Ambulatory [facility] 01/01/2021 Care Team Organization Name Specialty Phone Email Start Date End Da te [facility] 05/31/2023 024 [facility] 05/31/2023 024 [facility] 12/16/2022 024 [facility] 08/24/2022 [facility] 08/23/2022 [facility] 10/202208/22/2022 [facility] 08/22/2022 08/23/19 [facility] ZOLTAN WELCH Primary Care 04/26/2022 025 [facility] 04/24/2022 04/24/2022 [facility] BAILEY GARCIA Primary Care 04/09/202204/14 [facility] Bailey Garcia Primary Care 04/03/202203/17 [facility] 02/15/2022 10/03/2023 [facility] provided No Primary Care 01/15/2022 10/03/2023 [facility] MAY SOLANO Primary Care 01/06/2022 04/24/2024 [facility] 01/05/2022 [facility]. No provided Primary Care 12/30/2021 022 [facility] 12/30/202112/30 [facility] May Elaine MD Primary Care 03/01/20212021 [facility] May Solano Primary Care 03/01/2021 03/01/2021 [facility] 01/01/202101/04
[2024-09-24 11:29] LABS: MANUAL DIFF FLAG NO
[2024-09-24 11:33] LABS: Hematocrit 40.1 % (37.0-47.0); Hemoglobin 13.5 g/dl (12.0-16.0); Imm Gran Abs Auto 0.01 X10*3/uL (0.00-0.03); Imm Gran Pct Auto 0.1 % (0.0-0.4); Lymphocytes Absolute Auto 3.0 X10*3/uL (1.2-4.9); Mean Corpuscular HGB Conc 33.7 g/dl (31.0-35.0); Mean Corpuscular Hemoglobin 28.5 pg (27.0-33.0); Mean Corpuscular Volume 84.6 fL (80.0-98.0); NRBC Abs Auto 0.000 X10*3/uL (0.0-0.012); NRBC Pct Auto 0.0 /100WBC (0.0-0.2); Platelet Count 258 X10*3/uL (160-400); Red Blood Count 4.74 X10*6/uL (4.20-5.50); White Blood Count 7.5 X10*3/uL (4.8-10.8)
[2024-09-24 12:09] LABS: Alanine Aminotransferase 18 U/L (0-31); Albumin Level 4.4 g/dL (3.5-5.0); Alkaline Phosphatase 93 U/L (39-117); Anion Gap 12 (12-20); Aspartate Amino Transferase 21 U/L (5-31); Blood Urea Nitrogen 8 mg/dL (9-16); Calcium 8.9 mg/dL (8.4-10.2); Carbon Dioxide 26 mmol/L (22-29); Chloride 109 mmol/L (96-108); Estimated Glomerular Filt Rate > 60; Potassium 4.0 mmol/L (3.3-5.1); Sodium 143 mmol/L (135-145); Total Protein 6.9 g/dL (6.5-8.0)
[2024-09-24 12:29] LABS: Hemoglobin A1C 129.7114 umol/L; Total Hemoglobin (HGBA1C) 3561.8989 umol/L
== END 2024-09-24 08:37 | disposition home or self-care (01) ==
LOC: HO.WFDLDS 08:36
PROVIDERS: Visit Provider Physician Assistant
DX: I10 Essential (primary) hypertension (principal); E66.9 Obesity, unspecified; R73.01 Impaired fasting glucose
CPT/HCPCS: 36415; 80048; 80076; 82306; 83036; 85025

== ENCOUNTER 2024-09-28 08:17 | Outpatient (REF) | payer BC, MEDICAID, SELFPAY ==
--- NOTE | ~2024-09-28 | XR_ITS ---
EXAMINATION: XR CHEST CLINICAL INFORMATION: R07.89 - Other chest pain COMPARISON: None available. TECHNIQUE: 2 views of the chest were obtained. FINDINGS: Pulmonary reticular pattern. No consolidation pleural effusion or pneumothorax. Cardiomediastinal silhouette size is normal. No gross hyperinflation. Mild multilevel thoracic spondylosis. Mild kyphotic deformity mid thoracic spine. Vascular clips right upper quadrant abdomen and likely prior laparoscopic cholecystectomy. S-shaped curvature of the cervical thoracic spine. XR/XR chest 2V IMPRESSION: Posterior chronic interstitial lung disease without acute airspace disease. Superimposed acute small airway inflammatory process cannot be excluded. Electronically signed by: Son Lemos MD 09/28/2024 08:34 AM EDT
--- NOTE | ~2024-09-28 | US_ITS ---
EXAMINATION: US ABDOMEN HISTORY: R10.11 - Right upper quadrant pain TECHNIQUE: Real-time grayscale ultrasound imaging of the abdomen was performed and images were reviewed. COMPARISON: There are no prior studies available for comparison. FINDINGS: Liver: The right lobe of the liver measures 16.2 cm in size. The left lobe of the liver measures 8.8 cm in size. The liver demonstrates increased echotexture, consistent with steatosis. No focal mass or intrahepatic biliary ductal dilatation is identified. There is normal hepatopedal flow in the portal vein. Gallbladder and biliary tree: The gallbladder is surgically absent. The common bile duct is normal in caliber measuring 3 mm. Kidneys: The right kidney measures 10.2 cm in length. The left kidney measures 11.5 cm in length. The kidneys are unremarkable, without evidence of masses, hydronephrosis, or calculi. Pancreas: The pancreatic head, neck, and body are unremarkable. The pancreatic tail is obscured by bowel gas. Spleen: The spleen is normal in size and contour, measuring 11.7 cm in length. Abdominal aorta and inferior vena cava: The visualized portions of the abdominal aorta and inferior vena cava are normal in caliber. There is no free fluid in the abdomen. US/US abdomen complete IMPRESSION: Hepatic steatosis. Electronically signed by: Devin Pruett MD 09/28/2024 08:57 AM EDT
--- OUTSIDE RECORDS SUMMARY | 2024-09-28 08:20 | XMS_ITS | Encounter Summary ---
Author Organization [facility] Address [address] [place] [address] Care Team Providers Care Arabic Teacher Name Role Phone Unknown Primary Care Provider [phone] Clair Elaine MD Primary Care Provider [phone] Clair Lawson MD Primary Care Provider [phone] Bailey Gan MD Primary Care Provider [phone] Matthias Chau MD Primary Care Provider [phone] Encounter Details Date Type Department Care Team (Late st Contact Info) Description 01/17/2018 Prep for Surgery OBGYN IP [address] [place] [phone] Nehal Roberts MD [address] [place] [phone] Dichorionic diamniotic twin in third trimester (Primary [...] documented as of this encounter Care Teams Arabic Teacher Relationship Specialty Start Date End Date Unknown Unknow Provider Address PCP - General 01/23/18 02/11/18 Clair Elaine MD [address] [place] [address] PCP - General Obstetrics and Gynecology 02/12/1802/14 Clair Lawson MD [address] [place] [address] PCP - General 03/01/21 04/02/22 Bailey Gan MD [address] [place] [address] PCP - General Family Medicine 04/03/22 04/23/22 Matthias Chau MD 85 [facility] [address] [place] [address] PCP - General Nephrology 04/24/22 documented as of this encounter
--- OUTSIDE RECORDS SUMMARY | 2024-09-28 08:20 | XMS_ITS | Clinical Summary ---
Author Organization [facility] Address [address] [place] [address] Care Team Providers Care Clay Dry Press Mixer Operator Name Role Phone Matthias Chau MD Primary Care Provider [phone] Allergies Active Allergy Reactions Criticality Noted Date Comments Seasonal 01/01/2021 Serotonin Reuptake Inhibitors (Ssris) 03/23/2022 Medications Medication Sig Dispensed Refills Start Date End Date Status Vit-Fe Fumarate-FA ( PO) Take by mouth daily as needed. Baby and me too 0 Active mirtazapine (REMERON) 15 MG tablet Take 1 tablet (15 mg total) by mouth every night at bedtime. 0 05/27/2022 Active [place]-3 Fatty Acids (Fish Oil) 1000 MG CAPS [...] Advance Directives For more information, please contact: [phone] Latest Code Status on File Code Status [...] the following way: discussed . Care Teams Clay Dry Press Mixer Operator Relationship Specialty Start Date End Date Matthias Chau MD [address] [address] PCP - General Straddle Bug Driver 05/13/22
--- OUTSIDE RECORDS SUMMARY | 2024-09-28 08:20 | XMS_ITS | Clinical Summary ---
Author Organization [facility] Address [address] [place] [address] Phone Care Team Providers Care Meat Hanger Name Role Phone Matthias Chau MD Primary Care Provider [phone] Allergies Active Allergy Reactions Criticality Noted Date [...] LAPAROSCOPY CHOLECYSTECTOMY; Surgeon: Justin Shepard MD; [facility]; Service: General; Laterality: N/A; Medical [...] complete this topic [place] [facility] ([facility]) Care Teams Meat Hanger Relationship Specialty Start Date End Date Matthias Chau MD 85 [facility] [address] [place] [phone] PCP - General 05/13/22
== END 2024-09-28 08:18 | disposition home or self-care (01) ==
LOC: HO.US 08:17
PROVIDERS: PCP Physician Assistant; Visit Provider Physician Assistant
DX: R10.11 Right upper quadrant pain (principal); R07.89 Other chest pain
CPT/HCPCS: 71046; 76700

== ENCOUNTER → 2024-09-28 08:21 | Outpatient (BNV) | payer BC, MEDICAID, SELFPAY | PROVIDERS: PCP Physician Assistant; Visit Provider Radiology Diagnostic Radiology | DX: K76.0 Fatty (change of) liver, not elsewhere classified (principal); J84.9 Interstitial pulmonary disease, unspecified | CPT/HCPCS: 71046; 76700 ==

== ENCOUNTER 2024-10-25 15:57 | Outpatient (REF) | payer BC, MEDICAID, SELFPAY ==
--- NOTE | 2024-10-25 15:59 | PFT_ITS ---
Indication: Chest pain Spirometry FEV1 to FVC 82%; FEV1 2.95 L; FVC 3.6 L. No significant response to bronchodilators noted. Lung Volumes Total lung capacity 106% predicted; residual volume 130% predicted; expiratory reserve volume 48% predicted Diffusion Capacity DLCO 117% predicted Comparisons None Interpretation No obstructive nor restrictive ventilatory defects identified. No significant response to bronchodilators noted. Lung volumes are normal except for a significantly elevated residual volume suggesting some degree of air trapping. Decreased expiratory reserve volume secondary to an elevated BMI. The patient has normal diffusing capacity. If asthma is differential methacholine challenge may be helpful for the assessment of hyperreactive airways. Clinical correlation warranted. MTDD
[2024-10-25 16:44] VITALS: PULSE 76; O2SAT 99
--- OUTSIDE RECORDS SUMMARY | 2024-10-25 18:52 | XMS_ITS | Clinical Summary ---
Author Organization [facility] Address [address] [place] [address] Care Team Providers Care Calciner Operator Helper Name Role Phone Matthias Chau MD Primary Care Provider [phone] Allergies Active Allergy Reactions Criticality Noted Date [...] 72 10/29/2022 8:17 AM EDT Temperature 36.6 C (97.9 F) 05/03/2022 8:00 AM EDT Respiratory Rate 18 09/08/2022 9:24 AM EDT [...] of 3 - 19+ 3-dose series) 12/16/2007 HPV Vaccines (1 - 3-dose SCDM series) 12/16/2015 Pap Smear (Ages 21-65) 08/22/2023 08/21/2020 Influenza Vaccine 09/14/2024 12/09/2020 COVID-19 Vaccine ( season) 2024 HIV Screening Completed 07/27/2022, 080 04/2021, 05/25/2021, Additional history exists Hepatitis C Virus Screening Completed 07/27/2022, 0 05/25/2021 Pneumococcal Vaccine: Pediatric (0-5 Years) and At-Risk Patients (6 to 49 Years) Aged Out No longer eligible based on patient's age to complete this topic Procedures Procedure Name Priority Date/Time Associated Diagnosis Comments HIV 1/2 AG/AB CMIA REFLEX TO CONFIRMATION Routine 07/27/2022 10:42 AM EDT HEPATITIS C VIRUS (HCV) ANTIBODY Routine 07/27/2022 10:42 AM EDT THINPREP PAP(ALTERATIONS TAILOR) HPV SCR RFX HPV 16,18/45 Routine 08/21/2020 2:07 PM EDT from Last 3 Months or Most Recently Relevant to Health Maintenance Results * HIV 1/2 Ag/Ab CMIA Reflex to Confirmation (07/27/2022 10:42 AM EDT) HIV Ag/Ab, 4th Gen Non-Reacti ve Non-Reacti ve [facility] Comment: Results show no evidence of infection by HIV 1/2. If clinically indicated, repeat CMIA or test by nucleic acid amplification. Other 07/27/2022 10:4 2 AM EDT 07/27/2022 8:39 PM EDT Mariah Kolb [facility] BLOOD ORDERABLES Final R esult Performing Organization Address City/[facility]/ZIP Co de Phone Number [facility] [address] [place], [place] * HEPATITIS C VIRUS (HCV) ANTIBODY (07/27/2022 10:42 AM EDT) Hepatitis C Antibody 0.59 Non-Reacti ve Non-Reacti ve S/CO [facility] Other 07/27/2022 10:4 2 AM EDT 07/27/2022 8:39 PM EDT [facility] BLOOD ORDERABLES Final R esult Performing Organization Address [facility] Co de Phone Number [facility] [address] [place], [place] * ThinPrep Pap(Petroleum Inspector Supervisor) HPV Scr Rfx HPV 16,18/45 (08/21/2020 2:07 PM EDT) Report Report [facility] Comment: Final Gynecological Cytology Report ThinPrep Pap Test, HPV Screen, Reflex HPV Genotype SPECIMEN ADEQUACY: SATISFACTORY FOR EVALUATION; ENDOCERVICAL/TRANSFORMATION ZONE COMPONENT PRESENT. INTERPRETATION: NEGATIVE FOR INTRAEPITHELIAL LESION OR MALIGNANCY. Electronically Signed: Leah Gonsalez, [place] (ASCP) CLINICAL INFORMATION: LMP: 07/24/2020 Clinical History: RTN Specimen Source: Cervix, Endocervix HPV RESULTS: HPV mRNA E6/E7 [id number] Approved: 08/22/20 Negative REF RANGE: Negative CPT Codes: 12654 ICD Codes: Z01.419 Other 08/21/2020 2:07 PM EDT 08/21/2020 9:28 PM EDT us Antelmo Richmond DO LAB AMB PATH/CYTO ORDERAB LES Final Result Performing Organization Address City/State/[facility] Co de Phone Number [facility] [address] [place], [place] from Last 3 Months or Most Recently Relevant to Health Maintenance Insurance * Guarantor: Pravin Harvey Account Type Relation to Patient Date of Phone Billing Address Personal/Family Self [address] [place] [address] [place] [address] Advance Directives * Full Code (Latest Code [...] 4:53 AM 02/27/2018 5:09 AM Care Teams Calciner Operator Helper Relationship Specialty Start Date End Date Matthias Chau MD 85 [facility] [address] [place] [address] PCP - General Nephrology 04/24/22
--- OUTSIDE RECORDS SUMMARY | 2024-10-25 18:52 | XMS_ITS | Encounter Summary ---
Author Organization [facility] Address [address] [place] [address] Care Team Providers Care Post Form Remover Name Role Phone Matthias Chau MD Primary Care Provider + [phone] Encounter Details Date Type Department Care Team (Late st Contact Info) Description 08/22/2022 Scanned Document [facility] Department of Internal Medicine & Nephrology [place] [address] [address] Matthias Chau MD 85 [facility] 900 [place], [place] [phone] Social History Tobacco Use Types Packs/Day Years [...] on filedocumented in this encounter Care Teams Post Form Remover Relationship Specialty Start Date End Date Matthias Chau MD [address] [address] PCP - General Nephrology 04/24/22 documented as of this encounter
--- OUTSIDE RECORDS SUMMARY | 2024-10-25 18:52 | XMS_ITS | Encounter Summary ---
Author Organization [facility] Address [address] [place] [address] Care Team Providers Care Earth Science Professor Name Role Phone Matthias Chau MD Primary Care Provider + [phone] Encounter Details Date Type Department Care Team (Late st Contact Info) Description 07/20/2022 Scanned Document [facility] Department of Internal Medicine & Nephrology [place] [address] [address] Matthias Chau MD 85 [facility] 900 [place], [place] [phone] Social History Tobacco Use Types Packs/Day Years [...] on filedocumented in this encounter Care Teams Earth Science Professor Relationship Specialty Start Date End Date Matthias Chau MD [address] [address] PCP - General Nephrology 04/24/22 documented as of this encounter
--- OUTSIDE RECORDS SUMMARY | 2024-10-25 18:52 | XMS_ITS | Encounter Summary ---
Author Organization [facility] Address 100 [place] [address] Care Team Providers Care Bag Machine Set Up Operator Name Role Phone Unknown Primary Care Provider [phone] Clair Elaine MD Primary Care Provider [phone] Clair Lawson MD Primary Care Provider [phone] Bailey Gan MD Primary Care Provider [phone] Matthias Chau MD Primary Care Provider + [phone] Encounter Details Date Type Department Care Team (Late st Contact Info) Description 01/17/2018 Prep for Surgery OBGYN IP 80 [place] [phone] Nehal Roberts MD [address] [place] [id number] Dichorionic diamniotic twin in third trimester (Primary [...] documented as of this encounter Care Teams Bag Machine Set Up Operator Relationship Specialty Start Date End Date Unknown Unknow Provider Address PCP - General 01/23/18 02/11/18 Clair Elaine MD [address] [place] [address] PCP - General Obstetrics and Gynecology 02/12/1802/14 Clair Lawson MD 85 [place] [address] PCP - General 03/01/21 04/02/22 Bailey Gan MD 85 [place] [address] PCP - General Family Medicine 04/03/22 04/23/22 Matthias Chau MD 85 [facility] 900 [place] [address] PCP - General Nephrology 04/24/22 documented as of this encounter
--- OUTSIDE RECORDS SUMMARY | 2024-10-25 18:52 | XMS_ITS | Encounter Summary ---
Author Organization [facility] Address [address] [place] [address] Care Team Providers Care Technician Automatic Name Role Phone Matthias Chau MD Primary Care Provider + [phone] Encounter Details Date Type Department Care Team (Late st Contact Info) Description 08/22/2022 Scanned Document [facility] Department of Internal Medicine & Nephrology [place] [address] [address] Matthias Chau MD 85 [facility] 900 [place], [place] [phone] Social History Tobacco Use Types Packs/Day Years [...] on filedocumented in this encounter Care Teams Technician Automatic Relationship Specialty Start Date End Date Matthias Chau MD [address] [address] PCP - General Nephrology 04/24/22 documented as of this encounter
--- OUTSIDE RECORDS SUMMARY | 2024-10-25 18:52 | XMS_ITS | Clinical Summary ---
Author Organization [facility] Address [address] [place] [address] Care Team Providers Care Transportation Superintendent Name Role Phone Matthias Chau MD Primary Care Provider [phone] Allergies Active Allergy Reactions Criticality Noted Date Comments Seasonal 01/01/2021 Serotonin Reuptake Inhibitors (Ssris) 03/23/2022 Medications Medication Sig Dispensed Refills Start Date End Date Status Vit-Fe Fumarate-FA ( PO) Take by mouth daily as needed. Baby and me too 0 Active mirtazapine (REMERON) 15 MG tablet Take 1 tablet (15 mg total) by mouth every night at bedtime. 0 05/27/2022 Active [place]-3 Fatty Acids (Fish Oil) 1000 MG CAPS [...] Advance Directives For more information, please contact: [phone] Latest Code Status on File Code Status [...] the following way: discussed . Care Teams Transportation Superintendent Relationship Specialty Start Date End Date Matthias Chau MD [address] [address] PCP - General Analysis Reporting Developer 05/13/22
== END 2024-10-25 15:58 | disposition home or self-care (01) ==
LOC: HO.RESP 15:57
PROVIDERS: PCP Physician Assistant; Visit Provider Physician Assistant
DX: R07.89 Other chest pain (principal)
CPT/HCPCS: 94060; 94640; 94727; 94729

== ENCOUNTER → 2024-10-25 15:59 | Outpatient (BNV) | payer BC, MEDICAID, SELFPAY | PROVIDERS: PCP Physician Assistant; Visit Provider Hospitalist | DX: R07.89 Other chest pain (principal) | CPT/HCPCS: 94060; 94727; 94729 ==

== ENCOUNTER 2024-11-13 14:58 | Outpatient (REF) | payer BC, MEDICAID, SELFPAY ==
[2024-11-19 23:27] LABS: Class Alternaria alternata 0; Class Aspergillus fumigatus 0; Class Bermuda Grass 0; Class Birch 0; Class Cat Dander 0; Class Cladosporium herbarum 0; Class Cockroach 0; Class Common Ragweed 0; Class Cottonwood 0; Class Derm. pterony 0; Class Dermatophagoides farinae 0; Class Dog Dander 0; Class Elm 0; Class Maple Box Elder 0; Class Mountain Cedar 0; Class Mouse Urine Protein 0; Class Mugwort 0; Class Oak 0; Class Penicillium crysogenum 0; Class Rough Pigweed 0; Class Sheep Sorrel 0; Class Sycamore 0; Class Timothy Grass 0; Class Walnut Tree 0; Class White Ash 0; Class White Mulberry 0; D002 - IgE D farinae <0.10 kU/L; E001 - IgE Cat Dander <0.10 kU/L; E005 - IgE Dog Dander <0.10 kU/L; G006 - IgE Timothy Grass <0.10 kU/L; I006-IgE Cockroach, German <0.10 kU/L; M002 - IgE Cladosporium herbar <0.10 kU/L; M003 - IgE Aspergillus fumigat <0.10 kU/L; M006 - IgE Alternaria alternat <0.10 kU/L; T001 IgE Maple/Box Elder <0.10 kU/L; T006 - IgE Cedar, Mountain <0.10 kU/L; T007 - IgE Oak, White <0.10 kU/L; T008 IgE Elm, American <0.10 kU/L; T010 - IgE Walnut <0.10 kU/L; T011 - IgE Maple Leaf Sycamore <0.10 kU/L; T014 - IgE Cottonwood <0.10 kU/L; T015 - IgE Ash, White <0.10 kU/L; T070 - IgE White Mulberry <0.10 kU/L; W001 - IgE Ragweed, Short <0.10 kU/L; W006 - IgE Mugwort <0.10 kU/L; W014 IgE Pigweed, Common <0.10 kU/L; W018 IgE Sheep Sorrel <0.10 kU/L
== END 2024-11-13 14:59 | disposition home or self-care (01) ==
LOC: HO.WFDLDS 14:58
PROVIDERS: PCP Physician Assistant; Referring Provider Physician Assistant; Visit Provider Nurse Practitioner Family
DX: J45.909 Unspecified asthma, uncomplicated (principal); R93.89 Abnormal findings on diagnostic imaging of other specified body structures; Z91.09 Other allergy status, other than to drugs and biological substances; Z77.22 Contact with and (suspected) exposure to environmental tobacco smoke (acute) (chronic)
CPT/HCPCS: 36415; 82785; 86003

== ENCOUNTER 2024-11-13 14:58 | Outpatient (AMB) | payer BC, MEDICAID, SELFPAY ==
[2024-11-13 15:11] VITALS: BP 108/70; PULSE 65; O2SAT 97; BMI 35.3
--- NOTE | 2024-11-13 15:11 | MHC.OFFVIS ---
Vital Signs 11/13/24 15:11 Height 5 ft 3 in Weight 199 lb 8 oz BMI 35.3 BP 108/70 Blood Pressure Location Rt brachial Position Sitting Pulse 65 Pulse Source Pulse Oximeter Pulse Oximetry (%) 97 Oxygen Delivery Method Room Air Intake Visit Reasons: Interstitial pulmonary disease Allergies SSRI Adverse Reaction (Mild, Uncoded 11/13/24 15:13) Seratonin syndrome HPI HPI Interstitial pulmonary disease: Details: Pravin is a pleasant 33 year old female, never smoker, with underlying GERD and Anxiety. She was referred by PCP for pulmonary evaluation after recent CXR revealed question of ILD, reported pulmonary reticulations as well as respiratory symptoms, including chest tightness and wheezing. These symptoms have been intermittent over the past few months and were severe enough to warrant an emergency room visit, where more recent chest x-ray showed no significant findings. She does have an upcoming chest ct for more thorough evaluation. She reports wheezing and chest tightness have resolved spontaneously however dyspnea persists. She notes dyspnea occurs with stairs or prolonged talking. Recent PFT revealed no significant obstructive or restrictive defects, but indicated air trapping suggestive of asthma. She denies any prior use of respiratory medications. The patient reports a family history of asthma and has experienced secondhand smoke exposure both as a child and as an adult. The patient has a history of bronchitis and was diagnosed with pneumonia last January which may have precipated symptoms. She endorses seasonal allergies, has cats at home, no recent allergy testing. She denies personal or family h/o autoimmune conditions. Denies symptoms suggestive of CTD at this time. [facility] Medical History Hypotension, unspecified Depression Anxiety Imbalance Tremors of nervous system Acid reflux Palpitations High blood pressure Sinusitis delivery delivered Elbow injury Surgical History [place] teeth extracted Hx of cholecystectomy Hx of appendectomy Family History Father Asthma Maternal Grandmother High blood pressure Diabetes Paternal Grandfather High blood pressure Cardiovascular system problem Brother Asthma Other Depression FH: mental illness Schizophrenia Social History Household Members: Family Housing: Apartment Are you a primary healthcare science specialist to a significant other at home: Yes Alcohol intake: former Comment: Last drink was a year ago Patient Tobacco Use Status: Never used Tobacco e-Cigarette/Vaping Use: Never Used Special valentin needs: Yes service: No Current occupational status: 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 Cognitive needs: No Hearing needs: No (patient is having tinnitis.) Vision needs: Yes (patient wears glasses) Review of Systems Const Denies chills, Denies excessive sweating, Denies fever(s), Denies headache(s) and Denies night sweats Eyes Denies dry eyes, Denies irritation and Denies itchy eyes ENT Reports Normal hearing present, Denies headache(s) and Denies sore throat Card Denies chest pain, Denies chest pain at rest, Denies chest pain with activity, Denies claudication, Denies leg edema, Denies orthopnea and Denies paroxysmal nocturnal dyspnea Resp Denies chest congestion, Denies cough, Denies excessive phlegm production, Denies pain on inspiration, Denies pain with cough, Denies stridor and Denies wheezing Musc Denies myalgias Neuro Reports Normal hearing present and Denies headache(s) Endo Denies excessive sweating Leobardo/Lymph Denies lymphadenopathy Aller/Immun Denies itchy eyes, Denies seasonal rhinorrhea and Denies wheezing Physical Exam Vital Signs: Last Vital Signs Pulse 65 11/13/24 15:11 BP 108/70 11/13/24 15:11 Pulse Ox 97 11/13/24 15:11 Oxygen Delivery Method Room Air 11/13/24 15:11 BMI result Body Mass Index 35.3 Const General: cooperative, healthy appearing, comfortable, no acute distress, well developed and alert Nutritional Appearance: obese Orientation/consciousness: patient oriented x3 Limitations: no limitations HEENT Head: Yes normal to inspection, Yes normocephalic and Yes atraumatic Ears: hearing grossly normal bilaterally and external ears normal Eyes General: appearance normal, both eyes and all related structures Eyelids: Yes eyelids normal Sclerae: sclerae normal EOM: EOMs intact bilaterally Neck Neck: Yes normal visual inspection and Yes no lymphadenopathy Lymphatic: no lymphadenopathy noted Chest Chest palpation & inspection: normal inspection of the chest Resp Effort & Inspection: normal respiratory effort, able to speak in complete sentences, no audible wheezes, no cough, no stridor, not tachypneic, no tripod positioning and no use of accessory muscles Auscultation: clear to auscultation bilaterally Cardio Jugular venous distension: no JVD Rate: regular rate Rhythm: regular rhythm Skin Other: warm, dry General skin exam: no rashes or lesions noted Neuro General: patient oriented x3 Cranial nerves: Yes Normal hearing present Cognition (Neuro): normal cognition Gait exam (Neuro): Normal gait present Extrem General: Yes normal to inspection, Yes capillary refill normal, Yes no clubbing, cyanosis or edema and Yes no pedal edema Psych Appearance: grossly normal and well kempt Speech and movement: Normal speech and movement present and Clear speech present Affect: normal affect Attitude: cooperative Thought process: Normal thought process present Thought content: Normal thought content present Insight: Good insight present (Psych) Judgement: Good judgement present (Psych) Results Reviewed Results Reviewed: [address] [address] XRay Report Signed Patient: Pravin Harvey MR#: [id number] : 1990 Acct:[id number] Age/Sex: 33 / F ADM Date: 09/28/24 Loc: [facility] Attending Dr: Jacqueline Walters PA-C Ordering Physician: Jacqueline Walters Date of Service: 09/28/24 Procedure(s): XR chest 2V Accession Number(s): [id number] cc: Jacqueline Walters~ EXAMINATION: XR CHEST CLINICAL INFORMATION: R07.89 - Other chest pain COMPARISON: None available. TECHNIQUE: 2 views of the chest were obtained. FINDINGS: Pulmonary reticular pattern. No consolidation pleural effusion or pneumothorax. Cardiomediastinal silhouette size is normal. No gross hyperinflation. Mild multilevel thoracic spondylosis. Mild kyphotic deformity mid thoracic spine. Vascular clips right upper quadrant abdomen and likely prior laparoscopic cholecystectomy. S-shaped curvature of the cervical thoracic spine. XR/XR chest 2V IMPRESSION: Posterior chronic interstitial lung disease without acute airspace disease. Superimposed acute small airway inflammatory process cannot be excluded. Electronically signed by: Son Lemos MD 09/28/2024 08:34 AM EDT Dictated By: Son Díaz MD Signed By: <Electronically signed by Son Schneider MD in OV> 09/28/24 0834 DD/ 0825 TD/TT: 09/28/24 0830 Inspector Heating And Refrigeration: Assessment & Plan Assessment & Plan (1) Asthma: Code(s): J45.909 - Unspecified asthma, uncomplicated Category: Medical (2) Abnormal CXR: Code(s): R93.89 - Abnormal findings on diagnostic imaging of other specified body structures Category: Medical (3) Environmental allergies: Code(s): Z91.09 - Other allergy status, other than to drugs and biological substances Category: Medical Plan Recent PFT suggestive of asthma and plan includes starting the patient on Arnuity, an inhaled corticosteroid, to be taken once daily, and reassessing symptoms at the next visit. Discussed importance of good oral hygiene to prevent thrush. Allergy testing was recommended to identify potential allergens contributing to respiratory symptoms. CXR at [facility] with pulmonary reticular pattern with question of ILD and plan for chest CT for further evaluation. However patient did have more recent CXR which was unremarkable and no symptoms suggestive of CTD, low likelihood of ILD although will review chest CT to further assess. All questions were answered and patient is in agreement of plan. Will follow up to review results and response to inhaler or sooner if needed. Orders: Orders Immunoglobulin E Today Z91.09 - Other allergy status, other than to drugs and biological substances Resp Allergy Profile Region I Today Z91.09 - Other allergy status, other than to drugs and biological substances Medications: New fluticasone furoate 100 mcg/actuation (Arnuity Ellipta) 1 inh inhalation DAILY 30 ea 3RF Coding Level of Care Code New Pt Level 4 (52014) Diagnoses Asthma J45.909 Abnormal CXR R93.89 Environmental allergies Z91.09
--- OUTSIDE RECORDS SUMMARY | 2024-11-13 16:21 | XMS_ITS | Clinical Summary ---
Author Organization [facility] Address [address] [place] [address] Care Team Providers Care Feeder Operator Name Role Phone Matthias Chau MD Primary Care Provider + [phone] Allergies Active Allergy Reactions Criticality Noted Date [...] ANTIBODY Routine 07/27/2022 10:42 AM EDT THINPREP PAP(SWING MANAGER) HPV SCR RFX HPV 16,18/45 Routine 08/21/2020 2:07 PM EDT from Last 3 Months or Most Recently Relevant to Health Maintenance Results * HIV 1/2 Ag/Ab CMIA Reflex to Confirmation (07/27/2022 10:42 AM EDT) HIV Ag/Ab, 4th Gen Non-Reacti ve Non-Reacti ve [facility] Comment: Results show no evidence of infection by HIV 1/2. If clinically indicated, repeat CMIA or test by nucleic acid amplification. Other 07/27/2022 10:4 2 AM EDT 07/27/2022 8:39 PM EDT Mariah Kolb [facility] BLOOD ORDERABLES Final R esult Performing Organization Address City/[facility]/ZIP Co de Phone Number [facility] [address] [place], [place] * HEPATITIS C VIRUS (HCV) ANTIBODY (07/27/2022 10:42 AM EDT) Hepatitis C Antibody 0.59 Non-Reacti ve Non-Reacti ve S/CO [facility] Other 07/27/2022 10:4 2 AM EDT 07/27/2022 8:39 PM EDT [facility] BLOOD ORDERABLES Final R esult Performing Organization Address [facility] Co de Phone Number [facility] [address] [place], [place] * ThinPrep Pap(Automation Controls Specialist) HPV Scr Rfx HPV 16,18/45 (08/21/2020 2:07 PM EDT) Report Report [facility] Comment: Final Gynecological Cytology Report ThinPrep Pap Test, HPV Screen, Reflex HPV Genotype SPECIMEN ADEQUACY: SATISFACTORY FOR EVALUATION; ENDOCERVICAL/TRANSFORMATION ZONE COMPONENT PRESENT. INTERPRETATION: NEGATIVE FOR INTRAEPITHELIAL LESION OR MALIGNANCY. Electronically Signed: Leah Gonsalez, [place] (ASCP) CLINICAL INFORMATION: LMP: 07/24/2020 Clinical History: RTN Specimen Source: Cervix, Endocervix HPV RESULTS: HPV mRNA E6/E7 [id number] Approved: 08/22/20 Negative REF RANGE: Negative CPT Codes: 08804 ICD Codes: Z01.419 Other 08/21/2020 2:07 PM EDT 08/21/2020 9:28 PM EDT us Antelmo Richmond DO LAB AMB PATH/CYTO ORDERAB LES Final Result Performing Organization Address City/State/[facility] Co de Phone Number [facility] [address] [place], [place] from Last 3 Months or Most Recently Relevant to Health Maintenance Insurance [place] [place] [id number] Advance Directives * Full Code (Latest Code [...] 4:53 AM 02/27/2018 5:09 AM Care Teams Feeder Operator Relationship Specialty Start Date End Date Matthias Chau MD 85 [facility] [address] [place] [address] PCP - General Nephrology 04/24/22
--- OUTSIDE RECORDS SUMMARY | 2024-11-13 16:21 | XMS_ITS | Clinical Summary ---
Author Organization [facility] Address [address] [place] [address] Phone Care Team Providers Care Tonguer Name Role Phone Matthias Chau MD Primary Care Provider [phone] Allergies Active Allergy Reactions Criticality Noted Date [...] LAPAROSCOPY CHOLECYSTECTOMY; Surgeon: Justin Shepard MD; Location: [facility]; Service: General; Laterality: N/A; Medical History [...] 08/23/2023 08/22/2022, 04/19/2022, 04/16/2022, Additional history exists Depression Screening 02/15/2024 COVID-19 Vaccine (1 - 4-25 season) 2024 Influenza Vaccine (#1) 2024 12/09/2020 HIB Vaccines [...] complete this topic Insurance [place] [facility] Care Teams Tonguer Relationship Specialty Start Date End Date Matthias Chau MD [address] [place] [address] [address] [place] [phone] PCP - General 05/13/22
--- OUTSIDE RECORDS SUMMARY | 2024-11-13 16:21 | XMS_ITS | Encounter Summary ---
Author Organization [facility] Address [address] [place] [address] Care Team Providers Care Supervisor Painting Shipyard Name Role Phone Matthias Chau MD Primary Care Provider + [phone] Encounter Details Date Type Department Care Team (Late st Contact Info) Description 08/22/2022 Scanned Document [facility] Department of Internal Medicine & Nephrology [place] [address] [address] Matthias Chau MD 85 [facility] 900 [place], [place] [phone] Social History Tobacco Use Types Packs/Day Years [...] on filedocumented in this encounter Care Teams Supervisor Painting Shipyard Relationship Specialty Start Date End Date Matthias Chau MD [address] [address] PCP - General Nephrology 04/24/22 documented as of this encounter
--- OUTSIDE RECORDS SUMMARY | 2024-11-13 16:21 | XMS_ITS | Encounter Summary ---
Author Organization [facility] Address [address] [place] [address] Care Team Providers Care Enrober Name Role Phone Matthias Chau MD Primary Care Provider + [phone] Encounter Details Date Type Department Care Team (Late st Contact Info) Description 08/22/2022 Scanned Document [facility] Department of Internal Medicine & Nephrology [place] [address] [address] Matthias Chau MD 85 [facility] 900 [place], [place] [phone] Social History Tobacco Use Types Packs/Day Years [...] on filedocumented in this encounter Care Teams Enrober Relationship Specialty Start Date End Date Matthias Chau MD [address] [address] PCP - General Nephrology 04/24/22 documented as of this encounter
--- OUTSIDE RECORDS SUMMARY | 2024-11-13 16:21 | XMS_ITS | Encounter Summary ---
Author Organization [facility] Address [address] [place] [address] Care Team Providers Care Grinder Set Up Operator Centerless Name Role Phone Unknown Primary Care Provider [phone] Clair Elaine MD Primary Care Provider [phone] Clair Lawson MD Primary Care Provider [phone] Bailey Gan MD Primary Care Provider [phone] Matthias Chau MD Primary Care Provider + [phone] Encounter Details Date Type Department Care Team (Late st Contact Info) Description 01/17/2018 Prep for Surgery OBGYN IP 80 [place] [phone] Nehal Roberts MD [address] [place] [id number] Dichorionic diamniotic twin in third trimester (Primary [...] documented as of this encounter Care Teams Grinder Set Up Operator Centerless Relationship Specialty Start Date End Date Unknown Unknow Provider Address PCP - General 01/23/18 02/11/18 Clair Elaine MD [address] [place] [address] PCP - General Obstetrics and Gynecology 02/12/1802/14 Clair Lawson MD 85 [place] [address] PCP - General 03/01/21 04/02/22 Bailey Gan MD 85 [place] [address] PCP - General Family Medicine 04/03/22 04/23/22 Matthias Chau MD 85 [facility] 900 [place] [address] PCP - General Nephrology 04/24/22 documented as of this encounter
--- OUTSIDE RECORDS SUMMARY | 2024-11-13 16:21 | XMS_ITS | Encounter Summary ---
Author Organization [facility] Address [address] [place] [address] Care Team Providers Care Banking Center Manager Name Role Phone Matthias Chau MD Primary Care Provider + [phone] Encounter Details Date Type Department Care Team (Late st Contact Info) Description 07/20/2022 Scanned Document [facility] Department of Internal Medicine & Nephrology [place] [address] [address] Matthias Chau MD 85 [facility] 900 [place], [place] [phone] Social History Tobacco Use Types Packs/Day Years [...] on filedocumented in this encounter Care Teams Banking Center Manager Relationship Specialty Start Date End Date Matthias Chau MD [address] [address] PCP - General Nephrology 04/24/22 documented as of this encounter
--- OUTSIDE RECORDS SUMMARY | 2024-11-13 16:21 | XMS_ITS | Clinical Summary ---
Author Organization [facility] Address [address] [place] [address] Care Team Providers Care Horticulture Supervisor Name Role Phone Matthias Chau MD Primary Care Provider [phone] Allergies Active Allergy Reactions Criticality Noted Date Comments Seasonal 01/01/2021 Serotonin Reuptake Inhibitors (Ssris) 03/23/2022 Medications Medication Sig Dispensed Refills Start Date End Date Status Vit-Fe Fumarate-FA ( PO) Take by mouth daily as needed. Baby and me too 0 Active mirtazapine (REMERON) 15 MG tablet Take 1 tablet (15 mg total) by mouth every night at bedtime. 0 05/27/2022 Active [place]-3 Fatty Acids (Fish Oil) 1000 MG CAPS [...] Advance Directives For more information, please contact: [phone] Latest Code Status on File Code Status [...] the following way: discussed . Care Teams Horticulture Supervisor Relationship Specialty Start Date End Date Matthias Chau MD [address] [address] PCP - General Piccolo Mechanic 05/13/22
== END 2024-11-13 15:44 | disposition home or self-care (01) ==
LOC: HO.HPSW 14:59
PROVIDERS: PCP Physician Assistant; Referring Provider Physician Assistant; Visit Provider Nurse Practitioner Family
DX: J45.909 Unspecified asthma, uncomplicated (principal); R93.89 Abnormal findings on diagnostic imaging of other specified body structures; Z91.09 Other allergy status, other than to drugs and biological substances
CPT/HCPCS: 99204

== ENCOUNTER 2024-12-02 16:10 | Emergency (ER) | payer BC, MEDICAID, SELFPAY ==
--- NOTE | ~2024-12-02 | CT_ITS ---
CLINICAL HISTORY: abnormal xrays. CT lumbar spine without contrast Comparison: None provided Findings: Exaggerated lordotic curvature of the lumbar spine. No acute fractures or dislocations. L4-5: Broad-based disc bulge with minimal central canal stenosis and mild bilateral neural foraminal stenosis. L5-S1: Broad-based disc bulge with minimal central canal stenosis and no significant neural foraminal stenosis. 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 Prior cholecystectomy. IMPRESSION: 1. L4-5 broad-based disc bulge with minimal central canal stenosis and mild bilateral neural foraminal stenosis. 2. L5-S1 broad-based disc bulge with minimal central canal stenosis. 3. Exaggerated lordotic curvature of the lumbar spine. 4. No acute osseous injury. This document has been electronically signed by: Jitendra Arshad MD on 12/02/2024 21:20:18
--- NOTE | ~2024-12-02 | XR_ITS ---
CLINICAL HISTORY: left lower back pain 3 views lumbar spine Comparison: None provided Findings: Normal vertebral body alignment. Possible pars defects at L5. No vertebral body fracture. No significant degenerative change. IMPRESSION: Possible pars defects at L5. This document has been electronically signed by: Jocelyn Henderson MD on 12/02/2024 16:38:19
[2024-12-02 16:13] VITALS: BP 133/80; PULSE 82; RESP 18; TEMP 36.6; O2SAT 98; BMI 35.2
--- NOTE | 2024-12-02 16:14 | ED.GENADULT ---
HPI - General Adult General Chief complaint: Urogenital-Female Stated complaint: back pain going to leg Time Seen by Provider: 12/02/24 19:51 Source: patient Mode of arrival: ambulatory Limitations: no limitations History of Present Illness ED Provider: DR. Newman HPI narrative: 33-year-old female came in for evaluation of low back since last night, lower back pain started after moving furniture at the house patient was pushing a heavy bed yesterday, no fall, no injury to the back, complaining of numbness to both legs bilaterally, no weakness, no fever, chills, patient report cloudy urine but no dysuria, no frequency urination. Related Data Home Medications ?Medication ?Instructions ?Recorded ?Confirmed Beet root PO 08/08/24 fish oil PO 08/08/24 iron PO 08/08/24 multivitamin 1 tab PO DAILY 08/08/24 cholecalciferol (vitamin D3) 125 125 mcg PO DAILY 11/13/24 mcg (5,000 unit) capsule milk thistle 150 mg capsule 150 mg PO BID 11/13/24 Previous Rx's ?Medication ?Instructions ?Recorded magnesium oxide 400 mg PO DAILY #30 tabs 01/09/24 riboflavin (vitamin B2) 400 mg 400 mg PO DAILY #30 tabs 01/09/24 tablet propranolol 60 mg capsule,24 60 mg PO DAILY #90 caps 09/12/24 hr,extended release mirtazapine 30 mg tablet 30 mg PO BEDTIME #90 tabs 11/08/24 fluticasone furoate 100 1 inh inhalation DAILY #30 ea 11/13/24 mcg/actuation blister powder for inhalation (Arnuity Ellipta) cyclobenzaprine 10 mg tablet 10 mg PO BEDTIME PRN muscle spasm 12/02/24 #10 tabs ibuprofen 600 mg tablet 600 mg PO Q8H PRN pain #14 tabs 12/02/24 methylprednisolone 4 mg tablets in 4 mg PO DAILY #21 ea 12/02/24 a dose pack (Medrol (Laurent)) Allergies Allergy/AdvReac Type Severity Reaction Status Date / Time SSRI AdvReac Mild Seratonin Uncoded 12/02/24 16:15 syndrome Review of Systems Review of Systems: All other systems are reviewed and are negative Constitutional: Reports as per HPI and Reports no additional constitutional complaints Eyes: Reports as per HPI and Reports no additional eye complaints Reports system reviewed and no additional complaints, except as documented Cardiovascular: Reports as per HPI and Reports no additional cardiovascular complaints Respiratory: Reports as per HPI and Reports no additional respiratory complaints Gastrointestinal: Reports as per HPI and Reports no additional gastrointestinal complaints Genitourinary: Reports no additional female genitourinary complaints Musculoskeletal: Reports no additional musculoskeletal complaints Skin/Breast: Reports system reviewed and no additional complaints, except as docu Psychiatric: Reports no additional psychiatric complaints Endocrine: Reports no additional endocrine complaints Hematologic/Lymphatic: Reports no additional hematologic/lymphatic complaints Allergic/Immunologic: Reports no additional allergic/immunologic complaints Reports system reviewed and no additional complaints, except as documented and Reports Abnormal speech present [facility] Past Medical History Medical History Hypotension, unspecified Depression Anxiety Imbalance Tremors of nervous system Acid reflux Palpitations High blood pressure Sinusitis delivery delivered Elbow injury Surgical History Smiley teeth extracted Hx of cholecystectomy Hx of appendectomy Family History Family History Father Asthma Maternal Grandmother High blood pressure Diabetes Paternal Grandfather High blood pressure Cardiovascular system problem Brother Asthma Other Depression FH: mental illness Schizophrenia Social History Social History Household Members: Family Housing: Apartment Are you a primary hospice spiritual care coordinator to a significant other at home: Yes Alcohol intake: former Comment: Last drink was a year ago Patient Tobacco Use Status: Never used Tobacco e-Cigarette/Vaping Use: Never Used Special valentin needs: Yes Advance Directives: No Advance Directives Information Provided: No service: No Current occupational status: 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 Blood pressure elevated. Heart rate normal. Respiratory rate normal. Temperature normal. Oxygen saturation normal. Appearance: Alert. Oriented X3. No acute distress. Head: Normal external exam. Normocephalic. Atraumatic. No Shah signs noted. No raccoon eyes noted Eyes: PERRLA. EOMI. Conjunctiva and sclera normal. Eyelids normal. ENT: TM's Normal. Pharynx normal. Uvula midline. Moist mucous membranes. No trismus noted. No drooling noted. No muffled voice noted. Neck: Normal inspection. Neck supple. FROM. No adenopathy. Thyroid Normal. No meningeal signs. No neck mass noted. CVS: Normal heart rate and rhythm. Heart sound normal. No murmurs noted. Pulses normal throughout. Respiratory: No respiratory distress. Painless inspiration. Breath sounds normal. No wheezes/rales/rhonchi noted. Chest nontender. No accessory muscle usage noted or decreased air movement noted. Abdomen: Soft and nontender. Bowel sounds normal in all 4 quadrants. No distention noted. No organomegaly noted. No visible injury noted. Back: No CVA tenderness. Full range of motion noted. Skin: Skin warm and dry. Normal skin color. Normal skin turgor. No rashes/lesions/lacerations noted. Extremities: No lower extremity edema. Extremities exhibit normal range of motion. Extremities nontender. Neuro: Oriented X 3. Cranial nerve exam: II-XII are grossly intact No motor deficit. No sensory deficit. Reflexes normal. Course Course Course Narrative: This is a rapid medical exam performed by Chris Funes NP: Additional HPI, ROS, PE not included below will be deferred to primary provider. Patient is a 33y/o F presenting with complaint of dysuria and cloudy urine as well as left lower back pain radiating around hip to L leg. Recently had Covid. Plan: lumbar xray, UA Reevaluation(s) Reevaluation #1: One day of back pain after moving furniture, negative UA for UTI. Lumbar spine x-ray is showing possible pars defect at L5 will consider CT lumbar spine. Given oxycodone/ibuprofen in the ED. Will discharge with NSAIDs, muscle relaxant. Signed out to Dr. Alicea to check on the CT result. Time: 20:56 Reevaluation #2: CT shows evidence of bulging discs at L4-L5 and L5-S1. Plan for steroids, muscle relaxers, ibuprofen for pain. Patient will be discharged home to follow up with ortho spine. She is feeling improved after medications. Time: 21:30 Medications Administered Discontinued Medications Generic Name Dose Route Start Last Admin Trade Name Chanelle PRN Reason Stop Dose Admin Diazepam 2 mg 12/02/24 19:58 12/02/24 20:06 Diazepam 2 Mg Tablet PO 12/02/24 19:59 2 mg ONCE ONE Administration Ibuprofen 400 mg 12/02/24 19:58 12/02/24 20:07 Ibuprofen 400 Mg Tablet PO 12/02/24 19:59 400 mg ONCE ONE Administration Oxycodone HCl 5 mg 12/02/24 19:58 12/02/24 20:07 Oxycodone Hcl Immed Release 5 Mg Tablet PO 12/02/24 19:59 5 mg ONCE ONE Administration Medical Decision Making Differential Diagnosis Differential Diagnoses: The differential diagnosis associated with the presentation includes (UTI, pyelonephritis, lumbar spine sprain, lumbar spine fracture) Admission/Observation Consideration of admission/observation: Escalation of care including admission/observation considered Lab Data MDM Lab Attestation statement: I reviewed the patient's lab results. Labs: Lab Results 12/02/24 Range/Units 19:12 Urine Color Yellow Urine Appearance Cloudy Urine pH 8.5 (5.0-9.0) Ur Specific Sylvester 1.015 (1.005-1.025) Urine Protein Negative (Neg-Trace) mg/dL Urine Glucose (UA) Negative (Negative) mg/dL Urine Ketones Negative (Negative) mg/dL Urine Blood Negative (Negative) Urine Nitrite Negative (Negative) Ur Leukocyte Esterase Trace H (Negative) Urine RBC 0-2 (0-2) /HPF Urine WBC 0-5 (0-5) /HPF Ur Squamous Epith Cells 0-2 (0-2) /HPF Urine Bacteria Trace (None Seen) Hyaline Casts 0-2 (0-2) /LPF Urine Test NEGATIVE (NEGATIVE) Independent Interpretation I performed an independent interpretation of an: Plain X-Ray (Lumbar spine:Possible pars defects at L5) Radiology Impression Discussion of test interpretation with radiology: I have reviewed the radiologist's reading. Discharge Plan Discharge Clinical Impression: Lumbar back sprain, Bulging lumbar disc Patient Disposition: Home, Self-Care Instructions: Back Pain (ED) Additional Instructions: Your CT shows some bulging discs in your lumbar spine (L4-L5, L5-S1). This is causing a pinched nerve which can cause significant pain in your back. Please take pain medications as needed and try to rest as much as possible over the next several days. Do not use cyclobenzaprine if you are driving as it can make you drowsy. Follow up with the [facility]. Call to make an appointment. Return to the emergency department immediately with any new or worsening symptoms including: Loss of bowel or bladder control, weakness in your legs, urinary retention, fevers greater than 100?, any new symptom that concerns you. Call 911 with any medical emergency. Prescriptions: New ibuprofen 600 mg tablet 600 mg PO Q8H PRN (Reason: pain) Qty: 14 0RF cyclobenzaprine 10 mg tablet 10 mg PO BEDTIME PRN (Reason: muscle spasm) Qty: 10 0RF methylprednisolone [Medrol (Laurent)] 4 mg tablets,dose pack 4 mg PO DAILY Qty: 21 0RF No Action propranolol 60 mg capsule,extended release 24 hr 60 mg PO DAILY Qty: 90 0RF mirtazapine 30 mg tablet 30 mg PO BEDTIME Qty: 90 0RF milk thistle 150 mg capsule 150 mg PO BID Rx Instructions: give with meal/snack cholecalciferol (vitamin D3) 125 mcg (5,000 unit) capsule 125 mcg PO DAILY fluticasone furoate [Arnuity Ellipta] 100 mcg/actuation blister with device 1 inh inhalation DAILY Qty: 30 3RF riboflavin (vitamin B2) 400 mg tablet 400 mg PO DAILY Qty: 30 3RF magnesium oxide 400 mg magnesium tablet 400 mg PO DAILY Qty: 30 3RF multivitamin Tablet 1 tab PO DAILY Beet root PO fish oil PO iron PO Referrals: [facility] [Provider Group, Neurosurgery] Clinical Impression: Bulging lumbar disc Print Language: Croatian
[2024-12-02 16:53] VITALS: BP 112/73; PULSE 72; RESP 16; TEMP 36.4; O2SAT 96
--- OUTSIDE RECORDS SUMMARY | 2024-12-02 19:05 | XMS_ITS | Encounter Summary ---
Author Organization [facility] Address [address] [place] [address] Care Team Providers Care Spacecraft Systems Engineer Name Role Phone Matthias Chau MD Primary Care Provider + [phone] Encounter Details Date Type Department Care Team (Late st Contact Info) Description 07/20/2022 Scanned Document [facility] Department of Internal Medicine & Nephrology [place] [address] [address] Matthias Chau MD 85 [facility] [address] [place], [place] [id number] Social History Tobacco Use Types Packs/Day Years [...] on filedocumented in this encounter Care Teams Spacecraft Systems Engineer Relationship Specialty Start Date End Date Matthias Chau MD [address] [address] PCP - General Nephrology 04/24/22 documented as of this encounter
--- OUTSIDE RECORDS SUMMARY | 2024-12-02 19:05 | XMS_ITS | Clinical Summary ---
Author Organization [facility] Address [address] [place] [address] Care Team Providers Care Power Washer Name Role Phone Matthias Chau MD Primary Care Provider [phone] Allergies Active Allergy Reactions Criticality Noted Date Comments Seasonal 01/01/2021 Serotonin Reuptake Inhibitors (Ssris) 03/23/2022 Medications Medication Sig Dispensed Refills Start Date End Date Status Vit-Fe Fumarate-FA ( PO) Take by mouth daily as needed. Baby and me too 0 Active mirtazapine (REMERON) 15 MG tablet Take 1 tablet (15 mg total) by mouth every night at bedtime. 0 05/27/2022 Active [employer]-3 Fatty Acids (Fish Oil) 1000 MG CAPS [...] Advance Directives For more information, please contact: [phone] Latest Code Status on File Code Status [...] the following way: discussed . Care Teams Power Washer Relationship Specialty Start Date End Date Matthias Chau MD [address] [address] PCP - General Manager Database 05/13/22
--- OUTSIDE RECORDS SUMMARY | 2024-12-02 19:05 | XMS_ITS | Encounter Summary ---
Author Organization [facility] Address [address] [place] [address] Care Team Providers Care Splitter Head Name Role Phone Matthias Chau MD Primary Care Provider + [phone] Encounter Details Date Type Department Care Team (Late st Contact Info) Description 08/22/2022 Scanned Document [facility] Department of Internal Medicine & Nephrology [place] [address] [address] Matthias Chau MD 85 [facility] [address] [place], [place] [id number] Social History Tobacco Use Types Packs/Day Years [...] on filedocumented in this encounter Care Teams Splitter Head Relationship Specialty Start Date End Date Matthias Chau MD [address] [address] PCP - General Nephrology 04/24/22 documented as of this encounter
--- OUTSIDE RECORDS SUMMARY | 2024-12-02 19:05 | XMS_ITS | Clinical Summary ---
Author Organization [facility] Address [address] [place] [address] Care Team Providers Care Concert Manager Name Role Phone Matthias Chau MD Primary Care Provider + [phone] Allergies Active Allergy Reactions Criticality Noted Date [...] Influenza Vaccine 09/14/2024 12/09/2020 COVID-19 Vaccine ( - 2023- season) 2024 HIV Screening Completed 07/27/2022, 0804/2021, 05/25/2021, Additional history exists Hepatitis C Virus Screening Completed 07/27/2022, 0 05/25/2021 HPV Vaccines (No Doses Required) Completed Pneumococcal Vaccine: Pediatric (0-5 Years) and At-Risk Patients (6 to 49 Years) Aged Out No longer eligible based on patient's age to complete this topic Procedures Procedure Name Priority Date/Time Associated Diagnosis Comments HIV 1/2 AG/AB CMIA REFLEX TO CONFIRMATION Routine 07/27/2022 10:42 AM EDT HEPATITIS C VIRUS (HCV) ANTIBODY Routine 07/27/2022 10:42 AM EDT THINPREP PAP(PICTURE FRAMES INSPECTOR) HPV SCR RFX HPV 16,18/45 Routine 08/21/2020 [...] EDT 07/27/2022 8:39 PM EDT Mariah Kolb [facility] BLOOD ORDERABLES Final R esult Performing Organization Address City/[facility]/ZIP Co de Phone Number [facility] [address] [place], [place] * HEPATITIS C VIRUS (HCV) ANTIBODY (07/27/2022 10:42 AM EDT) Hepatitis C Antibody 0.59 Non-Reacti ve Non-Reacti ve S/CO [facility] Other 07/27/2022 10:4 2 AM EDT 07/27/2022 8:39 PM EDT Mariah Kolb [facility] BLOOD ORDERABLES Final R esult Performing Organization Address [facility] Co de Phone Number [facility] [address], [place] * ThinPrep Pap(Field Horticultural Specialty Grower) HPV Scr Rfx HPV 16,18/45 (08/21/2020 2:07 PM EDT) Report Report [facility] Comment: Final Gynecological Cytology Report ThinPrep Pap Test, HPV Screen, Reflex HPV Genotype SPECIMEN ADEQUACY: SATISFACTORY FOR EVALUATION; ENDOCERVICAL/TRANSFORMATION ZONE COMPONENT PRESENT. INTERPRETATION: NEGATIVE FOR INTRAEPITHELIAL LESION OR MALIGNANCY. Electronically Signed: Leah Gonsalez, CT (ASCP) CLINICAL INFORMATION: LMP: 07/24/2020 Clinical History: RTN Specimen Source: Cervix, Endocervix HPV RESULTS: HPV mRNA E6/E7 [id number] Approved: 08/22/20 Negative REF RANGE: Negative CPT Codes: 14304 ICD Codes: Z01.419 Other 08/21/2020 2:07 PM EDT 08/21/2020 9:28 PM EDT us Antelmo Richmond DO LAB AMB PATH/CYTO ORDERAB LES Final Result Performing Organization Address City/State/[facility] Co de Phone Number [facility] [address], [place] from Last 3 Months or Most Recently Relevant to Health Maintenance Insurance [facility] Advance Directives * Full Code (Latest [...] 4:53 AM 02/27/2018 5:09 AM Care Teams Concert Manager Relationship Specialty Start Date End Date Matthias Chau MD [address] [place] [address] [address] [place] [address] PCP - General Nephrology 04/24/22
--- OUTSIDE RECORDS SUMMARY | 2024-12-02 19:05 | XMS_ITS | Encounter Summary ---
Author Organization [facility] Address [address] [place] [address] Care Team Providers Care Vice President Integrated Name Role Phone Unknown Primary Care Provider [phone] Clair Elaine MD Primary Care Provider [phone] Clair Lawson MD Primary Care Provider [phone] Bailey Gan MD Primary Care Provider [phone] Matthias Chau MD Primary Care Provider + [phone] Encounter Details Date Type Department Care Team (Late st Contact Info) Description 01/17/2018 Prep for Surgery OBGYN IP [address] [place] [id number] Nehal Roberts MD [address] [place] [phone] Dichorionic diamniotic twin in third trimester (Primary [...] documented as of this encounter Care Teams Vice President Integrated Relationship Specialty Start Date End Date Unknown Unknow Provider Address PCP - General 01/23/18 02/11/18 Clair Elaine MD [id number] [place] [address] PCP - General Obstetrics and Gynecology 02/12/1802/14 Clair Lawson MD 85 [place] [address] PCP - General 03/01/21 04/02/22 Bailey Gan MD [address] [place] [address] PCP - General Family Medicine 04/03/22 04/23/22 Matthias Chau MD 85 [facility] [address] [place] [address] PCP - General Nephrology 04/24/22 documented as of this encounter
--- OUTSIDE RECORDS SUMMARY | 2024-12-02 19:05 | XMS_ITS | Encounter Summary ---
Author Organization [facility] Address [address] [place] [address] Care Team Providers Care Tune Up Mechanic Name Role Phone Matthias Chau MD Primary Care Provider + [phone] Encounter Details Date Type Department Care Team (Late st Contact Info) Description 08/22/2022 Scanned Document [facility] Department of Internal Medicine & Nephrology [place] [address] [address] Matthias Chau MD 85 [facility] [address] [place], [place] [phone] Social History Tobacco Use Types Packs/Day Years [...] on filedocumented in this encounter Care Teams Tune Up Mechanic Relationship Specialty Start Date End Date Matthias Chau MD [address] [address] PCP - General Nephrology 04/24/22 documented as of this encounter
[2024-12-02 19:20] LABS: Appearance Urine Cloudy; Glucose Urine UA Negative (Negative); PH 8.5 (5.0-9.0); Specific Gravity - Urine 1.015 (1.005-1.025); UMIC TRIGGER UACC YES
[2024-12-02 19:21] LABS: UPreg QC Valid YES
[2024-12-02 19:35] VITALS: BP 115/78; PULSE 78; RESP 16; TEMP 36.9; O2SAT 96
[2024-12-02] MEDS: oxyCODONE HCl Immed Release 5 MG TABLET PO (20:07)
[2024-12-02 21:42] VITALS: BP 124/80; PULSE 78; RESP 18; TEMP 36.7; O2SAT 98
[2024-12-02 21:44] VITALS: BP 124/80; PULSE 78; RESP 18; TEMP 36.7; O2SAT 98
== END 2024-12-02 21:44 | disposition home or self-care (01) ==
PROVIDERS: Registered Nurse Emergency; Emergency Provider Emergency Medicine; PCP Physician Assistant
DX: S39.012A Strain of muscle, fascia and tendon of lower back, initial encounter (principal); X50.9XXA Other and unspecified overexertion or strenuous movements or postures, initial encounter; Y93.9 Activity, unspecified; Y92.009 Unspecified place in unspecified non-institutional (private) residence as the place of occurrence of the external cause; M51.369 Other intervertebral disc degeneration, lumbar region without mention of lumbar back pain or lower extremity pain
CPT/HCPCS: 72100; 72131; 81001; 81025; 99284; J8540

== ENCOUNTER → 2024-12-02 16:14 | Outpatient (BNV) | payer BC, MEDICAID, SELFPAY | PROVIDERS: PCP Physician Assistant; Visit Provider Radiology Diagnostic Radiology | DX: M54.50 Low back pain, unspecified (principal); M51.27 Other intervertebral disc displacement, lumbosacral region; M48.061 Spinal stenosis, lumbar region without neurogenic claudication | CPT/HCPCS: 72100; 72131 ==

== ENCOUNTER 2024-12-06 10:11 | Outpatient (AMB) | payer BC, MEDICAID, SELFPAY ==
--- NOTE | 2024-12-06 10:13 | MHC.PC.OV ---
Vital Signs 12/06/24 10:17 Height 5 ft 3 in Weight 196 lb 6 oz BMI 34.8 BP 128/86 Blood Pressure Location Rt brachial Position Sitting Respiration 14 Pulse 62 Pulse Source Pulse Oximeter Temp 98.1 F Temp Source Oral Pulse Oximetry (%) 98 Oxygen Delivery Method Room Air Intake Visit Reasons: injury to back Intake Note: Emergency room follow up, lower back injury, tingling in both shoulders. Blade Aligner Required: No Allergies SSRI Adverse Reaction (Mild, Uncoded 12/06/24 10:15) Seratonin syndrome Medication List - Last Reconciled 12/06/24 by Jacqueline Walters PA-C [Beet root PO] cholecalciferol (vitamin D3) 125 mcg PO DAILY cyclobenzaprine 10 mg PO BEDTIME PRN diazepam (Valium) 2 mg PO TID PRN [fish oil PO] fluticasone furoate 100 mcg/actuation (Arnuity Ellipta) 1 inh inhalation DAILY ibuprofen 600 mg PO Q8H PRN [iron PO] magnesium oxide 400 mg PO DAILY mirtazapine 30 mg PO BEDTIME multivitamin 1 tab PO DAILY propranolol ER 60 mg PO DAILY Tobacco use date assessed: 08/08/24 Dental Screening Dental Screen Date: 04/05/24 HPI injury to back HPI Details Patient is a 33-year-old female who presents today for an acute problem visit. On 12/01 she was moving a dresser up 3 flights of stairs with her and then she was pushing a ocasio sized bed around her room and then later that night developed severe low pain with radiation into both legs. She was seen recently in the ER on 12/02 with complaints of acute back pain. She did have a a CT of the lumbar spine which showed bulging discs. She was prescribed a Medrol Dosepak, ibuprofen and Flexeril. She did call in following that ER visit and was prescribed Valium. She states that she actually took this for the 1st time and has been tolerating this. She stopped the Medrol Dosepak after a day or 2. She got worried about it worsening her anxiety. She states that she does think about restarting this as she thinks it might be helpful. She tells me today that her back pain is slightly improved from the ER but is still going down the right leg at night. She denies any bowel or bladder dysfunction. She denies any numbness or weakness in the extremities. She starts PT on Tuesday Psych: Currently feeling like her anxiety is a little bit exacerbated from the fear of having this back pain. She says that she has done a lot of reading on back surgeries and procedures and she is worried about needing something like this in the future. Otherwise, her mental health has been stable.. FORMERLY [facility], [facility] Medical History Hypotension, unspecified Depression Anxiety Imbalance Tremors of nervous system Acid reflux Palpitations High blood pressure Sinusitis delivery delivered Elbow injury Surgical History [place] teeth extracted Hx of cholecystectomy Hx of appendectomy Family History Father Asthma Maternal Grandmother High blood pressure Diabetes Paternal Grandfather High blood pressure Cardiovascular system problem Brother Asthma Other Depression FH: mental illness Schizophrenia Social History Household Members: Family Housing: Apartment Are you a primary adult live in caregiver to a significant other at home: Yes Alcohol intake: former Comment: Last drink was a year ago Patient Tobacco Use Status: Never used Tobacco e-Cigarette/Vaping Use: Never Used Special valentin needs: Yes service: No Current occupational status: 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 Devin Larson, Kimmy Grijalva, Francisco Park and colleagues, with an educational maggi from [employer]. Physical exam (Primary Care) Tobacco/Smoking Status: Tobacco use Status Tobacco use date assessed 08/08/24 08/08/24 08:59 Patient Tobacco Use Status Never used Tobacco 08/08/24 08:59 e-Cigarette/Vaping Use Never Used 08/08/24 08:59 Thrive Assessment: Date of Thrive Assessment Date Thrive assessed 04/05/24 08/08/24 08:59 Const Orientation/consciousness: patient oriented x3 HENMT Ears: hearing grossly normal bilaterally Neck Thyroid: Thyroid normal Lymphatic: no lymphadenopathy noted Resp Auscultation: clear to auscultation bilaterally Cardio Rate: regular rate Rhythm: regular rhythm Heart sounds: S1 normal heart sound present and S2 normal heart sound present GI Inspection: Yes normal to inspection Palpation (GI): Soft to palpation and Other GI palpation findings present (nontender, no cva tenderness) Auscultation: normoactive bowel sounds Rectal Exam - Female: deferred General: Yes no CVA tenderness Back/Spine/Pelvis Back: no CVA tenderness Thoracic/Lumbar Spine: pain with thoraco-lumbar ROM, paraspinal muscle tenderness and No lumbar spinal tenderness Skin General skin exam: no rashes or lesions noted Neuro General: patient oriented x3, gait normal and no focal motor deficits Motor exam (neuro): 5/5 motor strength present throughout Results Reviewed Results Reviewed: IMPRESSION: 1. L4-5 broad-based disc bulge with minimal central canal stenosis and mild bilateral neural foraminal stenosis. 2. L5-S1 broad-based disc bulge with minimal central canal stenosis. 3. Exaggerated lordotic curvature of the lumbar spine. 4. No acute osseous injury. Coding Level of Care Code Est Pt Level 4 (42777) Complex EM visit Add On G2211 Diagnoses Lumbar pain with radiation down both legs M54.50; M79.604; M79.605 Depression with anxiety F41.8 Assessment & Plan Assessment & Plan (1) Lumbar pain with radiation down both legs: Code(s): M54.50 - Low back pain, unspecified; M79.604 - Pain in right leg; M79.605 - Pain in left leg Category: Medical Plan: will try pred taper. discussed risks and benefits and adverse effects. advised to take with food and to notify me if any changes in mh. use valium prn gabapentin ordered to use at night will start pt short term follow up or sooner if anything changes (2) Depression with anxiety: Code(s): F41.8 - Other specified anxiety disorders Category: Medical Plan: stable will let me know if any changes with med changes Medications: New gabapentin 300 mg PO BEDTIME 30 caps 0RF prednisone take 3 tab po x 3 days, take 2 tab po x 3 days, 1 tab po x 3 days 18 tabs 0RF Discontinued ibuprofen Discontinued Reason: Doctor's Order 600 mg PO Q8H PRN 14 tabs 0RF pain cyclobenzaprine Discontinued Reason: Doctor's Order 10 mg PO BEDTIME PRN 10 tabs 0RF muscle spasm
[2024-12-06 10:17] VITALS: BP 128/86; PULSE 62; RESP 14; TEMP 36.7; O2SAT 98; BMI 34.8
--- OUTSIDE RECORDS SUMMARY | 2024-12-06 12:04 | XMS_ITS | Encounter Summary ---
Author Organization [facility] Address [address] [place] [address] Care Team Providers Care Ballistics Expert Name Role Phone Unknown Primary Care Provider [phone] Clair Elaine MD Primary Care Provider [phone] Clair Lawson MD Primary Care Provider [phone] Bailey Gan MD Primary Care Provider [phone] Matthias Chau MD Primary Care Provider + [phone] Encounter Details Date Type Department Care Team (Late st Contact Info) Description 01/17/2018 Prep for Surgery OBGYN IP [address] [place] [id number] Nehal Roberts MD [address] [place] [phone] Dichorionic diamniotic twin in third trimester (Primary [...] documented as of this encounter Care Teams Ballistics Expert Relationship Specialty Start Date End Date Unknown Unknow Provider Address PCP - General 01/23/18 02/11/18 Clair Elaine MD [id number] [place] [address] PCP - General Obstetrics and Gynecology 02/12/1802/14 Clair Lawson MD [address] [place] [address] PCP - General 03/01/21 04/02/22 Bailey Gan MD [address] [place] [address] PCP - General Family Medicine 04/03/22 04/23/22 Matthias Chau MD 85 [facility] [address] [place] [address] PCP - General Nephrology 04/24/22 documented as of this encounter
--- OUTSIDE RECORDS SUMMARY | 2024-12-06 12:05 | XMS_ITS | Encounter Summary ---
Author Organization [facility] Address [address] [place] [address] Care Team Providers Care Pit Furnace Operator Name Role Phone Matthias Chau MD Primary Care Provider + [phone] Encounter Details Date Type Department Care Team (Late st Contact Info) Description 08/22/2022 Scanned Document [facility] Department of Internal Medicine & Nephrology [place] [address] [address] Matthias Chau MD 85 [facility] 900 [place], [place] [phone] Social History Tobacco Use Types Packs/Day Years [...] on filedocumented in this encounter Care Teams Pit Furnace Operator Relationship Specialty Start Date End Date Matthias Chau MD [address] [address] PCP - General Nephrology 04/24/22 documented as of this encounter
--- OUTSIDE RECORDS SUMMARY | 2024-12-06 12:05 | XMS_ITS | Clinical Summary ---
Author Organization [facility] Address [address] [place] [address] Care Team Providers Care Plater Production Name Role Phone Matthias Chau MD Primary Care Provider [phone] Allergies Active Allergy Reactions Criticality Noted Date Comments Seasonal 01/01/2021 Serotonin Reuptake Inhibitors (Ssris) 03/23/2022 Medications Medication Sig Dispensed Refills Start Date End Date Status Vit-Fe Fumarate-FA ( PO) Take by mouth daily as needed. Baby and me too 0 Active mirtazapine (REMERON) 15 MG tablet Take 1 tablet (15 mg total) by mouth every night at bedtime. 0 05/27/2022 Active [place]-3 Fatty Acids (Fish Oil) 1000 MG CAPS [...] Advance Directives For more information, please contact: [phone] Latest Code Status on File Code Status [...] the following way: discussed . Care Teams Plater Production Relationship Specialty Start Date End Date Matthias Chau MD [address] [address] PCP - General Electric Razor Assembler 05/13/22
--- OUTSIDE RECORDS SUMMARY | 2024-12-06 12:05 | XMS_ITS | Clinical Summary ---
Author Organization [facility] Address [address] [place] [address] Phone Care Team Providers Care Singer And Unloader Name Role Phone Matthias Chau MD Primary Care Provider [phone] Allergies Active Allergy Reactions Criticality Noted Date [...] LAPAROSCOPY CHOLECYSTECTOMY; Surgeon: Justin Shepard MD; Location: [facility]; Service: General; Laterality: N/A; Medical [...] 12/16/2007 Cervical Cancer Screening: Pap Smear 2009 HPV Vaccines (1 - 3-dose SCDM series) 12/16/2015 Cholesterol Screening (Lipid Panel) 01/17/2022 HIV Screening 01/17/2022 Hepatitis C Screening 01/17/2022 Social Influencers of Health Screening 01/17/2022 Hypertension/CHF/CAD Annual BMP Blood Test 08/23/2023 08/22/2022, 04/19/2022, 04/16/2022, Additional history exists Depression Screening 02/15/2024 COVID-19 Vaccine (2023- season) 2024 Influenza Vaccine (#1) 2024 12/09/2020 RSV Immunization Adult Patients (1 - 1-dose 75+ series) 12/16/2063 HIB Vaccines Aged Out No longer eligi [...] complete this topic Insurance [place] - [place] [facility]) Care Teams Singer And Unloader Relationship Specialty Start Date End Date Matthias Chau MD [address] [phone] PCP - General 05/13/22
--- OUTSIDE RECORDS SUMMARY | 2024-12-06 12:05 | XMS_ITS | Encounter Summary ---
Author Organization [facility] Address [address] [place] [address] Care Team Providers Care Litigation Associate Name Role Phone Matthias Chau MD Primary Care Provider + [phone] Encounter Details Date Type Department Care Team (Late st Contact Info) Description 07/20/2022 Scanned Document [facility] Department of Internal Medicine & Nephrology [place] [address] [address] Matthias Chau MD 85 [facility] 900 [place], [place] [phone] Social History Tobacco Use Types Packs/Day Years [...] on filedocumented in this encounter Care Teams Litigation Associate Relationship Specialty Start Date End Date Matthias Chau MD [address] [address] PCP - General Nephrology 04/24/22 documented as of this encounter
--- OUTSIDE RECORDS SUMMARY | 2024-12-06 12:05 | XMS_ITS | Encounter Summary ---
Author Organization [facility] Address [address] [place] [address] Care Team Providers Care Subeditor Name Role Phone Matthias Chau MD Primary Care Provider + [phone] Encounter Details Date Type Department Care Team (Late st Contact Info) Description 08/22/2022 Scanned Document [facility] Department of Internal Medicine & Nephrology [place] [address] [address] Matthias Chau MD 85 [facility] 900 [place], [place] [phone] Social History Tobacco Use Types Packs/Day Years [...] on filedocumented in this encounter Care Teams Subeditor Relationship Specialty Start Date End Date Matthias Chau MD [address] [address] PCP - General Nephrology 04/24/22 documented as of this encounter
--- OUTSIDE RECORDS SUMMARY | 2024-12-06 12:05 | XMS_ITS | Clinical Summary ---
Author Organization [facility] Address [address] [place] [address] Care Team Providers Care Project Construction Manager Name Role Phone Matthias Chau MD Primary Care Provider + [phone] Allergies Active Allergy Reactions Criticality Noted Date [...] ANTIBODY Routine 07/27/2022 10:42 AM EDT THINPREP PAP(MARINE PHOTOGRAPHER) HPV SCR RFX HPV 16,18/45 Routine 08/21/2020 [...] EDT 07/27/2022 8:39 PM EDT Mariah Kolb [facility] BLOOD ORDERABLES Final R esult Performing Organization Address City/[facility]/ZIP Co de Phone Number [facility] [address] [place], [place] * HEPATITIS C VIRUS (HCV) ANTIBODY (07/27/2022 10:42 AM EDT) Hepatitis C Antibody 0.59 Non-Reacti ve Non-Reacti ve S/CO [facility] Other 07/27/2022 10:4 2 AM EDT 07/27/2022 8:39 PM EDT Mariah Kolb [facility] BLOOD ORDERABLES Final R esult Performing Organization Address [facility] Co de Phone Number [facility] [address] [place], [place] * ThinPrep Pap(Hoisting Engineer Pile Driving) HPV Scr Rfx HPV 16,18/45 (08/21/2020 2:07 PM EDT) Report Report [facility] Comment: Final Gynecological Cytology Report ThinPrep Pap Test, HPV Screen, Reflex HPV Genotype SPECIMEN ADEQUACY: SATISFACTORY FOR EVALUATION; ENDOCERVICAL/TRANSFORMATION ZONE COMPONENT PRESENT. INTERPRETATION: NEGATIVE FOR INTRAEPITHELIAL LESION OR MALIGNANCY. Electronically Signed: Leah Gonsalez, [place] (ASCP) CLINICAL INFORMATION: LMP: 07/24/2020 Clinical History: RTN Specimen Source: Cervix, Endocervix HPV RESULTS: HPV mRNA E6/E7 [id number] Approved: 08/22/20 Negative REF RANGE: Negative CPT Codes: 57702 ICD Codes: Z01.419 Other 08/21/2020 2:07 PM EDT 08/21/2020 9:28 PM EDT us Antelmo Richmond DO LAB AMB PATH/CYTO ORDERAB LES Final Result Performing Organization Address City/State/[facility] Co de Phone Number [facility] [address] [place], [place] from Last 3 Months or Most Recently Relevant to Health Maintenance Insurance [facility] [place] [address] [id number] Advance Directives * Full Code (Latest Code [...] 4:53 AM 02/27/2018 5:09 AM Care Teams Project Construction Manager Relationship Specialty Start Date End Date Matthias Chau MD [address] [place] [address] [address] [place] [address] PCP - General Nephrology 04/24/22
== END 2024-12-06 10:37 | disposition home or self-care (01) ==
LOC: HO.HMCFM 10:11
PROVIDERS: PCP Physician Assistant; Visit Provider Physician Assistant
DX: M54.50 Low back pain, unspecified (principal); M79.604 Pain in right leg; M79.605 Pain in left leg; F41.8 Other specified anxiety disorders

== ENCOUNTER 2024-12-26 10:03 | Outpatient (REF) | payer BC, MEDICAID, SELFPAY ==
--- NOTE | ~2024-12-26 | CT_ITS ---
CLINICAL HISTORY: R93.89 - Abnormal findings on diagnostic imaging of other specified body... CT chest without contrast Comparison: None provided Findings: The heart is normal size. The visualized thyroid and mediastinum are unremarkable. No consolidation or effusion. There is a 2.1 cm thin-walled bulla or pneumatocele in the right middle lobe. The upper abdomen is unremarkable. The bones are intact. IMPRESSION: 1. Right middle lobe pneumatocele versus bulla. This document has been electronically signed by: Maxwell Wells MD on 12/27/2024 09:27:10
--- OUTSIDE RECORDS SUMMARY | 2024-12-26 11:46 | XMS_ITS | Clinical Summary ---
Author Organization [facility] Address [address] [place] [address] Phone Care Team Providers Care Heel Breaster Name Role Phone Matthias Chau MD Primary Care Provider [phone] Allergies Active Allergy Reactions Criticality Noted Date [...] CHOLECYSTECTOMY; Surgeon: Justin Shepard MD; Location: [facility]; Service: General; Laterality: N/A; Medical [...] history exists Depression Screening 02/15/2024 COVID-19 Vaccine (2024- season) 2024 Influenza Vaccine (#1) 2024 12/09/2020 [...] complete this topic Insurance [place] - [place] [facility] ([facility]) Care Teams Heel Breaster Relationship Specialty Start Date End Date Matthias Chau MD [address] [phone] PCP - General 05/13/22
--- OUTSIDE RECORDS SUMMARY | 2024-12-26 11:46 | XMS_ITS | Clinical Summary ---
Author Organization [facility] Address [address] [place] [address] Care Team Providers Care Clay Pigeon Loader Name Role Phone Matthias Chau MD Primary Care Provider Allergies Active Allergy Reactions Criticality Noted Date Comments Seasonal 01/01/2021 Serotonin Reuptake Inhibitors (Ssris) 03/23/2022 Medications Medication Sig Dispensed Refills Start Date End Date Status Vit-Fe Fumarate-FA ( PO) Take by mouth daily as needed. Baby and me too 0 Active mirtazapine (REMERON) 15 MG tablet Take 1 tablet (15 mg total) by mouth every night at bedtime. 0 05/27/2022 Active [place]-3 Fatty Acids (Fish Oil) 1000 MG CAPS [...] Advance Directives For more information, please contact: [phone] Latest Code Status on File Code Status [...] following way: discussed . Care Teams Clay Pigeon Loader Relationship Specialty Start Date End Date Matthias Chau MD [address] [address] PCP - General Sales Service Coordinator 05/13/22
--- OUTSIDE RECORDS SUMMARY | 2024-12-26 11:46 | XMS_ITS | Encounter Summary ---
Author Organization [facility] Address [address] [place] [address] Care Team Providers Care Process Environmental Technician Name Role Phone Matthias Chau MD Primary Care Provider + [phone] Encounter Details Date Type Department Care Team (Late st Contact Info) Description 08/22/2022 Scanned Document [facility] Department of Internal Medicine & Nephrology [place] [address] [address] Matthias Chau MD 85 [facility] 900 [place], [place] [phone] Social History Tobacco Use Types Packs/Day Years [...] on filedocumented in this encounter Care Teams Process Environmental Technician Relationship Specialty Start Date End Date Matthias Chau MD [address] [address] PCP - General Nephrology 04/24/22 documented as of this encounter
--- OUTSIDE RECORDS SUMMARY | 2024-12-26 11:46 | XMS_ITS | Encounter Summary ---
Author Organization [facility] Address [address] [place] [address] Care Team Providers Care Forest Landscape Ecology Professor Name Role Phone Unknown Primary Care Provider [phone] Clair Elaine MD Primary Care Provider [phone] Clair Lawson MD Primary Care Provider [phone] Bailey Gan MD Primary Care Provider [phone] Matthias Chau MD Primary Care Provider + [phone] Encounter Details Date Type Department Care Team (Late st Contact Info) Description 01/17/2018 Prep for Surgery OBGYN IP [address] [place] [phone] Nehal Roberts MD [address] [place] [phone] Dichorionic diamniotic twin in third trimester (Primary [...] documented as of this encounter Care Teams Forest Landscape Ecology Professor Relationship Specialty Start Date End Date Unknown Unknow Provider Address PCP - General 01/23/18 02/11/18 Clair Elaine MD [address] [place] [address] PCP - General Obstetrics and Gynecology 02/12/1802/14 Clair Lawson MD [address] [place] [address] PCP - General 03/01/21 04/02/22 Bailey Gan MD [address] [place] [address] PCP - General Family Medicine 04/03/22 04/23/22 Matthias Chau MD 85 [facility] [address] [place] [address] PCP - General Nephrology 04/24/22 documented as of this encounter
--- OUTSIDE RECORDS SUMMARY | 2024-12-26 11:46 | XMS_ITS | Encounter Summary ---
Author Organization [facility] Address [address] [place] [address] Care Team Providers Care Temperer Name Role Phone Matthias Chau MD Primary Care Provider + [phone] Encounter Details Date Type Department Care Team (Late st Contact Info) Description 07/20/2022 Scanned Document [facility] Department of Internal Medicine & Nephrology [place] [address] [address] Matthias Chau MD 85 [facility] 900 [place], [place] [phone] Social History Tobacco Use Types Packs/Day Years [...] on filedocumented in this encounter Care Teams Temperer Relationship Specialty Start Date End Date Matthias Chau MD [address] [address] PCP - General Nephrology 04/24/22 documented as of this encounter
--- OUTSIDE RECORDS SUMMARY | 2024-12-26 11:46 | XMS_ITS | Clinical Summary ---
Author Organization [facility] Address [address] [place] [address] Care Team Providers Care Auto Electrician Name Role Phone Matthias Chau MD Primary Care Provider + [phone] Allergies Active Allergy Reactions Criticality Noted Date [...] ANTIBODY Routine 07/27/2022 10:42 AM EDT THINPREP PAP(TRANSFER PROFESSOR) HPV SCR RFX HPV 16,18/45 Routine 08/21/2020 [...] EDT 07/27/2022 8:39 PM EDT Mariah Kolb [facility] BLOOD ORDERABLES Final R esult Performing Organization Address City/[facility]/ZIP Co de Phone Number [facility] [address] [place], [place] * HEPATITIS C VIRUS (HCV) ANTIBODY (07/27/2022 10:42 AM EDT) Hepatitis C Antibody 0.59 Non-Reacti ve Non-Reacti ve S/CO [facility] Other 07/27/2022 10:4 2 AM EDT 07/27/2022 8:39 PM EDT Mariah Kolb [facility] BLOOD ORDERABLES Final R esult Performing Organization Address [facility] Co de Phone Number [facility] [address] [place], [place] * ThinPrep Pap(Program Or Project Administrator) HPV Scr Rfx HPV 16,18/45 (08/21/2020 2:07 PM EDT) Report Report [facility] Comment: Final Gynecological Cytology Report ThinPrep Pap Test, HPV Screen, Reflex HPV Genotype SPECIMEN ADEQUACY: SATISFACTORY FOR EVALUATION; ENDOCERVICAL/TRANSFORMATION ZONE COMPONENT PRESENT. INTERPRETATION: NEGATIVE FOR INTRAEPITHELIAL LESION OR MALIGNANCY. Electronically Signed: Leah Gonsalez, [place] (ASCP) CLINICAL INFORMATION: LMP: 07/24/2020 Clinical History: RTN Specimen Source: Cervix, Endocervix HPV RESULTS: HPV mRNA E6/E7 [id number] Approved: 08/22/20 Negative REF RANGE: Negative CPT Codes: 41129 ICD Codes: Z01.419 Other 08/21/2020 2:07 PM EDT 08/21/2020 9:28 PM EDT us Antelmo Richmond DO LAB AMB PATH/CYTO ORDERAB LES Final Result Performing Organization Address City/State/[facility] Co de Phone Number [facility] [address] [place], [place] from Last 3 Months or Most Recently Relevant to Health Maintenance Insurance [facility] Advance Directives * Full Code (Latest Code [...] 4:53 AM 02/27/2018 5:09 AM Care Teams Auto Electrician Relationship Specialty Start Date End Date Matthias Chau MD [address] [place] [address] [address] [place] [address] PCP - General Nephrology 04/24/22
--- OUTSIDE RECORDS SUMMARY | 2024-12-26 11:46 | XMS_ITS | Encounter Summary ---
Author Organization [facility] Address [address] [place] [address] Care Team Providers Care Car Worker Name Role Phone Matthias Chau MD Primary Care Provider + [phone] Encounter Details Date Type Department Care Team (Late st Contact Info) Description 08/22/2022 Scanned Document [facility] Department of Internal Medicine & Nephrology [place] [address] [address] Matthias Chau MD 85 [facility] 900 [place], [place] [phone] Social History Tobacco Use Types Packs/Day Years [...] on filedocumented in this encounter Care Teams Car Worker Relationship Specialty Start Date End Date Matthias Chau MD [address] [address] PCP - General Nephrology 04/24/22 documented as of this encounter
== END 2024-12-26 10:04 | disposition home or self-care (01) ==
LOC: HO.CT 10:03
PROVIDERS: PCP Physician Assistant; Visit Provider Physician Assistant
DX: J84.9 Interstitial pulmonary disease, unspecified (principal); R07.89 Other chest pain; R93.89 Abnormal findings on diagnostic imaging of other specified body structures
CPT/HCPCS: 71250

== ENCOUNTER → 2024-12-26 10:05 | Outpatient (BNV) | payer BC, MEDICAID, SELFPAY | PROVIDERS: PCP Physician Assistant; Visit Provider Specialist | DX: R93.89 Abnormal findings on diagnostic imaging of other specified body structures (principal) | CPT/HCPCS: 71250 ==

== ENCOUNTER 2025-01-01 14:57 | Outpatient (AMB) | payer BC, MEDICAID, SELFPAY ==
[2025-01-01 15:07] VITALS: BP 98/66; PULSE 73; O2SAT 98; BMI 35.3
--- NOTE | 2025-01-01 15:07 | A.OFFVIS_ITS ---
Vital Signs 01/01/25 15:07 Height 5 ft 3 in Weight 199 lb 4 oz BMI 35.3 BP 98/66 Blood Pressure Location Rt brachial Position Sitting Pulse 73 Pulse Source Pulse Oximeter Pulse Oximetry (%) 98 Oxygen Delivery Method Room Air Intake Visit Reasons: Interstitial pulmonary disease Allergies SSRI Adverse Reaction (Mild, Uncoded 01/01/25 15:10) Seratonin syndrome HPI HPI Interstitial pulmonary disease: Details: Pravin is a pleasant 34 year old female, never smoker, with underlying GERD and Anxiety. She was referred by PCP for pulmonary evaluation after recent CXR revealed question of ILD, reported pulmonary reticulations as well as respiratory symptoms, including chest tightness and wheezing. Recent PFT revealed no significant obstructive or restrictive defects, but indicated air trapping suggestive of asthma and was started on Arnuity. The patient has been using Arnuity inhaler with noted improvement in respiratory symptoms, including reduced cough and denies shortness of breath or wheezing. She denies any issues with inhaler use and reports adherence to rinsing her mouth after use. Today she presents to review chest CT results. 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 care analyst to a significant other at home: Yes Alcohol intake: former Comment: Last drink was a year ago Patient Tobacco Use Status: Never used Tobacco e-Cigarette/Vaping Use: Never Used Special valentin needs: Yes service: No Current occupational status: 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 Cognitive needs: No Hearing needs: No (patient is having tinnitis.) Vision needs: Yes (patient wears glasses) Review of Systems Const Denies chills, Denies excessive sweating, Denies fever(s), Denies headache(s) and Denies night sweats Eyes Denies dry eyes, Denies irritation and Denies itchy eyes ENT Reports Normal hearing present, Denies headache(s) and Denies sore throat Card Denies chest pain, Denies chest pain at rest, Denies chest pain with activity, Denies claudication, Denies leg edema, Denies orthopnea and Denies paroxysmal nocturnal dyspnea Resp Denies chest congestion, Denies cough, Denies excessive phlegm production, Denies pain on inspiration, Denies pain with cough, Denies stridor and Denies wheezing Neuro Reports Normal hearing present and Denies headache(s) Endo Denies excessive sweating Leobardo/Lymph Denies lymphadenopathy Aller/Immun Denies itchy eyes, Denies seasonal rhinorrhea and Denies wheezing Physical Exam Vital Signs: Last Vital Signs Pulse 73 01/01/25 15:07 BP 98/66 01/01/25 15:07 Pulse Ox 98 01/01/25 15:07 Oxygen Delivery Method Room Air 01/01/25 15:07 BMI result Body Mass Index 35.3 Const General: cooperative, healthy appearing, comfortable, no acute distress, well developed and alert Nutritional Appearance: obese Orientation/consciousness: patient oriented x3 Limitations: no limitations HEENT Head: Yes normal to inspection, Yes normocephalic and Yes atraumatic Ears: hearing grossly normal bilaterally and external ears normal Eyes General: appearance normal, both eyes and all related structures Eyelids: Yes eyelids normal Sclerae: sclerae normal EOM: EOMs intact bilaterally Neck Neck: Yes normal visual inspection and Yes no lymphadenopathy Lymphatic: no lymphadenopathy noted Chest Chest palpation & inspection: normal inspection of the chest Resp Effort & Inspection: normal respiratory effort, able to speak in complete sentences, no audible wheezes, no cough, no stridor, not tachypneic, no tripod positioning and no use of accessory muscles Auscultation: clear to auscultation bilaterally Cardio Jugular venous distension: no JVD Rate: regular rate Rhythm: regular rhythm Skin Other: warm, dry General skin exam: no rashes or lesions noted Neuro General: patient oriented x3 Cranial nerves: Yes Normal hearing present Cognition (Neuro): normal cognition Gait exam (Neuro): Normal gait present Extrem General: Yes normal to inspection, Yes capillary refill normal, Yes no clubbing, cyanosis or edema and Yes no pedal edema Psych Appearance: grossly normal and well kempt Speech and movement: Normal speech and movement present and Clear speech present Affect: normal affect Attitude: cooperative Thought process: Normal thought process present Thought content: Normal thought content present Insight: Good insight present (Psych) Judgement: Good judgement present (Psych) Results Reviewed Results Reviewed: [address] [address] [address] Scan Report Signed Patient: Pravin Harvey MR#: [id number] : 1990 Acct:[id number] Age/Sex: 34 / F ADM Date: 12/26/24 Loc: HO.CT Attending Dr: Jacqueline Walters PA-C Ordering Physician: Jacqueline Walters Date of Service: 12/26/24 Procedure(s): CT chest wo IV con Accession Number(s): [id number] cc: Jacqueline Walters~ Report Number: [id number]: Total DLP = 137.00 mGy-cm Reason for Exam: R93.89 - Abnormal findings on diagnostic imaging of other specified body... CLINICAL HISTORY: R93.89 - Abnormal findings on diagnostic imaging of other specified body... CT chest without contrast Comparison: None provided Findings: The heart is normal size. The visualized thyroid and mediastinum are unremarkable. No consolidation or effusion. There is a 2.1 cm thin-walled bulla or pneumatocele in the right middle lobe. The upper abdomen is unremarkable. The bones are intact. IMPRESSION: 1. Right middle lobe pneumatocele versus bulla. This document has been electronically signed by: Maxwell Wells MD on 12/27/2024 09:27:10 Dictated By: Maxwell Wells MD Signed By: <Electronically signed by Maxwell Wells MD in OV> 12/27/24927 DD/ 6 TD/TT: 12/27/24926 Assistant Program Manager: Assessment & Plan Assessment & Plan (1) Pneumatocele of lung: Code(s): J98.4 - Other disorders of lung Category: Medical (2) Asthma: Code(s): J45.909 - Unspecified asthma, uncomplicated Category: Medical (3) Environmental allergies: Code(s): Z91.09 - Other allergy status, other than to drugs and biological substances Category: Medical Plan Reviewed the chest CT which did not reveal any signs of ILD however did reveal pneumatocele vs bullae of the right middle lobe measuring 2.1 cm. Discussed the likelihood of this finding being related to prior pneumonia and the plan to monitor it with a repeat chest CT in three months to assess stability vs progression/resolution. Unlikely related to cystic lung condition as this is an isolated finding however will continue to monitor and consider further evaluation depending on imaging as well as symptoms. Prior to pneumonia in January 2024 patient did have recurrent strep pharyngitis with associated respiratory symptoms which was treated with antibiotics, and likely addressed any concurrent pneumonias. At this time, patient reports good control of respiratory symptoms with Arnuity, advised to continue and will prescribe Albuterol MDI PRN for acute symptoms. Also recommended a tuberculosis test to rule out TB as a cause, although it is unlikely given the location of findings. All questions were answered and patient is in agreement of plan. Will follow up to review results or sooner if needed. Orders: Orders T Spot TB Today R93.89 - Abnormal findings on diagnostic imaging of other specified body structures CT chest wo IV con 3 Months J98.4 - Other disorders of lung Medications: New albuterol sulfate 90 mcg/actuation 2 puffs inhalation Q4-6H PRN 1 ea 3RF shortness of breath or wheezing Coding Level of Care Code Est Pt Level 4 (47662) Complex EM visit Add On G2211 Diagnoses Pneumatocele of lung J98.4 Asthma J45.909 Environmental allergies Z91.09
--- OUTSIDE RECORDS SUMMARY | 2025-01-02 12:59 | XMS_ITS | Clinical Summary ---
Author Organization [facility] Address [address] [place] [address] Care Team Providers Care Quality Control Inspector Heading Name Role Phone Matthias Chau MD Primary Care Provider [phone] Allergies Active Allergy Reactions Criticality Noted Date Comments Seasonal 01/01/2021 Serotonin Reuptake Inhibitors (Ssris) 03/23/2022 Medications Medication Sig Dispensed Refills Start Date End Date Status Vit-Fe Fumarate-FA ( PO) Take by mouth daily as needed. Baby and me too 0 Active mirtazapine (REMERON) 15 MG tablet Take 1 tablet (15 mg total) by mouth every night at bedtime. 0 05/27/2022 Active [place]-3 Fatty Acids (Fish Oil) 1000 MG CAPS [...] Advance Directives For more information, please contact: [phone] Latest Code Status on File Code Status [...] the following way: discussed . Care Teams Quality Control Inspector Heading Relationship Specialty Start Date End Date Matthias Chau MD [address] [address] PCP - General Driller Multiple Spindle 05/13/22
--- OUTSIDE RECORDS SUMMARY | 2025-01-02 12:59 | XMS_ITS | Encounter Summary ---
Author Organization [facility] Address [address] [place] [address] Care Team Providers Care Dental Services Director Name Role Phone Matthias Chau MD Primary Care Provider + [phone] Encounter Details Date Type Department Care Team (Late st Contact Info) Description 08/22/2022 Scanned Document [facility] Department of Internal Medicine & Nephrology [place] [address] [address] Matthias Chau MD 85 [facility] [address] [place], [place] [id number] Social History Tobacco Use Types Packs/Day Years [...] on filedocumented in this encounter Care Teams Dental Services Director Relationship Specialty Start Date End Date Matthias Chau MD [address] [address] PCP - General Nephrology 04/24/22 documented as of this encounter
--- OUTSIDE RECORDS SUMMARY | 2025-01-02 12:59 | XMS_ITS | Encounter Summary ---
Author Organization [facility] Address [address] [place] [address] Care Team Providers Care Neonatal Intensive Care Unit Nurse Name Role Phone Matthias Chau MD Primary Care Provider + [phone] Encounter Details Date Type Department Care Team (Late st Contact Info) Description 07/20/2022 Scanned Document [facility] Department of Internal Medicine & Nephrology [place] [address] [address] Matthias Chau MD 85 [facility] [address] [place], [place] [id number] Social History Tobacco Use Types Packs/Day Years [...] on filedocumented in this encounter Care Teams Neonatal Intensive Care Unit Nurse Relationship Specialty Start Date End Date Matthias Chau MD [address] [address] PCP - General Nephrology 04/24/22 documented as of this encounter
--- OUTSIDE RECORDS SUMMARY | 2025-01-02 12:59 | XMS_ITS | Encounter Summary ---
Author Organization [facility] Address [address] [place] [address] Care Team Providers Care Sleeve Baster Name Role Phone Matthias Chau MD Primary Care Provider + [phone] Encounter Details Date Type Department Care Team (Late st Contact Info) Description 08/22/2022 Scanned Document [facility] Department of Internal Medicine & Nephrology [place] [address] [address] Matthias Chau MD 85 [facility] [address] [place], [place] [phone] Social History Tobacco Use Types Packs/Day Years [...] on filedocumented in this encounter Care Teams Sleeve Baster Relationship Specialty Start Date End Date Matthias Chau MD [address] [address] PCP - General Nephrology 04/24/22 documented as of this encounter
--- OUTSIDE RECORDS SUMMARY | 2025-01-02 12:59 | XMS_ITS | Clinical Summary ---
Author Organization [facility] Address [address] [place] [address] Care Team Providers Care Paper Baling Machine Operator Name Role Phone Matthias Chau MD Primary Care Provider + [phone] Allergies Active Allergy Reactions Criticality Noted Date [...] ANTIBODY Routine 07/27/2022 10:42 AM EDT THINPREP PAP(BEAUTICIAN APPRENTICE) HPV SCR RFX HPV 16,18/45 Routine 08/21/2020 [...] EDT 07/27/2022 8:39 PM EDT Mariah Kolb [facility] BLOOD ORDERABLES Final R esult Performing Organization Address City/[facility]/ZIP Co de Phone Number [facility] [address] [place], [place] * HEPATITIS C VIRUS (HCV) ANTIBODY (07/27/2022 10:42 AM EDT) Hepatitis C Antibody 0.59 Non-Reacti ve Non-Reacti ve S/CO [facility] Other 07/27/2022 10:4 2 AM EDT 07/27/2022 8:39 PM EDT Mariah Kolb [facility] LAB BLOOD ORDERABLES Final R esult Performing Organization Address [facility] Co de Phone Number [facility] [address] [place] * ThinPrep Pap(Priming Machine Operator) HPV Scr Rfx HPV 16,18/45 (08/21/2020 2:07 PM EDT) Report Report [facility] Comment: Final Gynecological Cytology Report ThinPrep Pap Test, HPV Screen, Reflex HPV Genotype SPECIMEN ADEQUACY: SATISFACTORY FOR EVALUATION; ENDOCERVICAL/TRANSFORMATION ZONE COMPONENT PRESENT. INTERPRETATION: NEGATIVE FOR INTRAEPITHELIAL LESION OR MALIGNANCY. Electronically Signed: Leah Gonsalez, CT (ASCP) CLINICAL INFORMATION: LMP: 07/24/2020 Clinical History: RTN Specimen Source: Cervix, Endocervix HPV RESULTS: HPV mRNA E6/E7 [id number] Approved: 08/22/20 Negative REF RANGE: Negative CPT Codes: 24616 ICD Codes: Z01.419 Other 08/21/2020 2:07 PM EDT 08/21/2020 9:28 PM EDT us Antelmo Richmond DO LAB AMB PATH/CYTO ORDERAB LES Final Result Performing Organization Address City/State/[facility] Co de Phone Number [facility] [address] [place], [place] from Last 3 Months or Most Recently Relevant to Health Maintenance Insurance [facility] [phone] Advance Directives * Full Code (Latest Code [...] 4:53 AM 02/27/2018 5:09 AM Care Teams Paper Baling Machine Operator Relationship Specialty Start Date End Date Matthias Chau MD [address] [place] [address] [address] [place] [address] PCP - General Nephrology 04/24/22
--- OUTSIDE RECORDS SUMMARY | 2025-01-02 12:59 | XMS_ITS | Clinical Summary ---
Author Organization [facility] Address [address] [place] [address] Phone Care Team Providers Care It Admin Name Role Phone Matthias Chau MD Primary Care Provider [phone] Allergies Active Allergy Reactions Criticality Noted Date [...] LAPAROSCOPY CHOLECYSTECTOMY; Surgeon: Justin Shepard MD; Location: [facility]; Service: General; Laterality: N/A; Medical [...] complete this topic Insurance [place] [facility] ([facility]) Care Teams It Admin Relationship Specialty Start Date End Date Matthias Chau MD [address] [id number] PCP - General 05/13/22
--- OUTSIDE RECORDS SUMMARY | 2025-01-02 12:59 | XMS_ITS | Encounter Summary ---
Author Organization [facility] Address [address] [place] [address] Care Team Providers Care Block Trimmer Name Role Phone Unknown Primary Care Provider [phone] Clair Elaine MD Primary Care Provider [phone] Clair Lawson MD Primary Care Provider [phone] Bailey Gan MD Primary Care Provider [phone] Matthias Chau MD Primary Care Provider + [phone] Encounter Details Date Type Department Care Team (Late st Contact Info) Description 01/17/2018 Prep for Surgery OBGYN IP [address] [place] [phone] Nehal Roberts MD [address] [place] [id number] Dichorionic diamniotic twin in third trimester (Primary [...] documented as of this encounter Care Teams Block Trimmer Relationship Specialty Start Date End Date Unknown Unknow Provider Address PCP - General 01/23/18 02/11/18 Clari Elaine MD [id number] [place] [address] PCP - General Obstetrics and Gynecology 02/12/1802/14 Clair Lawson MD [address] [place] [address] PCP - General 03/01/21 04/02/22 Bailey Gan MD [address] [place] [address] PCP - General Family Medicine 04/03/22 04/23/22 Matthias Chau MD 85 [facility] [address] [place] [address] PCP - General Nephrology 04/24/22 documented as of this encounter
== END 2025-01-01 15:30 | disposition home or self-care (01) ==
LOC: HO.HPSW 14:57
PROVIDERS: PCP Physician Assistant; Visit Provider Nurse Practitioner Family
DX: J98.4 Other disorders of lung (principal); J45.909 Unspecified asthma, uncomplicated; Z91.09 Other allergy status, other than to drugs and biological substances
CPT/HCPCS: 99214

== ENCOUNTER 2025-01-01 14:57 | Outpatient (REF) | payer BC, MEDICAID, SELFPAY ==
[2025-01-04 08:23] LABS: TS Negative Control Passed; TS Panel A 0; TS Panel B 0; TS Positive Control Passed; TSpotTB Negative (Negative)
== END 2025-01-01 14:58 | disposition home or self-care (01) ==
LOC: HO.WFDLDS 14:57
PROVIDERS: PCP Physician Assistant; Visit Provider Nurse Practitioner Family
DX: J98.4 Other disorders of lung (principal); J45.909 Unspecified asthma, uncomplicated; Z91.09 Other allergy status, other than to drugs and biological substances; R93.89 Abnormal findings on diagnostic imaging of other specified body structures
CPT/HCPCS: 36415; 86481

== ENCOUNTER 2025-01-24 08:47 | Outpatient (AMB) | payer BC, MEDICAID, SELFPAY ==
--- NOTE | 2025-01-24 08:54 | A.OFFPC_ITS ---
Vital Signs 01/24/25 08:57 Height 5 ft 3 in Weight 203 lb 8 oz BMI 36.0 BP 104/74 Blood Pressure Location Lt brachial Position Sitting Respiration 14 Pulse 81 Pulse Source Pulse Oximeter Temp 97.5 F Temp Source Oral Pulse Oximetry (%) 98 Oxygen Delivery Method Room Air Intake Visit Reasons: follow up Intake Note: Follow up Residential Coordinator Required: No Allergies SSRI Adverse Reaction (Mild, Uncoded 01/24/25 08:57) Seratonin syndrome Medication List - Last Reconciled 01/24/25 by Jacqueline Walters PA-C albuterol sulfate 90 mcg/actuation 2 puffs inhalation Q4-6H PRN [Beet root PO] [calcium 1200 PO] cholecalciferol (vitamin D3) 125 mcg PO DAILY [fish oil PO] fluticasone furoate 100 mcg/actuation (Arnuity Ellipta) 1 inh inhalation DAILY [iron PO] magnesium oxide 400 mg PO DAILY mirtazapine 30 mg PO BEDTIME multivitamin 1 tab PO DAILY propranolol ER 60 mg PO DAILY Tobacco use date assessed: 08/08/24 Dental Screening Dental Screen Date: 04/05/24 HPI follow up HPI Details Patient is a 34-year-old female who presents today for a follow up. MSK: Tells me that her low back pain that radiates down her legs is getting a bit better. She has been going to physical therapy which has been helpful. Abo ut a month ago however, she has started to develop neck pain. She says it feels like it goes to her shoulder blades and sometimes into the left arm and it feels like a tingling/nerve pain. It is worse with lying in certain directions and certain positions. She states that some of her leg exercises for her back pain has caused her to raise her neck up in certain ways and that seems to hurt the n casi. It is very intermittent. Has pain, shortness on breath or weakness in the extremities. No bowel or bladder dysfunction. She would be interested in doing physical therapy for her neck. Intermittently using ibuprofen which is temporarily helpful. Psych: her mental health has been stable.. [facility] Medical History Hypotension, unspecified Depression Anxiety Imbalance Tremors of nervous system Acid reflux Palpitations High blood pressure Sinusitis delivery delivered Elbow injury Surgical History [place] teeth extracted Hx of cholecystectomy Hx of appendectomy Family History Father Asthma Maternal Grandmother High blood pressure Diabetes Paternal Grandfather High blood pressure Cardiovascular system problem Brother Asthma Other Depression FH: mental illness Schizophrenia Social History Household Members: Family Housing: Apartment Are you a primary manager career to a significant other at home: Yes Alcohol intake: former Comment: Last drink was a year ago Patient Tobacco Use Status: Never used Tobacco e-Cigarette/Vaping Use: Never Used Special valentin needs: Yes service: No Current occupational status: 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 Cognitive needs: No Hearing needs: No (patient is having tinnitis.) Vision needs: Yes (patient wears glasses) Questionnaire Thrive Questionnaire Date Thrive assessed: 04/05/24 I am a: Patient What is your living situation today?: I have a steady place to live Within the past 12 months, did the food you bought not last and you didn't have the money to get more?: Never true Within the past 12 months, did you worry whether your food would run out before you got money to buy more?: Never true Do you have trouble paying for medicines?: No Do you have trouble getting transportation to medical appointments?: No Do you have trouble paying your heating and electricity bill?: No Do you have trouble taking care of your child, family member or friend?: No Do you have trouble with day-to-day activities such as bathing, preparing meals, shopping, managing finances, etc.?: No Are you currently unemployed and looking for a job?: No Are you interested in more education?: No Please select the resources that you would like help with: None THRIVE Score: 0 LEILANI-7 AMB Questionnaire LEILANI-7 Date LEILANI - 7 assessed: 03/04/23 Source: Developed by Drs. Devin Larson, Kimmy Grijalva, Francisco Park and colleagues, with an educational maggi from [employer]. Physical exam (Primary Care) Vital Signs: Last Vital Signs Temp 97.5 F 01/24/25 08:57 Pulse 81 01/24/25 08:57 Resp 14 01/24/25 08:57 BP 104/74 01/24/25 08:57 Pulse Ox 98 01/24/25 08:57 Oxygen Delivery Method Room Air 01/24/25 08:57 BMI result Body Mass Index 36.0 Tobacco/Smoking Status: Tobacco use Status Tobacco use date assessed 08/08/24 01/24/25 08:56 Patient Tobacco Use Status Never used Tobacco 01/24/25 08:56 e-Cigarette/Vaping Use Never Used 01/24/25 08:56 Thrive Assessment: Date of Thrive Assessment Date Thrive assessed 04/05/24 01/24/25 08:56 Const Orientation/consciousness: patient oriented x3 HENMT Ears: hearing grossly normal bilaterally Neck Neck: Yes full ROM Thyroid: Thyroid normal Lymphatic: no lymphadenopathy noted Resp Auscultation: clear to auscultation bilaterally Cardio Rate: regular rate Rhythm: regular rhythm Heart sounds: S1 normal heart sound present and S2 normal heart sound present Skin General skin exam: no rashes or lesions noted Neuro General: patient oriented x3, gait normal, moves all extremities, no focal motor deficits and deep tendon reflexes 2+ bilaterally Motor exam (neuro): 5/5 motor strength present throughout Coding Level of Care Code Est Pt Level 4 (80173) Add On Problem Visit Only Diagnoses Cervicalgia M54.2 Lumbar pain with radiation down both legs M54.50; M79.604; M79.605 Depression with anxiety F41.8 Assessment & Plan Assessment & Plan (1) Cervicalgia: Code(s): M54.2 - Cervicalgia Category: Medical Plan: xray ordered referral to pt will treat with naproxen 500 mg bid x 2 weeks. (2) Lumbar pain with radiation down both legs: Code(s): M54.50 - Low back pain, unspecified; M79.604 - Pain in right leg; M79.605 - Pain in left leg Category: Medical Plan: Improved. Continue physical therapy (3) Depression with anxiety: Code(s): F41.8 - Other specified anxiety disorders Category: Medical Plan: stable will let me know if any changes with med changes Orders: Orders PT Evaluation and Treatment Today M54.2 - Cervicalgia, M54.50 - Low back pain, unspecified, M79.604 - Pain in right leg, M79.605 - Pain in left leg XR cervical spine 3V Today M54.2 - Cervicalgia Medications: New naproxen 500 mg PO BID 28 tabs 0RF 14 days
[2025-01-24 08:57] VITALS: BP 104/74; PULSE 81; RESP 14; TEMP 36.4; O2SAT 98; BMI 36.0
== END 2025-01-24 10:43 | disposition home or self-care (01) ==
LOC: HO.HMCFM 08:47
PROVIDERS: PCP Physician Assistant; Visit Provider Physician Assistant
DX: M54.2 Cervicalgia (principal); M54.50 Low back pain, unspecified; M79.604 Pain in right leg; M79.605 Pain in left leg; F41.8 Other specified anxiety disorders

== ENCOUNTER 2025-01-24 08:47 | Outpatient (REF) | payer BC, MEDICAID, SELFPAY ==
--- NOTE | ~2025-01-24 | XR_ITS ---
EXAMINATION: XR CERVICAL SPINE CLINICAL INFORMATION: M54.2 - Cervicalgia COMPARISON: None available. TECHNIQUE: 3 views of the cervical spine were obtained. FINDINGS: Bone alignment is normal. No fracture or dislocation. Normal disc spaces. Normal prevertebral soft tissues. XR/XR cervical spine 3V IMPRESSION: Unremarkable examination. Electronically signed by: Mallory Breaux MD 01/24/2025 12:19 PM [facility]
== END 2025-01-24 08:48 | disposition home or self-care (01) ==
LOC: HO.XRAY 08:47
PROVIDERS: PCP Physician Assistant; Visit Provider Physician Assistant
DX: M54.2 Cervicalgia (principal)
CPT/HCPCS: 72040

== ENCOUNTER → 2025-01-24 11:34 | Outpatient (BNV) | payer BC, MEDICAID, SELFPAY | PROVIDERS: PCP Physician Assistant; Visit Provider Radiology Diagnostic Radiology | DX: M54.2 Cervicalgia (principal) | CPT/HCPCS: 72040 ==

== ENCOUNTER 2025-01-27 13:50 | Emergency (ER) | payer BC, MEDICAID, SELFPAY ==
--- NOTE | ~2025-01-27 | XR_ITS ---
CLINICAL HISTORY: R neck pain s p exercise 4 views cervical spine Comparison: None Findings: Evaluation of the C7 is limited by the overlying shoulders. Normal vertebral body alignment. No fractures, dislocations, or degenerative changes. Prevertebral soft tissues normal. Lung apices are unremarkable. Impression: 1. Unremarkable cervical spine This document has been electronically signed by: Alex Ayala MD on 01/27/2025 17:18:43
--- NOTE | ~2025-01-27 | XR_ITS ---
CLINICAL HISTORY: R neck shoulder pain s p exercise 2 views right shoulder Comparison: None Findings: No fractures or dislocations. No significant arthritic change. No radiopaque foreign body. Normal visualized right chest. Impression: 1. Normal right shoulder This document has been electronically signed by: Alex Ayala MD on 01/27/2025 14:44:06
[2025-01-27 14:01] VITALS: BP 138/83; PULSE 75; RESP 18; TEMP 36.1; O2SAT 98; BMI 36.4
--- NOTE | 2025-01-27 14:15 | ED.GENADULT ---
HPI - General Adult General Chief complaint: Extremity Problem Stated complaint: neck/shoulder pain, SOB Time Seen by Provider: 01/27/25 18:12 Source: patient Mode of arrival: ambulatory Limitations: no limitations History of Present Illness ED Provider: ELVIE HERNANDEZ PA-C HPI narrative: 34 year old female presents to the ED today for evaluation of right sided neck/shoulder pain x2 hours. Patient states she was home doing her physical therapy exercises when she turned her neck and felt her neck muscle pull. Reports continued pain/stiffness to the area. She reports taking Naproxen BID at baseline for chronic back pain. She last took this around 1300 today. She did not trial any other pain medications. Denies numbness/tingling/weakness of the extremities, dizziness, headache, vision changes, fever, chills. No blunt injury/trauma. Related Data Home Medications ?Medication ?Instructions ?Recorded ?Confirmed Beet root PO 08/08/24 02/13/25 fish oil PO 08/08/24 02/13/25 iron PO 08/08/24 02/13/25 multivitamin 1 tab PO DAILY 08/08/24 02/13/25 cholecalciferol (vitamin D3) 125 125 mcg PO DAILY 11/13/24 02/13/25 mcg (5,000 unit) capsule calcium 1200 PO 01/24/25 02/13/25 Previous Rx's ?Medication ?Instructions ?Recorded magnesium oxide 400 mg PO DAILY #30 tabs 01/09/24 propranolol 60 mg capsule,24 60 mg PO DAILY #90 caps 12/13/24 hr,extended release fluticasone furoate 100 1 inh inhalation DAILY #30 ea 12/19/24 mcg/actuation blister powder for inhalation (Arnuity Ellipta) albuterol sulfate 90 mcg/actuation 2 puff inhalation Q4-6H PRN 01/01/25 aerosol inhaler shortness of breath or wheezing #1 ea mirtazapine 30 mg tablet 30 mg PO BEDTIME #90 tabs 01/17/25 naproxen 500 mg tablet 500 mg PO BID 14 days #28 tabs 01/24/25 cyclobenzaprine 5 mg tablet 5 mg PO TID PRN muscle pain 3 days 01/27/25 #9 tabs lidocaine 5 % topical patch See Rx Instructions topical 01/27/25 .COMPLEX #15 ea Allergies Allergy/AdvReac Type Severity Reaction Status Date / Time SSRI AdvReac Mild Seratonin Uncoded 02/13/25 10:10 syndrome Review of Systems Review of Systems: Yes all other systems are reviewed and are negative [facility] Past Medical History Attestation statement: The following information was validated with the patient. Source: old records reviewed and nursing notes reviewed Medical History Hypotension, unspecified Depression Anxiety Imbalance Tremors of nervous system Acid reflux Palpitations High blood pressure Sinusitis delivery delivered Elbow injury Surgical History Delta teeth extracted Hx of cholecystectomy Hx of appendectomy Family History Family History Father Asthma Maternal Grandmother High blood pressure Diabetes Paternal Grandfather High blood pressure Cardiovascular system problem Brother Asthma Other Depression FH: mental illness Schizophrenia Social History Social History Household Members: Family Housing: Apartment Are you a 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 a significant other at home: Yes Alcohol intake: former Comment: Last drink was a year ago Patient Tobacco Use Status: Never used Tobacco e-Cigarette/Vaping Use: Never Used Special valentin needs: Yes service: No Current occupational status: 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 Skin: Warm, dry, intact. No rashes or lesions. Head: Normocephalic, atraumatic. EENT: Hearing is intact b/l. Conjunctiva clear. PERRLA. EOM intact. Moist mucous membranes.? Neck: +no midline cervical spinous tenderness or step-off deformity. There is palpable tenderness noted to the right cervical paraspinal musculature with palpable spasm extending over right trapezius. FROM to c spine intact with pain on rightward motion. Cardiac: Chest wall symmetric. RRR Lungs: Normal respiratory effort without accessory muscle use. CTA bilaterally Back: No midline spinous or paraspinal tenderness. No step off deformity. Ext: Upper and lower extremities atraumatic, without tenderness, deformity, swelling or erythema. Full ROM throughout Neuro: AOx3. Normal speech. Strength 5/5 intact throughout. No saddle anesthesia. Sensation intact to light touch. NV intact distally. Ambulating with steady gait. Course Course Course Narrative: This is a Rapid Medical Examination (RME) performed by Thaddeus Hernandez PA-C in triage. Full HPI, ROS, assessment and treatment plan per primary provider in the Main ED. Hx: 34 yo F here for eval of right neck/shoulder pain s/p doing PT exercises this morning for previous neck pain. pain exacerbated w/ deep breathing/yawning. Plan: xrs Reevaluation(s) Reevaluation #1: X-rays unremarkable. Patient has a muscle strain secondary to exercise. Will treat with pain control. Advised PCP follow-up. Patient has remained stable throughout ED visit today. Discussed worrisome signs and symptoms and when to return to the ED. All questions answered at this time. Patient is agreeable with disposition and stable for discharge. Medications Administered Discontinued Medications Generic Name Dose Route Start Last Admin Trade Name Freq PRN Reason Stop Dose Admin Cyclobenzaprine HCl 5 mg 01/27/25 18:28 01/27/25 18:47 Cyclobenzaprine Hcl 5 Mg Tablet PO 01/27/25 18:29 5 mg ONCE ONE Administration Lidocaine 1 patch 01/27/25 18:28 01/27/25 18:45 Lidocaine 4 % Patch Adh..Patch TRANSDERMA 01/27/25 18:29 1 patch ONCE ONE Administration Protocol Medical Decision Making Medical Decision Making MDM Narrative: 34 year old female presents to the ED today for evaluation of right sided neck/shoulder pain x2 hours. vital signs stable, afebrile. she is well appearing, in NAD. on exam, no midline cervical spinous tenderness or step-off deformity. There is palpable tenderness noted to the right cervical paraspinal musculature with palpable spasm extending over right trapezius. FROM to c spine intact with pain on rightward motion. Negative Kernig's, Brudzinski's. Differential diagnosis includes MSK sprain/strain, muscle spasm, cervical radiculopathy. Unlikely fracture, disc herniation, cord compression. Plan for imaging, pain control, re-evaluation. Differential Diagnosis Differential Diagnoses: The differential diagnosis associated with the presentation includes as above. Admission/Observation not indicated Independent Interpretation I performed an independent interpretation of an: Plain X-Ray Interpretation: xr c spine without fracture xr right shoulder without fracture Radiology Impression Discussion of test interpretation with radiology: I have reviewed the radiologist's reading. Radiologist Impression: Procedure(s): XR cervical spine 4V Accession Number(s): [id number] cc: Jacqueline Walters; Elvie Hernandez~ Reason for Exam: R neck pain s/p exercise CLINICAL HISTORY: R neck pain s p exercise 4 views cervical spine Comparison: None Findings: Evaluation of the C7 is limited by the overlying shoulders. Normal vertebral body alignment. No fractures, dislocations, or degenerative changes. Prevertebral soft tissues normal. Lung apices are unremarkable. Impression: 1. Unremarkable cervical spine This document has been electronically signed by: Alex Ayala MD on 01/27/2025 17:18:43 Procedure(s): XR shoulder RT min 2V Accession Number(s): [id number] cc: Elvie Canales~ Reason for Exam: R neck/shoulder pain s/p exercise CLINICAL HISTORY: R neck shoulder pain s p exercise 2 views right shoulder Comparison: None Findings: No fractures or dislocations. No significant arthritic change. No radiopaque foreign body. Normal visualized right chest. Impression: 1. Normal right shoulder This document has been electronically signed by: Alex Ayala MD on 01/27/2025 14:44:06 External Record Review External record reviewed: Inpatient record Prescription Management I considered prescription management with: Pain Medication Social Determinants Patient?s care significantly limited by Social Determinants of Health including: Other Social Determinant of Health Critical Care Time Critical Care Time Critical Care Time: No Discharge Plan Discharge Clinical Impression: Trapezius muscle strain Patient Disposition: Home, Self-Care Instructions: Muscle Strain (ED) Additional Instructions: You were evaluated in the Emergency Department today for your neck/shoulder pain. Your evaluation did not show signs of medical conditions requiring emergent intervention at this time. Avoid bending, lifting, or twisting. Use ice several times per day for 20 minutes at a time for the next 48 hours and then change to heat. Continue taking naproxen as needed for pain. Flexeril is a muscle relaxer. Take this at night as it makes you drowsy. Do not drive, drink alcohol, or operate machinery while taking it. Lidoderm patches are numbing patches. Apply to painful areas. Please schedule an appointment for follow-up with your primary care provider this week for further evaluation of your symptoms. Return to the Emergency Department if you experience worsening back pain, difficulty walking, fevers, numbness, tingling, incontinence, or any other concerning symptoms. In the case of an emergency call 911. Prescriptions: New lidocaine 5 % adhesive patch,medicated See Rx Instructions .ROUTE .COMPLEX Qty: 15 0RF Rx Instructions: leave on most painful area for up to 12 hrs cyclobenzaprine 5 mg tablet 5 mg PO TID PRN (Reason: muscle pain) 3 Days Qty: 9 0RF No Action propranolol 60 mg capsule,extended release 24 hr 60 mg PO DAILY Qty: 90 0RF fluticasone furoate [Arnuity Ellipta] 100 mcg/actuation blister with device 1 inh inhalation DAILY Qty: 30 3RF mirtazapine 30 mg tablet 30 mg PO BEDTIME Qty: 90 0RF cholecalciferol (vitamin D3) 125 mcg (5,000 unit) capsule 125 mcg PO DAILY calcium 1200 PO naproxen 500 mg tablet 500 mg PO BID 14 Days Qty: 28 0RF magnesium oxide 400 mg magnesium tablet 400 mg PO DAILY Qty: 30 3RF multivitamin Tablet 1 tab PO DAILY Beet root PO fish oil PO iron PO albuterol sulfate 90 mcg/actuation HFA aerosol inhaler 2 puff inhalation Q4-6H PRN (Reason: shortness of breath or wheezing) Qty: 1 3RF Interventions: ED Discharge Assessment Last Done: 01/27/25 18:50 Discharge Date/Time: 01/27/25 18:51 Print Language: Albanian
[2025-01-27 17:57] VITALS: BP 138/84; PULSE 70; TEMP 36.4; O2SAT 98
--- OUTSIDE RECORDS SUMMARY | 2025-01-27 18:06 | XMS_ITS | Encounter Summary ---
Author Organization [facility] Address [address] [place] [address] Care Team Providers Care Cash Posting Specialist Name Role Phone Unknown Primary Care Provider [phone] Clair Elaine MD Primary Care Provider [phone] Clair Lawson MD Primary Care Provider [phone] Bailey Gan MD Primary Care Provider [phone] Matthias Chau MD Primary Care Provider + [phone] Encounter Details Date Type Department Care Team (Late st Contact Info) Description 01/17/2018 Prep for Surgery OBGYN IP [address] [place] [id number] Nehal Roberts MD [address] [place] [id number] Dichorionic diamniotic twin in third trimester (Primary [...] documented as of this encounter Care Teams Cash Posting Specialist Relationship Specialty Start Date End Date Unknown Unknow Provider Address PCP - General 01/23/18 02/11/18 Clair Elaine MD [id number] [place] [address] PCP - General Obstetrics and Gynecology 02/12/1802/14 Clair Lawson MD [address] [place] [address] PCP - General 03/01/21 04/02/22 Bailey Gan MD [address] [place] [address] PCP - General Family Medicine 04/03/22 04/23/22 Matthias Chau MD 85 [facility] [address] [place] [address] PCP - General Nephrology 04/24/22 documented as of this encounter
--- OUTSIDE RECORDS SUMMARY | 2025-01-27 18:06 | XMS_ITS | Clinical Summary ---
Author Organization [facility] Prior to 07/14/[address] [place] [address] Care Team Providers Care Rooming House Operator Name Role Phone Matthias Chau MD Primary Care Provider [phone] Allergies Active Allergy Reactions Criticality Noted Date Comments Seasonal 01/01/2021 Serotonin Reuptake Inhibitors (Ssris) 03/23/2022 Medications Medication Sig Dispensed Refills Start Date End Date Status Vit-Fe Fumarate-FA ( PO) Take by mouth daily as needed. Baby and me too 0 Active mirtazapine (REMERON) 15 MG tablet Take 1 tablet (15 mg total) by mouth every night at bedtime. 0 05/27/2022 Active Woodland-3 Fatty Acids (Fish Oil) 1000 MG CAPS Take by mouth. 0 Active clonazePAM (KlonoPIN) 0.5 MG tablet Take 0.5 tablets (0.25 mg total) by mouth daily. 30 tablet 0 08/23/2022 Active lidocaine (LIDODERM) 5 % Place 1 patch onto the skin daily. Remove & Discard patch within 12 hours or as directed by 30 patch 0 09/12/2022 Active ibuprofen 600 [...] Need documentation) Depression Screening 01/01/2022 01/01/2021, 03/27/19 19 Preventative Health Evaluation 01/01/2022 01/01/2021, 01/01/2021 BMI [...] Advance Directives For more information, please contact: [phone] Latest Code Status on File Code Status [...] the following way: discussed . Care Teams Rooming House Operator Relationship Specialty Start Date End Date Matthias Chau MD [address] [address] PCP - General Grades 1 Through 5 Teacher 05/13/22
--- OUTSIDE RECORDS SUMMARY | 2025-01-27 18:06 | XMS_ITS | Clinical Summary ---
Author Organization [facility] Address [address] [place] [address] Phone Care Team Providers Care Deployment Technician Name Role Phone Matthias Chau MD Primary Care Provider [phone] Allergies Active Allergy Reactions Criticality Noted Date [...] LAPAROSCOPY CHOLECYSTECTOMY; Surgeon: Justin Shepard MD; Location: [facility]; Service: General; Laterality: N/A; Medical [...] PM EST Sexual Orientation Not on file Last Filed Vital Signs [...] Insurance [place] - [place] [facility] Care Teams Deployment Technician Relationship Specialty Start Date End Date Matthias Chau MD [address] [id number] PCP - General 05/13/22
--- OUTSIDE RECORDS SUMMARY | 2025-01-27 18:07 | XMS_ITS | Clinical Summary ---
Author Organization [facility] Address [address] [place] [address] Care Team Providers Care Premium Service Representative Name Role Phone Matthias Chau MD Primary Care Provider + [phone] Allergies Active Allergy Reactions Criticality Noted Date [...] Vaccine 09/14/2024 12/09/2020 COVID-19 Vaccine ( - 2024- season) 2024 HIV Screening Completed 07/27/2022, 0804/2021, [...] ANTIBODY Routine 07/27/2022 10:42 AM EDT THINPREP PAP(COMPENSATION ADJUSTER) HPV SCR RFX HPV 16,18/45 Routine 08/21/2020 [...] EDT 07/27/2022 8:39 PM EDT Mariah Kolb [facility] BLOOD ORDERABLES Final R esult Performing Organization Address City/[facility]/ZIP Co de Phone Number [facility] [address] [place], [place] * HEPATITIS C VIRUS (HCV) ANTIBODY (07/27/2022 10:42 AM EDT) Hepatitis C Antibody 0.59 Non-Reacti ve Non-Reacti ve S/CO [facility] Other 07/27/2022 10:4 2 AM EDT 07/27/2022 8:39 PM EDT Mariah Kolb [facility] BLOOD ORDERABLES Final R esult Performing Organization Address [facility] Co de Phone Number [facility] [address] [place], [place] * ThinPrep Pap(Fence Installer Foreman) HPV Scr Rfx HPV 16,18/45 (08/21/2020 2:07 [...] Cervix, Endocervix HPV RESULTS: HPV mRNA E6/E7 [id number] Approved: 08/22/20 Negative REF RANGE: Negative CPT Codes: 33114 ICD Codes: Z01.419 Other 08/21/2020 2:07 PM EDT 08/21/2020 9:28 PM EDT us Antelmo Richmond DO LAB AMB PATH/CYTO ORDERAB LES Final Result Performing Organization Address City/State/[facility] Co de Phone Number [facility] [address] [place], [place] from Last 3 Months or Most Recently Relevant to Health Maintenance Insurance [facility] Advance Directives * Full Code (Latest [...] 4:53 AM 02/27/2018 5:09 AM Care Teams Premium Service Representative Relationship Specialty Start Date End Date Matthias Chau MD [address] [place] [address] [address] [place] [address] PCP - General Nephrology 04/24/22
--- OUTSIDE RECORDS SUMMARY | 2025-01-27 18:07 | XMS_ITS | Encounter Summary ---
Author Organization [facility] Address [address] [place] [address] Care Team Providers Care Char Conveyor Tender Name Role Phone Matthias Chau MD Primary Care Provider + [phone] Encounter Details Date Type Department Care Team (Late st Contact Info) Description 07/20/2022 Scanned Document [facility] Department of Internal Medicine & Nephrology [place] [address] [address] Matthias Chau MD 85 [facility] [address] [place], [place] [id number] Social History Tobacco Use Types Packs/Day Years [...] on filedocumented in this encounter Care Teams Char Conveyor Tender Relationship Specialty Start Date End Date Matthias Chau MD [address] [address] PCP - General Nephrology 04/24/22 documented as of this encounter
--- OUTSIDE RECORDS SUMMARY | 2025-01-27 18:07 | XMS_ITS | Encounter Summary ---
Author Organization [facility] Address [address] [place] [address] Care Team Providers Care Supervisor Painting Department Name Role Phone Matthias Chau MD Primary Care Provider + [phone] Encounter Details Date Type Department Care Team (Late st Contact Info) Description 08/22/2022 Scanned Document [facility] Department of Internal Medicine & Nephrology [place] [address] [address] Matthias Chau MD 85 [facility] [address] [place], [place] [id number] Social History Tobacco Use Types Packs/Day Years [...] in this encounter Care Teams Supervisor Painting Department Relationship Specialty Start Date End Date Matthias Chau MD [address] [address] PCP - General Nephrology 04/24/22 documented as of this encounter
--- OUTSIDE RECORDS SUMMARY | 2025-01-27 18:07 | XMS_ITS | Encounter Summary ---
Author Organization [facility] Address [address] [place] [address] Care Team Providers Care Pipeline Systems Operator Name Role Phone Matthias Chau MD Primary Care Provider + [phone] Encounter Details Date Type Department Care Team (Late st Contact Info) Description 08/22/2022 Scanned Document [facility] Department of Internal Medicine & Nephrology [place] [address] [address] Matthias Chau MD 85 [facility] [address] [place], [place] [phone] Social History Tobacco Use Types Packs/Day Years [...] on filedocumented in this encounter Care Teams Pipeline Systems Operator Relationship Specialty Start Date End Date Matthias Chau MD [address] [address] PCP - General Nephrology 04/24/22 documented as of this encounter
[2025-01-27] MEDS: Lidocaine 4 % Patch ADH..PATCH 1 PATCH TRANSDERMA (18:45)
[2025-01-27 18:50] VITALS: BP 138/84; PULSE 70; RESP 18; TEMP 36.4; O2SAT 98
== END 2025-01-27 18:51 | disposition home or self-care (01) ==
PROVIDERS: Emergency Provider Emergency Medicine Emergency Medical Services; PCP Physician Assistant
DX: S46.811A Strain of other muscles, fascia and tendons at shoulder and upper arm level, right arm, initial encounter (principal); X58.XXXA Exposure to other specified factors, initial encounter; Y93.B9 Activity, other involving muscle strengthening exercises; Y92.009 Unspecified place in unspecified non-institutional (private) residence as the place of occurrence of the external cause; M54.2 Cervicalgia; M25.511 Pain in right shoulder; R06.02 Shortness of breath
CPT/HCPCS: 72050; 73030; 99283

== ENCOUNTER → 2025-01-27 14:41 | Outpatient (BNV) | payer BC, MEDICAID, SELFPAY | PROVIDERS: PCP Physician Assistant; Visit Provider Radiology Diagnostic Radiology | DX: M54.2 Cervicalgia (principal); M25.511 Pain in right shoulder | CPT/HCPCS: 72050; 73030 ==

== ENCOUNTER 2025-02-13 10:07 | Outpatient (AMB) | payer BC, MEDICAID, SELFPAY ==
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
[2025-02-13 10:12] VITALS: BP 110/70; PULSE 68; RESP 14; O2SAT 97; BMI 35.8
--- OUTSIDE RECORDS SUMMARY | 2025-02-13 11:11 | XMS_ITS | Clinical Summary ---
Author Organization [facility] Prior to 07/14/[address] [place] [address] Care Team Providers Care Quality Officer Name Role Phone Matthias Chau MD Primary [...] every night at bedtime. 0 05/27/2022 Active [place]-3 Fatty Acids (Fish Oil) 1000 MG CAPS [...] Advance Directives For more information, please contact: [phone] Latest Code Status on File Code Status [...] following way: discussed . Care Teams Quality Officer Relationship Specialty Start Date End Date Matthias Chau MD [address] [address] PCP - General Peoplesoft Hr Developer 05/13/22
--- OUTSIDE RECORDS SUMMARY | 2025-02-13 11:11 | XMS_ITS | Clinical Summary ---
Author Organization [facility] Address [address] [place] [address] Phone Care Team Providers Care Ward Attendant Name Role Phone Matthias Chau MD Primary Care Provider [phone] Allergies Active Allergy Reactions Criticality Noted Date [...] LAPAROSCOPY CHOLECYSTECTOMY; Surgeon: Justin Shepard MD; Location: [facility]; Service: General; Laterality: N/A; Medical [...] complete this topic Insurance [place] - [place] [facility] Care Teams Ward Attendant Relationship Specialty Start Date End Date Matthias Chau MD [address] [phone] PCP - General 05/13/22
--- OUTSIDE RECORDS SUMMARY | 2025-02-13 11:11 | XMS_ITS | Encounter Summary ---
Author Organization [facility] Address [address] [place] [address] Care Team Providers Care Reinsurance Claim Analyst Name Role Phone Matthias Chau MD Primary Care Provider + [phone] Encounter Details Date Type Department Care Team (Late st Contact Info) Description 08/22/2022 Scanned Document [facility] Department of Internal Medicine & Nephrology [place] [address] [address] Matthias Chau MD 85 [facility] [address] [place], [place] [phone] Social History Tobacco Use Types Packs/Day Years [...] on filedocumented in this encounter Care Teams Reinsurance Claim Analyst Relationship Specialty Start Date End Date Matthias Chau MD [address] [address] PCP - General Nephrology 04/24/22 documented as of this encounter
--- OUTSIDE RECORDS SUMMARY | 2025-02-13 11:11 | XMS_ITS | Encounter Summary ---
Author Organization [facility] Address [address] [place] [address] Care Team Providers Care Poly Packer And Heat Sealer Name Role Phone Unknown Primary Care Provider [phone] Clair Elaine MD Primary Care Provider [phone] Clair Lawson MD Primary Care Provider [phone] Bailey Gan MD Primary Care Provider [phone] Matthias Chau MD Primary Care Provider + [phone] Encounter Details Date Type Department Care Team (Late st Contact Info) Description 01/17/2018 Prep for Surgery OBGYN IP [address] [place] [phone] Nehal Roberts MD [address] [place] [id number] Dichorionic diamniotic twin in third trimester (Primary [...] documented as of this encounter Care Teams Poly Packer And Heat Sealer Relationship Specialty Start Date End Date Unknown Unknow Provider Address PCP - General 01/23/18 02/11/18 Clair Elaine MD [address] [place] [address] PCP - General Obstetrics and Gynecology 02/12/1802/14 Clair Lawson MD [address] [place] [address] PCP - General 03/01/21 04/02/22 Bailey Gan MD [address] [place] [address] PCP - General Family Medicine 04/03/22 04/23/22 Matthias Chau MD [address] [facility] [address] [place] [address] PCP - General Nephrology 04/24/22 documented as of this encounter
--- OUTSIDE RECORDS SUMMARY | 2025-02-13 11:11 | XMS_ITS | Encounter Summary ---
Author Organization [facility] Address [address] [place] [address] Care Team Providers Care Heel Seat Filler Name Role Phone Matthias Chau MD Primary Care Provider + [phone] Encounter Details Date Type Department Care Team (Late st Contact Info) Description 07/20/2022 Scanned Document [facility] Department of Internal Medicine & Nephrology [place] [address] [address] Matthias Chau MD 85 [facility] [address] [place], [place] [phone] Social History Tobacco Use Types Packs/Day Years [...] on filedocumented in this encounter Care Teams Heel Seat Filler Relationship Specialty Start Date End Date Matthias Chau MD [address] [address] PCP - General Nephrology 04/24/22 documented as of this encounter
--- OUTSIDE RECORDS SUMMARY | 2025-02-13 11:11 | XMS_ITS | Encounter Summary ---
Author Organization [facility] Address [address] [place] [address] Care Team Providers Care Melter Operator Name Role Phone Matthias Chau MD Primary Care Provider + [phone] Encounter Details Date Type Department Care Team (Late st Contact Info) Description 08/22/2022 Scanned Document [facility] Department of Internal Medicine & Nephrology [place] [address] [address] Matthias Chau MD 85 [facility] [address] [place], [place] [phone] Social History Tobacco Use Types Packs/Day Years [...] on filedocumented in this encounter Care Teams Melter Operator Relationship Specialty Start Date End Date Matthias Chau MD [address] [address] PCP - General Nephrology 04/24/22 documented as of this encounter
--- OUTSIDE RECORDS SUMMARY | 2025-02-13 11:11 | XMS_ITS | Clinical Summary ---
Author Organization [facility] Address [address] [place] [address] Care Team Providers Care Certified Performance Technologist Name Role Phone Matthias Chau MD Primary Care Provider + [phone] Allergies Active Allergy Reactions Criticality Noted Date [...] ANTIBODY Routine 07/27/2022 10:42 AM EDT THINPREP PAP(UNIVERSITY TEACHER) HPV SCR RFX HPV 16,18/45 Routine 08/21/2020 [...] EDT 07/27/2022 8:39 PM EDT Mariah Kolb [facility] BLOOD ORDERABLES Final R esult Performing Organization Address City/[facility]/ZIP Co de Phone Number [facility] [address] [place] * HEPATITIS C VIRUS (HCV) ANTIBODY (07/27/2022 10:42 AM EDT) Hepatitis C Antibody 0.59 Non-Reacti ve Non-Reacti ve S/CO [facility] Other 07/27/2022 10:4 2 AM EDT 07/27/2022 8:39 PM EDT Mariah Kolb [facility] BLOOD ORDERABLES Final R esult Performing Organization Address [facility] Co de Phone Number [facility] [address] [place] * ThinPrep Pap(Binding End Stitcher) HPV Scr Rfx HPV 16,18/45 (08/21/2020 2:07 PM EDT) Report Report [facility] Comment: Final Gynecological Cytology Report ThinPrep Pap Test, HPV Screen, Reflex HPV Genotype SPECIMEN ADEQUACY: SATISFACTORY FOR EVALUATION; ENDOCERVICAL/TRANSFORMATION ZONE COMPONENT PRESENT. INTERPRETATION: NEGATIVE FOR INTRAEPITHELIAL LESION OR MALIGNANCY. Electronically Signed: Leah Gonsalez, CT (ASCP) CLINICAL INFORMATION: LMP: 07/24/2020 Clinical History: RTN Specimen Source: Cervix, Endocervix HPV RESULTS: HPV mRNA E6/E7 [id number] Approved: 08/22/20 Negative REF RANGE: Negative CPT Codes: 26817 ICD Codes: Z01.419 Other 08/21/2020 2:07 PM EDT 08/21/2020 9:28 PM EDT us Antelmo Richmond DO LAB AMB PATH/CYTO ORDERAB LES Final Result Performing Organization Address City/State/[facility] Co de Phone Number [facility] [address] from Last 3 Months or Most Recently Relevant to Health Maintenance Insurance [facility] [place] [address] [place] [phone] Advance Directives * Full Code (Latest Code [...] 4:53 AM 02/27/2018 5:09 AM Care Teams Certified Performance Technologist Relationship Specialty Start Date End Date Matthias Chau MD [address] [place] [address] [address] [place] [address] PCP - General Nephrology 04/24/22
== END 2025-02-13 10:44 | disposition home or self-care (01) ==
LOC: HO.HMCFM 10:08
PROVIDERS: PCP Physician Assistant; Visit Provider Physician Assistant
DX: M54.2 Cervicalgia (principal); M54.50 Low back pain, unspecified; M79.604 Pain in right leg; M79.605 Pain in left leg; F41.8 Other specified anxiety disorders